=== PATIENT | female | born 1955 | race Caucasian/White ===

== ENCOUNTER → 2018-03-10 07:05 | Outpatient (CLI) | payer BC, SELFPAY ==
--- NOTE | 2018-03-10 07:11 | BI_ITS ---
MAMMOGRAPHY - BILATERAL SCREENING REASON FOR EXAM: Female, 62 years old. Routine annual screening examination. PERTINENT HISTORY: Non-contributory. TECHNIQUE: Digital bilateral breast dunia (3D mammographic acquisition) in the CC and MLO projections. 2-D mediolateral oblique (MLO) and craniocaudad (CC) views of both breasts were obtained. CAD: Full Field Digital Mammography with Computer Added Detection was performed. COMPARISON: Comparison is made with prior study dated February 16, 2017 and February 13, 2016. FINDINGS: Breast Composition: The breasts are heterogeneously dense, which may obscure small masses. There are no dominant masses or suspicious calcifications. No other significant abnormalities are identified. There has been no significant change since the prior study. BI/SCREENING MAMM (CAD), BILAT IMPRESSION: Stable bilateral screening mammogram. Yearly follow-up mammogram recommended. (A) ASSESSMENT CATEGORY: BIRADS Category 1: Negative. A letter regarding these results will be sent to the patient by the facility within 30 days. Approximately 10% of breast cancers are not detected by mammography. A normal mammogram should not delay biopsy of a clinically suspicious abnormality. [id number] Electronically Signed: Johny Iqbal MD at 9:02 EDT Tel [phone], Service support ,
== END ==
PROVIDERS: Family Provider Family Medicine Geriatric Medicine; PCP Family Medicine Geriatric Medicine; Visit Provider Obstetrics & Gynecology
DX: Z12.31 Encounter for screening mammogram for malignant neoplasm of breast (principal)
CPT/HCPCS: 77063; 77067

== ENCOUNTER → 2018-06-08 09:18 | Outpatient (CLI) | payer BC, SELFPAY ==
[2018-06-08 11:40] LABS: AST(SGOT) 16 U/L (15-37); Alanine Aminotransfer ALT/SGPT 25 U/L (13-56); Albumin, Serum 3.5 g/dL (3.2-5.0); Alkaline Phosphatase 62 U/L (45-117); Anion Gap 7 (5-15); BUN 18 mg/dL (7-18); BUN/Creat Ratio 20.9 RATIO (10-20); Calcium,Total 8.6 mg/dL (8.5-10.1); Chloride 103 mmol/L (98-107); Creatinine, Serum 0.86 mg/dL (0.55-1.02); EST Glomerular Filtration Rate 71 mL/min (>60); Est Glom Filt Rate - Afr Amer 86 mL/min (>60); Globulin 3.6 g/dL (2.2-4.2); Glucose 99 mg/dL (74-106); Protein, Total 7.1 g/dL (6.4-8.2); Sodium Level 138 mmol/L (136-145); Thyroid Stim Hormone (TSH) 1.11 uIU/mL (0.358-3.74)
[2018-06-08 11:50] LABS: Vitamin D,25 Hydroxy 47.2 ng/mL (29.95-100.01)
[2018-06-08 12:04] LABS: Absolute Lymphocyte Count 2.22 X10^3/ul (0.83-4.51); Basophil# 0.06 X10^3/uL; Basophil% 0.8 % (0-1); Eosinophil# 0.75 X10^3/uL; Eosinophils% 9.9 % (0-5); Hematocrit 41.3 % (37-47); Hemoglobin 13.6 g/dl (12.0-15.0); Lymphocyte # 2.22 X10^3/ul (4.0); Lymphocyte % 29.3 % (19-41); Mean Corp Hgb Conc 32.9 g/gl (32-36); Mean Corpuscular Hgb 29.9 pg (27.0-32.0); Mean Corpuscular Volume 90.8 fL (81-99); Mean Platelet Vol. 11.1 fl (6.2-12.0); Monocyte# 0.57 X10^3/uL; Monocyte% 7.5 % (0-10); Neutrophil # 3.97 X10^3/uL (2.7-7.7); Neutrophil % 52.4 % (47-70); Platelet Count 343 K/mm3 (150-450); RBC Distribution Width CV 14.1 % (11.6-14.6); Red Blood Count 4.55 M/mm3 (4.2-5.4); White Blood Count 7.6 K/mm3 (4.4-11.0)
[2018-06-08 12:06] LABS: POSITIVE COUNT NO; POSITIVE DIFFERENTIAL NO; POSITIVE MORPHOLOGY NO
== END ==
PROVIDERS: Family Provider Family Medicine Geriatric Medicine; PCP Family Medicine Geriatric Medicine; Visit Provider Family Medicine Geriatric Medicine
DX: I10 Essential (primary) hypertension (principal); E55.9 Vitamin D deficiency, unspecified
CPT/HCPCS: 36415; 80053; 82306; 84443; 85025

== ENCOUNTER → 2019-04-06 11:12 | Outpatient (CLI) | payer BC, SELFPAY ==
[2019-04-06 12:52] LABS: Absolute Lymphocyte Count 1.75 X10^3/uL (0.83-4.51); Absolute Neutrophil Count 4.7 X10^3/uL (2.0-7.7); Basophil# 0.08 X10^3/uL; Basophil% 1.1 % (0-1); Eosinophil# 0.54 X10^3/uL; Eosinophils% 7.1 % (0-5); Hematocrit 42.5 % (37-47); Hemoglobin 13.8 g/dL (12.0-15.0); Lymphocyte # 1.75 X10^3/ul (4.0); Mean Corp Hgb Conc 32.5 g/dL (32-36); Mean Corpuscular Hgb 29.3 pg (27.0-32.0); Mean Corpuscular Volume 90.2 fL (81-99); Mean Platelet Vol. 10.9 fl (6.2-12.0); Monocyte# 0.54 X10^3/uL; Monocyte% 7.1 % (0-10); NRBC Flagged by Analyzer 0 % (0-5); Neutrophil # 4.67 X10^3/uL (2.7-7.7); Neutrophil % 61.4 % (47-70); Platelet Count 351 K/mm3 (150-450); RBC Distribution Width SD 43.2 fl (35.1-43.9); Red Blood Count 4.71 M/mm3 (4.2-5.4); White Blood Count 7.6 K/mm3 (4.4-11.0)
[2019-04-06 13:37] LABS: ALB/GLOB Ratio 0.9 RATIO (0.9-2.4); AST(SGOT) 13 U/L (15-37); Alanine Aminotransfer ALT/SGPT 21 U/L (13-56); Albumin, Serum 3.6 g/dL (3.2-5.0); Alkaline Phosphatase 68 U/L (45-117); Anion Gap 7 (5-15); BUN 15 mg/dL (7-18); BUN/Creat Ratio 18.2 RATIO (10-20); Calcium,Total 9.2 mg/dL (8.5-10.1); Chloride 106 mmol/L (98-107); Creatinine, Serum 0.82 mg/dL (0.55-1.02); EST Glomerular Filtration Rate 75 mL/min (>60); Est Glom Filt Rate - Afr Amer 90 mL/min (>60); Glucose 76 mg/dL (74-106); Potassium 4.4 mmol/L (3.5-5.1); Protein, Total 7.6 g/dL (6.4-8.2); Sodium Level 137 mmol/L (136-145); Thyroid Stim Hormone (TSH) 0.62 uIU/mL (0.358-3.74)
== END ==
PROVIDERS: Family Provider Family Medicine Geriatric Medicine; PCP Family Medicine Geriatric Medicine; Visit Provider Family Medicine Geriatric Medicine
DX: R53.83 Other fatigue (principal)
CPT/HCPCS: 36415; 80053; 84443; 85025

== ENCOUNTER → 2019-04-11 08:12 | Outpatient (CLI) | payer BC, SELFPAY ==
--- NOTE | 2019-04-11 08:15 | BI_ITS ---
MAMMOGRAPHY - BILATERAL SCREENING 3-D TOMOSYNTHESIS REASON FOR EXAM: Female, 63 years old. Bilateral Screening 3-D tomosynthesis PERTINENT HISTORY: No significant family history. TECHNIQUE: 2-D mammograms and 3-D Tomosynthesis of the breast (s) were performed. CAD was performed. COMPARISON: 03/10/2018, 02/16/2017, 02/13/2016. FINDINGS: The breast composition is heterogeneously dense that can obscure small breast masses. Scattered benign calcifications are seen with mild increase since prior. No dense spiculated masses or suspicious microcalcifications are identified. No architectural distortion is identified. There is no skin thickening or retraction. There has been otherwise no other significant change since the prior study. BI/SCREEN MAMM (CAD) W/TANA BILAT IMPRESSION: No mammographic signs of malignancy. Routine yearly mammograms recommended. ASSESSMENT CATEGORY: BIRADS Category 2: Benign. A letter regarding these results will be sent to the patient by the facility within 30 days. FOLLOW UP RECOMMENDATION: Yearly follow up mammogram recommended. (A) Approximately 10% of breast cancers are not detected by mammography. A normal mammogram should not delay biopsy of a clinically suspicious abnormality. Electronically Signed: Guillermo Fontana MD at 16:20 EDT Tel [phone], Service support ,
== END ==
PROVIDERS: Family Provider Family Medicine Geriatric Medicine; PCP Family Medicine Geriatric Medicine; Referring Provider Obstetrics & Gynecology; Visit Provider Obstetrics & Gynecology
DX: Z12.31 Encounter for screening mammogram for malignant neoplasm of breast (principal)
CPT/HCPCS: 77063; 77067

== ENCOUNTER → 2019-04-26 14:18 | Outpatient (CLI) | payer BC, SELFPAY ==
--- NOTE | 2019-04-26 15:00 | RAD_ITS ---
STUDY: BONE LENGTH STUDIES SCANOGRAM. REASON FOR EXAM: Female, 63 years old. Limb length difference. TECHNIQUE: AP views of the lower extremities were obtained for measurement of leg length discrepancy. COMPARISON: None. FINDINGS: There is no evidence of leg length discrepancy. RAD/Bone Length IMPRESSION: No evidence of leg length discrepancy. Electronically Signed: Johny Iqbal, at 13:36 EDT , Service support ,
== END ==
PROVIDERS: Family Provider Family Medicine Geriatric Medicine; PCP Family Medicine Geriatric Medicine; Referring Provider Podiatrist; Visit Provider Podiatrist
DX: M21.70 Unequal limb length (acquired), unspecified site (principal)
CPT/HCPCS: 77073

== ENCOUNTER → 2019-06-15 10:10 | Outpatient (CLI) | payer BC, SELFPAY ==
[2019-06-15 12:52] LABS: Absolute Lymphocyte Count 1.38 X10^3/uL (0.83-4.51); Absolute Neutrophil Count 4.7 X10^3/uL (2.0-7.7); Basophil# 0.07 X10^3/uL; Eosinophil# 0.52 X10^3/uL; Eosinophils% 7.3 % (0-5); Hematocrit 38.7 % (37-47); Hemoglobin 12.5 g/dL (12.0-15.0); Lymphocyte # 1.38 X10^3/ul (4.0); Lymphocyte % 19.4 % (19-41); Mean Corp Hgb Conc 32.3 g/dL (32-36); Mean Corpuscular Hgb 29.1 pg (27.0-32.0); Mean Corpuscular Volume 90.2 fL (81-99); Mean Platelet Vol. 11.3 fl (6.2-12.0); Monocyte% 5.6 % (0-10); NRBC Flagged by Analyzer 0 % (0-5); Neutrophil # 4.74 X10^3/uL (2.7-7.7); Neutrophil % 66.4 % (47-70); Platelet Count 323 K/mm3 (150-450); RBC Distribution Width CV 13.4 % (11.6-14.6); RBC Distribution Width SD 44.1 fl (35.1-43.9); Red Blood Count 4.29 M/mm3 (4.2-5.4); White Blood Count 7.1 K/mm3 (4.4-11.0)
[2019-06-15 13:31] LABS: Vitamin D,25 Hydroxy 47.8 ng/mL (29.95-100.01)
[2019-06-15 13:38] LABS: AST(SGOT) 13 U/L (15-37); Alanine Aminotransfer ALT/SGPT 19 U/L (13-56); Albumin, Serum 3.4 g/dL (3.2-5.0); Alkaline Phosphatase 65 U/L (45-117); Anion Gap 9 (5-15); BUN 15 mg/dL (7-18); BUN/Creat Ratio 18.6 RATIO (10-20); Calcium,Total 8.6 mg/dL (8.5-10.1); Chloride 104 mmol/L (98-107); Creatinine, Serum 0.81 mg/dL (0.55-1.02); EST Glomerular Filtration Rate 76 mL/min (>60); Est Glom Filt Rate - Afr Amer 93 mL/min (>60); Globulin 3.4 g/dL (2.2-4.2); Glucose 129 mg/dL (74-106); Potassium 3.6 mmol/L (3.5-5.1); Protein, Total 6.8 g/dL (6.4-8.2); Sodium Level 138 mmol/L (136-145); Thyroid Stim Hormone (TSH) 0.89 uIU/mL (0.358-3.74)
== END ==
PROVIDERS: Family Provider Family Medicine Geriatric Medicine; PCP Family Medicine Geriatric Medicine; Visit Provider Family Medicine Geriatric Medicine
DX: I10 Essential (primary) hypertension (principal); E55.9 Vitamin D deficiency, unspecified
CPT/HCPCS: 36415; 80053; 82306; 84443; 85025

== ENCOUNTER 2019-06-19 18:27 | Observation (INO) | payer BC, SELFPAY ==
[2019-06-19 18:28] VITALS: BP 159/86; PULSE 81; RESP 27; TEMP 36.7; O2SAT 96; BMI 27.3
--- NOTE | 2019-06-19 18:48 | ED.DCSUM_ITS ---
History of Present Illness Chief Complaint: Nausea/Vomiting/Diarrhea Informant: Patient, Family Onset: Yesterday Narrative: Here with significant other evaluation of reported dizziness starting yesterday with symptoms of nearly passing out. There is no syncopal episodes. No chest pains or shortness of breath. Denies any room spinning or spinning herself. Reports symptoms worse with sitting or movement. Similar symptoms back in July improved with fluids. Denies any vomiting or diarrhea prior however today noted does not episodes of vomiting since 5 PM less than 2 hours ago. No hematemesis. One loose stool. No abdominal pain. No urinary symptoms. No recent illness or cough. No chest pains. Patient denies any allergies. Prior similar symptoms: Yes Past Medical History - Allergies and Home Meds Allergies/Adverse Reactions: Allergies No Known Allergies Allergy (Verified 06/19/19 18:30) Primary Care Physician: Lizandro White Chi, MD [Primary Care Provider] - Review of Systems General: Denies: Chills, Fever, Sweats Eyes: Denies: Visual changes - bilaterally, Diplopia ENT: Denies: Rhinorrhea, Sore throat Cardiovascular: Denies: Chest pain, Palpitations Respiratory: Denies: Dyspnea, Cough, Dyspnea on exertion Gastrointestinal: Reports: Nausea, Vomiting, Diarrhea. Denies: Abdominal pain, Melena, Hematochezia Genitourinary: Denies: Dysuria, Hematuria, Frequency Musculoskeletal: Denies: Back pain, Extremity Pain Skin: Denies: Rash, Wounds Neurological: Denies: Headache, Weakness, Numbness Physical Exam Vital Signs/Narrative: Vital Signs Temp Pulse Resp BP Pulse Ox 06/19/19 18:28 98.1 F 81 27 H 159/86 H 96 Inital Vital Signs reviewed: Yes General: Well nourished, Well developed, - - Sitting still with concerns of movement due to symptoms. Head: Normocephalic, Atraumatic Eyes: Perrl, EOMI, - - No nystagmus ENT: Moist mucous membranes, No rhinorrhea Neck: Supple, Nontender Cardiovascular: Regular rate, Regular rhythm, No murmurs Respiratory: No distress, CTA bilaterally, Chest nontender Abdomen: Soft, Nontender, Nondistended, Normal bowel sounds Back: Nontender, Normal Inspection Extremities: Nontender, No edema Skin: Normal color, No rash Neurological: Alert, Oriented x3, Cranial nerves II-XII grossly intact, Normal Strength, Normal Sensation Psychological: Normal affect, Normal Mood Diagnostic/Tx/Re-eval Abnormal Lab Results 06/19/19 06/19/19 06/19/19 18:44 18:44 18:44 WBC 12.7 H RBC 4.59 Hgb 13.4 Hct 39.6 MCV 86.3 MCH 29.2 MCHC 33.8 RDW Std Deviation 39.0 RDW Coeff of Jesus 12.3 Plt Count 362 MPV 10.4 Immature Gran % (Auto) 0.300 Neut % (Auto) 66.9 Lymph % (Auto) 20.5 [place] % (Auto) 7.8 Eos % (Auto) 4.0 Baso % (Auto) 0.5 Absolute Neuts (auto) 8.5 H Absolute Lymphs (auto) 2.61 Nucleated RBC % 0 Sodium 126 L Potassium 2.5 L* Chloride 88 L Carbon Dioxide 23.0 Anion Gap 15 BUN 11 Creatinine 0.82 Estim Creat Clear Calc 53.68 Est GFR (MDRD) Af Amer 91 Est GFR (MDRD) Non-Af 75 BUN/Creatinine Ratio 13.5 Glucose 145 H Calcium 9.6 Magnesium 1.3 L - EKG Initial EKG Interpretation: Sinus Rhythm - Sinus rate of 74, no ST changes, isolated T wave inversion in leads III. QTc 430. - Medical Decision Making Patient nontoxic appears uncomfortable with nausea symptoms. EKG nonspecific T wave inversion. She given fluids Phenergan clinically improving symptoms. However labs noted potassium 2.5 and sodium 126. I did add a magnesium was returned at 1.3. IV replacement of magnesium nausea was improved therefore oral potassium was given. These are new electrolyte findings from 4 days ago. She is on hydrochlorothiazide. However with significant electrolyte abnormalities do feel she would benefit from inpatient management. Discussed with Dr. Joe hospitalist for admission to telemetry. Family and patient updated. ED Disposition - Plan for ED Patient: Disposition: Acute Care [facility] Diagnosis: Hypokalemia, Hypomagnesemia, Hyponatremia Referrals: Lizandro White Chi, MD [Primary Care Provider] -
[2019-06-19] MEDS: 0.9% Normal Saline 1,000 ML 1000 ML IV (18:52)
[2019-06-19] MEDS: proMETHazine 25 MG/ML Syringe 12.5 MG IV (18:53)
[2019-06-19 19:02] LABS: Absolute Lymphocyte Count 2.61 X10^3/uL (0.83-4.51); Absolute Neutrophil Count 8.5 X10^3/uL (2.0-7.7); Basophil# 0.06 X10^3/uL; Basophil% 0.5 % (0-1); Eosinophil# 0.51 X10^3/uL; Hematocrit 39.6 % (37-47); Hemoglobin 13.4 g/dL (12.0-15.0); Lymphocyte # 2.61 X10^3/ul (4.0); Lymphocyte % 20.5 % (19-41); Mean Corp Hgb Conc 33.8 g/dL (32-36); Mean Corpuscular Hgb 29.2 pg (27.0-32.0); Mean Corpuscular Volume 86.3 fL (81-99); Mean Platelet Vol. 10.4 fl (6.2-12.0); Monocyte# 0.99 X10^3/uL; Monocyte% 7.8 % (0-10); NRBC Flagged by Analyzer 0 % (0-5); Neutrophil # 8.51 X10^3/uL (2.7-7.7); Neutrophil % 66.9 % (47-70); Platelet Count 362 K/mm3 (150-450); RBC Distribution Width CV 12.3 % (11.6-14.6); Red Blood Count 4.59 M/mm3 (4.2-5.4); White Blood Count 12.7 K/mm3 (4.4-11.0)
[2019-06-19 19:16] LABS: Anion Gap 15 (5-15); BUN 11 mg/dL (7-18); BUN/Creat Ratio 13.5 RATIO (10-20); Calcium,Total 9.6 mg/dL (8.5-10.1); Chloride 88 mmol/L (98-107); Creatinine, Serum 0.82 mg/dL (0.55-1.02); EST Glomerular Filtration Rate 75 mL/min (>60); Est Glom Filt Rate - Afr Amer 91 mL/min (>60); Estimated Creatinine Clearance 53.68 ml/min; Glucose 145 mg/dL (74-106); Potassium 2.5 mmol/L (3.5-5.1); Sodium Level 126 mmol/L (136-145)
--- NOTE | 2019-06-19 19:17 | EKG12_ITS ---
Test Reason : N/V Blood Pressure : / mmHG Vent. Rate : 074 BPM Atrial Rate : 074 BPM P-R Int : 166 ms QRS Dur : 090 ms QT Int : 388 ms P-R-T Axes : 056 029 024 degrees QTc Int : 430 ms Normal sinus rhythm Normal ECG Confirmed by GABRIELLE STEVENS ([id number]), social media editor MINAL WIKLS ([id number]) on 06/26/2019 9:02:51 AM Referred By: Shayla Joe Confirmed By:GABRIELLE STEVENS
--- NOTE | 2019-06-19 19:35 | ED.RN ---
NO OLD EKG
[2019-06-19 19:49] LABS: Magnesium 1.3 mg/dL (1.6-2.6)
[2019-06-19 19:59] VITALS: PULSE 65; RESP 16; TEMP 36.7
--- NOTE | 2019-06-19 20:22 | HP.PCM_ITS ---
Problem List (1) Gastroenteritis Status: Acute (2) Hypokalemia Status: Acute (3) Hypomagnesemia Status: Acute (4) Hyponatremia Status: Acute (5) GERD (gastroesophageal reflux disease) Status: Chronic Qualifiers: Esophagitis presence: esophagitis presence not specified Qualified Code(s): K21.9 - Gastro-esophageal reflux disease without esophagitis (6) HTN (hypertension) Status: Chronic Qualifiers: Hypertension type: essential hypertension Qualified Code(s): I10 - Essential (primary) hypertension History of Present Illness Date of Admission: 06/19/19 Chief Complaint: N/V/D The patient is a 63 y/o F w/ PMHx: HTN, GERD who presents to the [facility] ED on 06/19/19 with history of onset over 24 hours of persistent nausea, intermittent emesis, diarrhea (1-3 episodes daily) with lightheadedness, dizziness with no related abdominal pain nor recent antibiotic therapy with similar symptoms in July 2018 as well as over the Summer 2018 she notes with no marked work-up at that time with eventual resolution. She notes no recent abnormal food and not ill. No fevers or chills associated. Work-up in the ED included T 98.1, heart rate 81, BP 159/86, respiratory rate initially 27 with improvement to 16, 96% on room air, CBC with W BC 12.7, hemoglobin 13.4, platelet 362 with left shift, BMP with sodium 126, potassium 2.5, chloride 88, BUN/creatinine 11/0.82, glucose 145, magnesium 1.3, EKG with no acute evidence of ischemia. In the ED patient ministered 2 g magnesium sulfate, potassium 40 mg p.o. x1, normal saline, Phenergan x1. Past Medical History Past Medical History (Chronic Problems): Chronic Problems HTN (hypertension) (Chronic) GERD (gastroesophageal reflux disease) (Chronic) Allergies No Known Allergies Allergy (Verified 06/19/19 18:30) Home Medications: Ambulatory Orders Medication Instructions Recorded Estradiol [Estrace (G)] 1 tab PO DAILY 06/19/19 Famotidine 40 mg PO DAILY 06/19/19 Lisinopril/Hydrochlorothiazide 10 mg PO DAILY 06/19/19 [Lisinopril-Hctz 10-12.5 mg Tab] Oxybutynin Chloride [Ditropan Xl] 10 mg PO DAILY 06/19/19 Zolpidem Tartrate [Zolpidem 6.25 mg PO DAILY 06/19/19 Tartrate ER] Surgical History: - - Hysterectomy, cholecystectomy, left lower extremity surgery with hardware status post trauma. 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 Tobacco Use: Non-smoker Alcohol: None Drugs: None - *Family History Maternal History Items: Heart Disease, Stroke Paternal History Items: Heart Disease Review of Systems Constitutional: Reports: Anorexia, Malaise, Weakness, Fatigue. Denies: Chills, Fever, Weight Change HEENT: Denies: Head Aches, Sinus Congestion, Sinus Drainage Cardiovascular: Reports: Light Headedness. Denies: Chest Pain, Palpitations Respiratory: Denies: Cough, Shortness of breath at rest, Sputum production Gastrointestinal: Reports: Diarrhea, Nausea, Vomiting. Denies: Abdominal Pain Genitourinary: Denies: Dysuria Musculoskeletal: Denies: Joint Pain, Joint Tenderness Skin: Denies: Rash, Wounds Neurological: Denies: Numbness, Tingling, Focal weakness Psychiatric: Denies: Anxiety, Depression, Homicidal Ideations, Suicidal Ideations Hematologic/ Lymphatic: Denies: Easy Bruising, Easy Bleeding VTE Information - Inpt Only VTE Present on Admission: No VTE Mechan Device Prophylaxis: SCD's VTE Pharm Prophylaxis ordered?: Yes Patient Problems: Active and Suspected Problems Hypokalemia (Acute) Hypomagnesemia (Acute) Hyponatremia (Acute) Gastroenteritis (Acute) Subjective: Seated upright in ED bed, fatigued appearance, no acute distress. Objective: Physical Examination: General: awake, alert, oriented x 3 and cooperative, seated upright in the ED bed, no acute distress although still holding emesis bag. Skin: normal color, turgor, no icterus, cyanosis. HEENT: AT/NC, EOMI, PERRLA, dry MM, no carotid bruits or JVD noted. Lungs: CTA bilaterally, moderate effort, moderate decrease BL bases, no rales, ronchi or wheezing. Heart: Regular rate and rhythm; no gallop, rub audible. Abdomen: soft, NTTP, ND, mildly hyperactive BS, no HSM. Extremities: no cyanosis, clubbing, or edema. Neurological: patient awake, alert, oriented x 3; cognitive function intact; pupils equally reactive to light and accomodation; cranial nerves II-XII grossly normal, moving all 4 extremities, no focal deficits, strength mildly to moderately global decrease secondary to acute presentation. Psychiatric: affect appears fatigued, no acute evidence of depressive or anxiety feelings. - Physical Exam Vitals/I&O's: Vital Signs Temp Pulse Resp BP Pulse Ox 98.1 F 65 16 159/86 H 96 06/19/19 19:59 06/19/19 19:59 06/19/19 19:59 06/19/19 18:28 06/19/19 18:28 Oxygen Delivery Method Room Air Weight: 145 lb Body Mass Index (BMI) 27.3 Laboratory Results 06/19/19 18:44: WBC 12.7 H, RBC 4.59, Hgb 13.4, Hct 39.6, MCV 86.3, MCH 29.2, MCHC 33.8, RDW Std Deviation 39.0, RDW Coeff of Jesus 12.3, Plt Count 362, MPV 10.4, Immature Gran % (Auto) 0.300, Neut % (Auto) 66.9, Lymph % (Auto) 20.5, [place] % (Auto) 7.8, Eos % (Auto) 4.0, Baso % (Auto) 0.5, Absolute Neuts (auto) 8.5 H, Absolute Lymphs (auto) 2.61, Nucleated RBC % 0 06/19/19 18:44: Sodium 126 L, Potassium 2.5 L*, Chloride 88 L, Carbon Dioxide 23.0, Anion Gap 15, BUN 11, Creatinine 0.82, Estim Creat Clear Calc 53.68, Est GFR (MDRD) Af Amer 91, Est GFR (MDRD) Non-Af 75, BUN/Creatinine Ratio 13.5, Glucose 145 H, Calcium 9.6 06/19/19 18:44: Magnesium 1.3 L Current Medications Magnesium Sulfate 2 gm/ Sodium (Chloride) 104 mls @ 52 mls/hr IV X1 ONE Stop: 06/19/19 22:06 Assessment/Plan All Active Problems Hypokalemia (Acute) Hypomagnesemia (Acute) Hyponatremia (Acute) Gastroenteritis (Acute) The patient is a 63 y/o F w/ PMHx: HTN, GERD who presents to the [facility] ED on 06/19/19 with history of onset over 24 hours of persistent nausea, intermittent emesis, diarrhea with lightheadedness, dizziness with no related abdominal pain. (1) N/V/D, ? Viral Gastroenteritis: Unclear specific etiology, will admit to MS telemetry, will continue aggressive hydration, will obtain c diff, stool cx, O+P with repeat AM CBC. Will not start antibiotics at this time given unclear source pending stool studies as may be viral gastroenteritis. Anti-emetics, pain regimen PRN. (2) Hypokalemia: Admission K+ 2.5, supplementation given in the ED orally however given presentation we will also administer IV supplementation, repeat level this evening as well as repeat level in AM. (3) Hypomagnesium: Admission magnesium 1.3, 2 g supplementation administered per ED, will repeat level in a.m. but likely may need additional. (4) Hyponatremia, hypovolemic: Admission sodium 126, hypovolemic given acute presentation with GI losses, continue aggressive hydration, repeat level in AM. (5) Hyperglycemia: Admission glucose 145, possibly secondary to stress response, repeat BMP in a.m. and if further elevated obtain A1c level. (6) Hypertension: Given acute presentation as noted above we will hold diuretic, PRN IV hydralazine in interim. (7) GERD: Famotidine. (8) DVT Prophylaxis: SCDs, lovenox. Code Visit OBSV E&M: 80215 Initial observation care L3
[2019-06-19] MEDS: 0.9% Normal Saline 1,000 ML 150 ML IV (21:41)
[2019-06-19 21:50] VITALS: BP 135/85; PULSE 65; RESP 18; TEMP 36.6; O2SAT 96
[2019-06-19 22:14] VITALS: BMI 28.3
[2019-06-19 22:26] VITALS: BMI 28.3
[2019-06-19] MEDS: Famotidine 20 MG Tablet 40 MG PO (22:42)
[2019-06-19] MEDS: Potassium Chloride 10mEq/100mL 10 MEQ/100 ML IV.SOLN. 100 MEQ IV BOLUS ×2 (22:43→23:59)
[2019-06-19 23:30] VITALS: PULSE 56
[2019-06-20] VITALS (8 sets, daily range): BP systolic 120–146; BP diastolic 63–97; PULSE 58–84; RESP 18; TEMP 36.6–36.9; O2SAT 95–99
[2019-06-20] MEDS: Potassium Chloride 10mEq/100mL 10 MEQ/100 ML IV.SOLN. 100 MEQ IV BOLUS ×2 (01:11→02:23)
[2019-06-20] MEDS: 0.9% Normal Saline 1,000 ML 150 ML IV ×2 (03:57→10:57)
[2019-06-20 05:54] LABS: Absolute Lymphocyte Count 1.83 X10^3/uL (0.83-4.51); Absolute Neutrophil Count 5.7 X10^3/uL (2.0-7.7); Basophil# 0.05 X10^3/uL; Basophil% 0.6 % (0-1); Eosinophil# 0.31 X10^3/uL; Eosinophils% 3.6 % (0-5); Hematocrit 37.6 % (37-47); Hemoglobin 12.5 g/dL (12.0-15.0); Lymphocyte # 1.83 X10^3/ul (4.0); Mean Corp Hgb Conc 33.2 g/dL (32-36); Mean Corpuscular Hgb 29.1 pg (27.0-32.0); Mean Corpuscular Volume 87.6 fL (81-99); Mean Platelet Vol. 10.6 fl (6.2-12.0); Monocyte# 0.74 X10^3/uL; Monocyte% 8.5 % (0-10); NRBC Flagged by Analyzer 0 % (0-5); Neutrophil # 5.73 X10^3/uL (2.7-7.7); Neutrophil % 65.8 % (47-70); Platelet Count 301 K/mm3 (150-450); RBC Distribution Width CV 12.5 % (11.6-14.6); RBC Distribution Width SD 39.9 fl (35.1-43.9); Red Blood Count 4.29 M/mm3 (4.2-5.4); White Blood Count 8.7 K/mm3 (4.4-11.0)
[2019-06-20 06:19] LABS: Anion Gap 5 (5-15); BUN 8 mg/dL (7-18); BUN/Creat Ratio 13.1 RATIO (10-20); Calcium,Total 8.2 mg/dL (8.5-10.1); Chloride 106 mmol/L (98-107); Creatinine, Serum 0.61 mg/dL (0.55-1.02); EST Glomerular Filtration Rate 105 mL/min (>60); Est Glom Filt Rate - Afr Amer 127 mL/min (>60); Estimated Creatinine Clearance 72.16 ml/min; Glucose 94 mg/dL (74-106); Magnesium 2.3 mg/dL (1.6-2.6); Potassium 4.3 mmol/L (3.5-5.1); Sodium Level 137 mmol/L (136-145)
[2019-06-20] MEDS: Tolterodine Tartrate 2 MG CAP.SA PO (08:00)
[2019-06-20] MEDS: Famotidine 20 MG Tablet 40 MG PO (08:00)
--- NOTE | 2019-06-20 15:14 | CHAPLAIN ---
Type of Pastoral Visit _x__ Initial Visit ___ Follow-up Visit ___ On-call Visit ___ General Patient Visit ___ Spiritual Assessment ___ Family Conference ___ Bereavement ___ Rapid Response ___ Code Blue ___ Other (describe below) Pastoral Care Referral From _x__ Patient ___ Family ___ Nurse ___ Physician ___ Floor Molder ___ Computer Animator ___ Other (describe below) Sacrament/Intervention _x__ Active listening ___ Anointing ___ Uatsdin ___ Bereavement ___ Communion _x__ Lala exploration ___ ___ Life review _x__ Prayer ___ Reconciliation ___ Sacrament of Sick _x__ Supportive presence ___ Wedding ___ Other (describe below) Pastoral Comments
--- NOTE | 2019-06-20 15:36 | PCM.DC ---
- Discharge Diagnoses Current Active Problems: Current Active and Chronic Problems Hypokalemia (Acute) Hypomagnesemia (Acute) Hyponatremia (Acute) Gastroenteritis (Acute) HTN (hypertension) (Chronic) GERD (gastroesophageal reflux disease) (Chronic) You will use the following diet at home:: No restrictions Your food should be the consistency of: Regular Your liquids should be the consistency of: Regular/Thin Discharge Activity: Return to Normal Activity Weight Bearing Status: Full weight bearing Allergies/Adverse Reactions: Allergies No Known Allergies Allergy (Verified 06/19/19 18:30) Medications to take at Discharge Estradiol [Estrace (G)] 1 tab PO DAILY 06/19/19 Famotidine 40 mg PO DAILY 06/19/19 Oxybutynin Chloride [Ditropan Xl] 10 mg PO DAILY 06/19/19 Zolpidem Tartrate [Zolpidem Tartrate ER] 6.25 mg PO DAILY 06/19/19 Lisinopril 20 mg PO DAILY #30 tab 06/20/19 Pantoprazole Sodium [Protonix] 40 mg PO DAILY #30 tab 06/20/19 The following prescriptions were given: Lisinopril 20 mg PO DAILY #30 tab Transmission Status: Pending to [facility]/pharmacy #[id number] Pantoprazole Sodium [Protonix] 40 mg PO DAILY #30 tab Transmission Status: Pending to [facility]/pharmacy #[id number] Primary Care Physician: Lizandro White Chi, MD [Primary Care Provider] - Please follow up with your Primary Care Physician in: within one week-get your chemistry rechecked Test Results: Test results from this visit will be discussed in further detail at your follow-up appointment, if applicable.
--- NOTE | 2019-06-20 18:08 | DS.PCM_ITS ---
Discharge Date and Diagnosis Date of Admission: 06/19/19 Date of Discharge: 06/20/19 - Primary Discharge Diagnosis #1 hypokalemia-secondary to gastroenteritis with use of diuretic #2 hypomagnesemia-secondary to gastroenteritis with the use of diuretic #3 hyponatremia secondary to viral gastroenteritis #4 viral gastroenteritis #5 essential hypertension - Secondary Discharge Diagnosis Chronic Problems HTN (hypertension) (Chronic) GERD (gastroesophageal reflux disease) (Chronic) Hospital Course and Treatment Operations: None Procedures: None Summary of Care Provided: The patient is a 63 year old F who was seen in the emergency room at [facility] with a chief complaint of lightheadedness nausea, intermittent emesis, and an episode of diarrhea. Work-up in the emergency room included labs which showed the patient to have low magnesium, low sodium, and low potassium. Patient was placed in observation status on MedSurg 3, given IV fluids and antiemetics as needed, replacement potassium and magnesium was administered, stool was obtained for enteric pathogens and was negative, patient stool was negative for C. difficile toxin, and at the time of this dictation, patient's ova and parasite on her stool had not resulted. On 06/20/2019, patient was seen and examined, she felt improved. On examination she appeared in good health and spirits. Vital signs as documented. Skin warm and dry and without overt rashes. Neck without JVD. Lungs clear. Heart exam notable for regular rhythm, normal sounds and absence of murmurs, rubs or gallops. Abdomen unremarkable and without evidence of organomegaly, masses, or abdominal aortic enlargement. Extremities nonedematous. Neuro: Cranial nerves II through XII are grossly intact, no focal motor deficits were noted, sensation to light touch and pinprick is intact. Psych: Patient is alert and oriented x3, she does not appear anxious or depressed I decided to take the patient off of diuretics, I did not feel the patient needed to be discharged on any antibiotics. Patient was discharged on 06/20/2019 in stable condition. - Physical Exam Vitals/I&O's: Vital Signs Temp Pulse Resp BP Pulse Ox 98.2 F 83 18 145/94 H 98 06/20/19 14:01 06/20/19 14:01 06/20/19 14:01 06/20/19 14:01 06/20/19 14:01 Oxygen Delivery Method Room Air Weight: 68 kg Body Mass Index (BMI) 28.3 Intake and Output for Last 24 Hours 06/18/19 06/19/19 06/20/19 23:59 23:59 23:59 Intake Total 1204 / 1204 3317.5 / 3317.5 Output Total 1850 / 1850 Balance 1204 / 1204 1467.5 / 1467.5 Microbiology Past 72 Hours 06/19/19 08:44 Stool Enteric Bacteriology - Final 06/19/19 08:44 Stool C. difficile DNA Amplification - Final Laboratory Results 06/19/19 18:44: WBC 12.7 H, RBC 4.59, Hgb 13.4, Hct 39.6, MCV 86.3, MCH 29.2, MCHC 33.8, RDW Std Deviation 39.0, RDW Coeff of Jesus 12.3, Plt Count 362, MPV 10.4, Immature Gran % (Auto) 0.300, Neut % (Auto) 66.9, Lymph % (Auto) 20.5, [place] % (Auto) 7.8, Eos % (Auto) 4.0, Baso % (Auto) 0.5, Absolute Neuts (auto) 8.5 H, Absolute Lymphs (auto) 2.61, Nucleated RBC % 0 06/19/19 18:44: Sodium 126 L, Potassium 2.5 L*, Chloride 88 L, Carbon Dioxide 23.0, Anion Gap 15, BUN 11, Creatinine 0.82, Estim Creat Clear Calc 53.68, Est GFR (MDRD) Af Amer 91, Est GFR (MDRD) Non-Af 75, BUN/Creatinine Ratio 13.5, Glucose 145 H, Calcium 9.6 06/19/19 18:44: Magnesium 1.3 L 06/20/19 05:30: WBC 8.7, RBC 4.29, Hgb 12.5, Hct 37.6, MCV 87.6, MCH 29.1, MCHC 33.2, RDW Std Deviation 39.9, RDW Coeff of Jesus 12.5, Plt Count 301, MPV 10.6, Immature Gran % (Auto) 0.500, Neut % (Auto) 65.8, Lymph % (Auto) 21.0, [place] % (Auto) 8.5, Eos % (Auto) 3.6, Baso % (Auto) 0.6, Absolute Neuts (auto) 5.7, Absolute Lymphs (auto) 1.83, Nucleated RBC % 0 06/20/19 05:30: Sodium 137, Potassium 4.3, Chloride 106, Carbon Dioxide 26.0, Anion Gap 5, BUN 8, Creatinine 0.61, Estim Creat Clear Calc 72.16, Est GFR (MDRD) Af Amer 127, Est GFR (MDRD) Non-Af 105, BUN/Creatinine Ratio 13.1, Glucose 94, Calcium 8.2 L, Magnesium 2.3 06/20/19 08:44: Stl Giardia Antigen Cancelled Discharge Activity: Return to Normal Activity Weight Bearing Status: Full weight bearing Home Medications: Medications to take at Discharge Estradiol [Estrace (G)] 1 tab PO DAILY 06/19/19 Famotidine 40 mg PO DAILY 06/19/19 Oxybutynin Chloride [Ditropan Xl] 10 mg PO DAILY 06/19/19 Zolpidem Tartrate [Zolpidem Tartrate ER] 6.25 mg PO DAILY 06/19/19 Lisinopril 20 mg PO DAILY #30 tab 06/20/19 Pantoprazole Sodium [Protonix] 40 mg PO DAILY #30 tab 06/20/19 Following Prescrptions Were Given to Patient: Lisinopril 20 mg PO DAILY #30 tab Transmission Status: Received by [facility]/pharmacy #[id number] Pantoprazole Sodium [Protonix] 40 mg PO DAILY #30 tab Transmission Status: Received by [facility]/pharmacy #[id number] Primary Care Physician: Lizandro White Chi, MD [Primary Care Provider] - Please follow up with your Primary Care Physician in: within one week-get your chemistry rechecked Disposition: Home Minutes spent on discharge:: 30 Patient Condition:: Stable Medical Necessity - Tobacco Use Smoking Status: Former smoker - Patient notes smoking cigarette tobacco use from 79- 81, 6 cigarettes/day. Tobacco Use: Non-smoker Meaningful Use Info Meaningful Use Diagnoses (Choose all that apply): None applicable Code Visit OBSV E&M: 81842 Observation care discharge
== END 2019-06-20 16:09 | disposition home or self-care (01) ==
LOC: ED 20:49 → MS3 20:59
PROVIDERS: Admitting Provider Family Medicine; Emergency Provider Emergency Medicine; Family Provider Family Medicine Geriatric Medicine; PCP Family Medicine Geriatric Medicine; Referring Provider Family Medicine; Visit Provider Internal Medicine
DX: A08.4 Viral intestinal infection, unspecified (principal); E87.6 Hypokalemia; E87.1 Hypo-osmolality and hyponatremia; E83.42 Hypomagnesemia; I10 Essential (primary) hypertension; K21.9 Gastro-esophageal reflux disease without esophagitis; Z79.899 Other long term (current) drug therapy; Z87.891 Personal history of nicotine dependence; R73.9 Hyperglycemia, unspecified
CPT/HCPCS: 36415; 80048; 83735; 85025; 87177; 87209; 87329; 87493; 87506; 93005; 96361; 96374; 99218; 99285; J7030; A4216; G0378

== ENCOUNTER → 2019-06-29 16:45 | Outpatient (CLI) | payer BC, SELFPAY ==
[2019-06-19 22:14] VITALS: BMI 28.3
[2019-06-29 18:13] LABS: Anion Gap 7 (5-15); BUN 15 mg/dL (7-18); Calcium,Total 8.8 mg/dL (8.5-10.1); Chloride 105 mmol/L (98-107); Creatinine, Serum 0.65 mg/dL (0.55-1.02); EST Glomerular Filtration Rate 98 mL/min (>60); Est Glom Filt Rate - Afr Amer 118 mL/min (>60); Glucose 87 mg/dL (74-106); Magnesium 2.2 mg/dL (1.6-2.6); Potassium 3.9 mmol/L (3.5-5.1); Sodium Level 139 mmol/L (136-145)
== END ==
PROVIDERS: Family Provider Family Medicine Geriatric Medicine; PCP Family Medicine Geriatric Medicine; Visit Provider Family Medicine Geriatric Medicine
DX: E83.49 Other disorders of magnesium metabolism (principal); E87.6 Hypokalemia
CPT/HCPCS: 36415; 80048; 83735

== ENCOUNTER → 2020-04-18 13:20 | Outpatient (CLI) | payer OTHER, SELFPAY ==
--- NOTE | 2020-04-18 13:25 | BI_ITS ---
MAMMOGRAPHY - BILATERAL SCREENING REASON FOR EXAM: Female, 64 years old. Routine annual screening examination. PERTINENT HISTORY: Non-contributory. TECHNIQUE: Digital bilateral breast tana (3D mammographic acquisition) in the CC and MLO projections. 2-D mediolateral oblique (MLO) and craniocaudad (CC) views of both breasts were obtained. CAD: Full Field Digital Mammography with Computer Added Detection was performed. COMPARISON: Comparison is made with prior examination dated 04/11/2019. FINDINGS: Breast Composition: The breasts are heterogeneously dense, which may obscure small masses. There are no dominant masses or suspicious calcifications. No other significant abnormalities are identified. There has been no significant change since the prior study. BI/SCREEN MAMM (CAD) W/TANA BILAT IMPRESSION: Stable bilateral screening mammogram. Yearly follow-up mammogram recommended. (A) ASSESSMENT CATEGORY: BIRADS Category 1: Negative. A letter regarding these results will be sent to the patient by the facility within 30 days. Approximately 10% of breast cancers are not detected by mammography. A normal mammogram should not delay biopsy of a clinically suspicious abnormality. [id number] Electronically Signed: Johny Iqbal, at 14:15 EDT , Service support ,
== END ==
PROVIDERS: PCP Family Medicine Geriatric Medicine; Referring Provider Obstetrics & Gynecology; Visit Provider Obstetrics & Gynecology
DX: Z12.31 Encounter for screening mammogram for malignant neoplasm of breast (principal)
CPT/HCPCS: 77063; 77067

== ENCOUNTER → 2020-06-19 15:14 | Outpatient (CLI) | payer OTHER, SELFPAY ==
[2020-06-19 18:16] LABS: Vitamin D,25 Hydroxy 50.5 ng/mL
[2020-06-19 18:35] LABS: Anion Gap 6 (5-15); BUN 13 mg/dL (7-18); BUN/Creat Ratio 14.5 RATIO (10-20); Calcium,Total 8.8 mg/dL (8.5-10.1); Chloride 106 mmol/L (98-107); Cholesterol 199 mg/dL (200); EST Glomerular Filtration Rate 67 mL/min (>60); Est Glom Filt Rate - Afr Amer 82 mL/min (>60); Glucose 96 mg/dL (74-106); High Density Lipoprotein 66 mg/dL; Potassium 4.1 mmol/L (3.5-5.1); Sodium Level 138 mmol/L (136-145); Thyroid Stim Hormone (TSH) 0.75 uIU/mL (0.358-3.74); Triglycerides 140 mg/dL; Very Low Density Lipoprotein 28 mg/dL (5-40)
== END ==
PROVIDERS: PCP Family Medicine; Referring Provider Family Medicine; Visit Provider Family Medicine
DX: I10 Essential (primary) hypertension (principal); R53.83 Other fatigue; M81.0 Age-related osteoporosis without current pathological fracture
CPT/HCPCS: 36415; 80048; 80061; 82306; 84443

== ENCOUNTER → 2020-10-23 14:53 | Outpatient (CLI) | payer OTHER, SELFPAY ==
[2020-10-23 18:20] LABS: Anion Gap 7 (5-15); BUN 14 mg/dL (7-18); BUN/Creat Ratio 16.7 RATIO (10-20); Calcium,Total 9.4 mg/dL (8.5-10.1); Chloride 105 mmol/L (98-107); Creatinine, Serum 0.84 mg/dL (0.55-1.02); EST Glomerular Filtration Rate 73 mL/min (>60); Est Glom Filt Rate - Afr Amer 88 mL/min (>60); Glucose 87 mg/dL (74-106); Potassium 4.4 mmol/L (3.5-5.1); Sodium Level 138 mmol/L (136-145)
== END ==
PROVIDERS: PCP Family Medicine; Referring Provider Family Medicine; Visit Provider Family Medicine
DX: I10 Essential (primary) hypertension (principal)
CPT/HCPCS: 36415; 80048

== ENCOUNTER → 2021-03-03 11:20 | Outpatient (CLI) | payer OTHER, SELFPAY ==
[2021-03-03 13:16] LABS: Anion Gap 5 (5-15); BUN 16 mg/dL (7-18); BUN/Creat Ratio 17.5 RATIO (10-20); Calcium,Total 9.1 mg/dL (8.5-10.1); Chloride 107 mmol/L (98-107); Creatinine, Serum 0.92 mg/dL (0.55-1.02); EST Glomerular Filtration Rate 66 mL/min (>60); Est Glom Filt Rate - Afr Amer 79 mL/min (>60); Glucose 79 mg/dL (74-106); Potassium 3.9 mmol/L (3.5-5.1); Sodium Level 139 mmol/L (136-145)
== END ==
PROVIDERS: PCP Family Medicine; Referring Provider Family Medicine; Visit Provider Family Medicine
DX: I10 Essential (primary) hypertension (principal)
CPT/HCPCS: 36415; 80048

== ENCOUNTER → 2021-04-22 10:12 | Outpatient (CLI) | payer OTHER, SELFPAY ==
--- NOTE | 2021-04-22 10:16 | BI_ITS ---
MAMMOGRAPHY - BILATERAL SCREENING 3-D TOMOSYNTHESIS REASON FOR EXAM: Female, 65 years old. SCREENING - PERTINENT HISTORY: No significant family history. TECHNIQUE: 2-D mammograms and 3-D Tomosynthesis of the breast (s) were performed. CAD was performed. COMPARISON: 04/18/2020 FINDINGS: The breast composition is heterogeneously dense that can obscure small breast masses. Scattered benign calcifications are seen. No dense spiculated masses or suspicious microcalcifications are identified. No architectural distortion is identified. There is no skin thickening or retraction. There has been no significant change since the prior study. BI/SCRN MAMM (CAD)W/TANA BILAT IMPRESSION: No mammographic signs of malignancy. Routine yearly mammograms recommended. ASSESSMENT CATEGORY: BIRADS Category 1: Negative. A letter regarding these results will be sent to the patient by the facility within 30 days. FOLLOW UP RECOMMENDATION: Yearly follow up mammogram recommended. (A) Approximately 10% of breast cancers are not detected by mammography. A normal mammogram should not delay biopsy of a clinically suspicious abnormality. Electronically Signed: Junaid Pham MD at 16:21 EDT Tel , Service support ,
== END ==
PROVIDERS: PCP Family Medicine; Referring Provider Obstetrics & Gynecology; Visit Provider Obstetrics & Gynecology
DX: Z12.31 Encounter for screening mammogram for malignant neoplasm of breast (principal)
CPT/HCPCS: 77063; 77067

== ENCOUNTER → 2021-07-03 15:42 | Outpatient (CLI) | payer OTHER, SELFPAY ==
[2021-07-03 17:58] LABS: Anion Gap 5 (5-15); BUN 16 mg/dL (7-18); BUN/Creat Ratio 19.3 RATIO (10-20); Calcium,Total 9.3 mg/dL (8.5-10.1); Chloride 103 mmol/L (98-107); Cholesterol 217 mg/dL (200); Creatinine, Serum 0.83 mg/dL (0.55-1.02); EST Glomerular Filtration Rate 74 mL/min (>60); Est Glom Filt Rate - Afr Amer 89 mL/min (>60); Glucose 97 mg/dL (74-106); High Density Lipoprotein 72 mg/dL; Potassium 4.2 mmol/L (3.5-5.1); Sodium Level 138 mmol/L (136-145); Triglycerides 95 mg/dL; Very Low Density Lipoprotein 19 mg/dL (5-40)
== END ==
PROVIDERS: PCP Family Medicine; Referring Provider Family Medicine; Visit Provider Family Medicine
DX: Z00.00 Encounter for general adult medical examination without abnormal findings (principal)
CPT/HCPCS: 36415; 80048; 80061

== ENCOUNTER 2021-10-16 15:34 | Outpatient (CLI) | payer MEDICARE, OTHER, SELFPAY ==
--- NOTE | 2021-10-16 15:38 | BD_ITS ---
STUDY: DUAL ENERGY X-RAY ABSORPTIOMETRY / DXA REASON FOR EXAM: Female, 66 years old. 733.00OsteoporosisBONE DENSITY REASON FOR EXAM TECHNIQUE: Bone Mineral Density (BMD) measurements of lumbar spine and bilateral hips were obtained. COMPARISON: Comparison is made with prior examination of 12/31/2009. FINDINGS: Lumbar Spine (L1-L4): g/cm2 (0.970) / T-score (-0.7) / Z-score (1.1) Findings are suggestive of normal bone density with a low fracture risk. Left Femur Total: g/cm2 (0.850) / T-score (-0.8) / Z-score (0.5) Left Femoral Neck: g/cm2 (0.772) / T-score (-0.7) / Z-score (0.8) Right Femur Total: g/cm2 (0.880) / T-score (-0.5) / Z-score (0.7) Right Femoral Neck: g/cm2 (0.713) / T-score (-1.2) / Z-score (0.3) The T-Scores on the most recent prior examination were: Lumbar Spine (L1-L4): There has been improvement of bone density since the previous examination. Left Femur Total: which represents an improvement of 4.4%. Right Femur Total: which represents an improvement of 3.2%. BD/Dexa Bone Density Study IMPRESSION: The patient is considered osteopenic as outlined below according to World [employer] Organization (WHO) criteria with a low fracture risk. There has been improvement of bone density since the previous examination. Reference Information: The T-score is the number of standard deviations above or below the standard which is normal for young adults at their peak bone mineral density. The World Health Organization (WHO) interprets the T-scores as follows: Above -1 Normal bone density Between -1 and -2.5 Osteopenia Equal to / or below -2.5 Osteoporosis As a practical clinical guideline, osteopenia may be graded as follows: Mild -1 through -1.5 Moderate -1.6 through -2.0 Severe -2.1 through -2.4 The Z-score is the number of standard deviations above or below age-matched controls. A Z-score of less than -1.5 would be considered abnormal. References: 1. NIH Osteoporosis and Related Bone Diseases www osteo.org 2. International Society for Clinical Densitometry www iscd.org 3. National Osteoporosis Foundation www nof.org Electronically Signed: Johny Iqbal MD at 8:46 EST ,
== END 2021-10-16 23:59 | disposition home or self-care (01) ==
LOC: OPBD 15:34
PROVIDERS: PCP Family Medicine; Visit Provider Family Medicine
DX: M81.0 Age-related osteoporosis without current pathological fracture (principal)
CPT/HCPCS: 77080

== ENCOUNTER → 2022-04-24 | Outpatient (CLI) | payer MEDICARE, OTHER, SELFPAY ==
--- NOTE | 2022-04-24 14:43 | BI_ITS ---
MAMMOGRAPHY - BILATERAL SCREENING REASON FOR EXAM: Female, 66 years old. Routine annual screening examination. PERTINENT HISTORY: NO FAM HX - RT ASPIRATION IN THE PAST - CURRENT ESTRADIOL SINCE 2009 TECHNIQUE: Digital bilateral breast dunia (3D mammographic acquisition) in the CC and MLO projections. 2-D mediolateral oblique (MLO) and craniocaudad (CC) views of both breasts were obtained. CAD: Full Field Digital Mammography with Computer Added Detection was performed. COMPARISON: 04/22/2021 and 04/18/2020 FINDINGS: The breast composition is heterogeneously dense that can obscure small breast masses. Scattered benign calcifications are seen. No dense spiculated masses or suspicious microcalcifications are identified. No architectural distortion is identified. There is no skin thickening or retraction. There has been no significant change since the prior study. BI/SCREENING MAMM (CAD), BILAT IMPRESSION: Stable bilateral screening mammogram. Yearly follow-up mammogram recommended. (A) ASSESSMENT CATEGORY: BIRADS Category 2: Benign. A letter regarding these results will be sent to the patient by the facility within 30 days. Approximately 10% of breast cancers are not detected by mammography. A normal mammogram should not delay biopsy of a clinically suspicious abnormality. [id number] Electronically Signed: Rigo Strauss MD at 12:32 EDT ,
== END | disposition home or self-care (01) ==
LOC: OPBI 14:42
PROVIDERS: PCP Family Medicine; Referring Provider Obstetrics & Gynecology; Visit Provider Obstetrics & Gynecology
DX: Z12.31 Encounter for screening mammogram for malignant neoplasm of breast (principal)
CPT/HCPCS: 77067

== ENCOUNTER → 2022-06-02 | Outpatient (CLI) | payer MEDICARE, OTHER, SELFPAY | END | disposition home or self-care (01) | LOC: LABSPEC 12:07 | PROVIDERS: PCP Family Medicine; Visit Provider Obstetrics & Gynecology | DX: N39.0 Urinary tract infection, site not specified (principal) | CPT/HCPCS: 87086 ==

== ENCOUNTER → 2022-07-09 | Outpatient (CLI) | payer MEDICARE, OTHER, SELFPAY ==
--- NOTE | 2022-07-09 09:23 | RAD_ITS ---
STUDY: X-RAY - PELVIS AND LEFT HIP REASON FOR EXAM: Female, 66 years old. Hip pain. TECHNIQUE: 3 views of the pelvis and hip. COMPARISON: April 26, 2019. FINDINGS: There is a non-specific bowel gas pattern. Phleboliths. Mild osteopenia unchanged. Mild arthrosis of both sacroiliac joints. Normal bilateral superior and inferior pubic rami. Normal pubic symphysis. Normal bilateral ischial tuberosities. Mild arthrosis of both hips unchanged. 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 No acute abnormality, evidence of erosive changes or fusion. Electronically Signed: Leonid Guerrero, at 9:55 EST ,
[2022-07-09 10:43] LABS: Vitamin D,25 Hydroxy 73.9 ng/mL
[2022-07-09 10:59] LABS: Anion Gap 7 (5-15); BUN 18 mg/dL (7-18); BUN/Creat Ratio 23.5 RATIO (10-20); Calcium,Total 9.3 mg/dL (8.5-10.1); Chloride 105 mmol/L (98-107); Cholesterol 196 mg/dL (200); Creatinine, Serum 0.76 mg/dL (0.55-1.02); EST Glomerular Filtration Rate 80 mL/min (>60); Est Glom Filt Rate - Afr Amer 97 mL/min (>60); Glucose 101 mg/dL (74-106); High Density Lipoprotein 76 mg/dL; Potassium 4.1 mmol/L (3.5-5.1); Sodium Level 139 mmol/L (136-145); Triglycerides 107 mg/dL; Very Low Density Lipoprotein 21 mg/dL (5-40)
== END | disposition home or self-care (01) ==
LOC: MTLAB 09:18
PROVIDERS: PCP Family Medicine; Referring Provider Family Medicine; Visit Provider Family Medicine
DX: Z00.00 Encounter for general adult medical examination without abnormal findings (principal); M25.552 Pain in left hip
CPT/HCPCS: 36415; 73502; 80048; 80061; 82306

== ENCOUNTER → 2022-09-04 | Outpatient (CLI) | payer MEDICARE, OTHER, SELFPAY ==
--- NOTE | 2022-09-04 18:15 | MRI_ITS ---
EXAM: MR HEAD WITHOUT INTRAVENOUS CONTRAST CLINICAL INDICATION: Word finding difficulty x years TECHNIQUE: Multiplanar and multisequence MR images of the brain were obtained without intravenous contrast. This report was created using [employer] report generation technology. COMPARISON: CT head with and without contrast 02/06/2014. FINDINGS: BRAIN AND EXTRA-AXIAL SPACES: Abnormal T2 FLAIR hyperintensity of the right lateral orbital gyrus. No intra- or extra-axial hemorrhage. No evidence of acute infarct. No intracranial mass or mass effect. There is preservation of the heath/white matter interface. Posterior fossa structures are unremarkable. Ventricles are appropriate for age. No hydrocephalus. Basal cisterns are patent. No diffusion restriction throughout the brain parenchyma. SELLA: Unremarkable. Normal sella turcica, pituitary gland, infundibular stalk, optic chiasm and hypothalamus. AUDITORY SYSTEM: Unremarkable. The internal auditory canals are patent. BONES/JOINTS: Unremarkable. No discrete lytic or blastic abnormalities. SINUSES: Unremarkable as visualized. Clear. MASTOID AIR CELLS: Unremarkable as visualized. Clear. ORBITS: Unremarkable as visualized. Both globes, extraocular muscles, optic nerves and retrobulbar fat appear unremarkable. VASCULATURE: Unremarkable as visualized. Normal flow voids in the major intracranial circulation. MRI/Brain without Contrast IMPRESSION: Abnormal T2 FLAIR hyperintensity of the right lateral orbital gyrus without diffusion restriction. I am unable to determine if this was present on prior CT head scan without contrast 02/06/2014. Etiology is unknown at this time. RECOMMENDATION: MRI brain with intravenous contrast for further evaluation. Electronically Signed: Fransisco Estrada MD at 11:20 EST ,
== END | disposition home or self-care (01) ==
LOC: MRI 17:33
PROVIDERS: PCP Family Medicine; Visit Provider Family Medicine
DX: R47.89 Other speech disturbances (principal)
CPT/HCPCS: 70551

== ENCOUNTER → 2022-09-11 | Outpatient (CLI) | payer MEDICARE, OTHER, SELFPAY ==
--- NOTE | 2022-09-11 14:45 | MRI_ITS ---
HISTORY: F/U to abnormal brain MRI done 1 week ago. TECHNIQUE: Coronal and sagittal T1-weighted MR images of the brain were obtained after the intravenous administration of 13 mL Clariscan. 69 images. COMPARISON: 09/04/2022. FINDINGS: BRAIN PARENCHYMA: No enhancing lesion in the brain parenchyma. No abnormal focus of enhancement corresponding to the region of right frontal sulcal effacement seen on prior examination. CSF SPACES: Cerebral ventricles, cortical sulci, and other extra-axial CSF spaces within normal limits in size.No abnormal extra-axial enhancement. PARANASAL SINUSES AND MASTOID AIR CELLS: Mild fluid in the left maxillary sinus. ORBITS: Symmetric contents. MRI/Brain WITH Contrast IMPRESSION: No evidence for enhancing intracranial mass. Diagnostic considerations for right frontal sulcal effacement corresponding to the abnormality on prior MRI include encephalitis, low grade astrocytoma, or focal cortical dysplasia. Follow-up is recommended. Electronically Signed: Mayda Banda MD at 15:54 EST ,
[2022-09-11 15:10] LABS: CREATININE FINGERSTICK < 0.9 mg/dL (0.55-1.02); EGFR FINGERSTICK > 60.0000 mL/min (>60)
== END | disposition home or self-care (01) ==
LOC: MRI 14:45
PROVIDERS: PCP Family Medicine; Referring Provider Family Medicine; Visit Provider Family Medicine
DX: R90.89 Other abnormal findings on diagnostic imaging of central nervous system (principal)
CPT/HCPCS: 70552; A9575

== ENCOUNTER → 2023-03-12 | Outpatient (CLI) | payer MEDICARE, OTHER, SELFPAY ==
[2023-03-12 13:19] LABS: ALB/GLOB Ratio 1.2 RATIO (0.9-2.4); AST(SGOT) 14 U/L (15-37); Alanine Aminotransfer ALT/SGPT 21 U/L (13-56); Albumin, Serum 3.8 g/dL (3.2-5.0); Alkaline Phosphatase 49 U/L (45-117); Anion Gap 7 (5-15); BUN 12 mg/dL (7-18); BUN/Creat Ratio 16.9 RATIO (10-20); Calcium,Total 8.9 mg/dL (8.5-10.1); Chloride 104 mmol/L (98-107); Creatinine, Serum 0.71 mg/dL (0.55-1.02); EST Glomerular Filtration Rate 88 mL/min (>60); Est Glom Filt Rate - Afr Amer 106 mL/min (>60); Globulin 3.2 g/dL (2.2-4.2); Glucose 79 mg/dL (74-106); Potassium 4.5 mmol/L (3.5-5.1); Sodium Level 134 mmol/L (136-145)
== END | disposition home or self-care (01) ==
LOC: MFPLAB 11:14
PROVIDERS: PCP Family Medicine; Visit Provider Family Medicine
DX: B35.1 Tinea unguium (principal)
CPT/HCPCS: 36415; 80053

== ENCOUNTER → 2023-07-21 | Outpatient (CLI) | payer MEDICARE, OTHER, SELFPAY ==
[2023-07-21 10:43] LABS: Vitamin D,25 Hydroxy 51.3 ng/mL
[2023-07-21 10:56] LABS: Anion Gap 4 (5-15); BUN 10 mg/dL (7-18); BUN/Creat Ratio 12.7 RATIO (10-20); Calcium,Total 8.9 mg/dL (8.5-10.1); Chloride 106 mmol/L (98-107); Cholesterol 194 mg/dL (200); Creatinine, Serum 0.79 mg/dL (0.55-1.02); EST Glomerular Filtration Rate 77 mL/min (>60); Est Glom Filt Rate - Afr Amer 94 mL/min (>60); Glucose 98 mg/dL (74-106); High Density Lipoprotein 64 mg/dL; Potassium 4.1 mmol/L (3.5-5.1); Sodium Level 137 mmol/L (136-145); Triglycerides 207 mg/dL; Very Low Density Lipoprotein 41 mg/dL (5-40)
== END | disposition home or self-care (01) ==
LOC: MFPLAB 09:14
PROVIDERS: PCP Family Medicine; Visit Provider Family Medicine
DX: Z00.00 Encounter for general adult medical examination without abnormal findings (principal); E55.9 Vitamin D deficiency, unspecified; Z13.6 Encounter for screening for cardiovascular disorders
CPT/HCPCS: 36415; 80048; 80061; 82306

== ENCOUNTER → 2023-09-03 | Outpatient (CLI) | payer OTHER, SELFPAY ==
--- NOTE | 2023-09-03 12:05 | BI_ITS ---
MAMMOGRAPHY - BILATERAL SCREENING REASON FOR EXAM: Female, 67 years old. Routine annual screening examination. PERTINENT HISTORY: Non-contributory. TECHNIQUE: Digital bilateral breast tana (3D mammographic acquisition) in the CC and MLO projections. 2-D mediolateral oblique (MLO) and craniocaudad (CC) views of both breasts were obtained. CAD: Full Field Digital Mammography with Computer Added Detection was performed. COMPARISON: Comparison is made with prior study dated April 24, 2022 and April 22, 2021. FINDINGS: Breast Composition: The breasts are heterogeneously dense, which may obscure small masses. There are no dominant masses or suspicious calcifications. Stable small benign appearing bilateral axillary lymph nodes. No other significant abnormalities are identified. There has been no significant change since the prior study. BI/SCRN MAMM (CAD)W/TANA BILAT IMPRESSION: Stable bilateral screening mammogram. Yearly follow-up mammogram recommended. (A) ASSESSMENT CATEGORY: BIRADS Category 2: Benign. A letter regarding these results will be sent to the patient by the facility within 30 days. Approximately 10% of breast cancers are not detected by mammography. A normal mammogram should not delay biopsy of a clinically suspicious abnormality. [id number] Electronically Signed: Johny Iqbal MD at 13:03 EST ,
--- OUTSIDE RECORDS SUMMARY | 2023-09-03 12:21 | XMS RPT_ITS | CCD ---
Author Name Unknown Address [facility] [place] [address] Organization [facility] Care Team Providers Care Pipe [employer] Name Role Phone Ruby Robles LPN Unavailable Unavailab le Ruby Robles LPN Unavailable Unavailab le Unavailable Primary Care Provider Unavailabl e CHARLEEN, CHRIS Admitting Unavailable CHARLEEN, CHRIS Attending Unavailable CHARLEEN, CHRIS Referring Unavailable CHARLEEN, CHRIS Referring Unavailable MISTI BLANK Attending Unavailable ENRIQUEZ, HIBA Referring Unavailable CHARLEEN, CHRIS Attending Unavailable AQUILES, ISABELA Attending Unavailable PEDRO BRANTLEY Referring Unavailable CHARLEEN, CHRIS Referring Unavailable PEDRO BRANTLEY Primary Care Unavailable MISTI BLANK Referring Unavailable ANH HERNANDEZ Referring Unavailable VIBHA RANGEL Attending Unavailable CHARLEEN, CHRIS Referring Unavailable MISTI BLANK Referring Unavailable PEDRO BRANTLEY Primary Care Unavailable MISTI BLANK Attending Unavailable MISTI BLANK Referring Unavailable Allergies Allergy Classification Reported Allergen(s) Allergy Type Date of Onset Reaction(s) Facility (19 sources) amLODIPine; Translations: [AMLODIPINE] Drug Allergy 04-20-2023 Itching [facility] (14 sources) Latex; Translations: [LATEX] Drug Allergy 05-19-2023 Rash [facility] Medications Completed/Discontinued Medications Medication Drug Class(es) Dates Sig (Normalized) Sig (Original) acetaminophen 325 mg oral tablet (12 sources) Start: 05-21-2023 take 2 tablets enteral route every four hours as needed acetaminophen (TYLENOL) 325 mg tablet 2 tablets by ORAL/FEEDING TUBE route every 4 hours as needed for pain. 0 05/21/2023 Active Problems Active Problems Problem Classification Problem Date Documented Date Episodic/Chronic Cancer of brain and nervous system (16 sources) Low grade astrocytoma of brain; Translations: [Malignant neoplasm of frontal lobe] Onset: 06-01-2023 05-31-2023 Chronic Esophageal disorders (16 sources) Gastroesophageal reflux disease without esophagitis; Translations: [Gastro-esophageal reflux disease without esophagitis] Onset: 05-18-2023 05-18-2023 Chronic Essential hypertension (16 sources) Essential hypertension; Translations: [Essential (primary) hypertension] Onset: 05-18-2023 05-18-2023 Chronic Neoplasms of unspecified nature or uncertain behavior (20 sources) 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; Translations: [Neoplasm of uncertain behavior of brain, unspecified] Onset: 05-06-2023 05-06-2023 Chronic Other and unspecified benign neoplasm (1 source) Neoplasm of meninges; 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, unspecified] 05-31-2023 Chronic Other nervous system disorders (13 sources) Cerebral edema; Translations: [Cerebral edema] Onset: 05-20-2023 05-20-2023 Chronic Other nervous system disorders (13 sources) Postoperative pain ; Translations: [Other acute postprocedural pain] Onset: 05-21-2023 05-21-2023 Episodic Residual codes; unclassified (13 sources) At risk of epileptic fits; Translations: [Other specified personal risk factors, not elsewhere classified] Onset: 05-20-2023 05-20-2023 Episodic Past or Other Problems Problem Classification Problem Date Documented Date Episodic/Chronic Nausea and vomiting (16 sources) Postoperative nausea and vomiting; Translations: [Nausea with vomiting, unspecified] Onset: 05-18-2023 05-18-2023 Episodic Neoplasms of unspecified nature or uncertain behavior (14 sources) Neoplastic disease of uncertain behavior; Translations: [Neoplasm of uncertain behavior, unspecified] Onset: 05-19-2023 05-19-2023 Episodic Open wounds of extremities (2 sources) Laceration without foreign body of left thumb with damage to nail, initial encounter; Translations: [Laceration without foreign body of left thumb with damage to nail, initial encounter] Onset: 05-26-2017 05-26-2017 Episodic Other injuries and conditions due to external causes (2 sources) Laceration - injury; Translations: [Injury, unspecified] Onset: 05-26-2017 05-26-2017 Episodic Other nervous system disorders (1 source) Other acute postprocedural pain; Translations: [Post-op pain] Onset: 05-21-2023 Episodic Other screening for suspected conditions (not mental disorders or infectious disease) (2 sources) Magnetic resonance imaging of brain abnormal; Translations: [Other abnormal findings on diagnostic imaging of central nervous system] Onset: 05-06-2023 05-06-2023 Episodic Residual codes; unclassified (1 source) Localized edema; Translations: [Localized edema] Onset: 05-18-2023 Episodic Residual codes; unclassified (1 source) Other specified postprocedural states; Translations: [PONV (postoperative nausea and vomiting)] Onset: 05-18-2023 Episodic Results Test Name Value Interpretation Reference Range Facil ity Vital Signs Date Time Vital Sign Value Performing Clinician Facility 05-31-2023 15:05-0400 Body temperature 98.1 [degF] Vibha Rangel MD Work Phone: [facility] 05-31-2023 15:05-0400 Body weight 69.81 kg Vibha Rangel MD Work Phone: [facility] 05-31-2023 15:05-0400 Diastolic blood pressure 68 mm[Hg] Vibha Rangel MD Work Phone: [facility] 05-31-2023 15:05-0400 Heart rate 81 /min Vibha Rangel MD Work Phone: [facility] 05-31-2023 15:05-0400 Respiratory rate 18 /min Vibha Rangel MD Work Phone: [facility] 05-31-2023 15:05-0400 SaO2% (BldA) [Mass fraction] 95 % Vibha Rangel MD Work Phone: [facility] 05-31-2023 15:05-0400 Systolic blood pressure 137 mm[Hg] Vibha Rangel MD Work Phone: [facility] 05-18-2023 07:19-0400 Body height 152.4 cm Pac 6 Work Phone: [facility] 05-18-2023 07:19-0400 Body temperature 97.81 [degF] Pac 6 Work Phone: [facility] 05-18-2023 07:19-0400 Body weight 64.09 kg Pacc 6 Work Phone: [facility] 05-18-2023 07:19-0400 Diastolic blood pressure 88 mm[Hg] Pacc 6 Work Phone: [facility] 05-18-2023 07:19-0400 Heart rate 79 /min Pacc 6 Work Phone: [facility] 05-18-2023 07:19-0400 SaO2% (BldA) [Mass fraction] 96 % Pac 6 Work Phone: [facility] 05-18-2023 07:19-0400 Systolic blood pressure 130 mm[Hg] Pac 6 Work Phone: [facility] 05-06-2023 10:06-0400 Body height 153.5 cm Chris Villaseñor MD Work Phone: [facility] 05-06-2023 10:06-0400 Body temperature 98.2 [degF] Chris Villaseñor MD Work Phone: [facility] 05-06-2023 10:06-0400 Body weight 64.91 kg Chris Villaseñor MD Work Phone: [facility] 05-06-2023 10:06-0400 Diastolic blood pressure 93 mm[Hg] Chris Villaseñor MD Work Phone: [facility] 05-06-2023 10:06-0400 Heart rate 75 /min Chris Villaseñor MD Work Phone: [facility] 05-06-2023 10:06-0400 Respiratory rate 18 /min Chris Villaseñor MD Work Phone: [facility] 05-06-2023 10:06-0400 SaO2% (BldA) [Mass fraction] 97 % Chris Villaseñor MD Work Phone: [facility] 05-06-2023 10:06-0400 Systolic blood pressure 124 mm[Hg] Chris Villaseñor MD Work Phone: [facility] 05-26-2017 16:02-0400 BMI (Body Mass Index) 28.57 kg/m2 Ruby Robles LPN [facility] Clinic Work Phone: 05-26-2017 16:02-0400 Body Temperature 98.5 [degF] Ruby Robles LPN [facility] Work Phone: 05-26-2017 16:02-0400 BP Diastolic 72 mm[Hg] Ruby Robles LPN [facility] Work Phone: 05-26-2017 16:02-0400 BP Systolic 140 mm[Hg] Ruby Robles LPN [facility] Work Phone: 05-26-2017 16:02-0400 Height 154.94 cm Ruby Robles LPN [facility] Work Phone: 05-26-2017 16:02-0400 Pulse (Heart Rate) 102 /min [facility] Work Phone: 05-26-2017 16:02-0400 Respiratory Rate 14 /min Ruby Robles LPN [facility] Work Phone: 05-26-2017 16:02-0400 Weight 68.58 kg Ruby Robles LPN [facility] Work Phone: Encounters Encounter Date Encounter Type Care Provider Facility Start: 08-20-2023 End: 08-20-2023 ambulatory PEDRO BRANTLEY Facility:[facility] Start: 08-18-2023 End: 08-18-2023 ambulatory PEDRO BRANTLEY Facility:[facility] Start: 08-13-2023 End: 08-14-2023 ambulatory CHRIS VILLASEÑOR Facility:[facility] Start: 08-06-2023 End: 12-15-2023 ambulatory CHRIS VILLASEÑOR Facility:[facility] Start: 07-30-2023 End: 07-30-2023 ambulatory CHRIS VILLASEÑOR Facility:[facility] Start: 07-30-2023 End: 07-30-2023 Nursing evaluation of patient and report Nurse Card Edwige Martinez Work Phone: Cardiology Procedures Date Procedure Procedure Detail Performing Clinician Start: 07-30-2023 Ecg routine ecg w/le ast 12 lds i&r only [facility] Provider Start: 07-23-2023 Ecg routine ecg w/le ast 12 lds i&r only [facility] Provider Start: 05-10-2023 Antibody screen CHRIS VILLASEÑOR Plan of Treatment Date Care Activity Detail Author Start: 05-26-2027 Urine microalbumin profile DTaP,Tdap,Td Vaccine (2 - Td or Tdap) [facility] Start: 07-14-2026 Diabetes Screening Diabetes Screening [facility] Start: 05-19-2026 Diabetes Screening Diabetes Screening [facility] Start: 05-10-2026 Diabetes Screening Diabetes Screening [facility] Start: 07-08-2023 Pneumococcal Vaccine: 65+ (2 - PCV) Pneumococcal Vaccine: 65+ (2 - PCV) [facility] Start: 04-23-2023 Covid-19 Vaccine () Covid-19 Vaccine () [facility] Start: 04-23-2023 Influenza vaccination [facility] Start: 08-23-2022 ADVANCE DIRECTIVE DISCUSSION ADVANCE DIRECTIVE DISCUSSION [facility] Start: 08-23-2022 DEPRESSION ASSESSMENT DEPRESSION ASSESSMENT [facility] Start: 2021 BONE DENSITY BONE DENSITY [facility] Start: 2021 Bone Density Screening Bone Density Screening [facility] Start: 2021 Pneumococcal Vaccine: 65+ (1 - PCV) Pneumococcal Vaccine: 65+ (1 - PCV) [facility] Start: 2021 PNEUMOCOCCAL: 65+ (1 - PCV) PNEUMOCOCCAL: 65+ (1 - PCV) [facility] Start: 09-19-2021 COVID-19 VACCINE (4 - Pfizer series) COVID-19 VACCINE (4 - Pfizer series) [facility] Start: 10-13-2019 Shingrix Vaccine (3 of 3) Shingrix Vaccine (3 of 3) [facility] Start: 05-26-2017 End: 05-26-2017 Appointment Appointment [facility] Work Phone: Start: 2016 RSV Vaccine (1 - 1-dose 60+ series) RSV Vaccine (1 - 1-dose 60+ series) [facility] Start: 2006 SHINGRIX VACCINE (1 of 2) SHINGRIX VACCINE (1 of 2) [facility] Start: 2001 COLOGUARD (FIT-DNA) COLOGUARD (FIT-DNA) [facility] Start: 2001 Colonoscopy COLONOSCOPY [facility] Start: 2001 COLORECTAL CANCER SCREENING COLORECTAL CANCER SCREENING [facility] Start: [address] COLONOGRAPHY [facility] Start: 2001 DIABETES SCREEN DIABETES SCREEN [facility] Start: 2001 Diabetes Screening Diabetes Screening [facility] Start: 2001 FECAL OCCULT BLOOD FECAL OCCULT BLOOD [facility] Start: 2001 Lipid 1996 panel - Serum or Plasma Lipid Screening [facility] Start: 2001 LIPID SCREEN LIPID SCREEN [facility] Start: 2001 SIGMOIDOSCOPY SIGMOIDOSCOPY [facility] Start: 1996 Mammography [facility] Start: 1975 Urine microalbumin profile [facility] Start: 1974 Annual PCP Team Chronic Disease Visit Annual PCP Team Chronic Disease Visit [facility] Start: 1974 BP Controlled (<130/80) BP Controlled (<130/80) [facility] Start: 1974 HEPATITIS C SCREENING HEPATITIS C SCREENING [facility] T[facility] SEEK HYBRID CAR UT TUMOR SEEK HYBRID Lab Routine 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) 05/31/2023 2:20 PM EDT [facility] Work Phone: ECG COMPLETE ECG COMPLETE ECG Routine Pre-op evaluation 05/18/2023 8:18 AM EDT [facility] Work Phone: ECG COMPLETE ECG COMPLETE ECG 07/23/2023 9:48 AM EST [facility] ECG COMPLETE ECG COMPLETE ECG 07/30/2023 10:00 AM EST [facility] Patient Education LACERATION [facility] in Work Phone: [facility] Immunizations Immunization Date Immunization Notes Care Provider Scott licona 05-27-2022 influenza virus vaccine, unspecified formulation Chris Villaseñor MD Work Phone: [facility] 05-26-2017 tetanus toxoid, redu gray diphtheria toxoid, and acellular pertussis vaccine, adsorbed Ruby Robles LPN [facility] Work Phone: 05-26-2017 [id number] [facility] N ow Clinic Work Phone: Payers Date Payer Category Payer Medicare [id number] 2021 Medicare [id number] 2013 [employer] ( and others) [id number] 2013 Unknown [id number] Social History Date Type Detail Facility Start: 04-20-2023 Tobacco smoking stat us NDIS Ex-smoker [facility] End: 08-23-1979 History of tobacco use Current smoker [facility] End: 08-23-1979 History of tobacco use Cigarette Smoker [facility] Start: 04-20-2023 Tobacco use and exposure Smoke less tobacco non-user [facility] Start: 04-20-2023 End: 05-31-2023 Alcohol intake Current non-drinker of alcohol (finding) [facility] Start: 04-20-2023 End: 05-18-2023 History of Social function [facility] Start: 04-20-2023 End: 05-18-2023 Tobacco use panel [facility] National Score (1-10 0), lower number is lower risk 75 [facility] Start: 1955 Sex Assigned At Not on file [facility] Start: 1955 [facility] Assigned At [facility] Start: 05-05-2023 Gender identity Identifies as female gender (finding) [facility] Start: 05-05-2023 Sexual orientation Heterosexual (sherley destiny) [facility] Medical Equipment Procedure Code Equipment Code Equipment Origin al Text Equipment Identifier Dates Graft Duragen Pl us Bovine Collagen Matrix 2x2in Soft Tissue Patch - [id number] Start: 05-19-2023 Cover 10mm Keenes Hole Low Profile 3mm Screw Cranium - [id number] Start: 05-19-2023 Cover 10mm Mediu m Titanium Taisha Hole Low Profile Tab 1.5mm Screws - [id number] Start: 05-19-2023 Screw Bone Unive rsal Neuro 3 4mm 1.5mm Self Drill Axial Stability Latex - [id number] Start: 05-19-2023 Kit Tiss Vhsd Fr zn Prima 4ml - [id number] Start: 05-19-2023 Clinical Notes 04-20-2023 to 08-20-2023 Jing Toscano MA - 07/30/2023 10:08 AM Nida Duron RN - 07/28/2023 12:31 PM Jing Goldberg MA - 07/23/2023 9:51 AM Parisa Danielle Ma - 07/16/2023 10:03 AM ESTPatient Instructions Note Date & Type Note Facility 08-20-2023 Note HNO ID: [id number] Author: MISTI BLANK MD Service: ? Author Type: Physician Type: Progress Notes Filed: 08/26/2023 14:16 Note Text: [facility] The patient is referred for post-op neuro-oncologic evaluation. Final recommendations will be communicated back to the requesting physician by way of the shared medical records, or letters to requesting physician via US Mail. I have communicated my name and active licensure. The patient's identity and physical location were verified at the time of this visit. Either the patient or their legal players club representative has been informed of the risks and benefits of -- and alternatives to -- treatment through a remote evaluation and consents to proceed with the evaluation remotely. Diagnosis: Astrocytoma, IDH-1 mutated, WHO grade 2 Subjective Chief Complaint: Mrs. Silverio returned to Neuro-Oncology Clinic for follow-up of low-grade glioma of the right frontal lobe. History of Present Illness: Patient is accompanied by . Hand dominance: right-handed. 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 The patient was initially seen in [facility] on 04/20/2023 for word finding difficulty/word substitution that originally started back in 2007 with a slow increase in symptoms over the last few years. She was ultimately determined not to meet criteria for cognitive or speech disorder at the time of her evaluation. She also presented with concerns on an OSH MRI that showed a nonenhancing right frontal sulcal lesion that was done as part of her work-up for memory loss. She was referred to [facility] for the MRI findings. Seen by Neurosurgery in [facility] by Dr. Villaseñor on 05/06/2023. Overall impression was low-grade glioma with plans of craniotomy. Patient was admitted and underwent right frontal craniotomy for tumor resection on 05/19/2023. She tolerated the procedure well without any acute complications. She was discharged on POD #2 in stable condition. She was discharged on dexamethasone taper and Keppra 1000 mg BID. Reports increased appetite on steroids. Denies any post surgical changes. Surgical pathology consistent with low-grade glioma, IDH-1 (R132H) mutation. States her word finding difficulties/abnormal word replacement has not occurred for a few months. States she has not had incorrect grammar with writing since her surgery. Interval History: Since initially seen by me on May 31, 2023, Mrs. Silverio began ivosutinib, the IDH1 inhibitor, on July 21. She experienced two days of soft stool but otherwise no side effects since then. On one occasion, when brushing her teeth, she spit up a little bit of blood but this has not recurred. Her mild word finding difficulty is stable. There has been no alteration of consciousness, aura or seizure, headache, blurred or double vision, difficulty hearing or vertigo, dysarthria or dysphagia, focal weakness, numbness or tingling, gait ataxia, or difficulty with bowel or bladder control. Regarding her general health, she developed a cough on lisinopril for her essential hypertension and lisinopril has been discontinued. Her blood pressures fluctuate [she takes them at home] and she has recorded a number as high as 155/97. She will follow-up with her charger tester regarding a substitute for lisinopril.r Past Medical History: PAST MEDICAL HISTORY Diagnosis Date Brain tumor (HCC) right frontal Esophageal reflux Gastroesophageal reflux PONV (postoperative nausea and vomiting) Past Surgical History: PAST SURGICAL HISTORY Procedure Laterality Date CHOLECYSTECTOMY HX EXCIS SUPRATENT BRAIN TUMOR 05/19/2023 REPAIR RECTOCELE SEPARATE PROCEDURE TOTAL ABDOMINAL HYSTERECT W/WO RMVL TUBE OVARY Hysterectomy, LUCIE TREAT LOWER LEG FRACTURE Left ronald with screws Family History: FAMILY HISTORY Problem Relation Age of Onset Cancer Father lung Coronary Artery Disease Father Hypertension Father other (chf [Other]) Mother Heart Mother Coronary Artery Disease Mother Stroke Mother other (CEREBRAL HEMORRHAGE [Other]) Brother Hypertension Brother Hypertension Sister Cancer Maternal Grandfather Stroke Paternal Grandmother Anesthesia Problems No Family History Social History: Social History Tobacco Use Smoking status: Former Types: Cigarettes Quit date: 1979 Years since quittin.0 Smokeless tobacco: Never Substance Use Topics Alcohol use: No Drug use: No Medications: ivosidenib (TIBSOVO) 250 mg tablet Take 2 tablets (500mg) by (more content not included)... [facility] 08-18-2023 Note HNO ID: [id number] Author: Dari Can RT(R) Service: ? Author Type: Technologist Type: Progress Notes Filed: 08/18/2023 10:04 AM Note Text: Radiology Service Progress Note DATE OF SERVICE: August 18, 2023 TIME: 10:03 AM PATIENT IDENTITY VERIFICATION COMPLETED USING TWO (2) STANDARD IDENTIFIERS: Name and Date of confirmed by patient verbally. FALL SCREENING: Has the patient had 2 falls in the last year or 1 fall with injury or currently using an Ambulatory Assistive Device (Walker, Cane, Wheelchair, Crutches, etc.)? No PATIENT GENDER DATA: Female. status: : No status: NO. PATIENT RELEVANT IMPLANT DATA REVIEWED: Yes ALLERGIES: Reviewed and unchanged CONTRAST ALLERGY: NO. EXAM: MRI - CONTRAST TYPE: GROUP II PERIPHERAL IV DATA: Ambulatory: A peripheral IV was started in the Right antecubital site with a Angio cath: 22 gauge. RADIOLOGY DEPARTMENT: MR; Exam(s) Completed: Head: Routine Brain SIGNATURE: Darijillian Can, RT(R) PATIENT NAME: Jeanine Silverio DATE: August 18, 2023 TIME: 10:03 AM [facility] 07-30-2023 Nurse Note EKG performed per protocol on Jeanine Silverio EKG was handed to Eugenia Bradford RN on July 30, 2023 at 10:02 AM Jing Toscano MA documented in this encounter [facility] 07-28-2023 Note HNO ID: [id number] Author: Nida Appiah RN Service: ? Author Type: Registered Nurse Type: Progress Notes Filed: 07/28/2023 12:43 PM Note Text: Patient started Tibsovo 500mg daily on 07/21/23 cycle #2 would begin on 08/18/23. Labs on 07/14 were all WNL. Will have monthly labs done and weekly EKG X3 then monthly thereafter. Nida Appiah RN [facility] 07-28-2023 History of Presen t illness Narrative Patient started Tibsovo 500mg daily on 07/21/23 cycle #2 would begin on 08/18/23. Labs on 07/14 were all WNL. Will have monthly labs done and weekly EKG X3 then monthly thereafter. Nida Appiah RN documented in this encounter [facility] 07-23-2023 Nurse Note EKG performed per protocol on Jeanine Silverio EKG was handed to Eugenia Bradford RN on July 23, 2023 at 9:44 AM Jing Toscano MA documented in this encounter [facility] 07-16-2023 Nurse Note EKG performed per protocol on Jeanine Silverio EKG was review to nurse on on July 16, 2023 at 10:03 AM Parisa Pope Ma documented in this encounter [facility] 07-13-2023 Miscellaneous Notes Spoke to patient and told her she can have the medication shipped to her but to not start it until she has the EKG and labs completed. Nida Appiah RN General Call Caller : Jeanine Contact Reason for Call : Wants to know if she should get Tibsovo delivered to her home? Patient requesting return call ? Yes documented in this encounter [facility] 07-09-2023 Miscellaneous Notes Prior authorization was approved for Tibsovo. Plan Name: Melecio GAYLE reference number: [id number] Approval Dates: 06/06/23 - 08/22/2099 However, s/he is required to use [facility] to fill this medication. Will queue prescription(s) to go to designated specialty pharmacy. For reference, their pharmacy phone number is [phone]. No further action by [facility] Specialty. Wilber Ngo, PharmD Clinical Pharmacist, Oncology [facility] P: ; F: Pool: P [facility] Pool #: [id number] documented in this encounter [facility] 07-08-2023 Miscellaneous Notes I called ricardo to schedule and was told by Jana Sim That only patients who are established with primary or cardio at [facility] can schedule an EKG at the [facility] location. Lynette Esquivel Time Frame: weekly EKG times 4 starting 07/13 or 07/14 (if possible) then weekly thereafter Orders: EKG at [facility] Provider: Antonina -no appt needed yet Diagnosis: meningioma documented in this encounter [facility] 07-06-2023 Note HNO ID: [id number] Author: Beth Warner RN Service: ? Author Type: Registered Nurse Type: Progress Notes Filed: 07/06/2023 3:13 PM Note Text: [facility] received prescription(s) for Tibsovo from Dr. Blank's office. PA was initiated and pending review. Plan Name: [employer] Medicare / [employer] Case: TBD Timeline: URGENT GIRISH Araujo, RN July 06, 2023 3:12 PM [facility] 07-06-2023 Note HNO ID: [id number] Author: Winston (Crutcher Helper)Hazel Service: ? Author Type: ? Type: Progress Notes Filed: 07/06/2023 10:15 AM Note Text: [facility] received prescription(s) for Tibsovo from Dr. Blank's office. Benefits investigation was conducted, indicating that a prior authorization is required by patient's insurance plan with [employer]. Encounter will be updated once prior authorization has been submitted by [facility]. [facility] 07-06-2023 Note HNO ID: [id number] Author: Rae Vasquez Service: ? Author Type: ? Type: Progress Notes Filed: 07/09/2023 3:36 PM Note Text: Prior authorization was approved for Tibsovo. Plan Name: Melecio GAYLE reference number: [id number] Approval Dates: 06/06/23 - 08/22/2099 However, s/he is required to use [facility] to fill this medication. Will queue prescription(s) to go to designated specialty pharmacy. For reference, their pharmacy phone number is [phone]. No further action by [facility]. Rae Ngo, RuD Clinical Pharmacist, Oncology [facility] P: ; F: Pool: P [facility] ONCOL[facility] Pool #: [id number] [facility] 07-06-2023 Note HNO ID: [id number] Author: Beth Warner RN Service: ? Author Type: Registered Nurse Type: Progress Notes Filed: 07/07/2023 3:25 PM Note Text: [facility] received prescription(s) for Tibsovo from Dr. Blank's office. PA was approved with details listed below. Plan Name: [employer] Medicare / [employer] PA ref number: [id number] Approval Dates: 06/06/2023 - 08/22/2099 Prescriptions will now be processed through [facility] for determination of next steps. GIRISH Araujo, SEGUNDO July 07, 2023 3:25 PM [facility] 07-06-2023 History of Presen t illness Narrative [facility] received prescription(s) for Tibsovo from Dr. Blank's office. Benefits investigation was conducted, indicating that a prior authorization is required by patient's insurance plan with [employer]. Encounter will be updated once prior authorization has been submitted by [facility]. [facility] received prescription(s) for Tibsovo from Dr. Blank's office. PA was initiated and pending review. Plan Name: [employer] Medicare / [employer] Case: TBD Timeline: URGENT GIRISH Araujo, RN July 06, 2023 3:12 PM documented in this encounter [facility] 06-05-2023 Note HNO ID: [id number] Author: Note, Interface Service: ? Author Type: ? Type: Progress Notes Filed: 06/05/2023 1:55 AM Note Text: Epic Scheduled Downtime: 06/05/2023 1:00:00 AM to 06/05/2023 1:28:00 AM [facility] 05-31-2023 Note HNO ID: [id number] Author: Vibha Rangel MD Service: ? Author Type: Physician Type: Progress Notes Filed: 06/01/2023 5:45 PM Note Text: Radiation Oncology - New Patient/Consult Note PATIENT NAME: Jeanine Silverio PATIENT REQUESTING PROVIDER: Dr. Chris Villaseñor. 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 Final recommendations will be communicated back to the requesting physician by way of the shared medical record, or letter to requesting physician via US mail. Ms. 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 She presented to the [facility] on 04/20/23 due to memory problems that first began in 2007 and progressively worsened to now occurring every few weeks. This manifests as replacing intended words with others. Below is an excerpt from that initial evaluation: She first noticed it in 2007. She wanted to say watermelon, she pictured watermelon in her mind and she said pumpkin instead. She was not aware of it and her coworker corrected her. She is not aware if happened again after that. 5 years later people started pointing out to her more and in July of 2022 she was writing sheep are dumb instead she wrote she are done . When she went back to read it she noticed her mistake. Other examples: [place] elimination plan but said [place] elimination plan . I need toothpaste but said I need mouthwash and Call sign [id number] and said Call sign [id number] . These numerics are both call signs for radio communication. She wanted to say Casey but said Doug. She is unaware of these mistakes. MoCA from 04/20/23 of OSH MRI from 08/2022 demonstrated a T2-FLAIR hyperintensity at the right frontal brain with T1-isointensity and no contrast uptake by my read She was [facility] and MRI review with a neuroradiologist suggested a potential low grade glioma and so she was taken for maximal safe resection with Dr. Villaseñor which was performed on 05/19/23 with an MRI-confirmed GTR and the following pathology: FINAL DIAGNOSIS A, B. 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 ALLERGIES Allergen Reactions Amlodipine Itching Latex Rash Current Outpatient Medications on File Prior to Visit Medication Sig acetaminophen (TYLENOL) 325 mg tablet 2 tablets by ORAL/FEEDING TUBE route every 4 hours as needed for pain. oxyCODONE IR (ROXICODONE) 5 mg immediate release tablet 1 tablet by ORAL/FEEDING TUBE route every 8 hours as needed. dexAMETHasone (DECADRON) 2 mg tablet Continue taking 4mg (2 tablets) in the morning and 4mg (2 tablets) in the afternoon for 5 days.Then take 2mg (1 tablet) in the morning and 2mg (1 tablet) in the afternoon for 5 days. Then take 2 1/2 tablets (5mg) daily until directed otherwise. levETIRAcetam (KEPPRA) 1,000 mg tablet Take 1 tablet by mouth twice daily. famotidine (PEPCID) 40 mg tablet Take 1 tablet by mouth once daily. Continue while taking steroids cholecalciferol, vitamin D3, (VITAMIN D-3) 10 mcg (400 unit) cap Take 400 Units by mouth once daily. oxybutynin ER (DITROPAN XL) 10 mg 24 hr tablet Take 10 mg by mouth once daily. lisinopril (ZESTRIL) 20 mg tablet Take 20 mg by mouth once daily. traZODone (DESYREL) 50 mg tablet Take 1 tablet by mouth daily at bedtime. estradiol 1 mg ORAL tablet Take 1 tablet by mouth once daily. VITAMIN C 250 MG TAB Take one(1) tablet daily. CALCIUM 600 + D(3) 600 MG-200 UNIT TAB Take one(1) tablet two(2) times daily. No current facility-administered medications on file prior to visit. PAST MEDICAL HISTORY Diagnosis Date Brain tumor (HCC) right frontal Esophageal reflux Gastroesophageal reflux PONV (postoperative nausea and vomiting) Prior radiation therapy, collagen vascular disease, or inflammatory bowel disease: No Any implanted or external electric devices? No status: Post-menopausal. PAST SURGICAL HISTORY Procedure Laterality Date CHOLECYSTECTOMY HX EXCIS SUPRATENT BRAIN TUMOR 05/19/2023 REPAIR RECTOCELE SEPARATE PROCEDURE TOTAL ABDOMINAL HYSTERECT W/WO RMVL TUBE OVARY Hysterectomy, LUCIE TREAT LOWER LEG FRACTURE Left ronald with screws FAMILY HISTORY Problem Relation Age of Onset Cancer Father lung Coronary Artery Disease Father Hypertension Father other (chf [Other]) Mother Heart Mother Coronary Artery Disease Mother Stroke (more content not included)... [facility] 05-31-2023 History of Presen t illness Narrative Radiation Oncology - New Patient/Consult Note PATIENT NAME: Jeanine Silverio PATIENT REQUESTING PROVIDER: Dr. Chrsi Villaseñor. 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 Final recommendations will be communicated back to the requesting physician by way of the shared medical record, or letter to requesting physician via US mail. Ms. 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 She presented to the [facility] on 04/20/23 due to memory problems that first began in 2007 and progressively worsened to now occurring every few weeks. This manifests as replacing intended words with others. Below is an excerpt from that initial evaluation: She first noticed it in 2007. She wanted to say watermelon, she pictured watermelon in her mind and she said pumpkin instead. She was not aware of it and her coworker corrected her. She is not aware if happened again after that. 5 years later people started pointing out to her more and in July of 2022 she was writing sheep are dumb instead she wrote she are done . When she went back to read it she noticed her mistake. Other examples: [place] elimination plan but said [facility] elimination plan . I need toothpaste but said I need mouthwash and Call sign [id number] and said Call sign [id number] . These numerics are both call signs for radio communication. She wanted to say Casey but said Doug. She is unaware of these mistakes. MoCA from 04/20/23 of OSH MRI from 08/2022 demonstrated a T2-FLAIR hyperintensity at the right frontal brain with T1-isointensity and no contrast uptake by my read She was referred to the brain tumor institute and MRI review with a neuroradiologist suggested a potential low grade glioma and so she was taken for maximal safe resection with Dr. Villaseñor which was performed on 05/19/23 with an MRI-confirmed GTR and the following pathology: FINAL DIAGNOSIS A, B. 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 ALLERGIES Allergen Reactions Amlodipine Itching Latex Rash Current Outpatient Medications on File Prior to Visit Medication Sig acetaminophen (TYLENOL) 325 mg tablet 2 tablets by ORAL/FEEDING TUBE route every 4 hours as needed for pain. oxyCODONE IR (ROXICODONE) 5 mg immediate release tablet 1 tablet by ORAL/FEEDING TUBE route every 8 hours as needed. dexAMETHasone (DECADRON) 2 mg tablet Continue taking 4mg (2 tablets) in the morning and 4mg (2 tablets) in the afternoon for 5 days.Then take 2mg (1 tablet) in the morning and 2mg (1 tablet) in the afternoon for 5 days. Then take 2 1/2 tablets (5mg) daily until directed otherwise. levETIRAcetam (KEPPRA) 1,000 mg tablet Take 1 tablet by mouth twice daily. famotidine (PEPCID) 40 mg tablet Take 1 tablet by mouth once daily. Continue while taking steroids cholecalciferol, vitamin D3, (VITAMIN D-3) 10 mcg (400 unit) cap Take 400 Units by mouth once daily. oxybutynin ER (DITROPAN XL) 10 mg 24 hr tablet Take 10 mg by mouth once daily. lisinopril (ZESTRIL) 20 mg tablet Take 20 mg by mouth once daily. traZODone (DESYREL) 50 mg tablet Take 1 tablet by mouth daily at bedtime. estradiol 1 mg ORAL tablet Take 1 tablet by mouth once daily. VITAMIN C 250 MG TAB Take one(1) tablet daily. CALCIUM 600 + D(3) 600 MG-200 UNIT TAB Take one(1) tablet two(2) times daily. No current facility-administered medications on file prior to visit. PAST MEDICAL HISTORY Diagnosis Date Brain tumor (HCC) right frontal Esophageal reflux Gastroesophageal reflux PONV (postoperative nausea and vomiting) Prior radiation therapy, collagen vascular disease, or inflammatory bowel disease: No Any implanted or external electric devices? No status: Post-menopausal. PAST SURGICAL HISTORY Procedure Laterality Date CHOLECYSTECTOMY HX EXCIS SUPRATENT BRAIN TUMOR 05/19/2023 REPAIR RECTOCELE SEPARATE PROCEDURE TOTAL ABDOMINAL HYSTERECT W/WO RMVL TUBE OVARY Hysterectomy, LUCIE TREAT LOWER LEG FRACTURE Left ronald with screws FAMILY HISTORY Problem Relation Age of Onset Cancer Father lung Coronary Artery Disease Father Hypertension Father other (chf [Other]) Mother Heart Mother Coronary Artery Disease Mother Stroke Mother other (CEREBRAL HEMORRHAGE [Other]) Brother Hypertension Brother Hypertension Sister Cancer Maternal Grandfather Stroke Paternal Grandmother Anesthesia Problems No Family History Social History Tobacco Use Smoking status: Former Types: Cigarettes Quit date: 1979 Years since quittin.8 Smokeless tobacco: Never Substance Use Topics Alcohol use: No Drug use: No Residence: [place], [place] COMPLETE REVIEW OF SYSTEMS: Negative for new or exacerbated chronic symptoms unless noted above PHYSICAL EXAM: VS: BP 137/68 Pulse 81 Temp 36.7 C (98.1 F) Resp 18 Wt 69.8 kg (153 lb 14.4 oz) SpO2 95% BMI 29.59 kg/m Is the patient having any pain? No 0 on a scale of 0 to 10 KPS: 90 General Appearance: Alert and interactive. No acute distress. HEENT: NCAT. Sclera anicteric. EOMI. Neck: Normal ROM. Chest: No respiratory distress Musculoskeletal: No edema. Normal ROM in extremities. Neuro: Speech fluent. CN II-XII grossly intact, strength is grossly 5/5 across extremities, SILT, Gait normal. No focal deficits. 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 We discussed the natural history of the disease, as well as the risks, benefits, alternatives, side effects, complications, involved personnel, and plan. All questions were answered to the patient's satisfaction. We particularly discussed the results of the INDIGO trial and the pros and cons of adjuvant IDH inhibition vs SoC adjuvant RT with CHT Plan/Recommendations Await CARIS testing results [facility] Discussion of adjuvant IDH-inhibitor vs SoC RT & CHT Signed by: Dr. Cory Conway STAFF ADDENDUM I saw and evaluated the patient. I personally obtained the subramanian and critical portions of the history and physical exam. I reviewed the resident's documentation and discussed the patient with the resident. I agree with the resident's medical decision making as documented in the resident's note. 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 I discussed that typical recommendation is for RT + concurrent and adjuvant TMZ. However, if she decides to hold off on RT, she could be treated with IDH inhibitor per INDIGO study. R/B/A/P of RT were discussed. Results of CARIS testing could impact decision for RT, in that if there are higher grade genomic features, such as CDKN2A/B homozygous deletion, RT may be favored. Final recommendation is pending CARIS testing. Vibha Rangel MD cc: Chris Villaseñor [id number] [facility] [id number] Dr[address] Misti Blank, [facility] neuro-oncology documented in this encounter [facility] 05-31-2023 Note HNO ID: [id number] Author: Dorothy Stinson RN Service: ? Author Type: Registered Nurse Type: Progress Notes Filed: 05/31/2023 11:58 AM Note Text: Patient is here today accompanied by for surgical incision wound check. Surgery: Right frontal Craniotomy on 05/19/2023 for tumor resection with Dr Villaseñor Patient is recovering well postoperatively. No neurological symptoms or complaints compared to preoperative baseline . Re-discussed postoperative activity and associated restrictions. Incision is well approximated and healing. There are no signs or symptoms of infection. Incision cleansed with betadine and georgina removed without incident. Reviewed wound care with patient with good understanding. Patient aware to phone office with any questions or concerns. Dorothy Stinson RN BSN [employer] Courier [phone]. [facility] 05-31-2023 Note HNO ID: [id number] Author: Misti Blank MD Service: ? Author Type: Physician Type: Progress Notes Filed: 07/02/2023 12:03 PM Note Text: [facility] Treatment Team: N/A: Misti Blank MD The patient is referred for post-op neuro-oncologic evaluation. Final recommendations will be communicated back to the requesting physician by way of the shared medical records, or letters to requesting physician via US Mail. Diagnosis (C71.9) Low grade glioma of brain (HCC) (primary encounter diagnosis) Subjective Chief Complaint: low grade glioma, IDH-1 (R132H) mutation History of Present Illness: Patient is accompanied by . Hand dominance: right-handed. 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 The patient was [facility] seen [facility]2023 for word finding difficulty/word substitution that originally started back in 2007 with a slow increase in symptoms over the last few years. She was ultimately determined not to meet criteria for cognitive or speech disorder at the time of her evaluation. She also presented with concerns on an OSH MRI that showed a nonenhancing right frontal sulcal lesion that was done as part of her work-up for memory loss. She was referred to [facility] for the MRI findings. Seen by Neurosurgery in [facility] by Dr. Villaseñor on 05/06/2023. Overall impression was low-grade glioma with plans of craniotomy. Patient was admitted and underwent right frontal craniotomy for tumor resection on 05/19/2023. She tolerated the procedure well without any acute complications. She was discharged on POD #2 in stable condition. She was discharged on dexamethasone taper and Keppra 1000 mg BID. Reports increased appetite on steroids. Denies any post surgical changes. Surgical pathology consistent with low-grade glioma, IDH-1 (R132H) mutation. States her word finding difficulties/abnormal word replacement has not occurred for a few months. States she has not had incorrect grammar with writing since her surgery. Past Medical History: PAST MEDICAL HISTORY Diagnosis Date Brain tumor (HCC) right frontal Esophageal reflux Gastroesophageal reflux PONV (postoperative nausea and vomiting) Past Surgical History: PAST SURGICAL HISTORY Procedure Laterality Date CHOLECYSTECTOMY HX EXCIS SUPRATENT BRAIN TUMOR 05/19/2023 REPAIR RECTOCELE SEPARATE PROCEDURE TOTAL ABDOMINAL HYSTERECT W/WO RMVL TUBE OVARY Hysterectomy, LUCIE TREAT LOWER LEG FRACTURE Left ronald with screws Family History: FAMILY HISTORY Problem Relation Age of Onset Cancer Father lung Coronary Artery Disease Father Hypertension Father other (chf [Other]) Mother Heart Mother Coronary Artery Disease Mother Stroke Mother other (CEREBRAL HEMORRHAGE [Other]) Brother Hypertension Brother Hypertension Sister Cancer Maternal Grandfather Stroke Paternal Grandmother Anesthesia Problems No Family History Social History: Social History Tobacco Use Smoking status: Former Types: Cigarettes Quit date: 1979 Years since quittin.8 Smokeless tobacco: Never Substance Use Topics Alcohol use: No Drug use: No Medications: acetaminophen (TYLENOL) 325 mg tablet 2 tablets by ORAL/FEEDING TUBE route every 4 hours as needed for pain. oxyCODONE IR (ROXICODONE) 5 mg immediate release tablet 1 tablet by ORAL/FEEDING TUBE route every 8 hours as needed. dexAMETHasone (DECADRON) 2 mg tablet Continue taking 4mg (2 tablets) in the morning and 4mg (2 tablets) in the afternoon for 5 days.Then take 2mg (1 tablet) in the morning and 2mg (1 tablet) in the afternoon for 5 days. Then take 2 1/2 tablets (5mg) daily until directed otherwise. levETIRAcetam (KEPPRA) 1,000 mg tablet Take 1 tablet by mouth twice daily. famotidine (PEPCID) 40 mg tablet Take 1 tablet by mouth once daily. Continue while taking steroids oxybutynin ER (DITROPAN XL) 10 mg 24 hr tablet Take 10 mg by mouth once daily. traZODone (DESYREL) 50 mg tablet Take 1 tablet by mouth daily at bedtime. cholecalciferol, vitamin D3, (VITAMIN D-3) 10 mcg (400 unit) cap Take 400 Units by mouth once daily. lisinopril (ZESTRIL) 20 mg tablet Take 20 mg by mouth once daily. estradiol 1 mg ORAL tablet Take 1 tablet by mouth once daily. (Patient not taking: Reported on 05/31/2023) VITAMIN C 250 MG TAB Take one(1) tablet daily. CALCIUM 600 + D(3) 600 MG-200 UNIT TAB Take one(1) tablet two(2) times daily. Allergies: ALLERGIES Allergen Reactions Amlodipine Itching Latex Rash Review of Systems: Constitutional: (more content not included)... [facility] 05-31-2023 History of Presen t illness Narrative Patient is here today accompanied by for surgical incision wound check. Surgery: Right frontal Craniotomy on 05/19/2023 for tumor resection with Dr Villaseñor Patient is recovering well postoperatively. No neurological symptoms or complaints compared to preoperative baseline . Re-discussed postoperative activity and associated restrictions. Incision is well approximated and healing. There are no signs or symptoms of infection. Incision cleansed with betadine and georgina removed without incident. Reviewed wound care with patient with good understanding. Patient aware to phone office with any questions or concerns. Dorothy Stinson RN BSN [employer]ourier [phone]. documented in this encounter [facility] 05-31-2023 Nurse Note Reviewed and confirmed with patient that there were no changes in the the nursing assessment and vitals that were completed on May 31, 2023 during previous provider appointment. Nida Null Ma documented in this encounter [facility] 05-27-2023 Miscellaneous Notes I spoke with Jeanine. She is doing well since being home from surgery. She denied having any pain. Denied having any gait disturbance and is getting around very well. She denied any visual issues. Incision is well approximated without any drainage. She was surprised to see the length of the incision. I explained to her that the length of the incision is different for each patient and she is rather petite. The georgina will come out at her post op appointment next week if the incision looks well. We reviewed her medications and Jeanine verbalized understanding and awareness and had no questions in regards to her medications at this time. Dorothy Stinson MENTAL HEALTH ASSISTANT Bank Courier. General Call Caller : Jeanine Contact Reason for Call : Pt wants to know why she has sutures from her oriental orthodox down the right side her face? Patient requesting return call ? Yes documented in this encounter [facility] 05-21-2023 Note HNO ID: [id number] Author: Dari Sousa RN Service: Care Management Author Type: Registered Nurse Type: Care Mgt Initial Assessment Filed: 05/21/2023 11:12 AM Note Text: CARE MANAGEMENT: ASSESSMENT AND DISCHARGE PLAN SERVICE DATE: May 21, 2023 SERVICE TIME: 1109 PCP: No primary care provider on file. Primary Contact: Extended Emergency Contact Information Primary Emergency Contact: ChetanLuciano Address: [address] [place] [address] Mobile Relation: Spouse Admission Status: Inpatient Insurance Provider: MEDICARE A AND B Discharge Planning requested by: Per Department Practice Potential Transition Plans Home Advance Directives Current Advance Directive: Health Care Power of Electrical Prospecting Operator In Chart: Yes Up To Date and Valid: Yes [place] of Choice Explained: [place] of Choice Given: No Reason Not Given: No placements necessary Caregiver Assessment: Caregiver is ready, willing and able to meet the patient's needs as recommended by the inter-professional team: Yes Name of Caregiver: [place] [place] [phone] (H); [phone] (M) Transport at Discharge: Transportation Arrangements: To Be Determined Needs Prior to Discharge: Needs Prior to Discharge: To Be Determined Post-Acute Discharge Plan: This patient has been screened for Care Management Transitional Planning Services. At this time, it does not appear this patient will require transition planning services. Should this change, and the patient require transition planning services during this admission, please contact Case Management. Per chart review, anticipate D/C today, 05/21/2023. PT recommending a return to home with no skilled needs. Unit CM/SW to follow should D/C planning needs arise. SIGNATURE: Dari Sousa RN PATIENT NAME: Jeanine Silverio DATE: May 21, 2023 TIME: 11:09 AM CONTACT #: [phone] [facility] 05-20-2023 Note HNO ID: [id number] Author: Chris Villaseñor MD Service: Neurosurgery Author Type: Physician Type: Progress Notes Filed: 05/20/2023 3:34 PM Note Text: SERVICE DATE: 05/20/2023 SERVICE TIME: 1:21 PM After 4 PM (1600) please page Magalis Shaw or Boone Guerrero. After 1800, and weekends please page [phone]. Neurosurgery Inpatient Progress Note Attending: Chris Lin MD [address] Surgical History:Right frontal craniotomy for tumor resection 05/19/23 Subjective: The patient reports shoulder/back pain and mild head pain. She completed MRI. She is communicating well. Overnight events: combative post-anesthesia. MEDICATIONS: Current Facility-Administered Medications Medication Dose Route Frequency lisinopril 20 mg tab(s) (ZESTRIL) 20 mg ORAL DAILY pantoprazole DR 40 mg tab(s) (PROTONIX) 40 mg ORAL DAILY (6 AM) trospium 20 mg tab(s) (SANCTURA) 20 mg ORAL BID AC ondansetron (PF) 4 mg injection (ZOFRAN) 4 mg INTRAVENOUS q 6 H PRN prochlorperazine 10 mg injection (COMPAZINE) 10 mg INTRAVENOUS q 6 H PRN senna-docusate 8.6-50 mg 1 tablet (SENNA-S) 1 tablet ORAL/FEEDING TUBE BID iv contrast (radiology procedure) INTRAVENOUS DIRECTED PRN acetaminophen 650 mg tab(s) (TYLENOL) 650 mg ORAL/FEEDING TUBE q 4 H PRN oxyCODONE IR 5-10 mg tab(s) (ROXICODONE) 5-10 mg ORAL/FEEDING TUBE q 4 H PRN fentaNYL 50 mcg/mL 25 mcg injection (SUBLIMAZE) 25 mcg INTRAVENOUS q 2 H PRN labetalol 5-20 mg injection syringe (NORMODYNE) 5-20 mg INTRAVENOUS q 30 MIN PRN hydrALAZINE 5-20 mg injection (APRESOLINE) 5-20 mg INTRAVENOUS q 30 MIN PRN NaCl 0.9% iv flush bag 20 mL INTRAVENOUS PRN NaCl 0.9% iv flush bag 20 mL INTRAVENOUS PRN methocarbamol 500 mg tab(s) (ROBAXIN) 500 mg ORAL TID PRN dexAMETHasone 4 mg tab(s) (DECADRON) 4 mg ORAL BID 9A/1P levETIRAcetam 1,000 mg tab(s) (KEPPRA) 1,000 mg ORAL/FEEDING TUBE BID lidocaine 4 % 1 Patch (SALONPAS) 1 Patch TRANSDERMAL DAILY And lidocaine patch - REMOVE OTHER AT BEDTIME And lidocaine - VERIFY PATCH OTHER q 8 H OBJECTIVE: LABS: CBC: Recent Labs 05/19/23 1345 WBC 8.45 HB 12.9 HCT 37.8 PLT 295 MCV 87.3 RDWCV 12.6 NEUTP 90.3 ABSNEUT 7.63* LYMPHP 7.9 MONOP 0.9 COAG: No results for input(s): APTT , INR in the last 168 hours. BMP: Recent Labs 05/19/23 1345 GLUC 209* NA 138 K 3.6* CHLOR 105 CO2 22 ANION 11 BUN 8 CREAT 0.74 CHEM: Recent Labs 05/19/23 1345 CA 8.1* HEPATIC: No results for input(s): ALKPHOS , ALT , AST , TBILI , LIPASE in the last 168 hours. URINALYSIS:No results for input(s): PH , SPGR , UGLUC , UBILI , UKET , UHB , UPROT , UROBIL , UWBC , LEUKEST , SSA in the last 168 hours. Invalid input(s): NITR CARDIAC: No results for input(s): CKTEST , CKMB , CKMBP , TROPT , PBNP in the last 168 hours. Estimated Creatinine Clearance: 62.5 mL/min (based on SCr of 0.74 mg/dL). VITAL SIGNS 24 HOUR REVIEW: 05/20/23 0600 05/20/23 0700 05/20/23 0800 05/20/23 1200 BP: 124/60 138/65 136/64 134/65 Pulse: 66 66 71 78 Resp: 15 16 17 12 Temp: 36.7 ?C (98 ?F) TempSrc: Oral SpO2: 100% 100% 98% 96% Weight: Height: Intake/Output Summary (Last 24 hours) at 05/20/2023 1312 Last data filed at 05/20/2023 1000 Gross per 24 hour Intake 2053.55 ml Output 1770 ml Net 283.55 ml ALLERGIES: ALLERGIES Allergen Reactions Amlodipine Itching Latex Rash PATIENT CHECK LIST: 1. Out of bed and ambulating: Yes Needs PT or OT Evaluation: No 2. Vascular access necessary: PIV Yes Central line present? No 3. Sibley/drains: Yes Continued need for urinary catheter? D/C Urinary Catheter 4. Nutrition: PO- Yes. 5. Pain - Is the patient currently reporting any pain? Yes. What is the patient's current pain level on a 0 to 10 rating scale? Pain Level: 0 - What is the plan for pain management today 05/20/2023? Tylenol, Robaxin, and oxy PRn. Lidocaine for back pain. 6. Current DVT prophylaxis: Continous sequential compression devices . 7. Seizure prophylaxis:Keppra 1g BID 8. Restraints No. 9. Gait difficulty: no 10. Bowel / Bladder dysfunction: No 11. Urinating:yes 12. 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 Appears stated age, well built, in no apparent distress. Psychiatric: Mood and affect: Appropriate. Skin: covered with gauze Incision: clean/dry/intact CV: Normal heart sounds, rate, rhythm >Tele: normal sinus rhythm Respiratory: lungs CTA bilat Musculoskeletal: Sensory: Normal sensory exam Gait: not observed Muscle strength: UE BICEPS TRICEPS DELTS Systems Tester R 5/5 5/5 5/5 5/5 L 5/5 5/5 5/5 5/5 LE Hip Flex Knee Flex Knee Extend Plantarflex Dorsiflex EHL R 5/5 5/5 5/5 5/5 5/5 5/5 L 5/5 5/5 5/5 5/5 5/5 5/5 CRANIAL NERVES: Pupils: OD Right: 3 mm Reactive OS Left: 3 mm Reactive II Visual russell: are full to confrontation III, IV, EOM full V Facial sensation normal VII Normal strength VIII Normal (more content not included)... [facility] 05-20-2023 Note HNO ID: [id number] Author: Berlin Mason MD Service: Neurosurgery Author Type: Resident Type: Progress Notes Filed: 05/20/2023 7:57 AM Note Text: Neurosurgery Progress NOte Subjective: No acute events overnignt Objective: EXAM: BP 138/65 Pulse 66 Temp 36.9 ?C (98.4 ?F) (Oral) Resp 16 Ht 152.4 cm (5') Wt 63.9 kg (140 lb 14 oz) SpO2 100% BMI 27.51 kg/m? AOx3, NAD PERRL, EOMI FS, TM No drift BUE 5/5 BLE 5/[address] c/d/i A/P: 67 year old female PMH PONV, Htn, GERD who was evaluated outpatient for trouble with her words over many years. MRI demonstrated non-enhancing R frontal T2 hyperintense lesion. Electively admitted for surgery. Now POD #0 s/p R frontal craniotomy for tumor resection - Neuro as above - Perioperative abx: ancef - Dex 4BID - AEDs: keppra 1gBID - Imaging: MRI brain w/wo tumor protocol, POD1 - Diet: advance as tolerated - DVT ppx: SCDs only - PT/OT Signature: Berlin Mason MD PGY-7 [id number] Neurosurgery Pager: [phone] 05/19/2023 Please page [phone] after 6 PM and on weekends [facility] 05-19-2023 Note HNO ID: [id number] Author: Brelin Mason MD Service: Neurosurgery Author Type: Resident Type: Plan of Care Filed: 05/19/2023 2:17 PM Note Text: Neurosurgery Post-op Check Note Subjective: POC Objective: EXAM: BP 158/86 Pulse 80 Temp 36.3 ?C (97.3 ?F) (Temporal Artery) Resp 16 SpO2 97% Oriented x2 (not place), agitated, combative PERRL, 2mm FS, TM Unable to assess rest of CN exam BUE and BLE flailing seemingly full strength Headwrap in place c/d/i A/P: 67 year old female PMH PONV, Htn, GERD who was evaluated outpatient for trouble with her words over many years. MRI demonstrated non-enhancing R frontal T2 hyperintense lesion. Electively admitted for surgery. Now POD #0 s/p R frontal craniotomy for tumor resection - Neuro as above - Perioperative abx: ancef - Dex 4BID - AEDs: keppra 1gBID - Imaging: MRI brain w/wo tumor protocol, POD1 - Diet: advance as tolerated - Dispo: SDU, neurosurgery primary - DVT ppx: SCDs only - PACU labs: CBC, BMP Signature: Berlin Mason MD PGY-7 [id number] Neurosurgery Pager: [phone] 05/19/2023 Please page [phone] after 6 PM and on weekends [facility] 05-19-2023 Note HNO ID: [id number] Author: Valerio Hu MD Service: ? Author Type: Physician Type: Anesthesia Procedure Notes Filed: 05/19/2023 5:53 PM Note Text: ANESTHESIOLOGY PROCEDURE NOTE A-Line General Information Procedure Start Time/Medication Administration: 05/19/2023 8:45 AM Patient location during procedure: OR Indications: continuous blood pressure monitoring Staffing Anesthesiologist: Valerio Hu MD Performed by: anesthesiologist Preparation Sterility Preparation: hand hygiene performed prior to procedure, sterile gloves, drapes, and procedure tray, surgical cap used, mask used, sterile drape used during line insertion, skin prep agent completely dried prior to procedure Site Prep: Chloraprep Procedure Details Catheter Type: arterial line Catheter Size: 20 G Catheter Length: 5.25 in Micropuncture Kit Used: No Guidewire Used: Yes Guidewire Removed Intact: Yes Laterality: left Site: radial artery Ultrasound Guided: Yes Image in Chart: No Sites: potential access sites evaluated, selected vessel patent, concurrent real time ultrasound visualization of vascular needle entry Vessel: target vessel identified and guidewire advanced into vessel Line Secured: occlusive biodressing Events Events: patient tolerated procedure well with no complications SIGNATURE: Kerri Reyez APRN.[employer] PATIENT NAME: Jeanine Silverio DATE: May 19, 2023 TIME: 9:45 AM CSN: [id number] I performed the procedure. Agree with the procedure note documented. Valerio Hu MD 05/19/2023 [facility] 05-19-2023 Note HNO ID: [id number] Author: Kerri Reyez APRN.[employer] Service: ? Author Type: Nurse Animal Trainer Supervisor Type: Anesthesia Procedure Notes Filed: 05/19/2023 9:44 AM Note Text: ANESTHESIOLOGY PROCEDURE NOTE PIV General Information Procedure Start Time/Medication Administration: 05/19/2023 9:01 AM Staffing [employer]: Kerri Reyez APRN.[employer] Performed by: MARISABEL Preparation Sterility Preparation: skin prep agent completely dried prior to procedure Sterility Technique Not Completely Performed Due to Extreme Emergency: No Site Prep: alcohol Procedure Details Indication: need for IV access Needle Size/Type: 16 gauge angiocath Orientation: Left Location: Hand Imaging Guidance Used: No SIGNATURE: Kerri Reyez APRN.CRNA PATIENT NAME: Jeanine Silverio DATE: May 19, 2023 TIME: 9:44 AM CSN: [id number] [facility] 05-19-2023 Note HNO ID: [id number] Author: Kerri Reyez APRN.[employer] Service: ? Author Type: Nurse Animal Trainer Supervisor Type: Anesthesia Procedure Notes Filed: 05/19/2023 9:44 AM Note Text: ANESTHESIOLOGY PROCEDURE NOTE Airway General Information Procedure Start Time/Medication Administration: 05/19/2023 8:54 AM Patient location during procedure: OR Staffing [employer]: Kerri Reyez APRN.[employer] Performed by: MARISABEL Indications and Patient Condition Indications for airway management: anesthesia Preoxygenated: yes anesthesia circuit Method: sleep Difficult Mask: No Final Airway Details Final airway type: endotracheal airway Final Endotracheal Airway: ETT Cuffed: yes Successful intubation technique: video laryngoscopy Devices used: Truffls Blade: Brayden Blade size: #3 ETT size (mm): 7.0 Measured from: lips Measurement (cm): 21 Placement verified by: capnometry Cormack-Lehane Classification: grade I - full view of glottis Number of attempts at approach: 1 Airway not difficult SIGNATURE: Kerri Reyez APRN.CRNA PATIENT NAME: Jeanine Silverio DATE: May 19, 2023 TIME: 9:43 AM CSN: [id number] [facility] 05-18-2023 Note HNO ID: [id number] Author: Racquel Villegas RN Service: Nursing Author Type: Registered Nurse Type: Progress Notes Filed: 05/18/2023 5:28 PM Note Text: Radiology Service Progress Note DATE OF SERVICE: May 18, 2023 TIME: 5:24 PM PATIENT WEIGHT: 140 LBS PATIENT IDENTITY VERIFICATION COMPLETED USING TWO (2) STANDARD IDENTIFIERS: Name and Date of confirmed by patient verbally and Name and Date of confirmed by identification band. FALL SCREENING: Has the patient had 2 falls in the last year or 1 fall with injury or currently using an Ambulatory Assistive Device (Walker, Cane, Wheelchair, Crutches, etc.)? No PATIENT GENDER DATA: Female. status: : No status: NO. ALLERGIES: Reviewed and unchanged CONTRAST ALLERGY: No EXAM: MRI - CONTRAST TYPE: GROUP II IV SITE: Ambulatory: A peripheral IV was started in the Left antecubital site with a Angio cath: 22 gauge. and A Saline lock was inserted per protocol IV SITE APPEARANCE: Clean,Dry and Intact SIGNATURE: Racquel Villegas RN PATIENT NAME: Jeanine Silverio DATE: May 18, 2023 TIME: 5:24 PM [facility] 05-18-2023 Note HNO ID: [id number] Author: Michaela Greco RT(R) Service: ? Author Type: Technologist Type: Progress Notes Filed: 05/18/2023 6:15 PM Note Text: Radiology Service Progress Note PATIENT NAME: Jeanien Silverio DATE OF SERVICE: May 18, 2023 TIME: 6:15 PM PATIENT IDENTITY VERIFICATION COMPLETED USING TWO (2) IDENTIFIERS: Name and Date of confirmed by patient verbally and Name and Date of confirmed by identification band. FALL SCREENING: Has the patient had 2 falls in the last year or 1 fall with injury or currently using an Ambulatory Assistive Device (Walker, Cane, Wheelchair, Crutches, etc.)? No PATIENT GENDER DATA: Female. status: : No status: NO. PATIENT RELEVANT IMPLANT DATA REVIEWED: Yes RADIOLOGY DEPARTMENT: MR; Exam(s) Completed: Head: Localization PERIPHERAL IV DATA: Site assessment: Clean,Dry and Intact, Site disposition Discontinued SIGNED BY: RT Ophelia(R) May 18, 2023 6:15 PM [facility] 05-18-2023 Note HNO ID: [id number] Author: Alisa Medina MA Service: ? Author Type: Commercial Retoucher Type: Progress Notes Filed: 05/25/2023 11:08 AM Note Text: Reviewed and confirmed with patient that there were no changes in the the nursing assessment and vitals that were completed on 05/18/2023 during previous provider appointment. Alisa Medina MA [facility] 05-18-2023 Nurse Note Reviewed and confirmed with patient that there were no changes in the the nursing assessment and vitals that were completed on May 18, 2023 during previous provider appointment. Nida Null Ma documented in this encounter [facility] 05-18-2023 History of Presen t illness Narrative Reviewed and confirmed with patient that there were no changes in the the nursing assessment and vitals that were completed on 05/18/2023 during previous provider appointment. Alisa Medina MA documented in this encounter [facility] 05-18-2023 Instructions Anh Hernandez PA-C - 05/18/2023 7:46 AM EDT PATIENT PREOPERATIVE INSTRUCTIONS No ref. provider found has scheduled you for your procedure at this surgery center: [facility] Scheduling Office: [phone] --[address] [place] [address]. Please read below carefully for your personalized instructions. Dietary Restrictions: - No solid food after midnight. - You may have 12 ounces of clear liquids (water, clear juices such as apple juice or gatorade, carbonated beverages, clear tea, black coffee, jello) until 2 hours before scheduled arrival at facility. Medications: Unless instructed differently below, stay on all of your medications until your surgery. If you start any new medications after today's visit, please contact your surgeon. Pre-Surgery Med Instructions Medication Instructions oxybutynin ER (DITROPAN XL) 10 mg 24 hr tablet Do not take the day of surgery famotidine (PEPCID) 40 mg tablet Do not take the day of surgery lisinopril (ZESTRIL) 20 mg tablet Do not take for 24 hours prior to surgery estradiol 1 mg ORAL tablet Do not take the day of surgery If you start any new medications after today's visit, please contact the surgeon's office. Blood Thinning Medications: - Stop NSAIDS (Ibuprofen, Advil, Aleve, Motrin, Celebrex, Mobic, etc.) 7 days before surgery, as directed by your surgeon. - Stop Aspirin 7 days before surgery, as directed by your surgeon. - Stop Vitamin E, ALL multi-vitamins, herbals and dietary supplements 7 days before surgery. - You may take Tylenol (Acetaminophen) or any of your pain medications that do not contain aspirin or NSAIDS as needed. Important Reminders: - Candy, mints, and tobacco products are NOT permitted the morning of surgery. - Hearing aids, dentures and glasses may be worn the morning of surgery. - NO jewelry, body piercings, makeup, hairpins or contacts are to be worn the day of surgery. If you develop symptoms such as a fever, cold, or flu, or have other changes to your health within TWO DAYS of scheduled surgery or the morning of surgery, please contact the surgery center above. Personal Belongings: -Please have photo ID and insurance cards. -If you do not have a copy of advance directives on file with us, please bring a copy with you on the day of surgery. - Leave ALL valuables and money at home or with family members. For Outpatient Procedures: - YOU MUST HAVE A RESPONSIBLE CHEMIST BIOLOGICAL TAKE YOU HOME. A LIEN SEARCHER OR GUIDE ESCORT CANNOT BE MADE A RESPONSIBLE CHEMIST BIOLOGICAL. - We recommend that a responsible person stays with you overnight to take care of you. - You cannot stay in a hotel alone after outpatient surgery. You will not be permitted to have your surgery, if you do not have someone to take care of you. Arrival Time for Surgery: - To obtain your arrival time for surgery, call your physician's office the day before your surgery. - If your surgery is scheduled for Wednesday, call the Wednesday before. Your surgeon s fryer operator will tell you what time to call the office. - If you have not reached the departmental fryer operator by 5 P.M., call [phone] after 5 P.M. the day before your surgery. Please be aware that emergency situations arise, which may delay or change your surgical time. If this happens, we will notify you as soon as possible and regret any inconvenience. If you already have an Advance Directive, please fax a copy to [phone] or email to for it to be added to your chart. If you do not have an Advance Directive, you can find the appropriate form and more information at [email or web address]. We recommend that you complete the Advance Directive form found on the website and bring it with you the day of your surgery. It can be witnessed and scanned into your chart that day. Anh Hernandez PA-C documented in this encounter [facility] 05-18-2023 History and physical note HISTORY AND PHYSICAL EXAMINATION SERVICE DATE: May 17, 2023 SERVICE TIME: 10:07 AM PRIMARY CARE PHYSICIAN: No primary care provider on file. REASON FOR VISIT: Jeanine Silverio is a 67 year old female who is scheduled for STEREOTACTIC COMPUTER-ASSISTED NAVIGATIONAL PROCEDURE CRANIAL, CRANIECTOMY EXCISION TUMOR, TREPHINATION, BONE FLAP CRANIOTOMY, SUPRATENTORIAL, EXCEPT MENINGIOMA at the request of Chris Lin for consultation. My final recommendation will be communicated back to the requesting physician by way of shared medical record or letter. 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 Patient has a history of brain tumor. Patient reports symptoms of replacing words with other words. Denies any fever, chills, nausea, vomiting, chest pain, abdominal pain, SOB. Above procedure is recommended to manage symptoms. Patient is scheduled for surgery on 05/19/2023. PAST MEDICAL HISTORY Diagnosis Date Esophageal reflux Gastroesophageal reflux PONV (postoperative nausea and vomiting) PAST SURGICAL HISTORY Procedure Laterality Date CHOLECYSTECTOMY HX REPAIR RECTOCELE SEPARATE PROCEDURE TOTAL ABDOMINAL HYSTERECT W/WO RMVL TUBE OVARY Hysterectomy, LUCIE TREAT LOWER LEG FRACTURE Left ronald with screws FAMILY HISTORY Problem Relation Age of Onset Cancer Father lung Coronary Artery Disease Father Hypertension Father other (chf [Other]) Mother Heart Mother Coronary Artery Disease Mother Stroke Mother other (CEREBRAL HEMORRHAGE [Other]) Brother Hypertension Brother Hypertension Sister Cancer Maternal Grandfather Stroke Paternal Grandmother Anesthesia Problems No Family History SOCIAL HISTORY: Social History Tobacco Use Smoking status: Former Types: Cigarettes Quit date: 1979 Years since quittin.7 Smokeless tobacco: Never Substance Use Topics Alcohol use: No Drug use: No MEDICATIONS: Prior to Admission medications as of 05/18/23 0749 Medication Sig Last Dose Taking oxybutynin ER (DITROPAN XL) 10 mg 24 hr tablet Take 10 mg by mouth once daily. Taking Yes famotidine (PEPCID) 40 mg tablet Take 40 mg by mouth once daily. Taking Yes lisinopril (ZESTRIL) 20 mg tablet Take 20 mg by mouth once daily. Taking Yes estradiol 1 mg ORAL tablet Take 1 tablet by mouth once daily. Taking Yes cholecalciferol, vitamin D3, (VITAMIN D-3) 10 mcg (400 unit) cap Take 400 Units by mouth once daily. traZODone (DESYREL) 50 mg tablet Take 1 tablet by mouth daily at bedtime. VITAMIN C 250 MG TAB Take one(1) tablet daily. CALCIUM 600 + D(3) 600 MG-200 UNIT TAB Take one(1) tablet two(2) times daily. No medication comments found. CURRENT ALLERGIES: ALLERGIES Allergen Reactions Amlodipine Itching COVID VACCINATION STATUS: Fully vaccinated REVIEW OF SYSTEMS: PAIN ASSESSMENT: General: No weight loss, malaise or fevers. Neuro: See HPI Respiratory: +chronic dry cough Denies SOB with activity, recent bronchitis, pneumonia, asthma or COPD. Cardiovascular: +HTN Denies any history of UT, CAD, CHF, DVT, PE, arrhythmias or murmurs. Denies CP, SOB, orthopnea, PND, LE edema, palpitations, syncope, lightheadedness or dizziness. GI: No history of GI symptoms or problems. No history of esophageal varices, recent ascites, or ETOH greater than 2 drinks per day. : No history of dysuria, frequency or incontinence,, stones or chronic kidney disease Endocrine: No history of diabetes. Has not taken steroids within the past 30 days. No history of endocrinological symptoms or problems. Hematology: No history of bleeding or clotting disorder. Pt is not taking anti-coagulation or platelet medications. No history of hematological symptoms or problems. Oncology: No history of CA metastasis, chemo within 30 days, or radiotherapy within 90 days. Has not lost 10% of body wt in 6 months. No history of oncological symptoms or problems. Psych: No history of psychiatric symptoms or problems. Musculoskeletal: Negative for joint pain or swelling, back pain or muscle pain. Skin: Negative for lesions, rash and itching. Objective PHYSICAL EXAM: VITALS: BP 130/88 Pulse 79 Temp (Src) 97.8 (Temporal) Ht 5' 0 (1.52m) Wt 141 lb 4.8 oz (64.1kg) SpO2 96% BMI 27.60 kg/(m^2). General: Alert and oriented, No acute distress, Healthy appearance Skin: Normal color, no rash, no lesions. HEENT: EOM, pupils equal, round and reactive. Cardiovascular: Normal S1 & S2, no rubs, murmurs or gallops. No JVD. Pulse regular. Lungs: Normal breath sounds, no wheezes or crackles. Abdomen: Soft, non-tender, no rigidity. Extremities: No deformity, no edema or tenderness, no joint swelling or clubbing. Neurological: Normal cognition and motor skills. Pulses: Radial pulses; left 2+ / right 2+. Diagnostic tests reviewed for today's visit: Lab Value Units Date High Low HB 13.4 g/dL 05/10/2023 15.5 11.5 HCT 40.8 % 05/10/2023 46.0 36.0 WBC 6.81 k/uL 05/10/2023 11.00 3.70 PLT 305 k/uL 05/10/2023 400 150 NA 137 mmol/L 05/10/2023 144 136 K 3.9 mmol/L 05/10/2023 5.1 3.7 GLUC 103 mg/dL 05/10/2023 99 74 BUN 12 mg/dL 05/10/2023 21 7 CREAT 0.75 mg/dL 05/10/2023 0.96 0.58 PTSEC No results within date range. INR No results within date range. APTT No results within date range. ALT 12 U/L 05/10/2023 38 7 AST 12 U/L 05/10/2023 35 13 TBILI 0.4 mg/dL 05/10/2023 1.3 0.2 TSH No results within date range. Lab Value Units Date High Low HCGQT No results within date range. UHCG No results within date range. HCG, BODY* No results within date range. Lab Value Units Date High Low ABORHD No results within date range. ABSCREEN No results within date range. No results found for: HBA1C Recent Results (from the past 8760 hour(s)) ECG COMPLETE Collection Time: 05/18/23 8:18 AM Result Value Ventricular Rate 70 Atrial Rate 70 P-R Interval 160 QRS Duration 86 QT Interval 370 QTC Calculation (Bazett) 399 Calculated P Frederick 24 Calculated R Frederick 0 Calculated T Frederick 7 Impression NORMAL SINUS RHYTHM NORMAL ECG No results found for this or any previous visit (from the past 81276 hour(s)). Assessment/Plan PONV (postoperative nausea and vomiting) Essential (primary) hypertension Controlled with lisinopril BP 130/88 Gastroesophageal reflux disease Stable on Pepcid METS: Climb a flight of stairs or walk up a hill (5.50 METs) Patient denies any chest pain or undue shortness of breath with the above physical activity. ANESTHESIA FINDINGS: Intubation History: No history of difficult intubation Significant Anesthesia Considerations: PONV Airway Exam: General: Normal appearance Mallampati Score is CLASS II ULBT: Class I - Lower incisors can bite the upper lip above the petar line Neck: Normal appearance and function, Distance from hyoid to mentum during neck extension is at least 3 finger breaths Mouth: Normal tongue size and Mouth opening greater than 2 finger breaths Dentition: Intact, 2 upper molars crowned Airway History: No abnormal airway history 05/11/2023 Sleep Apnea Probability Snores loudly: No Tired, fatigued or sleepy in daytime: No Stops breathing or choking/gasping during sleep: No High blood pressure: Yes Sleep Apnea Probability Score 05/11/2023 Sleep Apnea Screen V2 25 (Sleep study not recommended) PLAN Pt optimally prepared for surgery, pending day of surgery review of EKG. Patient was evaluated in [facility] the day before surgery. CONSULTS: Patient does not require consults for optimization at this time. The Following Tests/Procedures Have Been Initiated: Orders Placed This Encounter cholecalciferol, vitamin D3, (VITAMIN D-3) 10 mcg (400 unit) cap Sig: Take 400 Units by mouth once daily. ECG COMPLETE Standing Status: Future Number of Occurrences: 1 Standing Expiration Date: 05/18/2024 Labs per surgical service Planned Anesthetic: Per anesthesia choice Instructions Given to Patient: Instructions located in the after visit summary. Patient given verbal and written preop instructions and voices comprehension and compliance. 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 Offered that she can see me 6 to 7 months later to follow-up on her concerns regarding speech. At this time she should continue treatment plan with neurosurgery. documented in this encounter [facility] 05-06-2023 Note HNO ID: [id number] Author: Chris Villaseñor MD Service: ? Author Type: Physician Type: Progress Notes Filed: 05/06/2023 11:23 AM Note Text: [facility] New Patient Consultation Referred by Benjamin Enriquez [address] [facility] [id number] Diagnosis: Right frontal low grade glioma Subjective History of Present Illness: Jeanine Silverio is a 67 year old Right handed female who presents to the [facility] for an initial evaluation. Patient has been seen and referred by Dr. Pedro Brantley. Today's visit: She is here for complaint of replacing words with other words. She first noticed it in 2007. She was not aware of the problem and her noticed that. She is not aware if happened again after that. 5 years later people started pointing out to her more and in July of 2022 she was writing sheep are dumb instead she wrote she are done . When she went back to read it she noticed her mistake. She is unaware of these mistakes. She might have had a febrile seizure when she was young, however no other neurological symptoms or headach. She is here for evaluation of above and to discuss treatment options. Last Chemo: Current Steroids dose: N/A Current AED Dose: N/A Therapy Status Data Form Past Medical History: PAST MEDICAL HISTORY Diagnosis Date Esophageal reflux Gastroesophageal reflux Past Surgical History: PAST SURGICAL HISTORY Procedure Laterality Date REPAIR RECTOCELE SEPARATE PROCEDURE TOTAL ABDOMINAL HYSTERECT W/WO RMVL TUBE OVARY Hysterectomy, LUCIE Family History: FAMILY HISTORY Problem Relation Age of Onset other (chf [Other]) Mother Heart Mother Cancer Father lung other (CEREBRAL HEMORRHAGE [Other]) Brother Cancer Maternal Grandfather Coronary Artery Disease Mother Coronary Artery Disease Father Hypertension Father Hypertension Brother Hypertension Sister Stroke Mother Stroke Paternal Grandmother Social History Tobacco Use Smoking status: Former Types: Cigarettes Quit date: 1979 Years since quittin.7 Smokeless tobacco: Never Substance Use Topics Alcohol use: No Drug use: No Allergies: Amlodipine Current Outpatient Medications Medication Sig oxybutynin ER (DITROPAN XL) 10 mg 24 hr tablet Take 10 mg by mouth once daily. famotidine (PEPCID) 40 mg tablet Take 40 mg by mouth once daily. lisinopril (ZESTRIL) 20 mg tablet Take 20 mg by mouth once daily. terbinafine HCl (LAMISIL) 250 mg tablet Take 250 mg by mouth once daily. (Patient not taking: Reported on 05/06/2023) traZODone (DESYREL) 50 mg tablet Take 1 tablet by mouth daily at bedtime. estradiol 1 mg ORAL tablet Take 1 tablet by mouth once daily. PREVACID 15 MG RAPID DISSOLVE TAB Take one(1) tablet daily. MULTIPLE VITAMIN TAB Take one(1) tablet daily. VITAMIN C 250 MG TAB Take one(1) tablet daily. CALCIUM 600 + D(3) 600 MG-200 UNIT TAB Take one(1) tablet two(2) times daily. No current facility-administered medications for this visit. Review of systems: Constitutional: No recent fever or weight loss. Eyes: No history of glaucoma or cataracts. ENMT: No recent ear infection, nasal congestion, mouth sores or sore throat. CV: No history of chest pain, palpitations or leg swelling. Respiratory: No history of SOB, asthma or recent cough. Gastrointestinal: No history of nausea, vomiting, dysphagia or abdominal pain. Genitourinary: No history of hematuria or dysuria. Musculoskeletal: No complaint of arthritis, unstable gait or arm/leg weakness. Psychiatric: No history of hallucinations or depression or anxiety. ROS Neurological: No complaint of headache. No complaint of tinnitus. No complaint of decreased hearing. No complaint of diplopia. No complaints of decreased visual acuity. No complaint of arm/leg numbness. No problem with limb coordination. No tremors Gait is normal No problems with pain and touch sensations No complaint of syncope, seizures or disorientation. Objective Physical Exam: BP 124/93 Pulse 75 Temp (Src) 98.2 (Oral) Resp 18 Ht 5' .433 (1.54m) Wt 143 lb 1.6 oz (64.9kg) SpO2 97% BMI 27.55 kg/(m2). General appearance: well appearing, in no acute distress, alert Head: NC/AT Eyes: clear, anicteric Oropharynx: clear, no lesions Neck: supple, no LAD Lungs: CTA bilaterally, no W/C Heart: RR without murmur noted Abdomen: soft, NT/ND Extremities: warm, no cyanosis or edema Skin: color, texture, and turgor unremarkable. No rashes or lesions. PE Neuro: AANDO x3. Patient is fully conscious, oriented to time, person and place. Word-finding difficulty: NO Fluency: NO Difficulty understanding conversations: NO Difficulty with reading or writing: NO Difficulty with reading comprehension: NO CN II-XII grossly intact. EOMI CN VII: Face symmetric, no ptosis or facial droop CN VIII: Auditory acuity in (more content not included)... [facility] 05-06-2023 History of Presen t illness Narrative Images from the original note were not included. [facility] New Patient Consultation Referred by Benjamin Coyne [address] [facility] [id number] Diagnosis: Right frontal low grade glioma Subjective History of Present Illness: Jeanine Silverio is a 67 year old Right handed female who presents to the [facility] for an initial evaluation. Patient has been seen and referred by Dr. Pedro Brantley. Today's visit: She is here for complaint of replacing words with other words. She first noticed it in 2007. She was not aware of the problem and her noticed that. She is not aware if happened again after that. 5 years later people started pointing out to her more and in July of 2022 she was writing sheep are dumb instead she wrote she are done . When she went back to read it she noticed her mistake. She is unaware of these mistakes. She might have had a febrile seizure when she was young, however no other neurological symptoms or headach. She is here for evaluation of above and to discuss treatment options. Last Chemo: Current Steroids dose: N/A Current AED Dose: N/A Therapy Status Data Form Past Medical History: PAST MEDICAL HISTORY Diagnosis Date Esophageal reflux Gastroesophageal reflux Past Surgical History: PAST SURGICAL HISTORY Procedure Laterality Date REPAIR RECTOCELE SEPARATE PROCEDURE TOTAL ABDOMINAL HYSTERECT W/WO RMVL TUBE OVARY Hysterectomy, LUCEI Family History: FAMILY HISTORY Problem Relation Age of Onset other (chf [Other]) Mother Heart Mother Cancer Father lung other (CEREBRAL HEMORRHAGE [Other]) Brother Cancer Maternal Grandfather Coronary Artery Disease Mother Coronary Artery Disease Father Hypertension Father Hypertension Brother Hypertension Sister Stroke Mother Stroke Paternal Grandmother Social History Tobacco Use Smoking status: Former Types: Cigarettes Quit date: 1979 Years since quittin.7 Smokeless tobacco: Never Substance Use Topics Alcohol use: No Drug use: No Allergies: Amlodipine Current Outpatient Medications Medication Sig oxybutynin ER (DITROPAN XL) 10 mg 24 hr tablet Take 10 mg by mouth once daily. famotidine (PEPCID) 40 mg tablet Take 40 mg by mouth once daily. lisinopril (ZESTRIL) 20 mg tablet Take 20 mg by mouth once daily. terbinafine HCl (LAMISIL) 250 mg tablet Take 250 mg by mouth once daily. (Patient not taking: Reported on 05/06/2023) traZODone (DESYREL) 50 mg tablet Take 1 tablet by mouth daily at bedtime. estradiol 1 mg ORAL tablet Take 1 tablet by mouth once daily. PREVACID 15 MG RAPID DISSOLVE TAB Take one(1) tablet daily. MULTIPLE VITAMIN TAB Take one(1) tablet daily. VITAMIN C 250 MG TAB Take one(1) tablet daily. CALCIUM 600 + D(3) 600 MG-200 UNIT TAB Take one(1) tablet two(2) times daily. No current facility-administered medications for this visit. Review of systems: Constitutional: No recent fever or weight loss. Eyes: No history of glaucoma or cataracts. ENMT: No recent ear infection, nasal congestion, mouth sores or sore throat. CV: No history of chest pain, palpitations or leg swelling. Respiratory: No history of SOB, asthma or recent cough. Gastrointestinal: No history of nausea, vomiting, dysphagia or abdominal pain. Genitourinary: No history of hematuria or dysuria. Musculoskeletal: No complaint of arthritis, unstable gait or arm/leg weakness. Psychiatric: No history of hallucinations or depression or anxiety. ROS Neurological: No complaint of headache. No complaint of tinnitus. No complaint of decreased hearing. No complaint of diplopia. No complaints of decreased visual acuity. No complaint of arm/leg numbness. No problem with limb coordination. No tremors Gait is normal No problems with pain and touch sensations No complaint of syncope, seizures or disorientation. Objective Physical Exam: BP 124/93 Pulse 75 Temp (Src) 98.2 (Oral) Resp 18 Ht 5' .433 (1.54m) Wt 143 lb 1.6 oz (64.9kg) SpO2 97% BMI 27.55 kg/(m^2). General appearance: well appearing, in no acute distress, alert Head: NC/AT Eyes: clear, anicteric Oropharynx: clear, no lesions Neck: supple, no LAD Lungs: CTA bilaterally, no W/C Heart: RR without murmur noted Abdomen: soft, NT/ND Extremities: warm, no cyanosis or edema Skin: color, texture, and turgor unremarkable. No rashes or lesions. PE Neuro: A&O x3. Patient is fully conscious, oriented to time, person and place. Word-finding difficulty: NO Fluency: NO Difficulty understanding conversations: NO Difficulty with reading or writing: NO Difficulty with reading comprehension: NO CN II-XII grossly intact. EOMI CN VII: Face symmetric, no ptosis or facial droop CN VIII: Auditory acuity intact CN IX/CN X: Normal palate elevation CN XI: Normal shoulder shrug CN XII: Normal tongue strength and range of motion; no deviation Motor: appropriate muscle bulk, tone, and strength. No abnormal movements Sensorium: grossly intact Vibration, pinprick and proprioception were not assessed Gait: Unremarkable and no problems with coordination Karnofsky performance status: 90 - Able to carry on normal activity, minor signs or symptoms of disease. ECOG performance status: 0 - Fully active, able to carry on all pre-disease performance without restriction. No flowsheet data found. Labs: No flowsheet data found. No flowsheet data found. Final Pathology: Waiting for surgery Imaging: Reports areas of non contrasted MRI showing FLAIR hyperintensity with broad differential including a low grade glioma. Tania Parry MD 10:44 AM 05/06/2023 [facility] Assessment & Plan We reviewed MRI from August with neuroradiologist. This looks like a low grade glioma based on MRI findings. We discussed treatment options including surgery, radiation, chemotherapy and observation. Of these I believe that craniotomy is the best next step. I have discussed the management options and their respective risks and benefits with the patient. We discussed navigation assisted craniotomy. The day prior to surgery, several markers are applied to the scalp and an MRI obtained (MPRAGE, T2 volumetric, DTI). This is used for planning and intraoperative navigational purposes. At surgery, a vertical incision would be made over the tumor. A bone flap would be elevated, over and anterior to the tumor and the dural membrane reflected. There, using navigation, microsurgery and other appropriate instruments the tumor would be removed with the intent of a gross total resection as long as this did not subject them to unnecessary risk. Thereafter, the membrane would be closed, bone affixed with small titanium plates, the scalp closed, hair washed and a dressing applied. The patient would spend the night in one of our observation units, then likely out to a regular nursing floor the next day barring any complications. A baseline MRI would be obtained. The risks, benefits, complications, and alternative treatments were discussed with the patient and he agreed to proceed with the above plan. I spent a total of 60 minutes on the date of the service which included preparing to see the patient, [id number] patient care, completing clinical documentation, obtaining and/or reviewing separately obtained history, counseling and educating the patient/family/caregiver, independently interpreting results (not separately reported), and care coordination (not separately reported). Chris Villaseñor MD May 06, 2023 10:59 AM documented in this encounter [facility] 05-06-2023 Nurse Note Additional intake questions: Has the patient had fever, nausea, vomiting, diarrhea, constipation, fatigue for > 1 week? No Does the patient have a decreased appetite? No Does patient want to see a Funeral Director/Embalmer/Owner? No (yes to any of above refer patient to schedulers for dietitian appointment) ) Does patient have any new or increased numbness or tingling of extremities? No Is patient interested in fertility information? No Does patient need any prescription refills? No Does patient have an advanced directive in place? Yes, no copy found in [facility] Patient referred to [facility] documented in this encounter [facility] 04-21-2023 Miscellaneous Notes Time Frame: YANICK 1-2 weeks Provider: Any intra axial Neurosurgeon Referring: Dr. Benjamin Enriquez Please instruct patient to hand carry/ upload images prior to appt Images also requested via Electronically Dx: Non enhancing right frontal sulcal lesion. Non enhancing right frontal sulcal lesion. Astrocytoma vs encephalitis vs cortical dysplasia in the differential. Found during work up for memory loss. Lazara Newby APRN.CNP Case discussed with Dr. Blank 04/20/2023 9:53 AM Neur [facility] Benjamin Rodriguez Order Providers Authorizing Provider Encounter Provider Benjamin Enriquez MD Khan, Hiba, MD Future Order Information Expires 04/19/24 Associated Diagnoses Abnormal finding on MRI of brain [R90.89] Reason for Exam Priority: Routine Dx: Abnormal finding on MRI of brain [R90.89 (ICD-10-CM)] Order Questions Question Answer [facility] Epic access? Yes Center for Consult [facility] Tumor and Neuro - [facility]cology [facility] Reason For Visit Abnormal MRI finding documented in this encounter [facility] 04-20-2023 Note HNO ID: [id number] Author: Benjamin Enriquez MD Service: ? Author Type: Physician Type: Progress Notes Filed: 04/21/2023 12:56 PM Note Text: [facility] New Patient Evaluation Date: April 20, 2023 Patient Name: Jeanine Silverio [facility] was asked by Dr. Brantley to evaluate Jeanine Silverio. Our recommendations of care will be communicated by shared medical record. Reason for Evaluation/Chief complaint: memory problems Accompanied by: Eulogio () - SUBJECTIVE: HPI: Jeanine Silverio is a 67 year old Right handed female who presents to the [place] [facility] for an initial evaluation. Patient has been seen and referred by Dr. Pedro Brantley. Today's visit: She is here for complaint of replacing words with other words. She first noticed it in 2007. She wanted to say watermelon, she pictured watermelon in her mind and she said pumpkin instead. She was not aware of it and her coworker corrected her. She is not aware if happened again after that. 5 years later people started pointing out to her more and in July of 2022 she was writing sheep are dumb instead she wrote she are done . When she went back to read it she noticed her mistake. Other examples: Windfall elimination plan but said Windshield elimination plan . I need toothpaste but said I need mouthwash and Call sign [id number] and said Call sign [id number] . These numerics are both call signs for radio communication. She wanted to say Casey but said Doug. She is unaware of these mistakes. She works at the [employer] and she has an associate degree. She is taking a short break from job and going back in two months. notices that Frequency is about every couple of weeks ago. Short-term Memory: Repeats questions/statements: NO Misplacing items around the house: NO Difficulty remembering details of recent conversations within a few hours: NO Difficulty remembering names of familiar people (not family or friends): NO Missed some appointments or major events due to memory changes: NO Language: Word-finding difficulty: NO Fluency: NO Difficulty understanding conversations: NO Difficulty with reading or writing: NO Difficulty with reading comprehension: NO Mood: normal Neurobehavioral symptoms: normal Sleep: Chronic Insomnia for years. She stopped taking Ambien due to concerns of side effects. She goes to bed at 11-11:30 and waking time varies. About 4 hours a night of sleep. If she takes Trazodone it helps her fall asleep but not stay asleep. No dream enactment. REVIEW OF SYSTEMS: Weight change/Appetite: no concerns Hearing:chronic tinnitus Vision: no change Constipation, Diarrhea: no Incontinence: She has been on oxybutynin for a couple of years. Chest pain: No Edema: No Dyspnea: No Falls/injuries/accidents: No NEURO: SEE HPI - OUTPATIENT MEDICATIONS Current Outpatient Medications on File Prior to Visit Medication Sig oxybutynin ER (DITROPAN XL) 10 mg 24 hr tablet Take 10 mg by mouth once daily. famotidine (PEPCID) 40 mg tablet Take 40 mg by mouth once daily. lisinopril (ZESTRIL) 20 mg tablet Take 20 mg by mouth once daily. terbinafine HCl (LAMISIL) 250 mg tablet Take 250 mg by mouth once daily. estradiol 1 mg ORAL tablet Take 1 tablet by mouth once daily. PREVACID 15 MG RAPID DISSOLVE TAB Take one(1) tablet daily. AMBIEN CR 12.5 MG TAB Take one(1) tablet daily at bedtime. MULTIPLE VITAMIN TAB Take one(1) tablet daily. VITAMIN C 250 MG TAB Take one(1) tablet daily. CALCIUM 600 + D(3) 600 MG-200 UNIT TAB Take one(1) tablet two(2) times daily. No current facility-administered medications on file prior to visit. MEDICAL HISTORY PAST MEDICAL HISTORY Diagnosis Date Esophageal reflux Gastroesophageal reflux SURGICAL HISTORY PAST SURGICAL HISTORY Procedure Laterality Date REPAIR RECTOCELE SEPARATE PROCEDURE TOTAL ABDOMINAL HYSTERECT W/WO RMVL TUBE OVARY Hysterectomy, LUCIE SOCIAL HISTORY Social History Tobacco Use Smoking status: Former Types: Cigarettes Quit date: 1979 Years since quittin.6 Smokeless tobacco: Never Substance Use Topics Alcohol use: No Drug use: No -No tobacco. No significant alcohol abuse. No history of substance abuse. -Marital status: FAMILY HISTORY FAMILY HISTORY Problem Relation Age of Onset other (chf [Other]) Mother Heart Mother Cancer Father lung other (CEREBRAL HEMORRHAGE [Other]) Brother Cancer Maternal Grandfather Coronary Artery Disease Mother Coronary Artery Disease Father Hypertension Father Hypertension Brother Hypertension Sister Stroke Mother Stroke Paternal Grandmother No known family history of dementia. ALLERGIE (more content not included)... 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 documented in this encounter [facility] note* Diagnosis Meningioma (HCC)- Primary Benign neoplasm of cerebral meninges documented in this encounter [facility] note* Diagnosis 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 documented in this encounter [facility] note* 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 documented in this encounter [facility] note* 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 documented in this encounter [facility] note* Diagnosis 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 [facility] 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 [facility] Outpatient Procedure (Routine) - Closed Specialty Diagnoses / Procedures Referred By Contac t Referred To [facility] Diagnoses Pre-op evaluation Procedures ECG COMPLETE ECG ROUTINE ECG W/LEAST 12 LDS W/I&R Anh Hernandez PA-C [address] [address] [facility] [address] [place] [address] Referral ID Status Reason Start Date Expiration Date V isits Requested Visits Authorized [id number] Closed Auto-Generate d Referral 05/18/2023 05/17/2024 1 1 [facility] Summary Purpose Family History No Family History Records Found Advance Directives No Advanced Directives Records Found Additional Source Comments Source Comments (unrecognize d section and content) In the event this informatio n is protected by the Federal Confidentiality of Alcohol and Drug Abuse Patient Records regulations: The Federal rules restrict any use of the information to criminally investigate or prosecute any alcohol or drug abuse patient.[facility] the event this information is protected by the Federal Confidentiality of Alcohol and Drug Abuse Patient Records regulations: The Federal rules restrict any use of the information to criminally investigate or prosecute any alcohol or drug abuse patient.[facility] the event this information is protected by the Federal Confidentiality of Alcohol and Drug Abuse Patient Records regulations: The Federal rules restrict any use of the information to criminally investigate or prosecute any alcohol or drug abuse patient.[facility] the event this information is protected by the Federal Confidentiality of Alcohol and Drug Abuse Patient Records regulations: The Federal rules restrict any use of the information to criminally investigate or prosecute any alcohol or drug abuse patient.[facility] the event this information is protected by the Federal Confidentiality of Alcohol and Drug Abuse Patient Records regulations: The Federal rules restrict any use of the information to criminally investigate or prosecute any alcohol or drug abuse patient.OhiohealthIn the event this information is protected by the Federal Confidentiality of Alcohol and Drug Abuse Patient Records regulations: The Federal rules restrict any use of the information to criminally investigate or prosecute any alcohol or drug abuse patient.[place]healthIn the event this information is protected by the Federal Confidentiality of Alcohol and Drug Abuse Patient Records regulations: The Federal rules restrict any use of the information to criminally investigate or prosecute any alcohol or drug abuse patient.[place]healthIn the event this information is protected by the Federal Confidentiality of Alcohol and Drug Abuse Patient Records regulations: The Federal rules restrict any use of the information to criminally investigate or prosecute any alcohol or drug abuse patient.[place]healthIn the event this information is protected by the Federal Confidentiality of Alcohol and Drug Abuse Patient Records regulations: The Federal rules restrict any use of the information to criminally investigate or prosecute any alcohol or drug abuse patient.[place]healthIn the event this information is protected by the Federal Confidentiality of Alcohol and Drug Abuse Patient Records regulations: The Federal rules restrict any use of the information to criminally investigate or prosecute any alcohol or drug abuse patient.[place]healthIn the event this information is protected by the Federal Confidentiality of Alcohol and Drug Abuse Patient Records regulations: The Federal rules restrict any use of the information to criminally investigate or prosecute any alcohol or drug abuse patient.[place]healthIn the event this information is protected by the Federal Confidentiality of Alcohol and Drug Abuse Patient Records regulations: The Federal rules restrict any use of the information to criminally investigate or prosecute any alcohol or drug abuse patient.[place]healthIn the event this information is protected by the Federal Confidentiality of Alcohol and Drug Abuse Patient Records regulations: The Federal rules restrict any use of the information to criminally investigate or prosecute any alcohol or drug abuse patient.[place]healthIn the event this information is protected by the Federal Confidentiality of Alcohol and Drug Abuse Patient Records regulations: The Federal rules restrict any use of the information to criminally investigate or prosecute any alcohol or drug abuse patient.[place]healthIn the event this information is protected by the Federal Confidentiality of Alcohol and Drug Abuse Patient Records regulations: The Federal rules restrict any use of the information to criminally investigate or prosecute any alcohol or drug abuse patient.[place]healthIn the event this information is protected by the Federal Confidentiality of Alcohol and Drug Abuse Patient Records regulations: The Federal rules restrict any use of the information to criminally investigate or prosecute any alcohol or drug abuse patient.[place]healthIn the event this information is protected by the Federal Confidentiality of Alcohol and Drug Abuse Patient Records regulations: The Federal rules restrict any use of the information to criminally investigate or prosecute any alcohol or drug abuse patient.[place]healthIn the event this information is protected by the Federal Confidentiality of Alcohol and Drug Abuse Patient Records regulations: The Federal rules restrict any use of the information to criminally investigate or prosecute any alcohol or drug abuse patient.[facility] Reason for Visit (unrecogniz ed section and content) Reason Comments Received Outside Medical Records 04/23/23E xternal medical records and images uploaded.-IN Reason Comments New Patient Specialty Diagnoses / Procedures Referred By Contac t Referred To Contact Neurology Diagnoses Abnormal finding on MRI of brain Procedures CONSULT TO NEUROLOGY OFFICE/OUTPATIENT NEW HIGH MDM 60-74 MINUTES Benjamin Enriquez MD [address] [place] [address] Referral ID Status Reason Start Date Expiration Date V isits Requested Visits Authorized [id number] Closed PCP Requested Referral 04/20/2023 04/19/2024 1 1 Reason Comments Pre-Op Visit Reason Comments Patient Question Reason Comments Consult Reason Onset Date Comments SPP Oral Oncology/hematology - Treatment Referra l 07/06/2023 [employer] Insurance Authorization 07/06/2023 Pending PA Submission Reason Comments YANICK 1-2 weeks Reason Onset Date Comments Refill Request 07/09/2023 Reason Comments Medication Question Reason Comments Nurse Visit Reason Comments Nurse Visit Ekg Reason Comments TIBSOVO CYCLE #1 (500mg) Reason Comments Nurse Visit EKG INFORMATION SOURCE (unrecogn ized section and content) FOR RECORDS PERTAINING TO PATIENTS WHO ARE OR HAVE BEEN ENROLLED IN A CHEMICAL DEPENDENCY/SUBSTANCEABUSE PROGRAM, SOME INFORMATION MAY BE OMITTED. This clinical summary was aggregated from multiple sources. Caution should be exercised in using it in the provision of clinical care. This summary normalizes information from multiple sources, and as a consequence, information in this document may materially change the coding, format and clinical context of patient data. In addition, data may be omitted in some cases. CLINICAL DECISIONS SHOULD BE BASED ON THE PRIMARY CLINICAL RECORDS. [employer] provides no warranty or guarantee of the accuracy or completeness of information in this document.
== END | disposition home or self-care (01) ==
LOC: OPBI 12:02
PROVIDERS: PCP Family Medicine
DX: Z12.31 Encounter for screening mammogram for malignant neoplasm of breast (principal)
CPT/HCPCS: 77063; 77067

== ENCOUNTER → 2024-05-03 | Outpatient (CLI) | payer MEDICARE, OTHER, SELFPAY ==
[2024-05-03 13:06] LABS: Cholesterol 190 mg/dL (200); High Density Lipoprotein 51 mg/dL; Triglycerides 160 mg/dL; Very Low Density Lipoprotein 32 mg/dL (5-40)
== END | disposition home or self-care (01) ==
LOC: MFPLAB 10:35
PROVIDERS: PCP Family Medicine; Visit Provider Family Medicine
DX: I10 Essential (primary) hypertension (principal)
CPT/HCPCS: 36415; 80061

== ENCOUNTER → 2024-09-08 | Outpatient (CLI) | payer MEDICARE, OTHER, SELFPAY ==
--- NOTE | 2024-09-08 14:49 | CDU_ITS ---
Reason For Study: Dizziness Rt. Velocities/BP Lt. Velocities/BP Prox CCA 75.6/25.3 cm/sec. Prox CCA 68.3/21.6 cm/sec. Mid CCA 72.0/26.5 cm/sec. Mid CCA 69.5/27.8 cm/sec. Dist CCA 65.8/25.3 cm/sec. Dist CCA 76.9/30.2 cm/sec. Prox ICA 64.6/24.1 cm/sec. Prox ICA 63.4/21.6 cm/sec. Mid ICA 85.5/41.3 cm/sec. Mid ICA 88.3/40.4 cm/sec. Dist ICA 103.9/52.3 cm/sec. Dist ICA 103.9/46.2 cm/sec. Rt. ICA/CCA = 1.4. Lt. ICA/CCA = 1.5. Prox ECA 51.6/11.9 cm/sec. Prox ECA 69.5/15.5 cm/sec. Rt. Vert. 52.3/20.4 cm/sec. Lt. Vert. 51.6/19.5 cm/sec. Right Extracranial There is intimal thickening but no significant atherosclerotic plaque noted in the right common carotid artery. There is intimal thickening but no significant atherosclerotic plaque noted in the right internal carotid artery. There is intimal thickening but no significant atherosclerotic plaque noted in the right external carotid artery. Antegrade flow is noted in the right vertebral artery. Left Extracranial There is intimal thickening but no significant atherosclerotic plaque noted in the left common carotid artery. There is intimal thickening but no significant atherosclerotic plaque noted in the left internal carotid artery. There is intimal thickening but no significant atherosclerotic plaque noted in the left external carotid artery. Antegrade flow is noted in the left vertebral artery. Procedure Carotid Duplex [id number]. This is a Carotid Duplex examination using B-mode, color flow and specral Doppler. The exam was diagnostic. Exam performed in department. VL/Carotid Duplex Ultrasound Interpretation Summary No significant atherosclerotic plaque or stenosis noted in the internal carotid arteries bilaterally. Flow within the vertebral arteries is antegrade bilaterally. Ordering Physician: Pedro Tiwari Referring Physician: Pedro Tiwari Performed By: Saran Bhagat RVT
== END | disposition home or self-care (01) ==
LOC: CVS 14:48
PROVIDERS: PCP Family Medicine; Referring Provider Family Medicine; Visit Provider Family Medicine
DX: R42 Dizziness and giddiness (principal); Z91.89 Other specified personal risk factors, not elsewhere classified
CPT/HCPCS: 93880

== ENCOUNTER → 2024-12-25 | Outpatient (CLI) | payer OTHER, SELFPAY ==
--- NOTE | 2024-12-25 08:00 | BI_ITS ---
EXAM: SCRN MAMM (CAD)W/TANA BILAT DATE: 12/25/2024 CLINICAL HISTORY: F, Age 69 y/o , SCREENING BREAST CANCER RISK ASSESSMENT: Has not been calculated. TECHNIQUE: Bilateral screening digital breast tomosynthesis with 2D and 3D images. Computer aided detection. COMPARISON: Prior exam(s) dated 09/03/2023 and 04/24/2022. FINDINGS: TISSUE DENSITY: The breast tissue is heterogenously dense, which may obscure small masses. Bilateral Breast Mammographic Findings: No significant masses, calcifications or other abnormalities are identified. Benign-appearing round microcalcifications are seen in both breasts. Stable nodular densities are seen in both breasts. Benign- appearing macrocalcifications are seen in the left breast. BI/SCRN MAMM (CAD)W/TANA BILAT IMPRESSION: OVERALL FINAL ASSESSMENT: BIRADS 2 BENIGN FINDING RECOMMENDATION: Routine annual follow-up in 1 Year A letter with findings and recommendations will be mailed to the patient. Reading Location: [id number]
== END | disposition home or self-care (01) ==
LOC: OPBI 07:59
PROVIDERS: PCP Family Medicine; Referring Provider Registered Nurse General Practice; Visit Provider Registered Nurse General Practice
DX: Z12.31 Encounter for screening mammogram for malignant neoplasm of breast (principal)
CPT/HCPCS: 77063; 77067

== ENCOUNTER 2025-08-07 01:08 | Emergency (ER) | payer MEDICARE, OTHER, SELFPAY ==
[2025-08-07 01:09] VITALS: BP 178/90; PULSE 85; RESP 18; TEMP 36.6; O2SAT 95; BMI 29.4
--- NOTE | 2025-08-07 02:01 | EDS_ITS ---
HPI HPI - Fall History of Present Illness Chief Complaint: Fall Informant: patient Occured/Mechanism Occurred: Today Mechanism/Context: Yes slip Fall down steps #: 4 Usually ambulates: Without assistance Pain/Injury Pain Location: lower extremity (Left foot and left knee) Quality of Pain: Sharp Worsened by: Palpation, hot air Relieved by: Nothing Associated Symptoms Associated Symptoms: Negative for Parasthesias, Weakness, Loss of function, Loss of consciousness or Amnesia Narrative Narrative: Patient presents after a fall that occurred tonight. Patient states she was carrying papers down to her basement when she slipped on the stairs. Patient states she fell down approximately 4 stairs. Patient states she hit the left side of her head but denies any loss of consciousness. Patient states her pain is worse over her left foot. Patient also admits to abrasion over her left knee. Patient states she had difficulty standing and walking afterwards because of the pain in her foot. Patient states her pain was worse when the hot air from the car here with blowing on it and when she touches it. Patient states nothing seems to help with it. Patient states her last tetanus was approximately 2 years ago. Tetanus Immunization: <5 years [facility] Medical History (Updated 08/07/25 @ 03:[address] Anthony Jackson, DO) HTN (hypertension) GERD (gastroesophageal reflux disease) Astrocytoma brain tumor Medical History no medical history Home Medications ?Medication ?Instructions ?Recorded ?Last Taken ?Type estradiol 1 mg tablet 1 tab PO DAILY 06/19/1905/24 History famotidine 40 mg tablet 40 mg PO DAILY 06/19/1905/24 History oxybutynin chloride 10 mg 10 mg PO DAILY 06/19/1905/24 History tablet,extended release 24 hr zolpidem 12.5 mg tablet,extended 6.25 mg PO DAILY slee p 06/19/19 06/18/19 History release,multiphase lisinopril 20 mg tablet 20 mg PO DAILY #30 tabs 05/24 05/11 Unknown Rx pantoprazole 40 mg tablet,delayed 40 mg PO DAILY #30 t abs 06/20/19 Unknown Rx release Allergy/AdvReac Type Severity Reaction Status Date / Time No Known Allergies Allergy Verified 08/07/25 01:09 Surgical History (Updated 08/07/25 @ 02:[address] Anthony Jackson, DO) Hx of brain surgery Hx of cholecystectomy Hx of hysterectomy S/P ORIF (open reduction internal fixation) fracture Social History Smoking Status: Former smoker ROS ROS ED Constitutional Constitutional ED: Denies chills or fever(s) Eyes Eyes: Denies blurry vision or change in vision ENT ENT ED: Denies rhinorrhea or sore throat Cardiovascular Cardiovascular: Denies chest pain or palpitations Respiratory/Chest Respiratory/Chest: Denies cough or dyspnea Gastrointestinal Gastrointestinal: Denies nausea or vomiting Genitourinary Genitourinary ED: Denies dysuria or hematuria Musculoskeletal Musculoskeletal: Denies back pain or neck pain Integumentary Reports Abrasions; Denies abscess or rash Neurologic Neurologic: Denies headache(s) or weakness Allergic/Immunologic Allergic/Immunologic ED: Denies mouth swelling or urticaria EXAM Physical Exam Const Vital Signs: 08/07/25 01:09 08/07/25 01:14 Temperature 97.8 F Temperature Source Temporal Pulse Rate 85 Respiratory Rate 18 Respiratory Effort Normal Blood Pressure 178/90 H Blood Pressure Mean 119 Pulse Ox 95 Oxygen Delivery Method Room Air Room Air Positive well nourished and well developed Constitutional Narrative: BMI is 29.4. General Appearance ED: well developed and NAD HEENT Reports normocephalic HEENT Narrative: There is a small left frontal hematoma. Eyes PERRL and EOMs intact bilaterally Neck full ROM and supple Extremity Extremity Narrative: There is tenderness and edema over the left foot over the first metatarsal area. There is no obvious deformity noted. Pedal pulses are equal bilaterally. Sensation was intact to light touch in all digits. Capillary refill was less than 2 seconds in all digits. There is a superficial skin tear/abrasion over the anterior medial aspect of the left knee. There is no active bleeding noted. There are no foreign bodies noted. There is full range of motion of the left knee. Neuro oriented x3, CN's II-XII intact bilaterally, moves all extremities, no focal motor deficits and no sensory deficits noted Donner Coma Scale: document GCS findings Spontaneous Obeys Commands Oriented 15 Sensorium / Orientation: alert Motor Exam: strength 5/5 throughout Psych mental status grossly normal and thought process normal MDM MDM MDM Narrative Medical decision making narrative: Differential diagnosis includes foot fracture, contusion, sprain, knee abrasion, and head contusion. X-rays of the left foot will be obtained to assess for fracture. Radiography Diagnostic Testing: Clinical Impression(s) from Imaging Studies Foot X-Ray 08/07/25 02:04 IMPRESSION: No radiographic evidence of an acute bone abnormality. Reading Location: [place] [id number] X-rays of the left foot were obtained. There are 3 views. On my independent interpretation, there is no acute fracture. There is no dislocation. There is no soft tissue swelling. Radiologist also interpreted the x-rays and agrees. Treatment and Re-Evaluation Narrative: The abrasion/skin tear over the knee was cleaned and dressed with bacitracin dressing. The patient was advised of her findings. Patient was given a walking boot. Patient was instructed to ice and elevate the left foot. Patient was instructed to use her walker as needed to help with weightbearing. Patient was instructed to follow-up with her primary care physician in 5 to 7 days. Patient understood and was agreeable with the plan. All questions were answered. Discharge Plan Triage Chief Complaint: Fall ED Provider: Anthony Jackson Dx/Rx/DC Orders Clinical Impression: Sprain of left foot, Abrasion, left knee, initial encounter, Fall Instructions: ED Foot Sprain, ED Skin Tear (Skin Avulsion) Prescriptions: No Action famotidine 40 tablet 40 mg PO DAILY estradiol 1 tablet 1 tab PO DAILY oxybutynin chloride 10 MG tablet extended release 24hr 10 mg PO DAILY zolpidem 12.5 MG tablet,ext release multiphase 6.25 mg PO DAILY pantoprazole 40 MG tablet 40 mg PO DAILY Qty: 30 0RF lisinopril 20 MG tablet 20 mg PO DAILY Qty: 30 0RF Primary Care Provider: Pedro Tiwari Referrals: Pedro Tiwari MD [Primary Care Provider, Family Practice] - 5-7 Days Print Language: Telugu Disposition Disposition: Home, Self Care
--- NOTE | 2025-08-07 02:04 | RAD_ITS ---
PROCEDURE: FOOT MIN 3 VIEWS 08/07/2025 REASON FOR EXAM: INJURY/PAIN TECHNIQUE: Procedure Code: RADFO Modality: DX Procedure: FOOT MIN 3 VIEWS Laterality: Left COMPARISON: None. FINDINGS: Well corticated bone fragment adjacent to the tip of the medial malleolus. Mild degenerative joint disease. Calcaneal spur formation. Mild degenerative joint disease of the 1st metatarsophalangeal joint. Unremarkable distal tibial metallic hardware. Normal talus, calcaneus, and tarsal bones. Normal metatarsi. Normal tibial and fibular sesamoid bones. Normal interphalangeal joint of the great toe. Normal phalanges of the great toe. Normal second through fifth metatarsophalangeal joints. Normal interphalangeal joints of the lesser toes. Normal phalanges of the lesser toes. RAD/Foot min 3 Views IMPRESSION: No radiographic evidence of an acute bone abnormality. Reading [facility]
[2025-08-07] MEDS: HYDROcodone Bitartrate/Apap 5/325 Tablet PO (02:13)
--- OUTSIDE RECORDS SUMMARY | 2025-08-07 02:24 | XMS RPT_ITS | CCD ---
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 Vasquez Primary Care Provider Karie DOMINGUEZ, Dr. Vasquez Attending Provider Karie DOMINGUEZ, Dr. Vasquez Referring Provider Sharmin DOMINGUEZ, Dr. Jef Stafford Attending Provider Elian LEVEL VIAL SETTER-C, Rishabh Attending Provider Elian LEVEL VIAL SETTER-C, Rishabh Referring Provider Pedro Tiwari Referring Unavailable Karie, Pedro Attending Unavailable Karie, Pedro Primary Care Unavailable Karie, Pedro Attending Unavailable Tiwari, Pedro Primary Care Unavailable Pedro Tiwari Primary Care Unavailable Rishabh Plummer Referring Unavailable Rishabh Plummer Attending Unavailable MISTI BLANK Referring Unavailable PEDRO TIWARI Primary Care Unavailable MISTI BLANK Referring Unavailable PEDRO TIWARI Primary Care Unavailable MISTI BLANK Referring Unavailable PEDRO TIWARI Primary Care Unavailable MISTI BLANK Referring Unavailable PEDRO TIWARI Primary Care Unavailable MISTI BLANK Referring Unavailable PEDRO TIWARI Primary Care Unavailable MISTI BLANK Referring Unavailable PEDRO TIWARI Primary Care Unavailable MISTI BLANK Referring Unavailable TIWARI, PEDRO R Primary Care Unavailable HEATHER JEFFERY Referring Unavailable TIWARI, PEDRO R Primary Care Unavailable TIWARI, PEDRO R Primary Care Unavailable MISTI BLANK Referring Unavailable TIWARI, PEDRO R Primary Care Unavailable MISTI BLANK Attending Unavailable TIWARI, PEDRO R Primary Care Unavailable TIWARI, PEDRO R Primary Care Unavailable TIWARI, PEDRO R Primary Care Unavailable MISTI BLANK Referring Unavailable TIWARI, PEDRO R Primary Care Unavailable MISTI BLANK Referring Unavailable TIWARI, PEDRO R Primary Care Unavailable MISTI BLANK Attending Unavailable TIWARI, PEDRO R Primary Care Unavailable MISTI BLANK Referring Unavailable TIWARI, PEDRO R Primary Care Unavailable MISTI BLANK Referring Unavailable TIWARI, PEDRO R Primary Care Unavailable ABHAY, MISTI Graham Referring Unavailable TIWARI, PEDRO R Primary Care Unavailable MISTI BLANK Attending Unavailable TIWARI, PEDRO R Primary Care Unavailable MISTI BLANK Referring Unavailable ABHAY, MISTI Graham Referring Unavailable TIWARI, PEDRO R Primary Care Unavailable TIWARI, PEDRO R Primary Care Unavailable MISTI BLANK Referring Unavailable TIWARI, PEDRO R Primary Care Unavailable MISTI BLANK Referring Unavailable HEATHER JEFFERY Attending Unavailable TIWAIR, PEDRO R Primary Care Unavailable MISTI BLANK Referring Unavailable TIWARI, PEDRO R Primary Care Unavailable MISTI BLANK Referring Unavailable TIWARI, PEDRO R Primary Care Unavailable MISTI BLANK Referring Unavailable TIWARI, PEDRO R Primary Care Unavailable MISTI BLANK Referring Unavailable Allergies Allergy Classification Reported Allergen(s) Allergy Type Date of Onset Reaction(s) Facility amLODIPine (2 sources) amLODIPine Drug Allergy 04-20-2023 Itching [facility] Latex (2 sources) Latex Substance Allergy 05-19-2023 Rash [facility] (20 sources) amLODIPine; Translations: [AMLODIPINE] Drug Allergy 04-20-2023 Itching [facility] (20 sources) Latex; Translations: [LATEX] Drug Allergy 05-19-2023 Rash [facility] Medications Current Medications Medication Drug Class(es) Dates Sig (Normalized) Sig (Original) ascorbic acid 250 mg oral tablet (20 sources) Vitamin C Start: 12-09-2005 VITAMIN C 250 MG TAB Take one(1) tablet daily. 0 12/09/2005 Active Comment on above: Take one(1) tablet d aily. cholecalciferol 0.01 mg oral capsule (20 sources) Vitamin D take 1 capsule by mouth once daily cholecalciferol, vitamin D3, (VITAMIN D-3) 10 mcg (400 unit) cap Take 400 Units by mouth once daily. Active Comment on above: Take [address] [facility] once daily. estradiol 1 mg oral tablet (20 sources) Estrogen Start: 05-26-2017 ESTRADIOL CREA as directed ESTRADIOL CREA [id number] Deuce GAYLE Start: 07-31-2011 take 1 tablet by marlene once daily estradiol 1 mg ORAL tablet Take 1 mg by mouth once daily. 0 07/31/2011 Active Comment on above: Take 1 tablet by marlene once daily. famotidine 40 mg oral tablet (20 sources) Histamine-2 Receptor Antagonist Start: End: 3 take 1 tablet by mouth once daily famotidine (PEPCID) 40 mg tablet Take 1 tablet by mouth once daily. Continue while taking steroids 30 tablet 05/21/2023 Active Comment on above: Take 40 mg by mouth once daily. [facility] 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 In Afternoon 60 tablet 03/01/2025 Active Start: 07-12-2023 take [address] 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 60 tablet 0 07/02/2023 07/09/2023 Discontinued Comment on above: Take 2 tablets (500m g) by mouth once daily. Take [address] [facility] every afternoon. take [address] [facility] once daily lisinopril 20 mg oral tablet (20 sources) Angiotensin Converting Enzyme Inhibitor Start: 06-20-2019 End: 11-25-2023 take 1 tablet by mouth once daily Lisinopril 20 MG tablet Active 20 mg PO DAILY June 20, 2019 12:00am Start: 05-26-2017 LISINOPRIL TAB S as directed LISINOPRIL TABS [id number] Deuce GAYLE Comment on above: Take 20 mg by mouth once daily. losartan potassium 25 mg oral tablet (20 sources) Angiotensin 2 Receptor Norman Start: 10-28-19 take 1 tablet by mouth once daily losartan (COZAAR) 25 mg tablet Take 25 mg by mouth once daily. 10/28/2023 Active 24 hr oxybutynin chloride 10 mg extended release oral tablet (20 sources) Cholinergic Muscarinic Antagonist Start: 06-19-20 19 take 1 tablet by mouth once daily Oxybutynin Chloride 10 MG tablet extended release 24hr Active 10 mg PO DAILY June 19, 2019 12:00am Comment on above: Take 10 mg by mouth once daily. pantoprazole 40 mg delayed release oral tablet (8 sources) Proton Pump Inhibitor Start: 06-20-20 take 1 tablet by mouth once daily Pantoprazole 40 MG tablet Active 40 mg PO DAILY June 20, 2019 12:00am rosuvastatin calcium 5 mg oral tablet (20 sources) HMG-CoA Reductase Inhibitor Start: 03-08-20 24 take 1 tablet by mouth once daily rosuvastatin (CRESTOR) 5 mg tablet Take 5 mg by mouth once daily. 03/08/2024 Active traZODone hydrochloride 50 mg oral tablet (20 sources) Serotonin Reuptake Inhibitor Start: 04-20-20 23 take 1 tablet by mouth once daily at bedtime traZODone (DESYREL) 50 mg tablet Take 1 tablet by mouth daily at bedtime. 04/20/2023 Active Comment on above: Take 1 tablet by marlene th daily at bedtime. zolpidem tartrate 12.5 mg extended release oral tablet (8 sources) gamma-Aminobutyric Acid-ergic Agonist Start: 06-19-20 19 take 6.25 mg by mouth once daily Zolpidem 12.5 MG tablet,ext release multiphase Active 6.25 mg PO DAILY June 19, 2019 12:00am Start: 06-19-2019 take 6.25 mg by mouth once giacomo ly Zolpidem Active 6.25 MG PO DAILY June 18, 2019 11:00pm Completed/Discontinued Medications Medication Drug Class(es) Dates Sig (Normalized) Sig (Original) acetaminophen 325 mg oral tablet (20 sources) Start: 3 End: 4 take 2 tablets enteral route every four hours as needed acetaminophen (TYLENOL) 325 mg tablet 2 tablets by ORAL/FEEDING TUBE route every 4 hours as needed for pain. 0 05/21/2023 11/25/2023 Discontinued (Course of therapy completed) Comment on above: 2 tablets by ORAL/FE EDING TUBE route every 4 hours as needed for pain. calcium carbonate 1500 mg / cholecalciferol 200 unt oral tablet (20 sources) Vitamin D Start: 6 End: 4 CALCIUM 600 + D(3) 600 MG-200 UNIT TAB Take one(1) tablet two(2) times daily. 0 12/09/2005 11/25/2023 Discontinued (Course of therapy completed) Comment on above: Take one(1) tablet t wo(2) times daily. dexamethasone 2 mg oral tablet (20 sources) Corticosteroid Start: 3 End: 4 dexAMETHasone (DECADRON) 2 mg tablet Continue taking 4mg (2 tablets) in the morning and 4mg (2 tablets) in the afternoon for 5 days.Then take 2mg (1 tablet) in the morning and 2mg (1 tablet) in the afternoon for 5 days. Then take 2 1/2 tablets (5mg) daily until directed otherwise. 35 tablet 0 05/21/2023 11/25/2023 Discontinued (Course of therapy completed) Comment on above: Continue taking 4mg (2 tablets) in the morning and 4mg (2 tablets) in the afternoon for 5 days.Then take 2mg (1 tablet) in the morning and 2mg (1 tablet) in the afternoon for 5 days. Then take 2 1/2 tablets (5mg) daily until directed otherwise. hydroCHLOROthiazide 12.5 mg / lisinopril 10 mg oral tablet (8 sources) Thiazide Diuretic, Angiotensin Converting Enzyme Inhibitor Start: 9 End: 9 take 1 tablet by mouth once daily Lisinopril-Hydroch lorothiazide 1 EACH tablet Discontinued 10 mg PO DAILY June 19, 2019 12:00am June 20, 2019 3:20pm iv contrast (will be provided with radiology test) (20 sources) Start: 5 End: inject 1 dose intravenously once iv contrast (will be provided with radiology test) MRI Brain Inject, intravenously, once for 1 dose.No IV access, insert saline lock prior to beginning of sedation, infusion, injection of imaging exam.Discontinue saline lock post exam. If Pt. has a central line or IVAD, may access for administration according to line specific nursing protocol.Once exam is complete flush line and de-access according to line specific nursing protocol in the MR contrast administration guidelines link 1 each 02/27/2025 02/28/2025 Start: 02-27-2025 End: 02-28-2025 inject 1 dose intravenously once iv contrast (will be provided with radiology test) MRI Brain Inject, intravenously, once for 1 dose.No IV access, insert saline lock prior to beginning of sedation, infusion, injection of imaging exam.Discontinue saline lock post exam. If Pt. 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 If Pt. 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 If Pt. 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 If Pt. 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 If Pt. has a central line or IVAD, may access for administration according to line specific nursing protocol.Once exam is complete flush line and de-access according to line specific nursing protocol in the MR contrast administration guidelines link 1 Each 0 03/03/2024 03/04/2024 Active lansoprazole 15 mg disintegrating oral tablet (5 sources) Proton Pump Inhibitor Start: 12-09-2005 End: 05-18-2023 PREVACID 15 MG RAPID DISSOLVE TAB Take one(1) tablet daily. 0 12/09/2005 05/18/2023 Discontinued Comment on above: Take one(1) tablet d aily. levETIRAcetam 1000 mg oral tablet (20 sources) Start: 05-21-2023 End: 11-25-2023 take 1 tablet by mouth twice daily levETIRAcetam (KEPPRA) 1,000 mg tablet Take 1 tablet by mouth twice daily. 60 tablet 0 05/21/2023 11/25/2023 Discontinued (Course of therapy completed) Comment on above: Take 1 tablet by marlene twice daily. lysine 500 mg oral tablet (2 sources) Start: 05-26-2017 L-LYSINE TABS as directed LYSINE TABS [id number] Deuce GAYLE MULTIPLE VITAMIN TAB (5 sources) Start: 12-09-2005 End: 05-18-2023 MULTIPLE VITAMIN TAB Take one(1) tablet daily. 0 12/09/2005 05/18/2023 Discontinued Start: 12-09-2005 MULTIPLE VITAM IN TAB Take one(1) tablet daily. 0 12/09/2005 Active Comment on above: Take one(1) tablet d aily. Omeprazole (2 sources) Proton Pump Inhibitor Start: 05-26-20 [facility] OMEPRAZOLE TBEC as directed OMEPRAZOLE TBEC [id number] Deuce GAYLE oxyCODONE hydrochloride 5 mg oral tablet (20 sources) Opioid Agonist Start: 05-21-20 End: 11-25-19 24 take 1 tablet by mouth every eight hours as needed oxyCODONE IR (ROXICODONE) 5 mg immediate release tablet Indications: Post-op pain , Neoplasm of uncertain behavior 1 tablet by ORAL/FEEDING TUBE route every 8 hours as needed. 5 tablet 0 05/21/2023 11/25/2023 Discontinued (Course of therapy completed) Comment on above: 1 tablet by ORAL/FEE DING TUBE route every 8 hours as needed. terbinafine 250 mg oral tablet (5 sources) Allylamine Antifungal End: 05-18-20 take 1 tablet by mouth once daily terbinafine HCl (LAMISIL) 250 mg tablet Take 250 mg by mouth once daily. 0 05/18/2023 Discontinued Comment on above: Take 250 mg by mouth once daily. CHOLECALCIFEROL TABS (2 sources) Start: 05-26-20 VITAMIN D TABS as directed CHOLECALCIFEROL TABS [id number] Deuce GAYLE Problems Active Problems Problem Classification Problem Date Documented Date Episodic/Chronic Cancer of brain and nervous system (20 sources) Low grade astrocytoma of brain; Translations: [Malignant neoplasm of frontal lobe] Onset: 06-01-2023 05-31-2023 Chronic Esophageal disorders (20 sources) Gastroesophageal reflux disease; Translations: [Gastro-esophageal reflux disease without esophagitis] Onset: 05-18-2023 06-20-2019 Chronic Essential hypertension (20 sources) Hypertensive disorder; Translations: [Essential (primary) hypertension] Onset: 05-18-2023 06-20-2019 Chronic Fluid and electrolyte disorders (17 sources) Hyponatremia; Translations: [Hypo-osmolality and hyponatremia] 06-19-2019 Episodic Maintenance chemotherapy; radiotherapy (20 sources) Patient encounter status; Translations: [Encounter for antineoplastic chemotherapy] Onset: 11-26-2024 11-22-2024 Chronic Neoplasms of unspecified nature or uncertain behavior (20 sources) 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; Translations: [Neoplasm of uncertain behavior of brain, unspecified] Onset: 05-06-2023 05-06-2023 Chronic Noninfectious gastroenteritis (8 sources) Gastroenteritis; Translations: [Noninfective gastroenteritis and colitis, unspecified] 06-20-2019 Episodic Other aftercare (1 source) Long-term current use of drug therapy; Translations: [Other custodial (current) drug therapy] 02-27-2025 Episodic Other and unspecified benign neoplasm (1 source) Neoplasm of meninges; 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, unspecified] 05-31-2023 Chronic Other nervous system disorders (20 sources) Cerebral edema; Translations: [Cerebral edema] Onset: 05-20-2023 05-20-2023 Chronic Other nutritional; endocrine; and metabolic disorders (8 sources) Hypomagnesemia; Translations: [Hypomagnesemia] 06-19-2019 Chronic Other screening for suspected conditions (not mental disorders or infectious disease) (2 sources) Magnetic resonance imaging of brain abnormal; Translations: [Other abnormal findings on diagnostic imaging of central nervous system] Onset: 03-13-2025 05-06-2023 Episodic Unclassified (1 source) Established Patient Onset: 06-12-2025 Past or Other Problems Problem Classification Problem Date Documented Date Episodic/Chronic Conditions associated with dizziness or vertigo (1 source) Dizziness and giddiness; Translations: [Dizziness and giddiness] Onset: 09-28-2024 Episodic Nausea and vomiting (20 sources) Postoperative nausea and vomiting; Translations: [Nausea with vomiting, unspecified] Onset: 05-18-2023 05-18-2023 Episodic Neoplasms of unspecified nature or uncertain behavior (20 sources) Neoplastic disease of uncertain behavior; Translations: [...] 05-26-2017 05-26-2017 Episodic Other nervous system disorders (20 sources) Postoperative pain ; Translations: [Other acute postprocedural pain] Onset: 05-21-2023 05-21-2023 Episodic Other nervous system disorders (20 sources) Word finding difficulty ; Translations: [Other speech disturbances] Onset: 11-23-2023 11-23-2023 Episodic Residual codes; unclassified (20 sources) At risk of epileptic fits; Translations: [Other specified personal risk factors, not elsewhere classified] Onset: 05-20-2023 05-20-2023 Episodic Unclassified (1 source) Long-term current use of drug therapy 02-27-2025 Results Test Name Value Interpretation Reference Range Facility [facility] 06-12-2025 CNOV Office Visit (NSCAMN ) JESUS BENTON ([id number]) 1955 F Date Time Provider Department 06/12/25 1:30 PM MISTI BLANK NSCAMN During your visit today, we recorded the following information about you: Temperature Pulse Respiration Blood pressure 97.9 degrees 66/minute 18/minute 130/81 Weight 62.1 kg Raghav Hassan LPN 06/12/2025 1:06 PM Signed Additional intake questions: Has the patient had fever, nausea, vomiting, diarrhea, constipation, fatigue for > 1 week? No Does the patient have a decreased appetite? No Does patient want to see a Chief Radiation Therapist? No (yes to any of above refer patient to schedulers for dietitian appointment) ) Does patient have any new or increased numbness or tingling of extremities? No Is patient interested in fertility information? NA Does patient need any prescription refills? No Does patient have an advanced directive in place? Yes, copies are in Epic Electronically Signed By: DARIN Waldron Mark G, MD 06/18/2025 3:06 PM Signed [facility] Established Visit Referred by No referring provider defined for this encounter. Diagnosis: Astrocytoma, IDH-1 mutated, WHO grade 2 Subjective History of Present Illness: Patient is accompanied by . Hand dominance: right-handed. 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 The patient was initially seen in Brain [...] Neurosurgery in Brain Tumor Clinic by Dr. Kelley on 05/06/2023. Overall impression was low-grade glioma [...] incorrect grammar with writing since her surgery. 05/19/24: Since last seen in Neuro-Oncology Clinic virtually in February, Mrs. Benton has seen her primary care physician for elevated LDL and is now on rosuvastatin. She had her broken tooth extracted and unfortunately this was complicated by a dry socket. She has been seen in consultation by an oral surgeon. He wishes to ensure that there is no residual infection before an implant is considered. She continues to experience stress headache. The pain by her rib cage has resolved. She has had a few word substitutions over the past three days but otherwise none since I last saw her. Has been a no alteration of consciousness, aura or seizure, blurred or double vision, difficulty hearing or vertigo, dysarthria or dysphagia, focal weakness, numbness or tingling, gait ataxia, or difficulty with bowel or bladder control. She continues treatment with ivosidenib and tolerates this well. Interim EKGs and blood work have all been normal. 08/14/24: Since last seen in Neuro-Oncology clinic three months ago, Mrs. Benton has not experienced any word substitutions. In fact, there has been no alteration of consciousness, aura or seizure, blurred or double vision, difficulty hearing or vertigo, dysarthria or dysphagia, focal weakness, numbness or tingling, gait ataxia, or difficulty with bowel or bladder control. She continues treatment with ivosidenib and tolerates this well; she has been on this medication for one year now. All monthly interim EKGs and blood work have been normal. She has a longstanding headache history. The month of May was very bad for headache. She recognizes that stress is a factor and has tried to destress, to relax, and to use Tylenol and Advil without much effect. Her headaches are predominantly left frontal and pressure. They are not associated with any other symptoms. The can occur at anytime of day and she typically will wake up with one. She keeps the window open at night for some co (more content not included)... Normal [facility] 06-12-2025 CNPN Telephone ([facility]) JESUS BENTON ([id number]) 1955 F Date Time Provider Department 06/12/25 MISTI BLANK NSCAMN During your visit today, we recorded the following information about you: Dari Castaneda 06/12/2025 4:17 PM Signed General Call Caller : Jesus Contact Reason for Call : Called to speak with Nida regarding scheduling EKG. Patient requesting return call ? Yes Nida Payton RN 06/14/2025 1:24 PM Signed See my chart 06/12/25 Nida Payton RN Allergies As of Date: 06/12/2025 Noted Allergy Reaction AMLODIPINE 04/20/2023 9 - Itching LATEX 05/19/2023 2 - Rash Date Reviewed: 06/12/2025 Reviewed by: Raghav Hassan LPN - Fully Assessed Reason for Visit: Appointment [[id number]] Prescriptions as of 06/14/2025 - TIBSOVO 250 mg tablet TAKE 2 TABLETS BY MOUTH ONCE DAILY IN THE AFTERNOON. - iv contrast (will be provided with radiology test) MRI Brain Inject, intravenously, once for 1 dose.No IV access, insert saline lock prior to beginning of sedation, infusion, injection of imaging exam.Discontinue saline lock post exam. If Pt. has a central line or IVAD, may access for administration according to line specific nursing protocol.Once exam is complete flush line and de-access according to line specific nursing protocol in the MR contrast administration guidelines link - losartan (COZAAR) 25 mg tablet Take 25 mg by mouth once daily. - rosuvastatin (CRESTOR) 5 mg tablet Take 5 mg by mouth once daily. - famotidine (PEPCID) 40 mg tablet Take 1 tablet by mouth once daily. Continue while taking steroids - cholecalciferol, vitamin D3, (VITAMIN D-3) 10 mcg (400 unit) cap Take 400 Units by mouth once daily. - oxybutynin ER (DITROPAN XL) 10 mg 24 hr tablet Take 10 mg by mouth once daily. - traZODone (DESYREL) 50 mg tablet Take 1 tablet by mouth daily at bedtime. - estradiol 1 mg ORAL tablet Take 1 mg by mouth once daily. - VITAMIN C 250 MG TAB Take one(1) tablet daily. 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 Word finding difficulty [R47.89] 11/23/2023 Encounter for chemotherapy management [Z51.11] 11/26/2024 Encounter Status:Closed by NIDA PAYTON on 06/14/25 Normal [facility] CBC W Auto Differential pane l (Bld)on 06-11-2025 Basophils (Bld) [#/Vol] 0.06 10*3/uL Normal <0.11 [facility] Comment on above: Order Comment: Speci men Type: BLOOD SPECIMENOrdering Facility: [facility] Address: [address] [place] [address] Performed By: #### 5 7021-8 ####[facility] [id number] [place] [address] [place] Basophils/100 WBC (Bld) 0.8 % Normal [facility] Comment on above: Order Comment: Speci men Type: BLOOD SPECIMENOrdering Facility: [facility] Address: [address] [place] [address] Performed By: #### 5 7021-8 ####[facility] ALCIRAWNCLIA [id number] [place] [address] [place] Differential cell count method Nom (Bld) Auto Normal [facility] Comment on above: Order Comment: Speci men Type: BLOOD SPECIMENOrdering Facility: [facility] Address: [address] [place] [address] Performed By: #### 5 7021-8 ####[facility] HOSPITALBOOGIELIA [id number] [place] [address] [place] Eosinophils (Bld) [#/Vol] 0.64 10*3/uL High <0.46 [facility] Comment on above: Order Comment: Speci men Type: BLOOD SPECIMENOrdering Facility: [facility] Address: [address] [place] [address] Performed By: #### 5 7021-8 ####[facility]PITALBOOGIEA [id number] [place] [address] [place] Eosinophils/100 WBC (Bld) 8.9 % Normal [facility] Comment on above: Order Comment: Speci men Type: BLOOD SPECIMENOrdering Facility: [facility] Address: [address] [place] [address] Performed By: #### 5 7021-8 ####[facility] HOSPITALMARKUSA [id number] [place] [address] [place] Erythrocyte distribution width (RBC) [Ratio] 14.0 % Normal 11.5-15.0 [facility] Comment on above: Order Comment: Speci men Type: BLOOD SPECIMENOrdering Facility: [facility] Address: [address] [place] [address] Performed By: #### 5 7021-8 ####[facility] HOSPITALNCLIA [id number] [place] [address] [place] Hematocrit (Bld) [Volume fraction] 38.0 % Normal 36.0-46.0 [facility] Comment on above: Order Comment: Speci men Type: BLOOD SPECIMENOrdering Facility: [facility] Address: [address] [place] [address] Performed By: #### 5 7021-8 ####[facility] [id number] [place] [address] [place] Hemoglobin (Bld) [Mass/Vol] 12.9 g/dL Normal 11.5-15.5 [facility] Comment on above: Order Comment: Speci men Type: BLOOD SPECIMENOrdering Facility: [facility] Address: [address] [place] [address] Performed By: #### 5 7021-8 ####[facility] [id number] [place] [address] [place] Immature granulocytes (Bld) [#/Vol] 10*3/uL Normal <0.10 [facility] Comment on above: Order Comment: Speci men Type: BLOOD SPECIMENOrdering Facility: [facility] Address: [address] [place] [address] Performed By: #### 5 7021-8 ####[facility] [id number] [place] [address] [place] Immature granulocytes/100 WBC (Bld) 0.1 % Normal [facility] Comment on above: Order Comment: Speci men Type: BLOOD SPECIMENOrdering Facility: [facility] Address: [address] [place] [address] Performed By: #### 5 7021-8 ####[facility] [id number] [place] [address] [place] Lymphocytes (Bld) [#/Vol] 1.90 10*3/uL Normal 1.00-4.00 [facility] Comment on above: Order Comment: Speci men Type: BLOOD SPECIMENOrdering Facility: [facility] Address: [address] [place] [address] Performed By: #### 5 7021-8 ####[facility] LISANDRAA [id number] [address] STATES [facility] Lymphocytes/100 WBC (Bld) 26.5 % Normal [facility] Comment on above: Order Comment: Speci men Type: BLOOD SPECIMENOrdering Facility: [facility] Address: [address] [place] [address] Performed By: #### 5 7021-8 ####[facility] ALCIRAGINNY [id number] [place] [address] [place] MCH (RBC) [Entitic mass] 30.3 pg Normal 26.0-34.0 [facility] Comment on above: Order Comment: Speci men Type: BLOOD SPECIMENOrdering Facility: [facility] Address: [address] [place] [address] Performed By: #### 5 7021-8 ####[facility] HOSPITALGURU [id number] [place] [address] [place] MCHC (RBC) [Mass/Vol] 33.9 g/dL Normal 30.5-36.0 [facility] Comment on above: Order Comment: Speci men Type: BLOOD SPECIMENOrdering Facility: [facility] Address: [address] [place] [address] Performed By: #### 5 7021-8 ####[facility] ALCIRAGINNY [id number] [place] [address] [place] MCV (RBC) [Entitic vol] 89.2 fL Normal 80.0-100.0 [facility] Comment on above: Order Comment: Speci men Type: BLOOD SPECIMENOrdering Facility: [facility] Address: [address] [place] [address] Performed By: #### 5 7021-8 ####[facility] HOSPITALBOOGIEA [id number] [place] [address] [place] Monocytes (Bld) [#/Vol] 0.59 10*3/uL Normal <0.87 [facility] Comment on above: Order Comment: Speci men Type: BLOOD SPECIMENOrdering Facility: [facility] Address: [address] [place] [address] Performed By: #### 5 7021-8 ####[facility] HOSPITALLIA [id number] [place] [address] [place] Monocytes/100 WBC (Bld) 8.2 % Normal [facility] Comment on above: Order Comment: Speci men Type: BLOOD SPECIMENOrdering Facility: [facility] Address: [address] [place] [address] Performed By: #### 5 7021-8 ####[facility] HOSPITALLIA [id number] [place] [address] [place] Neutrophils (Bld) [#/Vol] 3.98 10*3/uL Normal 1.45-7.50 [facility] Comment on above: Order Comment: Speci men Type: BLOOD SPECIMENOrdering Facility: [facility] Address: [address] [place] [address] Performed By: #### 5 7021-8 ####[facility] HOSPITALLIA [id number] [place] [address] [place] Neutrophils/100 WBC (Bld) 55.5 % Normal [facility] Comment on above: Order Comment: Speci men Type: BLOOD SPECIMENOrdering Facility: [facility] Address: [address] [place] [address] Performed By: #### 5 7021-8 ####[facility] HOSPITALLIA [id number] [place] [address] [place] Nucleated RBC (Bld) [#/Vol] 10*3/uL Normal <0.01 [facility] Comment on above: Order Comment: Speci men Type: BLOOD SPECIMENOrdering Facility: [facility] Address: [address] [place] [address] Performed By: #### 5 7021-8 ####[facility] HOSPITALNCLI [id number] [place] [address] [place] Nucleated RBC/100 WBC (Bld) [Ratio] 0.0 /100 WBC Normal [facility] Comment on above: Order Comment: Speci men Type: BLOOD SPECIMENOrdering Facility: [facility] Address: [address] [place] [address] Performed By: #### 5 7021-8 ####[facility]ITALNCSAN [facility] [id number] [place] [address] [place] Platelet mean volume (Bld) [Entitic vol] 10.5 fL Normal 9.0-12.7 [facility] Comment on above: Order Comment: Speci men Type: BLOOD SPECIMENOrdering Facility: [facility] Address: [address] [place] [address] Performed By: #### 5 7021-8 ####[facility]OSPITALNCLIA [id number] [place] [address] [place] Platelets (Bld) [#/Vol] 265 10*3/uL Normal 150-400 [facility] Comment on above: Order Comment: Speci men Type: BLOOD SPECIMENOrdering Facility: [facility] Address: [address] [place] [address] Performed By: #### 5 7021-8 ####[facility] [id number] [place] [address] [place] RBC (Bld) [#/Vol] 4.26 10*6/uL Normal 3.90-5.20 [facility] Comment on above: Order Comment: Speci men Type: BLOOD SPECIMENOrdering Facility: [facility] Address: [address] [place] [address] Performed By: #### 5 7021-8 ####[facility]OSPITALNCLIA [id number] [place] [address] [place] WBC (Bld) [#/Vol] 7.18 10*3/uL Normal 3.70-11.00 [facility] Comment on above: Order Comment: Speci men Type: BLOOD SPECIMENOrdering Facility: [facility] Address: [address] [place] [address] Performed By: #### 5 7021-8 ####[facility] HOSPITALNCA [id number] [place] [address] [place] CK SerPl-cCncon 06-11-2025 CK [Catalytic activity/Vol] 80 U/L Normal 42-196 [facility] Comment on above: Order Comment: Speci men Type: BLOOD SPECIMENOrdering Facility: [facility] Address: [address] [place] [address] Performed By: #### 2 157-6 ####[facility] MAIN LABCLIA [id number] [address] [place] CNPAngie 06-11-2025 CNPN Telephone (NSCAMN) JESUS BENTON ([id number]) 1955 F Date Time Provider Department 06/11/25 MISTI [facility] During your visit today, we recorded the following information about you: Sarah Castanedaa 06/11/2025 1:47 PM Signed General Call Caller : Jesus Contact Reason for Call : Pt stated that she coughed during her MRI scan. She would like to know if she needs to repeat the scan? Patient requesting return call ? Yes Nida Payton RN 06/11/2025 3:20 PM Signed See my chart message 06/11/25. Nida Payton RN Allergies As of Date: 06/11/2025 Noted Allergy Reaction AMLODIPINE 04/20/2023 9 - Itching LATEX 05/19/2023 2 - Rash Date Reviewed: 05/19/2024 Reviewed by: Nida Null MA - Fully Assessed Reason for Visit: Patient Question [0317] Prescriptions as of 06/11/2025 - TIBSOVO 250 mg tablet TAKE 2 TABLETS BY MOUTH ONCE DAILY IN THE AFTERNOON. - iv contrast (will be provided with radiology test) MRI Brain Inject, intravenously, once for 1 dose.No IV access, insert saline lock prior to beginning of sedation, infusion, injection of imaging exam.Discontinue saline lock post exam. If Pt. has a central line or IVAD, may access for administration according to line specific nursing protocol.Once exam is complete flush line and de-access according to line specific nursing protocol in the MR contrast administration guidelines link - losartan (COZAAR) 25 mg tablet Take 25 mg by mouth once daily. - rosuvastatin (CRESTOR) 5 mg tablet Take 5 mg by mouth once daily. - famotidine (PEPCID) 40 mg tablet Take 1 tablet by mouth once daily. Continue while taking steroids - cholecalciferol, vitamin D3, (VITAMIN D-3) 10 mcg (400 unit) cap Take 400 Units by mouth once daily. - oxybutynin ER (DITROPAN XL) 10 mg 24 hr tablet Take 10 mg by mouth once daily. - traZODone (DESYREL) 50 mg tablet Take 1 tablet by mouth daily at bedtime. - estradiol 1 mg ORAL tablet Take 1 mg by mouth once daily. - VITAMIN C 250 MG TAB Take one(1) tablet daily. 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 Word finding difficulty [R47.89] 11/23/2023 Encounter for chemotherapy management [Z51.11] 11/26/2024 Encounter Status:Closed by NIDA PAYTON on 06/11/25 Normal [facility] Comprehensive metabolic 2000 panelon 06-11-2025 Albumin [Mass/Vol] 4.2 g/dL Normal 3.9-4.9 [facility] Comment on above: Order Comment: Speci men Type: BLOOD SPECIMENOrdering Facility: [facility] Address: [address] [place] [address] Performed By: #### 2 4323-8 ####[facility] [id number] [place] [address] [place] ALP [Catalytic activity/Vol] 72 U/L Normal 34-123 [facility] Comment on above: Order Comment: Speci men Type: BLOOD SPECIMENOrdering Facility: [facility] Address: [address] [place] [address] Performed By: #### 2 4323-8 ####[facility] HOSPITALWNCLIA [id number] [place] [address] [place] ALT [Catalytic activity/Vol] 12 U/L Normal 7-38 [facility] Comment on above: Order Comment: Speci men Type: BLOOD SPECIMENOrdering Facility: [facility] Address: [address] [place] [address] Performed By: #### 2 4323-8 ####[facility] HOSPITALLIA [id number] [place] [address] [place] Anion gap [Moles/Vol] 10 mmol/L Normal 8-15 [facility] Comment on above: Order Comment: Speci men Type: BLOOD SPECIMENOrdering Facility: [facility] Address: [address] [place] [address] Performed By: #### 2 4323-8 ####[facility]ITALNCS[facility] [id number] [place] [address] [place] AST [Catalytic activity/Vol] 16 U/L Normal 13-35 [facility] Comment on above: Order Comment: Speci men Type: BLOOD SPECIMENOrdering Facility: [facility] Address: [address] [place] [address] Performed By: #### 2 4323-8 ####[facility]ITALNCS[facility] [id number] [place] [address] [place] Bilirubin [Mass/Vol] 0.4 mg/dL Normal 0.2-1.3 [facility] Comment on above: Order Comment: Speci men Type: BLOOD SPECIMENOrdering Facility: [facility] Address: [address] [place] [address] Performed By: #### 2 4323-8 ####[facility] HOSPITALNCLI [id number] [place] [address] [place] Calcium [Mass/Vol] 9.7 mg/dL Normal 8.5-10.2 [facility] Comment on above: Order Comment: Speci men Type: BLOOD SPECIMENOrdering Facility: [facility] Address: [address] [place], [place] [address] Performed By: #### 2 4323-8 ####[facility] [id number] [place] [address] [place] Chloride [Moles/Vol] 102 mmol/L Normal 98-107 [facility] Comment on above: Order Comment: Speci men Type: BLOOD SPECIMENOrdering Facility: [facility] Address: [address] [place], [place] [address] Performed By: #### 2 4323-8 ####[facility] DOEWNCLIA [id number] [place] [address] [place] CO2 [Moles/Vol] 25 mmol/L Normal 22-30 [facility] Comment on above: Order Comment: Speci men Type: BLOOD SPECIMENOrdering Facility: [facility] Address: [address] [place] [address] Performed By: #### 2 4323-8 ####[facility] HOSPITALNCLI [id number] [place] [address] [place] Creatinine [Mass/Vol] 0.85 mg/dL Normal 0.58-0.96 [facility] Comment on above: Order Comment: Speci men Type: BLOOD SPECIMENOrdering Facility: [facility] Address: [address] [place] [address] Performed By: #### 2 4323-8 ####[facility] HOSPITALNCLIA [id number] [place] [address] [place] eGFRcr SerPlBld CKD-EPI 2020 75 mL/min/1.73m??? Normal >=60 [facility] Comment on above: Order Comment: Speci men Type: BLOOD SPECIMENOrdering Facility: [facility] Address: [address] [place] [address] Result Comment: Sujey mated Glomerular Filtration Rate (eGFR) is calculated using the 2020 CKD-EPI creatinine equation. This equation utilizes serum creatinine, sex, and age as parameters. The creatinine assay has traceable calibration to isotope dilution-mass spectrometry. Refer to KDIGO guidelines for clinical interpretation. In patients with unstable renal function, e.g. those with acute kidney injury, the eGFR may not accurately reflect actual GFR. Performed By: #### 2 4323-8 ####[facility] HOSPITALWNCLIA [id number] [place] [address] [place] Glucose [Mass/Vol] 98 mg/dL Normal 74-99 [facility] Comment on above: Order Comment: Speci men Type: BLOOD SPECIMENOrdering Facility: [facility] Address: [address] [place], [place] [address] Result Comment: The [place] Diabetes Association (ADA) provides guidance for cutoff values for fasting glucose and random glucose. The ADA defines fasting as no caloric intake for at least 8 hours. Fasting plasma glucose results between 100 to 125 mg/dL indicate increased risk for diabetes (prediabetes). Fasting plasma glucose results greater than or equal to 126 mg/dL meet the criteria for diagnosis of diabetes. In the absence of unequivocal hyperglycemia, results should be confirmed by repeat testing. In a patient with classic symptoms of hyperglycemia or hyperglycemic crisis, random plasma glucose results greater than or equal to 200 mg/dL meet the criteria for diagnosis of diabetes. Reference: Standards of Medical Care in Diabetes 2016, [employer] Diabetes Association. Diabetes Care. 2016.39(Suppl 1). Performed By: #### 2 4323-8 ####[facility]ITALWM [facility] HOSPITALA [id number] [place] [address] [place] Potassium [Moles/Vol] 4.4 mmol/L Normal 3.7-5.1 [facility] Comment on above: Order Comment: Ceferino sandoval Type: BLOOD SPECIMENOrdering Facility: [facility] Address: [address] [place] [address] Performed By: #### 2 4323-8 ####[facility] HOSPITALLINydia [id number] [place] [address] [place] Protein [Mass/Vol] 6.7 g/dL Normal 6.3-8.0 [facility] Comment on above: Order Comment: Kellii men Type: BLOOD SPECIMENOrdering Facility: [facility] Address: [address] [place], [place] [address] Performed By: #### 2 4323-8 ####[facility] HOSPITALWNCLIA [id number] [place] [address] [place] Sodium [Moles/Vol] 137 mmol/L Normal 136-144 [facility] Comment on above: Order Comment: Speci men Type: BLOOD SPECIMENOrdering Facility: [facility] Address: [facility] [place] [id number] Performed By: #### 2 4323-8 ####[facility] [id number] [address] OF [facility] Urea nitrogen [Mass/Vol] 13 mg/dL Normal 7-21 [facility] Comment on above: Order Comment: Speci men Type: BLOOD SPECIMENOrdering Facility: [facility] Address: [address] [place] [address] Performed By: #### 2 4323-8 ####[facility] [id number] [address] STATES OF [facility] ECG COMPLETEon 06-11-2025 ECG COMPLETE Ventricular Rate : 6 3 BPM Atrial Rate : 63 BPM P-R Interval : 158 ms QRS Duration : 80 ms Q-T Interval : 398 ms QTC Calculation(Bazett) : 407 ms Calculated P Han[place] : 45 degrees Calculated R [place] : 30 degrees Calculated T [place] : 26 degrees NORMAL SINUS RHYTHM NORMAL ECG WHEN COMPARED WITH ECG OF 09-Feb-2025 09:43, T WAVE AMPLITUDE HAS INCREASED IN ANTERIOR LEADS Confirmed by MD SEVILLA QARAB ([id number]) on 06/12/2025 1:59:45 PM NAME : JESUS BENTON PID : [id number] : 1955 Gender : Female Race : ORD : [id number] Procedure Date : Jun 11 2025 13:35:36 Edit Date : Jun 12 2025 13:59:55 Diagnosis: NORMAL SINUS RHYTHM NORMAL ECG WHEN COMPARED WITH ECG OF 09-Feb-2025 09:43, T WAVE AMPLITUDE HAS INCREASED IN ANTERIOR LEADS Confirmed by MD SEVILLA QARAB ([id number]) on 06/12/2025 1:59:45 PM Test Reason : Atrial Fibrillation Location : 0 : CARD Overread By : MD SEVILLA QARAB Edited By : MD SEVILLA QARAB Referred By : MISTI BLANK Acquired by : ARCENIO,SHANTI [facility] MRI BRAIN WO/W IVCONon 06-11 MRI BRAIN WO/W IVCON * * *Final Report* * * DATE OF EXAM: Jun 11 2025 12:54PM [facility] 0295 - MRI BRAIN WO/W IVCON / PROCEDURE REASON: C71.1-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 TECHNIQUE: Routine brain MRI protocol without and with contrast including diffusion images. Perfusion with gadolinium. MQ: [id number] Contrast: 10 mL Dotarem IV COMPARISON: MRI brain from February 26, 2025. RESULT: Postop: There are again remote postop changes of right frontal craniotomy. There is a wedge-shaped parenchymal defect along the anterior aspect of the right orbital frontal lobe extending to the right frontal pole from prior resection. Acute Change: There is no evidence of restricted diffusion to suggest an acute infarct. Hemorrhage: No evidence of prior parenchymal hemorrhage on the susceptibility weighted images. Mass Lesion/ Mass Effect: There is stable mild hyperintensity and T2 and FLAIR along the right frontal pole resection site but there is no abnormal enhancement. No elevated CBV on perfusion study. No significant mass effect. Chronic Change: The white matter is within normal limits of signal intensity for age. Parenchyma: No significant volume loss for age. The brain parenchyma is otherwise within normal limits of signal intensity and morphology. Ventricles: Normal caliber and morphology. Skull Base: Hypothalamic and pituitary region are grossly normal. Craniocervical junction is normal. No significant marrow replacement process. Vasculature: Major intracranial arterial structures, and dural venous sinuses show typical flow void, suggesting patency by spin echo criteria. Other: The visualized paranasal sinuses and mastoid air cells are clear. The orbits and extracranial soft tissues are unremarkable. IMPRESSION: Stable postop changes right frontal resection. No pathologic enhancement or new signal changes along the right frontal resection site. No elevated CBV to suggest high-grade neoplasm. Machine Shorthand Teacher: LEO Transcribe Date/Time: Jun 11 2025 1:00P Dictated by : CORIE CHURCHILL MD This examination was interpreted and the report reviewed and electronically signed by: CORIE CHURCHILL MD on Jun 11 2025 1:03PM EST [id number] [facility] NURSING PROGon 06-11-2025 NURSING PROG HNO ID: [id number] Author: GINGER CERVANTES RN Service: Radiology Author Type: Registered Nurse Type: Nursing Progress Note Filed: 06/11/2025 12:19 Note Text: Radiology Service Progress Note DATE OF SERVICE: June 11, 2025 TIME: 12:19 PM PATIENT WEIGHT: 115 LBS PATIENT IDENTITY VERIFICATION COMPLETED USING TWO (2) STANDARD IDENTIFIERS: Name and Date of confirmed by patient verbally. FALL SCREENING: Has the patient had 2 falls in the last year or 1 fall with injury or currently using an Ambulatory Assistive Device (Walker, Cane, Wheelchair, Crutches, etc.)? No PATIENT GENDER DATA: Assigned female at . status: : No status: NO. ALLERGIES: Reviewed and unchanged CONTRAST ALLERGY: No EXAM: MRI - CONTRAST TYPE: GROUP II IV SITE: Ambulatory: A peripheral IV was started in the Right antecubital site with a Angio cath: 22 gauge. IV SITE APPEARANCE: Clean,Dry and Intact SIGNATURE: Ginger Cervantes RN PATIENT NAME: Jesus Benton DATE: June 11, 2025 TIME: 12:19 PM [facility] CBC W Auto Differential pane l (Bld)on 05-07-2025 Basophils (Bld) [#/Vol] 0.04 10*3/uL Normal <0.11 [facility] Comment on above: Order Comment: Speci men Type: BLOOD SPECIMENOrdering Facility: [facility] Address: [address] [place] [address] Performed By: #### 5 7021-8 ####[facility] [id number] [place] [address] [place] Basophils/100 WBC (Bld) 0.5 % Normal [facility] Comment on above: Order Comment: Speci men Type: BLOOD SPECIMENOrdering Facility: [facility] Address: [address] [place] [address] Performed By: #### 5 7021-8 ####[facility] [id number] [place] [address] [place] Differential cell count method Nom (Bld) Auto Normal [facility] Comment on above: Order Comment: Speci men Type: BLOOD SPECIMENOrdering Facility: [facility] Address: [address] [place] [address] Performed By: #### 5 7021-8 ####[facility] [id number] [place] [address] [place] Eosinophils (Bld) [#/Vol] 0.56 10*3/uL High <0.46 [facility] Comment on above: Order Comment: Speci men Type: BLOOD SPECIMENOrdering Facility: [facility] Address: [address] [place] [address] Performed By: #### 5 7021-8 ####[facility] [id number] [place] [address] [place] Eosinophils/100 WBC (Bld) 7.3 % Normal [facility] Comment on above: Order Comment: Speci men Type: BLOOD SPECIMENOrdering Facility: [facility] Address: [address] [place] [address] Performed By: #### 5 7021-8 ####[facility] [id number] [place] [address] [place] Erythrocyte distribution width (RBC) [Ratio] 13.7 % Normal 11.5-15.0 [facility] Comment on above: Order Comment: Speci men Type: BLOOD SPECIMENOrdering Facility: [facility] Address: [address] [place] [address] Performed By: #### 5 7021-8 ####[facility] [id number] [place] [address] [place] Hematocrit (Bld) [Volume fraction] 39.1 % Normal 36.0-46.0 [facility] Comment on above: Order Comment: Speci men Type: BLOOD SPECIMENOrdering Facility: [facility] Address: [address] [place] [address] Performed By: #### 5 7021-8 ####[facility] [id number] [place] [address] [place] Hemoglobin (Bld) [Mass/Vol] 13.1 g/dL Normal 11.5-15.5 [facility] Comment on above: Order Comment: Speci men Type: BLOOD SPECIMENOrdering Facility: [facility] Address: [address] [place] [address] Performed By: #### 5 7021-8 ####[facility] [id number] [place] [address] [place] Immature granulocytes (Bld) [#/Vol] 10*3/uL Normal <0.10 [facility] Comment on above: Order Comment: Speci men Type: BLOOD SPECIMENOrdering Facility: [facility] Address: [address] [place] [address] Performed By: #### 5 7021-8 ####[facility] [id number] [place] [address] [place] Immature granulocytes/100 WBC (Bld) 0.1 % Normal [facility] Comment on above: Order Comment: Speci men Type: BLOOD SPECIMENOrdering Facility: [facility] Address: [address] [place] [address] Performed By: #### 5 7021-8 ####[facility] [id number] [place] [address] [place] Lymphocytes (Bld) [#/Vol] 1.34 10*3/uL Normal 1.00-4.00 [facility] Comment on above: Order Comment: Speci men Type: BLOOD SPECIMENOrdering Facility: [facility] Address: [address] [place] [address] Performed By: #### 5 7021-8 ####[facility] ALCIRAJJA [id number] [place] [address] [place] Lymphocytes/100 WBC (Bld) 17.5 % Normal [facility] Comment on above: Order Comment: Speci men Type: BLOOD SPECIMENOrdering Facility: [facility] Address: [address] [place] [address] Performed By: #### 5 7021-8 ####[facility] [id number] [place] [address] [place] MCH (RBC) [Entitic mass] 30.0 pg Normal 26.0-34.0 [facility] Comment on above: Order Comment: Speci men Type: BLOOD SPECIMENOrdering Facility: [facility] Address: [address] [place] [address] Performed By: #### 5 7021-8 ####[facility] [id number] [address] STATES OF [facility] MCHC (RBC) [Mass/Vol] 33.5 g/dL Normal 30.5-36.0 [facility] Comment on above: Order Comment: Speci men Type: BLOOD SPECIMENOrdering Facility: [facility] Address: [address] [place] [address] Performed By: #### 5 7021-8 ####[facility] [id number] [place] [address] [place] MCV (RBC) [Entitic vol] 89.5 fL Normal 80.0-100.0 [facility] Comment on above: Order Comment: Speci men Type: BLOOD SPECIMENOrdering Facility: [facility] Address: [address] [place] [address] Performed By: #### 5 7021-8 ####[facility]ITALNCLI [id number] [place] [address] [place] Monocytes (Bld) [#/Vol] 0.68 10*3/uL Normal <0.87 [facility] Comment on above: Order Comment: Speci men Type: BLOOD SPECIMENOrdering Facility: [facility] Address: [address] [place] [address] Performed By: #### 5 7021-8 ####[facility]ITAL[facility]CL[facility] [id number] [place] [address] [place] Monocytes/100 WBC (Bld) 8.9 % Normal [facility] Comment on above: Order Comment: Speci men Type: BLOOD SPECIMENOrdering Facility: [facility] Address: [address] [place] [address] Performed By: #### 5 7021-8 ####[facility]PITALNCA [id number] [place] [address] [place] Neutrophils (Bld) [#/Vol] 5.02 10*3/uL Normal 1.45-7.50 [facility] Comment on above: Order Comment: Speci men Type: BLOOD SPECIMENOrdering Facility: [facility] Address: [address] [place] [address] Performed By: #### 5 7021-8 ####[facility] [id number] [place] [address] [place] Neutrophils/100 WBC (Bld) 65.7 % Normal [facility] Comment on above: Order Comment: Speci men Type: BLOOD SPECIMENOrdering Facility: [facility] Address: [address] [place] [address] Performed By: #### 5 7021-8 ####[facility] [id number] [place] [address] [place] Nucleated RBC (Bld) [#/Vol] 10*3/uL Normal <0.01 [facility] Comment on above: Order Comment: Speci men Type: BLOOD SPECIMENOrdering Facility: [facility] Address: [address] [place] [address] Performed By: #### 5 7021-8 ####[facility] ALCIRAGINNY [id number] [place] [address] [place] Nucleated RBC/100 WBC (Bld) [Ratio] 0.0 /100 WBC Normal [facility] Comment on above: Order Comment: Speci men Type: BLOOD SPECIMENOrdering Facility: [facility] Address: [address] [place] [address] Performed By: #### 5 7021-8 ####[facility]OSPITALNCMOE [id number] [place] [address] [place] Platelet mean volume (Bld) [Entitic vol] 10.8 fL Normal 9.0-12.7 [facility] Comment on above: Order Comment: Speci men Type: BLOOD SPECIMENOrdering Facility: [facility] Address: [address] [place] [address] Performed By: #### 5 7021-8 ####[facility]ITALNCA [id number] [place] [address] [place] Platelets (Bld) [#/Vol] 248 10*3/uL Normal 150-400 [facility] Comment on above: Order Comment: Speci men Type: BLOOD SPECIMENOrdering Facility: [facility] Address: [address] [place] [address] Performed By: #### 5 7021-8 ####[facility] [id number] [place] [address] [place] RBC (Bld) [#/Vol] 4.37 10*6/uL Normal 3.90-5.20 [facility] Comment on above: Order Comment: Speci men Type: BLOOD SPECIMENOrdering Facility: [facility] Address: [address] [place] [address] Performed By: #### 5 7021-8 ####[facility] MILLWNCLIA [id number] [place] [address] [place] WBC (Bld) [#/Vol] 7.65 10*3/uL Normal 3.70-11.00 [facility] Comment on above: Order Comment: Speci men Type: BLOOD SPECIMENOrdering Facility: [facility] Address: [address] [place] [address] Performed By: #### 5 7021-8 ####[facility]ITALNCLIA [id number] [place] [address] [place] CK SerPl-cCncon 05-07-2025 CK [Catalytic activity/Vol] 66 U/L Normal 42-196 [facility] Comment on above: Order Comment: Speci men Type: BLOOD SPECIMENOrdering Facility: [facility] Address: [address] [place] [address] Performed By: #### 2 157-6 ####[facility] LABCLIA [id number] [place] [address] [place] Comprehensive metabolic 2000 panelon 05-07-2025 Albumin [Mass/Vol] 4.1 g/dL Normal 3.9-4.9 [facility] Comment on above: Order Comment: Speci men Type: BLOOD SPECIMENOrdering Facility: [facility] Address: [address] [place] [address] Performed By: #### 2 4323-8 ####[facility]ITALNCLIA [id number] [place] [address] [place] ALP [Catalytic activity/Vol] 68 U/L Normal 34-123 [facility] Comment on above: Order Comment: Speci men Type: BLOOD SPECIMENOrdering Facility: [facility] Address: [address] [place] [address] Performed By: #### 2 4323-8 ####[facility]ITALNCLIA [id number] [place] [address] [place] ALT [Catalytic activity/Vol] 9 U/L Normal 7-38 [facility] Comment on above: Order Comment: Speci men Type: BLOOD SPECIMENOrdering Facility: [facility] Address: [address] [place] [address] Performed By: #### 2 4323-8 ####[facility] MILLTOWNCLIA [id number] [place] [address] [place] Anion gap [Moles/Vol] 11 mmol/L Normal 8-15 [facility] Comment on above: Order Comment: Speci men Type: BLOOD SPECIMENOrdering Facility: [facility] Address: [address] [place] [address] Performed By: #### 2 4323-8 ####[facility] MILLCICERONCLIA [id number] [place] [address] [place] AST [Catalytic activity/Vol] 15 U/L Normal 13-35 [facility] Comment on above: Order Comment: Speci men Type: BLOOD SPECIMENOrdering Facility: [facility] Address: [address] [place] [address] Performed By: #### 2 4323-8 ####[facility]PITALWNCLIA [id number] [place] [address] [place] Bilirubin [Mass/Vol] 0.4 mg/dL Normal 0.2-1.3 [facility] Comment on above: Order Comment: Speci men Type: BLOOD SPECIMENOrdering Facility: [facility] Address: [address] [place] [address] Performed By: #### 2 4323-8 ####[facility] MILLTOWNCLIA [id number] [place] [address] [place] Calcium [Mass/Vol] 9.8 mg/dL Normal 8.5-10.2 [facility] Comment on above: Order Comment: Speci men Type: BLOOD SPECIMENOrdering Facility: [facility] Address: [address] [place] [address] Performed By: #### 2 4323-8 ####[facility]OSPITALWNCLIA [id number] [place] [address] [place] Chloride [Moles/Vol] 103 mmol/L Normal 98-107 [facility] Comment on above: Order Comment: Speci men Type: BLOOD SPECIMENOrdering Facility: [facility] Address: [address] [place] [address] Performed By: #### 2 4323-8 ####[facility]ITALNCLIA [id number] [place] [address] [place] CO2 [Moles/Vol] 26 mmol/L Normal 22-30 [facility] Comment on above: Order Comment: Speci men Type: BLOOD SPECIMENOrdering Facility: [facility] Address: [address] [place] [address] Performed By: #### 2 4323-8 ####[facility]PITALNCLIA [id number] [place] [address] [place] Creatinine [Mass/Vol] 0.82 mg/dL Normal 0.58-0.96 [facility] Comment on above: Order Comment: Speci men Type: BLOOD SPECIMENOrdering Facility: [facility] Address: [address] [place] [address] Performed By: #### 2 4323-8 ####[facility]ITALNCLIA [id number] [place] [address] [place] eGFRcr SerPlBld CKD-EPI 2020 78 mL/min/1.73m??? Normal >=60 [facility] Comment on above: Order Comment: Speci men Type: BLOOD SPECIMENOrdering Facility: [facility] Address: [address] [place] [address] Result Comment: Sujey mated Glomerular Filtration Rate (eGFR) is calculated using the 2020 CKD-EPI creatinine equation. This equation utilizes serum creatinine, sex, and age as parameters. The creatinine assay has traceable calibration to isotope dilution-mass spectrometry. Refer to KDIGO guidelines for clinical interpretation. In patients with unstable renal function, e.g. those with acute kidney injury, the eGFR may not accurately reflect actual GFR. Performed By: #### 2 4323-8 ####[facility] [id number] [place] [address] [place] Glucose [Mass/Vol] 129 mg/dL High 74-99 [facility] Comment on above: Order Comment: Ceferino sandoval Type: BLOOD SPECIMENOrdering Facility: [facility] Address: [address] [place] [address] Result Comment: The [place] Diabetes Association (ADA) provides guidance for cutoff values for fasting glucose and random glucose. The ADA defines fasting as no caloric intake for at least 8 hours. Fasting plasma glucose results between 100 to 125 mg/dL indicate increased risk for diabetes (prediabetes). Fasting plasma glucose results greater than or equal to 126 mg/dL meet the criteria for diagnosis of diabetes. In the absence of unequivocal hyperglycemia, results should be confirmed by repeat testing. In a patient with classic symptoms of hyperglycemia or hyperglycemic crisis, random plasma glucose results greater than or equal to 200 mg/dL meet the criteria for diagnosis of diabetes. Reference: Standards of Medical Care in Diabetes 2016, [employer] Diabetes Association. Diabetes Care. 2016.39(Suppl 1). Performed By: #### 2 4323-8 ####[facility] [id number] [place] [address] [place] Potassium [Moles/Vol] 4.1 mmol/L Normal 3.7-5.1 [facility] Comment on above: Order Comment: Ceferino sandoval Type: BLOOD SPECIMENOrdering Facility: [facility] Address: [address] [place] [address] Performed By: #### 2 4323-8 ####[facility] [id number] [place] [address] [place] Protein [Mass/Vol] 6.8 g/dL Normal 6.3-8.0 [facility] Comment on above: Order Comment: Speci men Type: BLOOD SPECIMENOrdering Facility: [facility] Address: [address] [place] [address] Performed By: #### 2 4323-8 ####[facility]ITALMIHAELA [id number] [place] [address] [place] Sodium [Moles/Vol] 140 mmol/L Normal 136-144 [facility] Comment on above: Order Comment: Speci men Type: BLOOD SPECIMENOrdering Facility: [facility] Address: [address] [place] [address] Performed By: #### 2 4323-8 ####[facility]ITALMIHAELA [id number] [place] [address] [place] Urea nitrogen [Mass/Vol] 9 mg/dL Normal 7-21 [facility] Comment on above: Order Comment: Speci men Type: BLOOD SPECIMENOrdering Facility: [facility] Address: [address] [place] [address] Performed By: #### 2 4323-8 ####[facility]PITALNCLINydia [id number] [place] [address] [place] CBC W Auto Differential pane l (Bld)on 04-09-2025 Basophils (Bld) [#/Vol] 0.07 10*3/uL Normal <0.11 [facility] Comment on above: Order Comment: Speci men Type: BLOOD SPECIMENOrdering Facility: [facility] Address: [address] [place] [address] Performed By: #### 5 7021-8 ####[facility] HOSPITALBOOGIELIA [id number] [place] [address] [place] Basophils/100 WBC (Bld) 1.2 % Normal [facility] Comment on above: Order Comment: Speci men Type: BLOOD SPECIMENOrdering Facility: [facility] Address: [address] [place] [address] Performed By: #### 5 7021-8 ####[facility] ALCIRAGINNY [id number] [place] [address] [place] Differential cell count method Nom (Bld) Auto Normal [facility] Comment on above: Order Comment: Speci men Type: BLOOD SPECIMENOrdering Facility: [facility] Address: [address] [place] [address] Performed By: #### 5 7021-8 ####[facility]PITALBOOGIESAN [facility] [id number] [place] [address] [place] Eosinophils (Bld) [#/Vol] 0.42 10*3/uL Normal <0.46 [facility] Comment on above: Order Comment: Speci men Type: BLOOD SPECIMENOrdering Facility: [facility] Address: [address] [place] [address] Performed By: #### 5 7021-8 ####[facility] [id number] [place] [address] [place] Eosinophils/100 WBC (Bld) 7.3 % Normal [facility] Comment on above: Order Comment: Speci men Type: BLOOD SPECIMENOrdering Facility: [facility] Address: [address] [place] [address] Performed By: #### 5 7021-8 ####[facility]ALL[facility] [id number] [place] [address] [place] Erythrocyte distribution width (RBC) [Ratio] 13.0 % Normal 11.5-15.0 [facility] Comment on above: Order Comment: Speci men Type: BLOOD SPECIMENOrdering Facility: [facility] Address: [address] [place] [address] Performed By: #### 5 7021-8 ####[facility]OSPITALWNCLIA [id number] [place] [address] [place] Hematocrit (Bld) [Volume fraction] 40.4 % Normal 36.0-46.0 [facility] Comment on above: Order Comment: Speci men Type: BLOOD SPECIMENOrdering Facility: [facility] Address: [address] [place] [address] Performed By: #### 5 7021-8 ####[facility]ALL[facility] [id number] [place] [address] [place] Hemoglobin (Bld) [Mass/Vol] 13.8 g/dL Normal 11.5-15.5 [facility] Comment on above: Order Comment: Speci men Type: BLOOD SPECIMENOrdering Facility: [facility] Address: [address] [place] [address] Performed By: #### 5 7021-8 ####[facility] [id number] [place] [address] [place] Immature granulocytes (Bld) [#/Vol] 10*3/uL Normal <0.10 [facility] Comment on above: Order Comment: Speci men Type: BLOOD SPECIMENOrdering Facility: [facility] Address: [address] [place] [address] Performed By: #### 5 7021-8 ####[facility]ITALLIA [id number] [place] [address] [place] Immature granulocytes/100 WBC (Bld) 0.2 % Normal [facility] Comment on above: Order Comment: Speci men Type: BLOOD SPECIMENOrdering Facility: [facility] Address: [address] [place] [address] Performed By: #### 5 7021-8 ####[facility]PITALNCLIA [id number] [place] [address] [place] Lymphocytes (Bld) [#/Vol] 1.72 10*3/uL Normal 1.00-4.00 [facility] Comment on above: Order Comment: Speci men Type: BLOOD SPECIMENOrdering Facility: [facility] Address: [address] [place] [address] Performed By: #### 5 7021-8 ####[facility] [id number] [place] [address] [place] Lymphocytes/100 WBC (Bld) 29.8 % Normal [facility] Comment on above: Order Comment: Speci men Type: BLOOD SPECIMENOrdering Facility: [facility] Address: [address] [place] [address] Performed By: #### 5 7021-8 ####[facility] [id number] [place] [address] [place] MCH (RBC) [Entitic mass] 30.7 pg Normal 26.0-34.0 [facility] Comment on above: Order Comment: Speci men Type: BLOOD SPECIMENOrdering Facility: [facility] Address: [address] [place] [address] Performed By: #### 5 7021-8 ####[facility] [id number] [place] [address] [place] MCHC (RBC) [Mass/Vol] 34.2 g/dL Normal 30.5-36.0 [facility] Comment on above: Order Comment: Speci men Type: BLOOD SPECIMENOrdering Facility: [facility] Address: [address] [place] [address] Performed By: #### 5 7021-8 ####[facility]ITALNCLI [id number] [place] [address] [place] MCV (RBC) [Entitic vol] 89.8 fL Normal 80.0-100.0 [facility] Comment on above: Order Comment: Speci men Type: BLOOD SPECIMENOrdering Facility: [facility] Address: [address] [place] [address] Performed By: #### 5 7021-8 ####[facility] ALCIRAGINNY [id number] [place] [address] [place] Monocytes (Bld) [#/Vol] 0.46 10*3/uL Normal <0.87 [facility] Comment on above: Order Comment: Speci men Type: BLOOD SPECIMENOrdering Facility: [facility] Address: [address] [place] [address] Performed By: #### 5 7021-8 ####[facility] [id number] [place] [address] [place] Monocytes/100 WBC (Bld) 8.0 % Normal [facility] Comment on above: Order Comment: Speci men Type: BLOOD SPECIMENOrdering Facility: [facility] Address: [address] [place] [address] Performed By: #### 5 7021-8 ####[facility]ITALNCA [id number] [place] [address] [place] Neutrophils (Bld) [#/Vol] 3.10 10*3/uL Normal 1.45-7.50 [facility] Comment on above: Order Comment: Speci men Type: BLOOD SPECIMENOrdering Facility: [facility] Address: [address] [place] [address] Performed By: #### 5 7021-8 ####[facility] HOSPITALLIA [id number] [place] [address] [place] Neutrophils/100 WBC (Bld) 53.5 % Normal [facility] Comment on above: Order Comment: Speci men Type: BLOOD SPECIMENOrdering Facility: [facility] Address: [address] [place] [address] Performed By: #### 5 7021-8 ####[facility] ALCIRAWNCLIA [id number] [place] [address] [place] Nucleated RBC (Bld) [#/Vol] 10*3/uL Normal <0.01 [facility] Comment on above: Order Comment: Speci men Type: BLOOD SPECIMENOrdering Facility: [facility] Address: [address] [place] [address] Performed By: #### 5 7021-8 ####[facility]ALL[facility] [id number] [place] [address] [place] Nucleated RBC/100 WBC (Bld) [Ratio] 0.0 /100 WBC Normal [facility] Comment on above: Order Comment: Speci men Type: BLOOD SPECIMENOrdering Facility: [facility] Address: [address] [place] [address] Performed By: #### 5 7021-8 ####[facility] [id number] [place] [address] [place] Platelet mean volume (Bld) [Entitic vol] 10.5 fL Normal 9.0-12.7 [facility] Comment on above: Order Comment: Speci men Type: BLOOD SPECIMENOrdering Facility: [facility] Address: [address] [place] [address] Performed By: #### 5 7021-8 ####[facility]ITALL[facility] [id number] [place] [address] [place] Platelets (Bld) [#/Vol] 275 10*3/uL Normal 150-400 [facility] Comment on above: Order Comment: Speci men Type: BLOOD SPECIMENOrdering Facility: [facility] Address: [address] [place] [address] Performed By: #### 5 7021-8 ####[facility]ITALNCLI [id number] [place] [address] [place] RBC (Bld) [#/Vol] 4.50 10*6/uL Normal 3.90-5.20 [facility] Comment on above: Order Comment: Speci men Type: BLOOD SPECIMENOrdering Facility: [facility] Address: [address] [place] [address] Performed By: #### 5 7021-8 ####[facility]OSPITALNCNydia [id number] [place] [address] [place] WBC (Bld) [#/Vol] 5.78 10*3/uL Normal 3.70-11.00 [facility] Comment on above: Order Comment: Speci men Type: BLOOD SPECIMENOrdering Facility: [facility] Address: [address] [place] [address] Performed By: #### 5 7021-8 ####[facility]PITALNCMOE [id number] [place] [address] [place] CK SerPl-cCncon 04-09-2025 CK [Catalytic activity/Vol] 78 U/L Normal 42-196 [facility] Comment on above: Order Comment: Speci men Type: BLOOD SPECIMENOrdering Facility: [facility] Address: [address] [place] [address] Performed By: #### 2 157-6 ####[facility] LABCLIA [id number] [place] [address] [place] Comprehensive metabolic 2000 panelon 04-09-2025 Albumin [Mass/Vol] 4.5 g/dL Normal 3.9-4.9 [facility] Comment on above: Order Comment: Speci men Type: BLOOD SPECIMENOrdering Facility: [facility] Address: [address] [place] [address] Performed By: #### 2 4323-8 ####[facility]ITALNCLIA [id number] [place] [address] [place] ALP [Catalytic activity/Vol] 64 U/L Normal 34-123 [facility] Comment on above: Order Comment: Speci men Type: BLOOD SPECIMENOrdering Facility: [facility] Address: [address] [place] [address] Performed By: #### 2 4323-8 ####[facility] BOULEVARDTOWNCLIA [id number] [place] [address] [place] ALT [Catalytic activity/Vol] 10 U/L Normal 7-38 [facility] Comment on above: Order Comment: Speci men Type: BLOOD SPECIMENOrdering Facility: [facility] Address: [address] [place] [address] Performed By: #### 2 4323-8 ####[facility] HOSPITALWNCLIA [id number] [place] [address] [place] Anion gap [Moles/Vol] 15 mmol/L Normal 8-15 [facility] Comment on above: Order Comment: Speci men Type: BLOOD SPECIMENOrdering Facility: [facility] Address: [address] [place] [address] Performed By: #### 2 4323-8 ####[facility] HOSPITALWMELIA [id number] [place] [address] [place] AST [Catalytic activity/Vol] 17 U/L Normal 13-35 [facility] Comment on above: Order Comment: Speci men Type: BLOOD SPECIMENOrdering Facility: [facility] Address: [address] [place] [address] Performed By: #### 2 4323-8 ####[facility]OSPITALNCLIA [id number] [place] [address] [place] Bilirubin [Mass/Vol] 0.4 mg/dL Normal 0.2-1.3 [facility] Comment on above: Order Comment: Speci men Type: BLOOD SPECIMENOrdering Facility: [facility] Address: [address] [place] [address] Performed By: #### 2 4323-8 ####[facility] BONNIE MILLTOWNCLIA [id number] [place] [address] [place] Calcium [Mass/Vol] 10.0 mg/dL Normal 8.5-10.2 [facility] Comment on above: Order Comment: Speci men Type: BLOOD SPECIMENOrdering Facility: [facility] Address: [address] [place] [address] Performed By: #### 2 4323-8 ####[facility] MILLTOWNCLIA [id number] [place] [address] [place] Chloride [Moles/Vol] 104 mmol/L Normal 98-107 [facility] Comment on above: Order Comment: Speci men Type: BLOOD SPECIMENOrdering Facility: [facility] Address: [address] [place] [address] Performed By: #### 2 4323-8 ####[facility] MILLTOWNCLIA [id number] [place] [address] [place] CO2 [Moles/Vol] 22 mmol/L Normal 22-30 [facility] Comment on above: Order Comment: Speci men Type: BLOOD SPECIMENOrdering Facility: [facility] Address: [address] [place] [address] Performed By: #### 2 4323-8 ####[facility] MILLTOWNCLIA [id number] [place] [address] [place] Creatinine [Mass/Vol] 0.92 mg/dL Normal 0.58-0.96 [facility] Comment on above: Order Comment: Speci men Type: BLOOD SPECIMENOrdering Facility: [facility] Address: [address] [place] [address] Performed By: #### 2 4323-8 ####[facility] HOSPITALWNCLIA [id number] [address] [place] eGFRcr SerPlBld CKD-EPI 2020 68 mL/min/1.73m??? Normal >=60 [facility] Comment on above: Order Comment: Ceferino sandoval Type: BLOOD SPECIMENOrdering Facility: [facility] Address: [address] [place] [address] Result Comment: Sujey mated Glomerular Filtration Rate (eGFR) is calculated using the 2020 CKD-EPI creatinine equation. This equation utilizes serum creatinine, sex, and age as parameters. The creatinine assay has traceable calibration to isotope dilution-mass spectrometry. Refer to KDIGO guidelines for clinical interpretation. In patients with unstable renal function, e.g. those with acute kidney injury, the eGFR may not accurately reflect actual GFR. Performed By: #### 2 4323-8 ####[facility]ITALNCS[facility] [id number] [place] [address] [place] Glucose [Mass/Vol] 111 mg/dL High 74-99 [facility] Comment on above: Order Comment: Ceferino sandoval Type: BLOOD SPECIMENOrdering Facility: [facility] Address: [address] [place] [address] Result Comment: The [place] Diabetes Association (ADA) provides guidance for cutoff values for fasting glucose and random glucose. The ADA defines fasting as no caloric intake for at least 8 hours. Fasting plasma glucose results between 100 to 125 mg/dL indicate increased risk for diabetes (prediabetes). Fasting plasma glucose results greater than or equal to 126 mg/dL meet the criteria for diagnosis of diabetes. In the absence of unequivocal hyperglycemia, results should be confirmed by repeat testing. In a patient with classic symptoms of hyperglycemia or hyperglycemic crisis, random plasma glucose results greater than or equal to 200 mg/dL meet the criteria for diagnosis of diabetes. Reference: Standards of Medical Care in Diabetes 2016, [employer] Diabetes Association. Diabetes Care. 2016.39(Suppl 1). Performed By: #### 2 4323-8 ####[facility] HOSPITALWNCLIA [id number] [place] [address] [place] Potassium [Moles/Vol] 4.4 mmol/L Normal 3.7-5.1 [facility] Comment on above: Order Comment: Speci men Type: BLOOD SPECIMENOrdering Facility: [facility] Address: [address] [place] [address] Performed By: #### 2 4323-8 ####[facility] ALCIRAMonetNCMOE [id number] [place] [address] [place] Protein [Mass/Vol] 6.9 g/dL Normal 6.3-8.0 [facility] Comment on above: Order Comment: Speci men Type: BLOOD SPECIMENOrdering Facility: [facility] Address: [address] [place] [address] Performed By: #### 2 4323-8 ####[facility]ITAL[facility]CS[facility] [id number] [place] [address] [place] Sodium [Moles/Vol] 141 mmol/L Normal 136-144 [facility] Comment on above: Order Comment: Speci men Type: BLOOD SPECIMENOrdering Facility: [facility] Address: [address] [place] [address] Performed By: #### 2 4323-8 ####[facility] [id number] [place] [address] [place] Urea nitrogen [Mass/Vol] 10 mg/dL Normal 7-21 [facility] Comment on above: Order Comment: Speci men Type: BLOOD SPECIMENOrdering Facility: [facility] Address: [address] [place] [address] Performed By: #### 2 4323-8 ####[facility] HOSPITALNCA [id number] [place] [address] [place] CBC W Auto Differential pane l (Bld)on 03-06-2025 Basophils (Bld) [#/Vol] 0.08 10*3/uL Normal <0.11 [facility] Comment on above: Order Comment: Speci men Type: BLOOD SPECIMEN [facility]: [facility] Address: [address] [place] [address] Performed By: #### 5 7021-8 #### [facility] CLIA [id number] [address] [place] [address] [place] Basophils/100 WBC (Bld) 1.2 % Normal [facility] Comment on above: Order Comment: Speci men Type: BLOOD SPECIMEN [facility]ing [facility]: [facility] Address: [address] [place] [address] Performed By: #### 5 7021-8 #### [facility] CLIA [id number] [address] [place] [address] [place] Differential cell count method Nom (Bld) Auto Normal [facility] Comment on above: Order Comment: Speci men Type: BLOOD SPECIMEN [facility]ing [facility]: [facility] Address: [address] [place] [address] Performed By: #### 5 7021-8 #### [facility] CLIA [id number] [address] [place] [address] [place] Eosinophils (Bld) [#/Vol] 0.48 10*3/uL High <0.46 [facility] Comment on above: Order Comment: Speci men Type: BLOOD SPECIMEN [facility]: [facility] Address: [address] [place] [address] Performed By: #### 5 7021-8 #### [facility] CLIA [id number] [address] [place] [address] [place] Eosinophils/100 WBC (Bld) 7.0 % Normal [facility] Comment on above: Order Comment: Speci men Type: BLOOD SPECIMEN [facility]: [facility] Address: [address] [place] [address] Performed By: #### 5 7021-8 #### [facility] CLIA [id number] [address] [place] [address] [place] Erythrocyte distribution width (RBC) [Ratio] 12.7 % Normal 11.5-15.0 [facility] Comment on above: Order Comment: Speci men Type: BLOOD SPECIMEN [facility]ing [facility]: [facility] Address: [address] [place] [address] Performed By: #### 5 7021-8 #### [facility] CLIA [id number] [address] [place] [address] [place] Hematocrit (Bld) [Volume fraction] 40.3 % Normal 36.0-46.0 [facility] Comment on above: Order Comment: Speci men Type: BLOOD SPECIMEN [facility]ing [facility]: [facility] Address: [address] [place] [address] Performed By: #### 5 7021-8 #### [facility] CLIA [id number] [address] [place] [address] [place] Hemoglobin (Bld) [Mass/Vol] 13.5 g/dL Normal 11.5-15.5 [facility] Comment on above: Order Comment: Speci men Type: BLOOD SPECIMEN [facility]ing [facility]: [facility] Address: [address] [place] [address] Performed By: #### 5 7021-8 #### [facility] CLIA [id number] [address] [place] [address] [place] Immature granulocytes (Bld) [#/Vol] 10*3/uL Normal <0.10 [facility] Comment on above: Order Comment: Speci men Type: BLOOD SPECIMEN [facility]: [facility] Address: [address] [place] [address] Performed By: #### 5 7021-8 #### [facility] CLIA [id number] [address] [place] [address] [place] Immature granulocytes/100 WBC (Bld) 0.1 % Normal [facility] Comment on above: Order Comment: Speci men Type: BLOOD SPECIMEN Ordering Facility: [facility] Address: [address] [place] [id number] Performed By: #### 5 7021-8 #### [facility] CLIA [id number] [address] [place] [address] [place] Lymphocytes (Bld) [#/Vol] 1.39 10*3/uL Normal 1.00-4.00 [facility] Comment on above: Order Comment: Speci men Type: BLOOD SPECIMEN [facility]ing [facility]: [facility] Address: [address] [place] [address] Performed By: #### 5 7021-8 #### [facility] CLIA [id number] [address] [place] [address] [place] Lymphocytes/100 WBC (Bld) 20.4 % Normal [facility] Comment on above: Order Comment: Speci men Type: BLOOD SPECIMEN [facility]ing [facility]: [facility] Address: [address] [place] [address] Performed By: #### 5 7021-8 #### [facility] CLIA [id number] [address] [place] [address] [place] MCH (RBC) [Entitic mass] 30.3 pg Normal 26.0-34.0 [facility] Comment on above: Order Comment: Speci men Type: BLOOD SPECIMEN [facility]ing Facility: [facility] Address: [address] [place] [address] Performed By: #### 5 7021-8 #### [facility] CLIA [id number] [address] [place] [address] [place] MCHC (RBC) [Mass/Vol] 33.5 g/dL Normal 30.5-36.0 [facility] Comment on above: Order Comment: Speci men Type: BLOOD SPECIMEN [facility]ing [facility]: [facility] Address: [address] [place] [address] Performed By: #### 5 7021-8 #### [facility] CLIA [id number] [address] [place] [address] [place] MCV (RBC) [Entitic vol] 90.6 fL Normal 80.0-100.0 [facility] Comment on above: Order Comment: Speci men Type: BLOOD SPECIMEN [facility]ing [facility]: [facility] Address: [address] [place] [address] Performed By: #### 5 7021-8 #### [facility] CLIA [id number] [address] [place] [address] [place] Monocytes (Bld) [#/Vol] 0.44 10*3/uL Normal <0.87 [facility] Comment on above: Order Comment: Speci men Type: BLOOD SPECIMEN [facility]ing [facility]: [facility] Address: [address] [place] [address] Performed By: #### 5 7021-8 #### [facility] [id number] [address] [place] [address] [place] Monocytes/100 WBC (Bld) 6.4 % Normal [facility] Comment on above: Order Comment: Speci men Type: BLOOD SPECIMEN [facility]ing [facility]: [facility] Address: [address] [place] [address] Performed By: #### 5 7021-8 #### [facility] [id number] [address] [place] [address] [place] Neutrophils (Bld) [#/Vol] 4.43 10*3/uL Normal 1.45-7.50 [facility] Comment on above: Order Comment: Speci men Type: BLOOD SPECIMEN [facility]ing [facility]: [facility] Address: [address] [place] [address] Performed By: #### 5 7021-8 #### [facility] CLIA [id number] [address] [place] [address] [place] Neutrophils/100 WBC (Bld) 64.9 % Normal [facility] Comment on above: Order Comment: Speci men Type: BLOOD SPECIMEN [facility]ing Facility: [facility] Address: [address] [place] [address] Performed By: #### 5 7021-8 #### [facility] CLIA [id number] [address] [place] [address] [place] Nucleated RBC (Bld) [#/Vol] 10*3/uL Normal <0.01 [facility] Comment on above: Order Comment: Speci men Type: BLOOD SPECIMEN Ordering Facility: [facility] Address: [address] [place], [place] [id number] Performed By: #### 5 7021-8 #### [facility] CLIA [id number] [address] [place] [address] [place] Nucleated RBC/100 WBC (Bld) [Ratio] 0.0 /100 WBC Normal [facility] Comment on above: Order Comment: Speci men Type: BLOOD SPECIMEN [facility]ing Facility: [facility] Address: [address] [place], [place] [address] Performed By: #### 5 7021-8 #### [facility] CLIA [id number] [address] [place] [address] [place] Platelet mean volume (Bld) [Entitic vol] 10.1 fL Normal 9.0-12.7 [facility] Comment on above: Order Comment: Speci men Type: BLOOD SPECIMEN [facility]ing Facility: [facility] Address: [address] [place] [address] Performed By: #### 5 7021-8 #### [facility] CLIA [id number] [address] [place] [address] [place] Platelets (Bld) [#/Vol] 281 10*3/uL Normal 150-400 [facility] Comment on above: Order Comment: Speci men Type: BLOOD SPECIMEN [facility]ing Facility: [facility] Address: [address] [place] [address] Performed By: #### 5 7021-8 #### [facility] CLIA [id number] [address] [place] [address] [place] RBC (Bld) [#/Vol] 4.45 10*6/uL Normal 3.90-5.20 [facility] Comment on above: Order Comment: Speci men Type: BLOOD SPECIMEN [facility]ing Facility: [facility] Address: [address] [place] [address] Performed By: #### 5 7021-8 #### [facility] CLIA [id number] [address] [place] [address] [place] WBC (Bld) [#/Vol] 6.83 10*3/uL Normal 3.70-11.00 [facility] Comment on above: Order Comment: Speci men Type: BLOOD SPECIMEN Ordering Facility: [facility] Address: [address] [place] [address] Performed By: #### 5 7021-8 #### [facility] CLIA [id number] [address] [place] [address] [place] CK SerPl-cCncon 03-06-2025 CK [Catalytic activity/Vol] 68 U/L Normal 42-196 [facility] Comment on above: Order Comment: Speci men Type: BLOOD SPECIMENOrdering Facility: [facility] Address: [address] [place] [address] Performed By: #### 2 157-6 ####[facility] LABCLIA [id number] [place] [id number] [place] Comprehensive metabolic 2000 panelon 03-06-2025 Albumin [Mass/Vol] 4.2 g/dL Normal 3.9-4.9 [facility] Comment on above: Order Comment: Speci men Type: BLOOD SPECIMENOrdering Facility: [facility] Address: [address] [place] [address] Performed By: #### 2 4323-8 ####[facility] [id number] [place] [address] [place] ALP [Catalytic activity/Vol] 60 U/L Normal 34-123 [facility] Comment on above: Order Comment: Speci men Type: BLOOD SPECIMENOrdering Facility: [facility] Address: [address] [place] [address] Performed By: #### 2 4323-8 ####[facility]ITALWNCLIA [id number] [place] [address] [place] ALT [Catalytic activity/Vol] 13 U/L Normal 7-38 [facility] Comment on above: Order Comment: Speci men Type: BLOOD SPECIMENOrdering Facility: [facility] Address: [address] [place] [address] Performed By: #### 2 4323-8 ####[facility]CL[facility] [id number] [place] [address] [place] Anion gap [Moles/Vol] 12 mmol/L Normal 8-15 [facility] Comment on above: Order Comment: Speci men Type: BLOOD SPECIMENOrdering Facility: [facility] Address: [address] [place] [address] Performed By: #### 2 4323-8 ####[facility]ITALNCLIA [id number] [place] [address] [place] AST [Catalytic activity/Vol] 18 U/L Normal 13-35 [facility] Comment on above: Order Comment: Speci men Type: BLOOD SPECIMENOrdering Facility: [facility] Address: [address] [place] [address] Performed By: #### 2 4323-8 ####[facility]ITALNCLIA [id number] [place] [address] [place] Bilirubin [Mass/Vol] 0.2 mg/dL Normal 0.2-1.3 [facility] Comment on above: Order Comment: Speci men Type: BLOOD SPECIMENOrdering Facility: [facility] Address: [address] [place], [place] [address] Performed By: #### 2 4323-8 ####[facility] DOEWNCLIA [id number] [place] [address] [place] Calcium [Mass/Vol] 9.6 mg/dL Normal 8.5-10.2 [facility] Comment on above: Order Comment: Speci men Type: BLOOD SPECIMENOrdering Facility: [facility] Address: [address] [place] [address] Performed By: #### 2 4323-8 ####[facility]ITALNCLIA [id number] [place] [address] [place] Chloride [Moles/Vol] 106 mmol/L Normal 98-107 [facility] Comment on above: Order Comment: Speci men Type: BLOOD SPECIMENOrdering Facility: [facility] Address: [address] [place] [address] Performed By: #### 2 4323-8 ####[facility]ITALNCLIA [id number] [place] [address] [place] CO2 [Moles/Vol] 22 mmol/L Normal 22-30 [facility] Comment on above: Order Comment: Speci men Type: BLOOD SPECIMENOrdering Facility: [facility] Address: [address] [place] [address] Performed By: #### 2 4323-8 ####[facility]ITALWNCLIA [id number] [place] [address] [place] Creatinine [Mass/Vol] 0.80 mg/dL Normal 0.58-0.96 [facility] Comment on above: Order Comment: Speci men Type: BLOOD SPECIMENOrdering Facility: [facility] Address: [address] [place] [address] Performed By: #### 2 4323-8 ####[facility]ITALNCLIA [id number] [place] [address] [place] eGFRcr SerPlBld CKD-EPI 2020 80 mL/min/1.73m??? Normal >=60 [facility] Comment on above: Order Comment: Ceferino sandoval Type: BLOOD SPECIMENOrdering Facility: [facility] Address: [address] [place] [address] Result Comment: Sujey mated Glomerular Filtration Rate (eGFR) is calculated using the 2020 CKD-EPI creatinine equation. This equation utilizes serum creatinine, sex, and age as parameters. The creatinine assay has traceable calibration to isotope dilution-mass spectrometry. Refer to KDIGO guidelines for clinical interpretation. In patients with unstable renal function, e.g. those with acute kidney injury, the eGFR may not accurately reflect actual GFR. Performed By: #### 2 4323-8 ####[facility]ITALNCLI [id number] [place] [address] [place] [facility] Glucose [Mass/Vol] 93 mg/dL Normal 74-99 [facility] Comment on above: Order Comment: Ceferino sandoval Type: BLOOD SPECIMENOrdering Facility: [facility] Address: [address] [place] [address] Result Comment: The [place] Diabetes Association (ADA) provides guidance for cutoff values for fasting glucose and random glucose. The ADA defines fasting as no caloric intake for at least 8 hours. Fasting plasma glucose results between 100 to 125 mg/dL indicate increased risk for diabetes (prediabetes). Fasting plasma glucose results greater than or equal to 126 mg/dL meet the criteria for diagnosis of diabetes. In the absence of unequivocal hyperglycemia, results should be confirmed by repeat testing. In a patient with classic symptoms of hyperglycemia or hyperglycemic crisis, random plasma glucose results greater than or equal to 200 mg/dL meet the criteria for diagnosis of diabetes. Reference: Standards of Medical Care in Diabetes 2016, [employer] Diabetes Association. Diabetes Care. 2016.39(Suppl 1). Performed By: #### 2 4323-8 ####[facility]PITALNCLI [id number] [place] [address] [place] Potassium [Moles/Vol] 4.2 mmol/L Normal 3.7-5.1 [facility] Comment on above: Order Comment: Speci men Type: BLOOD SPECIMENOrdering Facility: [facility] Address: [address] [place] [address] Performed By: #### 2 4323-8 ####[facility] BONNIE MILLWNCLIA [id number] [place] [address] [place] Protein [Mass/Vol] 6.6 g/dL Normal 6.3-8.0 [facility] Comment on above: Order Comment: Speci men Type: BLOOD SPECIMENOrdering Facility: [facility] Address: [address] [place] [address] Performed By: #### 2 4323-8 ####[facility]ITALNCLIA [id number] [place] [address] [place] Sodium [Moles/Vol] 140 mmol/L Normal 136-144 [facility] Comment on above: Order Comment: Speci men Type: BLOOD SPECIMENOrdering Facility: [facility] Address: [address] [place] [address] Performed By: #### 2 4323-8 ####[facility]ITALWNCLIA [id number] [place] [address] [place] Urea nitrogen [Mass/Vol] 12 mg/dL Normal 7-21 [facility] Comment on above: Order Comment: Speci men Type: BLOOD SPECIMENOrdering Facility: [facility] Address: [address] [place] [address] Performed By: #### 2 4323-8 ####[facility]ITALNCLIA [id number] [place] [address] [place] MR Brain WO and W contrast I Lucio 02-26-2025 IMPRESSION: Stable MRI brain after right frontal resection. No pathologic enhancement or elevated CBV. No new enhancing lesions or leptomeningeal disease. 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 TECHNIQUE: Routine brain MRI protocol without and with contrast including diffusion images. Perfusion with gadolinium. MQ: MRBWOW_2 Contrast: 10 mL Dotarem IV COMPARISON: MRI brain from November 09, 2024. RESULT: Postop: Again noted are remote postop changes of right frontal craniotomy. There is stable wedge-shaped parenchymal defect in the right frontal pole from the previous resection. Acute Change: There is no evidence of restricted diffusion to suggest an acute infarct. Hemorrhage: There is stable mild nodular susceptibility artifact along the right frontal resection site compatible with chronic blood byproducts. Mass Lesion/ Mass Effect: Postcontrast images show no evidence of residual enhancing mass in the right frontal resection site. There is a small amount of curvilinear enhancement within the cavity compatible with vessels/scar. There is stable minimal hyperintensity on T2 and FLAIR along the resection margin. There is no elevated CBV to suggest high-grade neoplasm in the right frontal lobe or elsewhere in the brain. No significant mass effect. Chronic Change: The white matter is within normal limits of signal intensity for age. Parenchyma: No significant volume loss for age. The brain parenchyma is otherwise within normal limits of signal intensity and morphology. Ventricles: Normal caliber and morphology. Skull Base: Hypothalamic and pituitary region are grossly normal. Craniocervical junction is normal. No significant marrow replacement process. Vasculature: Major intracranial arterial structures, and dural venous sinuses show typical flow void, suggesting patency by spin echo criteria. Other: The visualized paranasal sinuses and mastoid air cells are clear. The orbits and extracranial soft tissues are unremarkable. 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 TECHNIQUE: Routine brain MRI protocol without and with contrast including diffusion images. Perfusion with gadolinium. MQ: MRBWOW_2 Contrast: 10 mL Dotarem IV COMPARISON: MRI brain from November 09, 2024. RESULT: Postop: Again noted are remote postop changes of right frontal craniotomy. There is stable wedge-shaped parenchymal defect in the right frontal pole from the previous resection. Acute Change: There is no evidence of restricted diffusion to suggest an acute infarct. Hemorrhage: There is stable mild nodular susceptibility artifact along the right frontal resection site compatible with chronic blood byproducts. Mass Lesion/ Mass Effect: Postcontrast images show no evidence of residual enhancing mass in the right frontal resection site. There is a small amount of curvilinear enhancement within the cavity compatible with vessels/scar. There is stable minimal hyperintensity on T2 and FLAIR along the resection margin. There is no elevated CBV to suggest high-grade neoplasm in the right frontal lobe or elsewhere in the brain. No significant mass effect. Chronic Change: The white matter is within normal limits of signal intensity for age. Parenchyma: No significant volume loss for age. The brain parenchyma is otherwise within normal limits of signal intensity and morphology. Ventricles: Normal caliber and morphology. Skull Base: Hypothalamic and pituitary region are grossly normal. Craniocervical junction is normal. No significant marrow replacement process. Vasculature: Major intracranial arterial structures, and dural venous sinuses show typical flow void, suggesting patency by spin echo criteria. Other: The visualized paranasal sinuses and mastoid air cells are clear. The orbits and extracranial soft tissues are unremarkable. IMPRESSION IMPRESSION: Stable MRI brain after right frontal resection. No pathologic enhancement or elevated CBV. No new enhancing lesions or leptomeningeal disease. 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 TECHNIQUE: Routine brain MRI protocol without and with contrast including diffusion images. Perfusion with gadolinium. MQ: MRBWOW_2 Contrast: 10 mL Dotarem IV COMPARISON: MRI brain from November 09, 2024. RESULT: Postop: Again noted are remote postop changes of right frontal craniotomy. There is stable wedge-shaped parenchymal defect in the right frontal pole from the previous resection. Acute Change: There is no evidence of restricted diffusion to suggest an acute infarct. Hemorrhage: There is stable mild nodular susceptibility artifact along the right frontal resection site compatible with chronic blood byproducts. Mass Lesion/ Mass Effect: Postcontrast images show no evidence of residual enhancing mass in the right frontal resection site. There is a small amount of curvilinear enhancement within the cavity compatible with vessels/scar. There is stable minimal hyperintensity on T2 and FLAIR along the resection margin. There is no elevated CBV to suggest high-grade neoplasm in the right frontal lobe or elsewhere in the brain. No significant mass effect. Chronic Change: The white matter is within normal limits of signal intensity for age. Parenchyma: No significant volume loss for age. The brain parenchyma is otherwise within normal limits of signal intensity and morphology. Ventricles: Normal caliber and morphology. Skull Base: Hypothalamic and pituitary region are grossly normal. Craniocervical junction is normal. No significant marrow replacement process. Vasculature: Major intracranial arterial structures, and dural venous sinuses show typical flow void, suggesting patency by spin echo criteria. Other: The visualized paranasal sinuses and mastoid air cells are clear. The orbits and extracranial soft tissues are unremarkable. IMPRESSION: Stable MRI brain after right frontal resection. No pathologic enhancement or elevated CBV. No new enhancing lesions or leptomeningeal disease. Machine Shorthand Teacher: PSCB Transcribe Date/Time: Feb 26 2025 12:38P Dictated by : CORIE CHURCHILL MD This examination was interpreted and the report reviewed and electronically signed by: CORIE CHURCHILL MD on Feb 26 2025 12:41PM EST [id number] Normal [facility] ECG COMPLETEon 02-09-2025 Atrial Rate 68 BPM [facility] Calculated P [place] 50 degrees [facility] Calculated R [place] 14 degrees [facility] Calculated T [place] 20 degrees [facility] P-R Interval 156 ms [facility] QRS Duration 78 ms [facility] QT Interval 374 ms [facility] QTC Calculation (Bazett) 397 ms [facility] Ventricular Rate 68 B[facility] S[facility]HYTHM NORMAL ECG NO PREVIOUS ECGS AVAILABLE Confirmed by ALEXIA RAMIREZ MD ([id number]) on 02/09/2025 5:40:30 PM [facility] NAME : MIRAJESUS PID : [id number] : 1955 Gender : Female Race : ORD : [id number] Procedure Date : Feb 09 2025 09:43:49 Edit Date : Feb 09 2025 17:40:33 Diagnosis: NORMAL SINUS RHYTHM NORMAL ECG NO PREVIOUS ECGS AVAILABLE Confirmed by ALEXIA RAMIREZ MD ([id number]) on 02/09/2025 5:40:30 PM Test Reason : Other - Specify Location : 0 : CARD Overread By : ALEXIA RAMIREZ MD Edited By : ALEXIA RAMIREZ MD Referred By : MISTI BLANK Acquired by : STEPHENIE PARSON [facility] ECG COMPLETE Ventricular Rate : 6 8 BPM Atrial Rate : 68 BPM P-R Interval : 156 ms QRS Duration : 78 ms Q-T Interval : 374 ms QTC Calculation(Bazett) : 397 ms Calculated P [place] : 50 degrees Calculated R [place] : 14 degrees Calculated T [place] : 20 degrees NORMAL SINUS RHYTHM NORMAL ECG NO PREVIOUS ECGS AVAILABLE Confirmed by ALEXIA RAMIREZ MD ([id number]) on 02/09/2025 5:40:30 PM NAME : JESUS BENTON PID : [id number] : 1955 Gender : Female Race : ORD : [id number] Procedure Date : Feb 09 2025 09:43:49 Edit Date : Feb 09 2025 17:40:33 Diagnosis: NORMAL SINUS RHYTHM NORMAL ECG NO PREVIOUS ECGS AVAILABLE Confirmed by ALEXIA RAMIREZ MD ([id number]) on 02/09/2025 5:40:30 PM Test Reason : Other - Specify Location : 0 : CARD Overread By : ALEXIA RAMIREZ MD Edited By : ALEXIA RAMIREZ MD Referred By : MISTI BLANK Acquired by : [facility] Telephone (NSCAMN) JESUS BENTON ([id number]) 1955 F Date Time Provider Department 02/08/25 KISHAN SMITH [facility] During your visit today, we recorded the following information about you: Kishan Smith, RN 02/08/2025 4:29 PM Signed Called and spoke with patient Jesus D. Mira in regards to Tibsovo arrival and start. Patient stated that she received Tibsovo on 02/07/2025 and started her dose on same date. Patient thankful for the call. Kishan SimSDianNDian, R.N. Brain Tumor Event Promotions [place] [address] Desk Number [phone] Mobile/Pager [phone] Email [email or web address] Allergies As of Date: 02/08/2025 Noted Allergy Reaction AMLODIPINE 04/20/2023 9 - Itching LATEX 05/19/2023 2 - Rash Date Reviewed: 05/19/2024 Reviewed by: Nida Null MA - Fully Assessed Reason for Visit: Patient Update [6524] Event Promotions Coordinator - Other [5018] Prescriptions as of 02/08/2025 - ivosidenib (TIBSOVO) 250 mg tablet Take 2 tablets by mouth once daily. In Afternoon - iv contrast (will be provided with radiology test) MRI Brain Inject, intravenously, once for 1 dose.No IV access, insert saline lock prior to beginning of sedation, infusion, injection of imaging exam.Discontinue saline lock post exam. If Pt. has a central line or IVAD, may access for administration according to line specific nursing protocol.Once exam is complete flush line and de-access according to line specific nursing protocol in the MR contrast administration guidelines link - losartan (COZAAR) 25 mg tablet Take 25 mg by mouth once daily. - rosuvastatin (CRESTOR) 5 mg tablet Take 5 mg by mouth once daily. - famotidine (PEPCID) 40 mg tablet Take 1 tablet by mouth once daily. Continue while taking steroids - cholecalciferol, vitamin D3, (VITAMIN D-3) 10 mcg (400 unit) cap Take 400 Units by mouth once daily. - oxybutynin ER (DITROPAN XL) 10 mg 24 hr tablet Take 10 mg by mouth once daily. - traZODone (DESYREL) 50 mg tablet Take 1 tablet by mouth daily at bedtime. - estradiol 1 mg ORAL tablet Take 1 mg by mouth once daily. - VITAMIN C 250 MG TAB Take one(1) tablet daily. 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 Word finding difficulty [R47.89] 11/23/2023 Encounter for chemotherapy management [Z51.11] 11/26/2024 Encounter Status:Closed by KISHAN SMITH on 02/08/25 Normal [facility] CBC W Auto Differential pane l (Bld)on 02-07-2025 Basophils (Bld) [#/Vol] 0.07 10*3/uL Normal <0.11 [facility] Comment on above: Order Comment: Speci men Type: BLOOD SPECIMENOrdering Facility: [facility] Address: [address] [place] [address] Performed By: #### 5 7021-8 ####[facility]OSPITALWMELIA [id number] [place] [address] [place] Basophils/100 WBC (Bld) 1.1 % Normal [facility] Comment on above: Order Comment: Speci men Type: BLOOD SPECIMENOrdering Facility: [facility] Address: [address] [place] [address] Performed By: #### 5 7021-8 ####[facility] [id number] [place] [address] [place] Differential cell count method Nom (Bld) Auto Normal [facility] Comment on above: Order Comment: Speci men Type: BLOOD SPECIMENOrdering Facility: [facility] Address: [address] [place] [address] Performed By: #### 5 7021-8 ####[facility] [id number] [place] [address] [place] Eosinophils (Bld) [#/Vol] 0.56 10*3/uL High <0.46 [facility] Comment on above: Order Comment: Speci men Type: BLOOD SPECIMENOrdering Facility: [facility] Address: [address] [place] [address] Performed By: #### 5 7021-8 ####[facility] [id number] [place] [address] [place] Eosinophils/100 WBC (Bld) 8.6 % Normal [facility] Comment on above: Order Comment: Speci men Type: BLOOD SPECIMENOrdering Facility: [facility] Address: [address] [place] [address] Performed By: #### 5 7021-8 ####[facility] ALCIRAGINNY [id number] [place] [address] [place] Erythrocyte distribution width (RBC) [Ratio] 12.6 % Normal 11.5-15.0 [facility] Comment on above: Order Comment: Speci men Type: BLOOD SPECIMENOrdering Facility: [facility] Address: [address] [place] [address] Performed By: #### 5 7021-8 ####[facility] [id number] [place] [address] [place] Hematocrit (Bld) [Volume fraction] 41.4 % Normal 36.0-46.0 [facility] Comment on above: Order Comment: Speci men Type: BLOOD SPECIMENOrdering Facility: [facility] Address: [address] [place] [address] Performed By: #### 5 7021-8 ####[facility] [id number] [place] [address] [place] Hemoglobin (Bld) [Mass/Vol] 13.9 g/dL Normal 11.5-15.5 [facility] [facility] Comment on above: Order Comment: Speci men Type: BLOOD SPECIMENOrdering Facility: [facility] Address: [address] [place] [address] Performed By: #### 5 7021-8 ####[facility]ITAL[facility]CLIA [id number] [place] [address] [place] Immature granulocytes (Bld) [#/Vol] 10*3/uL Normal <0.10 [facility] Comment on above: Order Comment: Speci men Type: BLOOD SPECIMENOrdering Facility: [facility] Address: [address] [place] [address] Performed By: #### 5 7021-8 ####[facility]ITALUGRUA [id number] [place] [address] [place] Immature granulocytes/100 WBC (Bld) 0.3 % Normal [facility] Comment on above: Order Comment: Speci men Type: BLOOD SPECIMENOrdering Facility: [facility] Address: [address] [place] [address] Performed By: #### 5 7021-8 ####[facility] [id number] [place] [address] [place] Lymphocytes (Bld) [#/Vol] 1.67 10*3/uL Normal 1.00-4.00 [facility] Comment on above: Order Comment: Speci men Type: BLOOD SPECIMENOrdering Facility: [facility] Address: [address] [place] [address] Performed By: #### 5 7021-8 ####[facility] [id number] [place] [address] [place] Lymphocytes/100 WBC (Bld) 25.7 % Normal [facility] Comment on above: Order Comment: Speci men Type: BLOOD SPECIMENOrdering Facility: [facility] Address: [address] [place] [address] Performed By: #### 5 7021-8 ####[facility] [id number] [place] [address] [place] MCH (RBC) [Entitic mass] 30.2 pg Normal 26.0-34.0 [facility] Comment on above: Order Comment: Speci men Type: BLOOD SPECIMENOrdering Facility: [facility] Address: [address] [place] [address] Performed By: #### 5 7021-8 ####[facility]ITALNCLI [id number] [place] [address] [place] MCHC (RBC) [Mass/Vol] 33.6 g/dL Normal 30.5-36.0 [facility] Comment on above: Order Comment: Speci men Type: BLOOD SPECIMENOrdering Facility: [facility] Address: [address] [place] [address] Performed By: #### 5 7021-8 ####[facility] [id number] [place] [address] [place] MCV (RBC) [Entitic vol] 89.8 fL Normal 80.0-100.0 [facility] Comment on above: Order Comment: Speci men Type: BLOOD SPECIMENOrdering Facility: [facility] Address: [address] [place] [address] Performed By: #### 5 7021-8 ####[facility] [id number] [place] [address] [place] Monocytes (Bld) [#/Vol] 0.39 10*3/uL Normal <0.87 [facility] Comment on above: Order Comment: Speci men Type: BLOOD SPECIMENOrdering Facility: [facility] Address: [address] [place] [address] Performed By: #### 5 7021-8 ####[facility] [id number] [place] [address] [place] Monocytes/100 WBC (Bld) 6.0 % Normal [facility] Comment on above: Order Comment: Speci men Type: BLOOD SPECIMENOrdering Facility: [facility] Address: [address] [place] [address] Performed By: #### 5 7021-8 ####[facility] [id number] [place] [address] [place] Neutrophils (Bld) [#/Vol] 3.79 10*3/uL Normal 1.45-7.50 [facility] Comment on above: Order Comment: Speci men Type: BLOOD SPECIMENOrdering Facility: [facility] Address: [address] [place] [address] Performed By: #### 5 7021-8 ####[facility] ALCIRAJJA [id number] [place] [address] [place] Neutrophils/100 WBC (Bld) 58.3 % Normal [facility] Comment on above: Order Comment: Speci men Type: BLOOD SPECIMENOrdering Facility: [facility] Address: [address] [place] [address] Performed By: #### 5 7021-8 ####[facility]PITALBOOGIEA [id number] [place] [address] [place] Nucleated RBC (Bld) [#/Vol] 10*3/uL Normal <0.01 [facility] Comment on above: Order Comment: Speci men Type: BLOOD SPECIMENOrdering Facility: [facility] Address: [address] [place] [address] Performed By: #### 5 7021-8 ####[facility]ITALGURUA [id number] [place] [address] [place] Nucleated RBC/100 WBC (Bld) [Ratio] 0.0 /100 WBC Normal [facility] Comment on above: Order Comment: Speci men Type: BLOOD SPECIMENOrdering Facility: [facility] Address: [address] [place] [address] Performed By: #### 5 7021-8 ####[facility] HOSPITALBOOGIELIA [id number] [place] [address] [place] Platelet mean volume (Bld) [Entitic vol] 10.0 fL Normal 9.0-12.7 [facility] Comment on above: Order Comment: Speci men Type: BLOOD SPECIMENOrdering Facility: [facility] Address: [address] [place] [address] Performed By: #### 5 7021-8 ####[facility]ITALNCLIA [id number] [place] [address] [place] Platelets (Bld) [#/Vol] 300 10*3/uL Normal 150-400 [facility] Comment on above: Order Comment: Speci men Type: BLOOD SPECIMENOrdering Facility: [facility] Address: [address] [place] [address] Performed By: #### 5 7021-8 ####[facility]ITALNCLIA [id number] [place] [address] [place] RBC (Bld) [#/Vol] 4.61 10*6/uL Normal 3.90-5.20 [facility] Comment on above: Order Comment: Speci men Type: BLOOD SPECIMENOrdering Facility: [facility] Address: [address] [place] [address] Performed By: #### 5 7021-8 ####[facility] [id number] [place] [address] [place] WBC (Bld) [#/Vol] 6.50 10*3/uL Normal 3.70-11.00 [facility] Comment on above: Order Comment: Speci men Type: BLOOD SPECIMENOrdering Facility: [facility] Address: [address] [place] [address] Performed By: #### 5 7021-8 ####[facility]ITALNCLIA [id number] [place] [address] [place] CK SerPl-cCncon 02-07-2025 CK [Catalytic activity/Vol] 87 U/L Normal 42-196 [facility] Comment on above: Order Comment: Speci men Type: BLOOD SPECIMENOrdering Facility: [facility] Address: [address] [place] [address] Performed By: #### 2 157-6 ####[facility] LABCLIA [id number] [place] [address] [place] Comprehensive metabolic 2000 panelon 02-07-2025 Albumin [Mass/Vol] 4.4 g/dL Normal 3.9-4.9 [facility] Comment on above: Order Comment: Speci men Type: BLOOD SPECIMENOrdering Facility: [facility] Address: [address] [place] [address] Performed By: #### 2 4323-8 ####[facility]ITALNCLIA [id number] [place] [address] [place] ALP [Catalytic activity/Vol] 56 U/L Normal 34-123 [facility] Comment on above: Order Comment: Speci men Type: BLOOD SPECIMENOrdering Facility: [facility] Address: [address] [place] [address] Performed By: #### 2 4323-8 ####[facility]OSPITALNCGURUA [id number] [place] [address] [place] ALT [Catalytic activity/Vol] 12 U/L Normal 7-38 [facility] Comment on above: Order Comment: Speci men Type: BLOOD SPECIMENOrdering Facility: [facility] Address: [address] [place] [address] Performed By: #### 2 4323-8 ####[facility]ITALNCLIA [id number] [place] [address] [place] Anion gap [Moles/Vol] 12 mmol/L Normal 8-15 [facility] Comment on above: Order Comment: Speci men Type: BLOOD SPECIMENOrdering Facility: [facility] Address: [address] [place] [address] Performed By: #### 2 4323-8 ####[facility]ITALNCLIA [id number] [place] [address] [place] AST [Catalytic activity/Vol] 19 U/L Normal 13-35 [facility] Comment on above: Order Comment: Speci men Type: BLOOD SPECIMENOrdering Facility: [facility] Address: [address] [place] [address] Performed By: #### 2 4323-8 ####[facility] ALCIRAMonetMIHAELA [id number] [place] [address] [place] Bilirubin [Mass/Vol] 0.5 mg/dL Normal 0.2-1.3 [facility] Comment on above: Order Comment: Speci men Type: BLOOD SPECIMENOrdering Facility: [facility] Address: [address] [place] [address] Performed By: #### 2 4323-8 ####[facility] HOSPITALMIHAELA [id number] [place] [address] [place] Calcium [Mass/Vol] 10.0 mg/dL Normal 8.5-10.2 [facility] Comment on above: Order Comment: Speci men Type: BLOOD SPECIMENOrdering Facility: [facility] Address: [address] [place] [address] Performed By: #### 2 4323-8 ####[facility] HOSPITALMIHAELA [id number] [place] [address] [place] Chloride [Moles/Vol] 102 mmol/L Normal 98-107 [facility] Comment on above: Order Comment: Speci men Type: BLOOD SPECIMENOrdering Facility: [facility] Address: [address] [place] [address] Performed By: #### 2 4323-8 ####[facility]ITALNCLIA [id number] [place] [address] [place] CO2 [Moles/Vol] 24 mmol/L Normal 22-30 [facility] Comment on above: Order Comment: Speci men Type: BLOOD SPECIMENOrdering Facility: [facility] Address: [address] [place] [address] Performed By: #### 2 4323-8 ####[facility]ITALNCLIA [id number] [place] [address] [place] Creatinine [Mass/Vol] 0.81 mg/dL Normal 0.58-0.96 [facility] Comment on above: Order Comment: Ceferino sandoval Type: BLOOD SPECIMENOrdering Facility: [facility] Address: [address] [place] [address] Performed By: #### 2 4323-8 ####[facility] [id number] [place] [address] [place] Creatinine and Glomerular filtration rate.predicted panel (S/P/Bld) 79 mL/min/1.73m??? Normal >=60 [facility] Comment on above: Order Comment: Ceferino sandoval Type: BLOOD SPECIMENOrdering Facility: [facility] Address: [address] [place] [address] Result Comment: Sujey mated Glomerular Filtration Rate (eGFR) is calculated using the 2020 CKD-EPI creatinine equation. This equation utilizes serum creatinine, sex, and age as parameters. The creatinine assay has traceable calibration to isotope dilution-mass spectrometry. Refer to KDIGO guidelines for clinical interpretation. In patients with unstable renal function, e.g. those with acute kidney injury, the eGFR may not accurately reflect actual GFR. Performed By: #### 2 4323-8 ####[facility] [id number] [place] [address] [place] Glucose [Mass/Vol] 104 mg/dL High 74-99 [facility] Comment on above: Order Comment: Ceferino sandoval Type: BLOOD SPECIMENOrdering Facility: [facility] Address: [address] [place] [address] Result Comment: The [place] Diabetes Association (ADA) provides guidance for cutoff values for fasting glucose and random glucose. The ADA defines fasting as no caloric intake for at least 8 hours. Fasting plasma glucose results between 100 to 125 mg/dL indicate increased risk for diabetes (prediabetes). Fasting plasma glucose results greater than or equal to 126 mg/dL meet the criteria for diagnosis of diabetes. In the absence of unequivocal hyperglycemia, results should be confirmed by repeat testing. In a patient with classic symptoms of hyperglycemia or hyperglycemic crisis, random plasma glucose results greater than or equal to 200 mg/dL meet the criteria for diagnosis of diabetes. Reference: Standards of Medical Care in Diabetes 2016, [employer] Diabetes Association. Diabetes Care. 2016.39(Suppl 1). Performed By: #### 2 4323-8 ####[facility] MILLWBOOGIELIA [id number] [place] [address] [place] Potassium [Moles/Vol] 3.9 mmol/L Normal 3.7-5.1 [facility] Comment on above: Order Comment: Speci men Type: BLOOD SPECIMENOrdering Facility: [facility] Address: [address] [place] [address] Performed By: #### 2 4323-8 ####[facility] HOSPITALLIA [id number] [place] [address] [place] Protein [Mass/Vol] 6.3 g/dL Normal 6.3-8.0 [facility] Comment on above: Order Comment: Speci men Type: BLOOD SPECIMENOrdering Facility: [facility] Address: [address] [place] [address] Performed By: #### 2 4323-8 ####[facility] HOSPITALLIA [id number] [place] [address] [place] Sodium [Moles/Vol] 138 mmol/L Normal 136-144 [facility] Comment on above: Order Comment: Speci men Type: BLOOD SPECIMENOrdering Facility: [facility] Address: [address] [place] [address] Performed By: #### 2 4323-8 ####[facility]ITALNCLIA [id number] [place] [address] [place] Urea nitrogen [Mass/Vol] 16 mg/dL Normal 7-21 [facility] Comment on above: Order Comment: Speci men Type: BLOOD SPECIMENOrdering Facility: [facility] Address: [address] [place] [address] Performed By: #### 2 4323-8 ####[facility] BONNIE ELICICEROMIHAELA [id number] [place] [address] [place] CBC W Auto Differential pane l (Bld)on 01-08-2025 Basophils (Bld) [#/Vol] 0.06 10*3/uL Normal <0.11 [facility] Comment on above: Order Comment: Speci men Type: BLOOD SPECIMEN [facility] Address: [address] [place] [address] Performed By: #### 2 157-6 #### [facility] CLIA [id number] [address] [place] [address] [place] Basophils/100 WBC (Bld) 0.9 % Normal [facility] Comment on above: Order Comment: Speci men Type: BLOOD SPECIMEN [facility]ing [facility]: [facility] Address: [address] [place] [address] Performed By: #### 2 157-6 #### [facility] CLIA [id number] [address] [place] [address] [place] Differential cell count method Nom (Bld) Auto Normal [facility] Comment on above: Order Comment: Speci men Type: BLOOD SPECIMEN [facility]ing [facility]: [facility] Address: [address] [place] [address] Performed By: #### 2 157-6 #### [facility] CLIA [id number] [address] [place] [address] [place] Eosinophils (Bld) [#/Vol] 0.49 10*3/uL High <0.46 [facility] Comment on above: Order Comment: Speci men Type: BLOOD SPECIMEN [facility]ing [facility]: [facility] Address: [address] [place] [address] Performed By: #### 2 157-6 #### [facility] CLIA [id number] [address] [place] [address] [place] Eosinophils/100 WBC (Bld) 7.7 % Normal [facility] Comment on above: Order Comment: Speci men Type: BLOOD SPECIMEN [facility]ing [facility]: [facility] Address: [address] [place] [address] Performed By: #### 2 157-6 #### [facility] CLIA [id number] [address] [place] [address] [place] Erythrocyte distribution width (RBC) [Ratio] 13.5 % Normal 11.5-15.0 [facility] Comment on above: Order Comment: Speci men Type: BLOOD SPECIMEN [facility]: [facility] Address: [address] [place] [address] Performed By: #### 2 157-6 #### [facility] CLIA [id number] [address] [place] [address] [place] Hematocrit (Bld) [Volume fraction] 39.0 % Normal 36.0-46.0 [facility] Comment on above: Order Comment: Speci men Type: BLOOD SPECIMEN [facility] Address: [address] [place] [address] Performed By: #### 2 157-6 #### [facility] CLIA [id number] [address] [place] [address] [place] Hemoglobin (Bld) [Mass/Vol] 13.3 g/dL Normal 11.5-15.5 [facility] Comment on above: Order Comment: Speci men Type: BLOOD SPECIMEN [facility]: [facility] Address: [address] [place] [address] Performed By: #### 2 157-6 #### [facility] CLIA [id number] [address] [place] [address] [place] Immature granulocytes (Bld) [#/Vol] 10*3/uL Normal <0.10 [facility] Comment on above: Order Comment: Speci men Type: BLOOD SPECIMEN [facility] Address: [address] [place] [address] Performed By: #### 2 157-6 #### [facility] CLIA [id number] [address] [place] [address] [place] Immature granulocytes/100 WBC (Bld) 0.2 % Normal [facility] Comment on above: Order Comment: Speci men Type: BLOOD SPECIMEN [facility] Address: [address] [place] [address] Performed By: #### 2 157-6 #### [facility] CLIA [id number] [address] [place] [address] [place] Lymphocytes (Bld) [#/Vol] 1.64 10*3/uL Normal 1.00-4.00 [facility] Comment on above: Order Comment: Speci men Type: BLOOD SPECIMEN [facility]: [facility] Address: [address] [place] [address] Performed By: #### 2 157-6 #### [facility] CLIA [id number] [address] [place] [address] [place] Lymphocytes/100 WBC (Bld) 25.8 % Normal [facility] Comment on above: Order Comment: Speci men Type: BLOOD SPECIMEN [facility]ing [facility]: [facility] Address: [address] [place] [address] Performed By: #### 2 157-6 #### [facility] CLIA [id number] [address] [place] [address] [place] MCH (RBC) [Entitic mass] 31.1 pg Normal 26.0-34.0 [facility] Comment on above: Order Comment: Speci men Type: BLOOD SPECIMEN [facility]ing [facility]: [facility] Address: [address] [place] [address] Performed By: #### 2 157-6 #### [facility] CLIA [id number] [address] [place] [address] [place] MCHC (RBC) [Mass/Vol] 34.1 g/dL Normal 30.5-36.0 [facility] Comment on above: Order Comment: Speci men Type: BLOOD SPECIMEN [facility]ing [facility]: [facility] Address: [address] [place] [address] Performed By: #### 2 157-6 #### [facility] CLIA [id number] [address] [place] [address] [place] MCV (RBC) [Entitic vol] 91.3 fL Normal 80.0-100.0 [facility] Comment on above: Order Comment: Speci men Type: BLOOD SPECIMEN [facility]ing [facility]: [facility] Address: [address] [place] [address] Performed By: #### 2 157-6 #### [facility] CLIA [id number] [address] [place] [address] [place] Monocytes (Bld) [#/Vol] 0.41 10*3/uL Normal <0.87 [facility] Comment on above: Order Comment: Speci men Type: BLOOD SPECIMEN [facility]ing [facility]: [facility] Address: [address] [place] [address] Performed By: #### 2 157-6 #### [facility] CLIA [id number] [address] [place] [address] [place] Monocytes/100 WBC (Bld) 6.4 % Normal [facility] Comment on above: Order Comment: Speci men Type: BLOOD SPECIMEN [facility]ing [facility]: [facility] Address: [address] [place] [address] Performed By: #### 2 157-6 #### [facility] CLIA [id number] [address] [place] [address] [place] Neutrophils (Bld) [#/Vol] 3.75 10*3/uL Normal 1.45-7.50 [facility] Comment on above: Order Comment: Speci men Type: BLOOD SPECIMEN [facility]ing [facility]: [facility] Address: [address] [place] [address] Performed By: #### 2 157-6 #### [facility] CLIA [id number] [address] [place] [address] [place] Neutrophils/100 WBC (Bld) 59.0 % Normal [facility] Comment on above: Order Comment: Speci men Type: BLOOD SPECIMEN [facility]ing [facility]: [facility] Address: [address] [place] [address] Performed By: #### 2 157-6 #### [facility] CLIA [id number] [address] [place] [address] [place] Nucleated RBC (Bld) [#/Vol] 10*3/uL Normal <0.01 [facility] Comment on above: Order Comment: Speci men Type: BLOOD SPECIMEN [facility]ing [facility]: [facility] Address: [address] [place] [address] Performed By: #### 2 157-6 #### [facility] CLIA [id number] [address] [place] [address] [place] Nucleated RBC/100 WBC (Bld) [Ratio] 0.0 /100 WBC Normal [facility] Comment on above: Order Comment: Speci men Type: BLOOD SPECIMEN [facility]ing [facility]: [facility] Address: [address] [place] [address] Performed By: #### 2 157-6 #### [facility] CLIA [id number] [address] [place] [address] [place] ANGIE Platelet mean volume (Bld) [Entitic vol] 9.8 fL Normal 9.0-12.7 [facility] Comment on above: Order Comment: Speci men Type: BLOOD SPECIMEN Ordering Facility: [facility] Address: [address] [place] [address] Performed By: #### 2 157-6 #### [facility] CLIA [id number] [address] [place] [address] [place] Platelets (Bld) [#/Vol] 287 10*3/uL Normal 150-400 [facility] Comment on above: Order Comment: Speci men Type: BLOOD SPECIMEN Ordering Facility: [facility] Address: [address] [place] [address] Performed By: #### 2 157-6 #### [facility] CLIA [id number] [address] [place] [address] [place] RBC (Bld) [#/Vol] 4.27 10*6/uL Normal 3.90-5.20 [facility] Comment on above: Order Comment: Speci men Type: BLOOD SPECIMEN Ordering Facility: [facility] Address: [address] [place] [address] Performed By: #### 2 157-6 #### [facility] CLIA [id number] [address] [place] [address] [place] WBC (Bld) [#/Vol] 6.36 10*3/uL Normal 3.70-11.00 [facility] Comment on above: Order Comment: Speci men Type: BLOOD SPECIMEN Ordering Facility: [facility] Address: [address] [place] [address] Performed By: #### 2 157-6 #### [facility] CLIA [id number] [address] [place] [address] [place] CK SerPl-cCncon 01-08-2025 CK [Catalytic activity/Vol] 69 U/L Normal 42-196 [facility] Comment on above: Order Comment: Speci men Type: BLOOD SPECIMENOrdering Facility: [facility] Address: [address] [place] [address] Performed By: #### 2 157-6 ####[facility]IA [id number] [place] [address] [place] Comprehensive metabolic 2000 panelon 01-08-2025 Albumin [Mass/Vol] 4.1 g/dL Normal 3.9-4.9 [facility] Comment on above: Order Comment: Speci men Type: BLOOD SPECIMEN Ordering Facility: [facility] Address: [address] [place] [address] Performed By: #### 2 157-6 #### [facility] CLIA [id number] [address] [place] [address] [place] ALP [Catalytic activity/Vol] 59 U/L Normal 34-123 [facility] Comment on above: Order Comment: Speci men Type: BLOOD SPECIMEN Ordering Facility: [facility] Address: [address] [place] [address] Performed By: #### 2 157-6 #### [facility] CLIA [id number] [address] [place] [address] [place] ALT [Catalytic activity/Vol] 9 U/L Normal 7-38 [facility] Comment on above: Order Comment: Speci men Type: BLOOD SPECIMEN Ordering Facility: [facility] Address: [address] [place] [address] Performed By: #### 2 157-6 #### [facility] CLIA [id number] [address] [place] [address] [place] Anion gap [Moles/Vol] 12 mmol/L Normal 8-15 [facility] Comment on above: Order Comment: Speci men Type: BLOOD SPECIMEN Ordering Facility: [facility] Address: [address] [place] [address] Performed By: #### 2 157-6 #### [facility] CLIA [id number] [address] [place] [address] [place] AST [Catalytic activity/Vol] 14 U/L Normal 13-35 [facility] Comment on above: Order Comment: Speci men Type: BLOOD SPECIMEN Ordering Facility: [facility] Address: [address] [place] [address] Performed By: #### 2 157-6 #### [facility] CLIA [id number] [address] [place] [address] [place] Bilirubin [Mass/Vol] 0.2 mg/dL Normal 0.2-1.3 [facility] Comment on above: Order Comment: Speci men Type: BLOOD SPECIMEN Ordering Facility: [facility] Address: [address] [place] [address] Performed By: #### 2 157-6 #### [facility] CLIA [id number] [address] [place] [address] [place] Calcium [Mass/Vol] 9.3 mg/dL Normal 8.5-10.2 [facility] Comment on above: Order Comment: Speci men Type: BLOOD SPECIMEN Ordering Facility: [facility] Address: [address] [place] [address] Performed By: #### 2 157-6 #### [facility] CLIA [id number] [address] [place] [address] [place] Chloride [Moles/Vol] 103 mmol/L Normal 98-107 [facility] Comment on above: Order Comment: Speci men Type: BLOOD SPECIMEN Ordering Facility: [facility] Address: [address] [place] [address] Performed By: #### 2 157-6 #### [facility] CLIA [id number] [address] [place] [address] [place] CO2 [Moles/Vol] 21 mmol/L Low 22-30 [facility] Comment on above: Order Comment: Speci men Type: BLOOD SPECIMEN Ordering Facility: [facility] Address: [address] [place] [address] Performed By: #### 2 157-6 #### [facility] CLIA [id number] [address] [place], [place] [address] [place] Creatinine [Mass/Vol] 0.76 mg/dL Normal 0.58-0.96 [facility] Comment on above: Order Comment: Ceferino sandoval Type: BLOOD SPECIMEN Ordering Facility: [facility] Address: [address] [place] [address] Performed By: #### 2 157-6 #### [facility] CLIA [id number] [address] [place] [address] [place] Creatinine and Glomerular filtration rate.predicted panel (S/P/Bld) 85 mL/min/1.73m??? Normal >=60 [facility] Comment on above: Order Comment: Ceferino sandoval Type: BLOOD SPECIMEN Ordering Facility: [facility] Address: [address] [place] [address] Result Comment: Sujey mated Glomerular Filtration Rate (eGFR) is calculated using the 2020 CKD-EPI creatinine equation. This equation utilizes serum creatinine, sex, and age as parameters. The creatinine assay has traceable calibration to isotope dilution-mass spectrometry. Refer to KDIGO guidelines for clinical interpretation. In patients with unstable renal function, e.g. those with acute kidney injury, the eGFR may not accurately reflect actual GFR. Performed By: #### 2 157-6 #### [facility] CLIA [id number] [address] [place] [address] [place] Glucose [Mass/Vol] 123 mg/dL High 74-99 [facility] Comment on above: Order Comment: Ceferino sandoval Type: BLOOD SPECIMEN Ordering Facility: [facility] Address: [address] [place] [address] Result Comment: The [place] Diabetes Association (ADA) provides guidance for cutoff values for fasting glucose and random glucose. The ADA defines fasting as no caloric intake for at least 8 hours. Fasting plasma glucose results between 100 to 125 mg/dL indicate increased risk for diabetes (prediabetes). Fasting plasma glucose results greater than or equal to 126 mg/dL meet the criteria for diagnosis of diabetes. In the absence of unequivocal hyperglycemia, results should be confirmed by repeat testing. In a patient with classic symptoms of hyperglycemia or hyperglycemic crisis, random plasma glucose results greater than or equal to 200 mg/dL meet the criteria for diagnosis of diabetes. Reference: Standards of Medical Care in Diabetes 2016, [employer] Diabetes Association. Diabetes Care. 2016.39(Suppl 1). Performed By: #### 2 157-6 #### [facility] CLIA [id number] [address] [place] [address] [place] Potassium [Moles/Vol] 4.4 mmol/L Normal 3.7-5.1 [facility] Comment on above: Order Comment: Speci men Type: BLOOD SPECIMEN Ordering Facility: [facility] Address: [address] [place] [address] Performed By: #### 2 157-6 #### [facility] CLIA [id number] [address] [place] [address] [place] Protein [Mass/Vol] 6.5 g/dL Normal 6.3-8.0 [facility] Comment on above: Order Comment: Speci men Type: BLOOD SPECIMEN Ordering Facility: [facility] Address: [address] [place] [address] Performed By: #### 2 157-6 #### [facility] CLIA [id number] [address] [place] [address] [place] Sodium [Moles/Vol] 136 mmol/L Normal 136-144 [facility] Comment on above: Order Comment: Speci men Type: BLOOD SPECIMEN Ordering Facility: [facility] Address: [address] [place] [address] Performed By: #### 2 157-6 #### [facility] CLIA [id number] [address] [place], [place] [address] [place] Urea nitrogen [Mass/Vol] 12 mg/dL Normal 7-21 [facility] Comment on above: Order Comment: Speci men Type: BLOOD SPECIMEN Ordering Facility: [facility] Address: [address] [place] [address] Performed By: #### 2 157-6 #### [facility] CLIA [id number] [address] [place], [place] [address] [place] CNPNon 05-13-2025 CNPN Telephone ([facility]) JESUS BENTON ([id number]) 1955 F Date Time Provider Department 01/02/25 MISTI BLANK [facility] During your visit today, we recorded the following information about you: Dari Castaneda 01/02/2025 4:22 PM Signed Order Request Caller : Jesus Contact Order Being Requested : Labs Orders Need to be placed in epic. Pt will get labs drawn on Wednesday. Allergies As of Date: 01/02/2025 Noted Allergy Reaction AMLODIPINE 04/20/2023 9 - Itching LATEX 05/19/2023 2 - Rash Date Reviewed: 05/19/2024 Reviewed by: Nida Null MA - Fully Assessed Reason for Visit: Orders [681] Prescriptions as of 02/09/2025 - ivosidenib (TIBSOVO) 250 mg tablet Take 2 tablets by mouth once daily. In Afternoon - iv contrast (will be provided with radiology test) MRI Brain Inject, intravenously, once for 1 dose.No IV access, insert saline lock prior to beginning of sedation, infusion, injection of imaging exam.Discontinue saline lock post exam. If Pt. has a central line or IVAD, may access for administration according to line specific nursing protocol.Once exam is complete flush line and de-access according to line specific nursing protocol in the MR contrast administration guidelines link - losartan (COZAAR) 25 mg tablet Take 25 mg by mouth once daily. - rosuvastatin (CRESTOR) 5 mg tablet Take 5 mg by mouth once daily. - famotidine (PEPCID) 40 mg tablet Take 1 tablet by mouth once daily. Continue while taking steroids - cholecalciferol, vitamin D3, (VITAMIN D-3) 10 mcg (400 unit) cap Take 400 Units by mouth once daily. - oxybutynin ER (DITROPAN XL) 10 mg 24 hr tablet Take 10 mg by mouth once daily. - traZODone (DESYREL) 50 mg tablet Take 1 tablet by mouth daily at bedtime. - estradiol 1 mg ORAL tablet Take 1 mg by mouth once daily. - VITAMIN C 250 MG TAB Take one(1) tablet daily. 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 Pedro Tiwari MD Status: CHRIS GARVEY Study:SCRN MAMM (CAD)W/TANA BILAT Date of Exa m: 12/25/24 Exam# [id number] Ordering Dr: Fran Plummer LEVEL VIAL SETTER-C EXAM: SCRN MAMM (CAD)W/TANA BILAT DATE: 12/25/2024 CLINICAL HISTORY: F, Age 69 y/o , SCREENING BREAST CANCER RISK ASSESSMENT: Has not been calculated. TECHNIQUE: Bilateral screening digital breast tomosynthesis with 2D and 3D images. Computeraided detection. COMPARISON: Prior exam(s) dated 09/03/2023 and 04/24/2022. FINDINGS: TISSUE DENSITY: The breast tissue is heterogenously dense, which may obscure small masses. Bilateral Breast Mammographic Findings: No significant masses, calcifications or other abnormalities are identified. Benign-appearing round microcalcifications are seen in both breasts. Stable nodular densities are seen in both breasts. Benign-appearing macrocalcifications are seen in the left breast. BI/SCRN MAMM (CAD)W/TANA BILAT IMPRESSION: OVERALL FINAL ASSESSMENT: BIRADS 2 BENIGN FINDING RECOMMENDATION: Routine annual follow-up in 1 Year A letter with findings and recommendations will be mailed to the patient. Reading Location: [id number] CC: DRE Plummer; Dr. Pedro Tiwari MD ~ Machine Shorthand Teacher: Signed [facility] SCRN MAMM (CAD)W/TANA BILATo n 12-25-2024 SCRN MAMM (CAD)W/TANA BILAT [facility] Imaging Services [address] [place] [address] SCRN MAMM (CAD)W/TANA BILAT MR#: [id number] Acct: [id number] Name: JESUS BENTON Rep #: [id number] : 1955 F 69 From: Michelle Jorgensen PCP: Dr. Pedro Tiwari MD Status: REG CLI Study: SCRN MAMM (CAD)W/TANA BILAT Date of Exam: 01/14 Exam# [id number] Ordering Dr: Rishabh Plummer EXAM: SCRN MAMM (CAD)W/TANA BILAT DATE: 12/25/2024 CLINICAL HISTORY: F, Age 69 y/o , SCREENING BREAST CANCER RISK ASSESSMENT: Has not been calculated. TECHNIQUE: Bilateral screening digital breast tomosynthesis with 2D and 3D images. Computer aided detection. COMPARISON: Prior exam(s) dated 09/03/2023 and 04/24/2022. FINDINGS: TISSUE DENSITY: The breast tissue is heterogenously dense, which may obscure small masses. Bilateral Breast Mammographic Findings: No significant masses, calcifications or other abnormalities are identified. Benign-appearing round microcalcifications are seen in both breasts. Stable nodular densities are seen in both breasts. Benign-appearing macrocalcifications are seen in the left breast. BI/SCRN MAMM (CAD)W/TANA BILAT IMPRESSION: OVERALL FINAL ASSESSMENT: BIRADS 2 BENIGN FINDING RECOMMENDATION: Routine annual follow-up in 1 Year A letter with findings and recommendations will be mailed to the patient. Reading Location: [id number] CC: DRE Plummer; Dr. Pedro Tiwari MD Machine Shorthand Teacher: Signed Normal [facility] ECG COMPLETEon 12-12-2024 Atrial Rate 71 BPM [facility] Calculated P [place] 49 degrees [facility] Calculated R [place] 11 degrees [facility] Calculated T [place] 10 degrees [facility] P-R Interval 162 ms [facility] QRS Duration 80 ms [facility] QT Interval 372 ms [facility] QTC Calculation (Bazett) 404 ms [facility] Ventricular [facility] 71 [facility] N[facility]AL SINUS RHYTHM NORMAL ECG NO PREVIOUS ECGS AVAILABLE Confirmed by BELTRAN CHAUDHARY M.D. ([id number]) on 12/12/2024 1:04:46 PM [facility] NAME : JESUS BENTON PID : [id number] : 1955 Gender : Female Race : ORD : [id number] Procedure Date : Dec 12 2024 09:49:39 Edit Date : Dec 12 2024 13:04:48 Diagnosis: NORMAL SINUS RHYTHM NORMAL ECG NO PREVIOUS ECGS AVAILABLE Confirmed by BELTRAN CHAUDHARY M.D. ([id number]) on 12/12/2024 1:04:46 PM Test Reason : Other - Specify Location : 0 : CARD Overread By : BELTRAN CHAUDHARY M.D. Edited By : BELTRAN CHAUDHARY M.D. Referred By : MISTI BLANK Acquired by : STEPHENIE PARSON [facility] ECG COMPLETE Ventricular Rate : 7 1 BPM Atrial Rate : 71 BPM P-R Interval : 162 ms QRS Duration : 80 ms Q-T Interval : 372 ms QTC Calculation(Bazett) : 404 ms Calculated P [place] : 49 degrees Calculated R [place] : 11 degrees Calculated T [place] : 10 degrees NORMAL SINUS RHYTHM NORMAL ECG NO PREVIOUS ECGS AVAILABLE Confirmed by BELTRAN CHAUDHARY M.D. ([id number]) on 12/12/2024 1:04:46 PM NAME : JESUS BENTON PID : [id number] : 1955 Gender : Female Race : ORD : [id number] Procedure Date : Dec 12 2024 09:49:39 Edit Date : Dec 12 2024 13:04:48 Diagnosis: NORMAL SINUS RHYTHM NORMAL ECG NO PREVIOUS ECGS AVAILABLE Confirmed by BELTRAN CHAUDHARY M.D. ([id number]) on 12/12/2024 1:04:46 PM Test Reason : Other - Specify Location : 0 : CARD Overread By : BELTRAN CHAUDHARY M.D. Edited By : BELTRAN CHAUDHARY M.D. Referred By : MISTI BLANK Acquired by : STEPHENIE PARSON [facility] CBC W Auto Differential pane l (Bld)on 12-11-2024 Basophils (Bld) [#/Vol] 0.07 10*3/uL Normal <0.11 [facility] Comment on above: Order Comment: Speci men Type: BLOOD SPECIMENOrdering Facility: [facility] Address: [address] [place] [address] Performed By: #### 5 7021-8 ####[facility] [id number] [place] [address] [place] Basophils/100 WBC (Bld) 1.0 % Normal [facility] Comment on above: Order Comment: Speci men Type: BLOOD SPECIMENOrdering Facility: [facility] Address: [address] [place] [address] Performed By: #### 5 7021-8 ####[facility] [id number] [place] [address] [place] Differential cell count method Nom (Bld) Auto Normal [facility] Comment on above: Order Comment: Speci men Type: BLOOD SPECIMENOrdering Facility: [facility] Address: [address] [place] [address] Performed By: #### 5 7021-8 ####[facility] ALCIRAGINNY [id number] [place] [address] [place] Eosinophils (Bld) [#/Vol] 0.37 10*3/uL Normal <0.46 [facility] Comment on above: Order Comment: Speci men Type: BLOOD SPECIMENOrdering Facility: [facility] Address: [address] [place] [address] Performed By: #### 5 7021-8 ####[facility] [id number] [place] [address] [place] Eosinophils/100 WBC (Bld) 5.3 % Normal [facility] Comment on above: Order Comment: Speci men Type: BLOOD SPECIMENOrdering Facility: [facility] Address: [address] [place] [address] Performed By: #### 5 7021-8 ####[facility]ITALNCMOE [id number] [place] [address] [place] Erythrocyte distribution width (RBC) [Ratio] 13.9 % Normal 11.5-15.0 [facility] Comment on above: Order Comment: Speci men Type: BLOOD SPECIMENOrdering Facility: [facility] Address: [address] [place] [address] Performed By: #### 5 7021-8 ####[facility]ITAL[facility]CLIA [id number] [place] [address] [place] Hematocrit (Bld) [Volume fraction] 39.5 % Normal 36.0-46.0 [facility] Comment on above: Order Comment: Speci men Type: BLOOD SPECIMENOrdering Facility: [facility] Address: [address] [place] [address] Performed By: #### 5 7021-8 ####[facility] MILLWNCLIA [id number] [place] [address] [place] Hemoglobin (Bld) [Mass/Vol] 13.2 g/dL Normal 11.5-15.5 [facility] Comment on above: Order Comment: Speci men Type: BLOOD SPECIMENOrdering Facility: [facility] Address: [address] [place] [address] Performed By: #### 5 7021-8 ####[facility] [id number] [place] [address] [place] Immature granulocytes (Bld) [#/Vol] 10*3/uL Normal <0.10 [facility] Comment on above: Order Comment: Speci men Type: BLOOD SPECIMENOrdering Facility: [facility] Address: [address] [place] [address] Performed By: #### 5 7021-8 ####[facility] [id number] [place] [address] [place] Immature granulocytes/100 WBC (Bld) 0.3 % Normal [facility] Comment on above: Order Comment: Speci men Type: BLOOD SPECIMENOrdering Facility: [facility] Address: [address] [place] [address] Performed By: #### 5 7021-8 ####[facility] [id number] [place] [address] [place] Lymphocytes (Bld) [#/Vol] 2.12 10*3/uL Normal 1.00-4.00 [facility] Comment on above: Order Comment: Speci men Type: BLOOD SPECIMENOrdering Facility: [facility] Address: [address] [place] [address] Performed By: #### 5 7021-8 ####[facility]ITAL[facility]CL[facility] [id number] [place] [address] [place] Lymphocytes/100 WBC (Bld) 30.5 % Normal [facility] Comment on above: Order Comment: Speci men Type: BLOOD SPECIMENOrdering Facility: [facility] Address: [address] [place] [address] Performed By: #### 5 7021-8 ####[facility]OSPITALNCA [id number] [place] [address] [place] MCH (RBC) [Entitic mass] 30.8 pg Normal 26.0-34.0 [facility] Comment on above: Order Comment: Speci men Type: BLOOD SPECIMENOrdering Facility: [facility] Address: [address] [place] [address] Performed By: #### 5 7021-8 ####[facility] [id number] [place] [address] [place] MCHC (RBC) [Mass/Vol] 33.4 g/dL Normal 30.5-36.0 [facility] Comment on above: Order Comment: Speci men Type: BLOOD SPECIMENOrdering Facility: [facility] Address: [address] [place] [address] Performed By: #### 5 7021-8 ####[facility]ITALNCLIA [id number] [place] [address] [place] MCV (RBC) [Entitic vol] 92.1 fL Normal 80.0-100.0 [facility] Comment on above: Order Comment: Speci men Type: BLOOD SPECIMENOrdering Facility: [facility] Address: [address] [place] [address] Performed By: #### 5 7021-8 ####[facility]ITALNCLI [id number] [place] [address] [place] Monocytes (Bld) [#/Vol] 0.44 10*3/uL Normal <0.87 [facility] Comment on above: Order Comment: Speci men Type: BLOOD SPECIMENOrdering Facility: [facility] Address: [address] [place] [address] Performed By: #### 5 7021-8 ####[facility] ALCIRAGINNY [id number] [place] [address] [place] Monocytes/100 WBC (Bld) 6.3 % Normal [facility] Comment on above: Order Comment: Speci men Type: BLOOD SPECIMENOrdering Facility: [facility] Address: [address] [place] [address] Performed By: #### 5 7021-8 ####[facility] [id number] [place] [address] [place] Neutrophils (Bld) [#/Vol] 3.92 10*3/uL Normal 1.45-7.50 [facility] Comment on above: Order Comment: Speci men Type: BLOOD SPECIMENOrdering Facility: [facility] Address: [address] [place] [address] Performed By: #### 5 7021-8 ####[facility] [id number] [place] [address] [place] Neutrophils/100 WBC (Bld) 56.6 % Normal [facility] Comment on above: Order Comment: Speci men Type: BLOOD SPECIMENOrdering Facility: [facility] Address: [address] [place] [address] Performed By: #### 5 7021-8 ####[facility] HOSPITALNCLIA [id number] [place] [address] [place] Nucleated RBC (Bld) [#/Vol] 10*3/uL Normal <0.01 [facility] Comment on above: Order Comment: Speci men Type: BLOOD SPECIMENOrdering Facility: [facility] Address: [address] [place] [address] Performed By: #### 5 7021-8 ####[facility] ALCIRAKMLIA [id number] [place] [address] [place] Nucleated RBC/100 WBC (Bld) [Ratio] 0.0 /100 WBC Normal [facility] Comment on above: Order Comment: Speci men Type: BLOOD SPECIMENOrdering Facility: [facility] Address: [address] [place] [address] Performed By: #### 5 7021-8 ####[facility] HOSPITALBOOGIELIA [id number] [place] [address] [place] Platelet mean volume (Bld) [Entitic vol] 9.8 fL Normal 9.0-12.7 [facility] Comment on above: Order Comment: Speci men Type: BLOOD SPECIMENOrdering Facility: [facility] Address: [address] [place] [address] Performed By: #### 5 7021-8 ####[facility] HOSPITALBOOGIEA [id number] [place] [address] [place] Platelets (Bld) [#/Vol] 300 10*3/uL Normal 150-400 [facility] Comment on above: Order Comment: Speci men Type: BLOOD SPECIMENOrdering Facility: [facility] Address: [address] [place] [address] Performed By: #### 5 7021-8 ####[facility]OSPITALGURUA [id number] [place] [address] [place] RBC (Bld) [#/Vol] 4.29 10*6/uL Normal 3.90-5.20 [facility] Comment on above: Order Comment: Speci men Type: BLOOD SPECIMENOrdering Facility: [facility] Address: [address] [place] [address] Performed By: #### 5 7021-8 ####[facility] HOSPITALBOOGIELIA [id number] [place] [address] [place] WBC (Bld) [#/Vol] 6.94 10*3/uL Normal 3.70-11.00 [facility] Comment on above: Order Comment: Speci men Type: BLOOD SPECIMENOrdering Facility: [facility] Address: [address] [place] [address] Performed By: #### 5 7021-8 ####[facility] HOSPITALNCMOE [id number] [place] [address] [place] CK SerPl-cCncon 12-11-2024 CK [Catalytic activity/Vol] 58 U/L Normal 42-196 [facility] Comment on above: Order Comment: Speci men Type: BLOOD SPECIMEN Ordering Facility: [facility] Address: [address] [place] [address] Performed By: #### 2 157-6 #### [facility] CLIA [id number] [address] [place] [address] [place] Comprehensive metabolic 2000 panelon 12-11-2024 Albumin [Mass/Vol] 4.2 g/dL Normal 3.9-4.9 [facility] Comment on above: Order Comment: Speci men Type: BLOOD SPECIMENOrdering Facility: [facility] Address: [address] [place] [address] Performed By: #### 2 4323-8 ####[facility]OSPITALNCLIA [id number] [place] [address] [place] ALP [Catalytic activity/Vol] 55 U/L Normal 34-123 [facility] Comment on above: Order Comment: Speci men Type: BLOOD SPECIMENOrdering Facility: [facility] Address: [address] [place] [address] Performed By: #### 2 4323-8 ####[facility]OSPITALWNCLIA [id number] [place] [address] [place] ALT [Catalytic activity/Vol] 9 U/L Normal 7-38 [facility] Comment on above: Order Comment: Speci men Type: BLOOD SPECIMENOrdering Facility: [facility] Address: [address] [place] [address] Performed By: #### 2 4323-8 ####[facility] BONNIE MILLTOWNCLIA [id number] [place] [address] [place] Anion gap [Moles/Vol] 7 mmol/L Low 8-15 [facility] Comment on above: Order Comment: Speci men Type: BLOOD SPECIMENOrdering Facility: [facility] Address: [address] [place] [address] Performed By: #### 2 4323-8 ####[facility] MILLTOWNCLIA [id number] [place] [address] [place] AST [Catalytic activity/Vol] 13 U/L Normal 13-35 [facility] Comment on above: Order Comment: Speci men Type: BLOOD SPECIMENOrdering Facility: [facility] Address: [address] [place] [address] Performed By: #### 2 4323-8 ####[facility] MILLTOWNCLIA [id number] [place] [address] [place] Bilirubin [Mass/Vol] 0.4 mg/dL Normal 0.2-1.3 [facility] Comment on above: Order Comment: Speci men Type: BLOOD SPECIMENOrdering Facility: [facility] Address: [address] [place] [address] Performed By: #### 2 4323-8 ####[facility] BONNIE MILLTOWNCLIA [id number] [place] [address] [place] Calcium [Mass/Vol] 9.5 mg/dL Normal 8.5-10.2 [facility] Comment on above: Order Comment: Speci men Type: BLOOD SPECIMENOrdering Facility: [facility] Address: [address] [place] [address] Performed By: #### 2 4323-8 ####[facility] MILLTOWNCLIA [id number] [place] [address] [place] Chloride [Moles/Vol] 102 mmol/L Normal 98-107 [facility] Comment on above: Order Comment: Speci men Type: BLOOD SPECIMENOrdering Facility: [facility] Address: [address] [place] [address] Performed By: #### 2 4323-8 ####[facility]OSPITALNCLIA [id number] [place] [address] [place] CO2 [Moles/Vol] 29 mmol/L Normal 22-30 [facility] Comment on above: Order Comment: Speci men Type: BLOOD SPECIMENOrdering Facility: [facility] Address: [address] [place] [address] Performed By: #### 2 4323-8 ####[facility] HOSPITALLIA [id number] [place] [address] [place] Creatinine [Mass/Vol] 0.83 mg/dL Normal 0.58-0.96 [facility] Comment on above: Order Comment: Speci men Type: BLOOD SPECIMENOrdering Facility: [facility] Address: [address] [place] [address] Performed By: #### 2 4323-8 ####[facility] [id number] [address] [facility] Creatinine and Glomerular filtration rate.predicted panel (S/P/Bld) 77 mL/min/1.73m??? Normal >=60 [facility] Comment on above: Order Comment: Speci men Type: BLOOD SPECIMENOrdering Facility: [facility] Address: [address] [place] [address] Result Comment: Sujey mated Glomerular Filtration Rate (eGFR) is calculated using the 2020 CKD-EPI creatinine equation. This equation utilizes serum creatinine, sex, and age as parameters. The creatinine assay has traceable calibration to isotope dilution-mass spectrometry. Refer to KDIGO guidelines for clinical interpretation. In patients with unstable renal function, e.g. those with acute kidney injury, the eGFR may not accurately reflect actual GFR. Performed By: #### 2 4323-8 ####[facility] HOSPITALWNCLIA [id number] [place] [address] [place] Glucose [Mass/Vol] 115 mg/dL High 74-99 [facility] Comment on above: Order Comment: Speci men Type: BLOOD SPECIMENOrdering Facility: [facility] Address: [address] [place] [address] Result Comment: The [place] Diabetes Association (ADA) provides guidance for cutoff values for fasting glucose and random glucose. The ADA defines fasting as no caloric intake for at least 8 hours. Fasting plasma glucose results between 100 to 125 mg/dL indicate increased risk for diabetes (prediabetes). Fasting plasma glucose results greater than or equal to 126 mg/dL meet the criteria for diagnosis of diabetes. In the absence of unequivocal hyperglycemia, results should be confirmed by repeat testing. In a patient with classic symptoms of hyperglycemia or hyperglycemic crisis, random plasma glucose results greater than or equal to 200 mg/dL meet the criteria for diagnosis of diabetes. Reference: Standards of Medical Care in Diabetes 2016, [employer] Diabetes Association. Diabetes Care. 2016.39(Suppl 1). Performed By: #### 2 4323-8 ####[facility] HOSPITALWMELIA [id number] [place] [address] [place] Potassium [Moles/Vol] 4.3 mmol/L Normal 3.7-5.1 [facility] Comment on above: Order Comment: Ceferino men Type: BLOOD SPECIMENOrdering Facility: [facility] Address: [address] [place] [address] Performed By: #### 2 4323-8 ####[facility] HOSPITALWNCLIA [id number] [place] [address] [place] Protein [Mass/Vol] 6.5 g/dL Normal 6.3-8.0 [facility] Comment on above: Order Comment: Speci men Type: BLOOD SPECIMENOrdering Facility: [facility] Address: [address] [place] [address] Performed By: #### 2 4323-8 ####[facility] B[facility]NIE KALI [id number] [place] [address] [place] Sodium [Moles/Vol] 138 mmol/L Normal 136-144 [facility] Comment on above: Order Comment: Speci men Type: BLOOD SPECIMENOrdering Facility: [facility] Address: [address] [place] [address] Performed By: #### 2 4323-8 ####[facility] ALCIRACATHOLIC HEALTH [id number] [place] [address] [place] Urea nitrogen [Mass/Vol] 12 mg/dL Normal 7-21 [facility] Comment on above: Order Comment: Speci men Type: BLOOD SPECIMENOrdering Facility: [facility] Address: [address] [place] [address] Performed By: #### 2 4323-8 ####[facility] ALCIRACICERONCLI [id number] [place] [address] [place] MR Brain WO and W contrast Raman Valdes 11-17-2024 * * *Final Report* * * DATE OF EXAM: Nov 17 2024 11:10AM [facility] 0295 - MRI BRAIN WO/W IVCON / 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 TECHNIQUE: Routine brain MRI protocol without and with contrast including diffusion images. MQ: MRBWOW_2 Contrast: 11 mL Dotarem IV COMPARISON: Brain MRI April dated back to 11/19/2023. RESULT: Postoperative change: There are postoperative findings related to a right frontal craniotomy. Acute Change: There is no evidence of restricted diffusion to suggest an acute infarct. Hemorrhage: No evidence of prior parenchymal hemorrhage on the susceptibility weighted images. Mass Lesion/ Mass Effect: There is no significant change in the size of the T2/FLAIR hyperintensity surrounding the right frontal lobe resection cavity in right frontal lobe, when compared to most recent prior MRI and MRs dating back to 02/21/2024. No abnormal enhancement associated with the resection cavity to suggest recurrent neoplasm. There is no elevated cerebral blood volume on the perfusion sequence elsewhere in the brain to suggest recurrent neovascularity. There is no mass effect, midline shift or herniation. Chronic Change: The white matter is within normal limits of signal intensity for age. Parenchyma: No significant volume loss for age. The brain parenchyma is otherwise within normal limits of signal intensity and morphology. Ventricles: Normal caliber and morphology. Skull Base: Hypothalamic and pituitary region are grossly normal. Craniocervical junction is normal. No significant marrow replacement process. Vasculature: Major intracranial arterial structures, and dural venous sinuses show typical flow void, suggesting patency by spin echo criteria. Other: There is scattered mucosal sinus thickening. The visualized paranasal sinuses and mastoid air cells are otherwise clear. The orbits and extracranial soft tissues are unremarkable. 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 TECHNIQUE: Routine brain MRI protocol without and with contrast including diffusion images. MQ: MRBWOW_2 Contrast: 11 mL Dotarem IV COMPARISON: Brain MRI April dated back to 11/19/2023. RESULT: Postoperative change: There are postoperative findings related to a right frontal craniotomy. Acute Change: There is no evidence of restricted diffusion to suggest an acute infarct. Hemorrhage: No evidence of prior parenchymal hemorrhage on the susceptibility weighted images. Mass Lesion/ Mass Effect: There is no significant change in the size of the T2/FLAIR hyperintensity surrounding the right frontal lobe resection cavity in right frontal lobe, when compared to most recent prior MRI and MRs dating back to 02/21/2024. No abnormal enhancement associated with the resection cavity to suggest recurrent neoplasm. There is no elevated cerebral blood volume on the perfusion sequence elsewhere in the brain to suggest recurrent neovascularity. There is no mass effect, midline shift or herniation. Chronic Change: The white matter is within normal limits of signal intensity for age. Parenchyma: No significant volume loss for age. The brain parenchyma is otherwise within normal limits of signal intensity and morphology. Ventricles: Normal caliber and morphology. Skull Base: Hypothalamic and pituitary region are grossly normal. Craniocervical junction is normal. No significant marrow replacement process. Vasculature: Major intracranial arterial structures, and dural venous sinuses show typical flow void, suggesting patency by spin echo criteria. Other: There is scattered mucosal sinus thickening. The visualized paranasal sinuses and mastoid air cells are otherwise clear. The orbits and extracranial soft tissues are unremarkable. IMPRESSION IMPRESSION: No evidence of recurrent or progressive disease. 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 TECHNIQUE: Routine brain MRI protocol without and with contrast including diffusion images. MQ: MRBWOW_2 Contrast: 11 mL Dotarem IV COMPARISON: Brain MRI April dated back to 11/19/2023. RESULT: Postoperative change: There are postoperative findings related to a right frontal craniotomy. Acute Change: There is no evidence of restricted diffusion to suggest an acute infarct. Hemorrhage: No evidence of prior parenchymal hemorrhage on the susceptibility weighted images. Mass Lesion/ Mass Effect: There is no significant change in the size of the T2/FLAIR hyperintensity surrounding the right frontal lobe resection cavity in right frontal lobe, when compared to most recent prior MRI and MRs dating back to 02/21/2024. No abnormal enhancement associated with the resection cavity to suggest recurrent neoplasm. There is no elevated cerebral blood volume on the perfusion sequence elsewhere in the brain to suggest recurrent neovascularity. There is no mass effect, midline shift or herniation. Chronic Change: The white matter is within normal limits of signal intensity for age. Parenchyma: No significant volume loss for age. The brain parenchyma is otherwise within normal limits of signal intensity and morphology. Ventricles: Normal caliber and morphology. Skull Base: Hypothalamic and pituitary region are grossly normal. Craniocervical junction is normal. No significant marrow replacement process. Vasculature: Major intracranial arterial structures, and dural venous sinuses show typical flow void, suggesting patency by spin echo criteria. Other: There is scattered mucosal sinus thickening. The visualized paranasal sinuses and mastoid air cells are otherwise clear. The orbits and extracranial soft tissues are unremarkable. IMPRESSION: No evidence of recurrent or progressive disease. Machine Shorthand Teacher: [facility] HOSPITALRicha Transcribe Date/Time: Nov 17 2024 11:43A Dictated by : FRANCESCA FIELDS MD This examination was interpreted and the report reviewed and electronically signed by: FRANCESCA FIELDS MD on Nov 17 2024 11:54AM EST [id number] Normal [facility] CBC W Auto Differential pane l (Bld)on 11-07-2024 Basophils (Bld) [#/Vol] 0.07 10*3/uL Normal <0.11 [facility] Comment on above: Order Comment: Speci men Type: BLOOD SPECIMENOrdering Facility: [facility] Address: [address] [place] [address] Performed By: #### 5 7021-8 ####[facility] [id number] [place] [address] [place] Basophils/100 WBC (Bld) 0.8 % Normal [facility] Comment on above: Order Comment: Speci men Type: BLOOD SPECIMENOrdering Facility: [facility] Address: [address] [place] [address] Performed By: #### 5 7021-8 ####[facility] ALCIRAWNCLIA [id number] [place] [address] [place] Differential cell count method Nom (Bld) Auto Normal [facility] Comment on above: Order Comment: Speci men Type: BLOOD SPECIMENOrdering Facility: [facility] Address: [address] [place] [address] Performed By: #### 5 7021-8 ####[facility] [id number] [place] [address] [place] Eosinophils (Bld) [#/Vol] 0.29 10*3/uL Normal <0.46 [facility] Comment on above: Order Comment: Speci men Type: BLOOD SPECIMENOrdering Facility: [facility] Address: [address] [place] [address] Performed By: #### 5 7021-8 ####[facility] [id number] [place] [address] [place] Eosinophils/100 WBC (Bld) 3.2 % Normal [facility] Comment on above: Order Comment: Speci men Type: BLOOD SPECIMENOrdering Facility: [facility] Address: [address] [place] [address] Performed By: #### 5 7021-8 ####[facility] [id number] [place] [address] [place] Erythrocyte distribution width (RBC) [Ratio] 13.2 % Normal 11.5-15.0 [facility] Comment on above: Order Comment: Speci men Type: BLOOD SPECIMENOrdering Facility: [facility] Address: [address] [place] [address] Performed By: #### 5 7021-8 ####[facility]PITALNCLIA [id number] [place] [address] [place] Hematocrit (Bld) [Volume fraction] 39.5 % Normal 36.0-46.0 [facility] Comment on above: Order Comment: Speci men Type: BLOOD SPECIMENOrdering Facility: [facility] Address: [address] [place] [address] Performed By: #### 5 7021-8 ####[facility]ITALNCS[facility] [id number] [place] [address] [place] Hemoglobin (Bld) [Mass/Vol] 13.2 g/dL Normal 11.5-15.5 [facility] Comment on above: Order Comment: Speci men Type: BLOOD SPECIMENOrdering Facility: [facility] Address: [address] [place] [address] Performed By: #### 5 7021-8 ####[facility] [id number] [place] [address] [place] Immature granulocytes (Bld) [#/Vol] 0.33 10*3/uL High <0.10 [facility] Comment on above: Order Comment: Speci men Type: BLOOD SPECIMENOrdering Facility: [facility] Address: [address] [place] [address] Performed By: #### 5 7021-8 ####[facility]ITALNCLIA [id number] [place] [address] [place] Immature granulocytes/100 WBC (Bld) 3.7 % Normal [facility] Comment on above: Order Comment: Speci men Type: BLOOD SPECIMENOrdering Facility: [facility] Address: [address] [place] [address] Performed By: #### 5 7021-8 ####[facility] [id number] [place] [address] [place] Lymphocytes (Bld) [#/Vol] 2.47 10*3/uL Normal 1.00-4.00 [facility] Comment on above: Order Comment: Speci men Type: BLOOD SPECIMENOrdering Facility: [facility] Address: [address] [place] [address] Performed By: #### 5 7021-8 ####[facility] KALI [id number] [address] [place] [facility] Lymphocytes/100 WBC (Bld) 27.4 % Normal [facility] Comment on above: Order Comment: Speci men Type: BLOOD SPECIMENOrdering Facility: [facility] Address: [address] [place] [address] Performed By: #### 5 7021-8 ####[facility] [facility] ALCIRAGINNY [id number] [place] [address] [place] MCH (RBC) [Entitic mass] 30.1 pg Normal 26.0-34.0 [facility] Comment on above: Order Comment: Speci men Type: BLOOD SPECIMENOrdering Facility: [facility] Address: [address] [place] [address] Performed By: #### 5 7021-8 ####[facility] [id number] [place] [address] [place] MCHC (RBC) [Mass/Vol] 33.4 g/dL Normal 30.5-36.0 [facility] Comment on above: Order Comment: Speci men Type: BLOOD SPECIMENOrdering Facility: [facility] Address: [address] [place] [address] Performed By: #### 5 7021-8 ####[facility] [id number] [place] [address] [place] MCV (RBC) [Entitic vol] 90.0 fL Normal 80.0-100.0 [facility] Comment on above: Order Comment: Speci men Type: BLOOD SPECIMENOrdering Facility: [facility] Address: [address] [place] [address] Performed By: #### 5 7021-8 ####[facility]PITALBOOGIEA [id number] [place] [address] [place] Monocytes (Bld) [#/Vol] 0.56 10*3/uL Normal <0.87 [facility] Comment on above: Order Comment: Speci men Type: BLOOD SPECIMENOrdering Facility: [facility] Address: [address] [place] [address] Performed By: #### 5 7021-8 ####[facility]ITALLIA [id number] [place] [address] [place] Monocytes/100 WBC (Bld) 6.2 % Normal [facility] Comment on above: Order Comment: Speci men Type: BLOOD SPECIMENOrdering Facility: [facility] Address: [address] [place] [address] Performed By: #### 5 7021-8 ####[facility] [id number] [place] [address] [place] Neutrophils (Bld) [#/Vol] 5.28 10*3/uL Normal 1.45-7.50 [facility] Comment on above: Order Comment: Speci men Type: BLOOD SPECIMENOrdering Facility: [facility] Address: [address] [place] [address] Performed By: #### 5 7021-8 ####[facility]ITALL[facility] [id number] [place] [address] [place] Neutrophils/100 WBC (Bld) 58.7 % Normal [facility] Comment on above: Order Comment: Speci men Type: BLOOD SPECIMENOrdering Facility: [facility] Address: [address] [place] [address] Performed By: #### 5 7021-8 ####[facility]ITALL[facility] [id number] [place] [address] [place] Nucleated RBC (Bld) [#/Vol] 10*3/uL Normal <0.01 [facility] Comment on above: Order Comment: Speci men Type: BLOOD SPECIMENOrdering Facility: [facility] Address: [address] [place] [address] Performed By: #### 5 7021-8 ####[facility] HOSPITALNCLI [id number] [place] [address] [place] Nucleated RBC/100 WBC (Bld) [Ratio] 0.0 /100 WBC Normal [facility] Comment on above: Order Comment: Speci men Type: BLOOD SPECIMENOrdering Facility: [facility] Address: [address] [place] [address] Performed By: #### 5 7021-8 ####[facility] HOSPITALNCLI [id number] [place] [address] [place] Platelet mean volume (Bld) [Entitic vol] 8.5 fL Low 9.0-12.7 [facility] Comment on above: Order Comment: Speci men Type: BLOOD SPECIMENOrdering Facility: [facility] Address: [address] [place] [address] Performed By: #### 5 7021-8 ####[facility] HOSPITALNCLIA [id number] [place] [address] [place] Platelets (Bld) [#/Vol] 677 10*3/uL High 150-400 [facility] Comment on above: Order Comment: Speci men Type: BLOOD SPECIMENOrdering Facility: [facility] Address: [address] [place] [address] Performed By: #### 5 7021-8 ####[facility]ALL[facility] [id number] [place] [address] [place] RBC (Bld) [#/Vol] 4.39 10*6/uL Normal 3.90-5.20 [facility] Comment on above: Order Comment: Speci men Type: BLOOD SPECIMENOrdering Facility: [facility] Address: [address] [place] [address] Performed By: #### 5 7021-8 ####[facility] HOSPITALNCNydia [id number] [place] [address] [place] WBC (Bld) [#/Vol] 9.00 10*3/uL Normal 3.70-11.00 [facility] Comment on above: Order Comment: Speci men Type: BLOOD SPECIMENOrdering Facility: [facility] Address: [address] [place] [address] Performed By: #### 5 7021-8 ####[facility] [id number] [place] [address] [place] CK SerPl-cCncon 11-07-2024 CK [Catalytic activity/Vol] 74 U/L Normal 42-196 [facility] Comment on above: Order Comment: Speci men Type: BLOOD SPECIMENOrdering Facility: [facility] Address: [address] [place] [address] Performed By: #### 2 157-6 ####[facility] LABCLIA [id number] [place] [address] [place] Comprehensive metabolic 2000 panelon 11-07-2024 Albumin [Mass/Vol] 4.1 g/dL Normal 3.9-4.9 [facility] Comment on above: Order Comment: Speci men Type: BLOOD SPECIMENOrdering Facility: [facility] Address: [address] [place] [address] Performed By: #### 2 4323-8 ####[facility] [id number] [place] [address] [place] ALP [Catalytic activity/Vol] 73 U/L Normal 34-123 [facility] Comment on above: Order Comment: Speci men Type: BLOOD SPECIMENOrdering Facility: [facility] Address: [address] [place] [address] Performed By: #### 2 4323-8 ####[facility] MILLTOWNCLIA [id number] [place] [address] [place] ALT [Catalytic activity/Vol] 40 U/L High 7-38 [facility] Comment on above: Order Comment: Speci men Type: BLOOD SPECIMENOrdering Facility: [facility] Address: [address] [place] [address] Performed By: #### 2 4323-8 ####[facility] HOSPITALWNCLIA [id number] [place] [address] [place] Anion gap [Moles/Vol] 12 mmol/L Normal 8-15 [facility] Comment on above: Order Comment: Speci men Type: BLOOD SPECIMENOrdering Facility: [facility] Address: [address] [place] [address] Performed By: #### 2 4323-8 ####[facility]OSPITALL[facility] [id number] [place] [address] [place] AST [Catalytic activity/Vol] 21 U/L Normal 13-35 [facility] Comment on above: Order Comment: Speci men Type: BLOOD SPECIMENOrdering Facility: [facility] Address: [address] [place] [address] Performed By: #### 2 4323-8 ####[facility] HOSPITALWNCLIA [id number] [place] [address] [place] Bilirubin [Mass/Vol] 0.3 mg/dL Normal 0.2-1.3 [facility] Comment on above: Order Comment: Speci men Type: BLOOD SPECIMENOrdering Facility: [facility] Address: [address] [place] [address] Performed By: #### 2 4323-8 ####[facility]OSPITALNCLIA [id number] [place] [address] [place] Calcium [Mass/Vol] 9.6 mg/dL Normal 8.5-10.2 [facility] Comment on above: Order Comment: Speci men Type: BLOOD SPECIMENOrdering Facility: [facility] Address: [address] [place] [address] Performed By: #### 2 4323-8 ####[facility] MILLWNCLIA [id number] [place] [address] [place] Chloride [Moles/Vol] 96 mmol/L Low 98-107 [facility] Comment on above: Order Comment: Speci men Type: BLOOD SPECIMENOrdering Facility: [facility] Address: [address] [place] [address] Performed By: #### 2 4323-8 ####[facility]OSPITALLIA [id number] [place] [address] [place] CO2 [Moles/Vol] 27 mmol/L Normal 22-30 [facility] Comment on above: Order Comment: Speci men Type: BLOOD SPECIMENOrdering Facility: [facility] Address: [address] [place] [address] Performed By: #### 2 4323-8 ####[facility]ITALL[facility] [id number] [place] [address] [place] Creatinine [Mass/Vol] 0.75 mg/dL Normal 0.58-0.96 [facility] Comment on above: Order Comment: Speci men Type: BLOOD SPECIMENOrdering Facility: [facility] Address: [address] [place] [address] Performed By: #### 2 4323-8 ####[facility]OSPITALLIA [id number] [place] [address] [place] Creatinine and Glomerular filtration rate.predicted panel (S/P/Bld) 87 mL/min/1.73m??? Normal >=60 [facility] Comment on above: Order Comment: Speci men Type: BLOOD SPECIMENOrdering Facility: [facility] Address: [address] [address] Result Comment: Sujey mated Glomerular Filtration Rate (eGFR) is calculated using the 2020 CKD-EPI creatinine equation. This equation utilizes serum creatinine, sex, and age as parameters. The creatinine assay has traceable calibration to isotope dilution-mass spectrometry. Refer to KDIGO guidelines for clinical interpretation. In patients with unstable renal function, e.g. those with acute kidney injury, the eGFR may not accurately reflect actual GFR. Performed By: #### 2 4323-8 ####[facility] [id number] [place] [address] [place] Glucose [Mass/Vol] 115 mg/dL High 74-99 [facility] Comment on above: Order Comment: Ceferino sandoval Type: BLOOD SPECIMENOrdering Facility: [facility] Address: [address] [place] [address] Result Comment: The [place] Diabetes Association (ADA) provides guidance for cutoff values for fasting glucose and random glucose. The ADA defines fasting as no caloric intake for at least 8 hours. Fasting plasma glucose results between 100 to 125 mg/dL indicate increased risk for diabetes (prediabetes). Fasting plasma glucose results greater than or equal to 126 mg/dL meet the criteria for diagnosis of diabetes. In the absence of unequivocal hyperglycemia, results should be confirmed by repeat testing. In a patient with classic symptoms of hyperglycemia or hyperglycemic crisis, random plasma glucose results greater than or equal to 200 mg/dL meet the criteria for diagnosis of diabetes. Reference: Standards of Medical Care in Diabetes 2016, [employer] Diabetes Association. Diabetes Care. 2016.39(Suppl 1). Performed By: #### 2 4323-8 ####[facility] HOSPITALLI [id number] [place] [address] [place] Potassium [Moles/Vol] 4.3 mmol/L Normal 3.7-5.1 [facility] Comment on above: Order Comment: Ceferino sandoval Type: BLOOD SPECIMENOrdering Facility: [facility] Address: [address] [address] Performed By: #### 2 4323-8 ####[facility] MILLTOWNCLIA [id number] [place] [address] [place] Protein [Mass/Vol] 7.2 g/dL Normal 6.3-8.0 [facility] Comment on above: Order Comment: Speci men Type: BLOOD SPECIMENOrdering Facility: [facility] Address: [address] [place] [address] Performed By: #### 2 4323-8 ####[facility] ALCIRAKMLIA [id number] [place] [address] [place] Sodium [Moles/Vol] 135 mmol/L Low 136-144 [facility] Comment on above: Order Comment: Speci men Type: BLOOD SPECIMENOrdering Facility: [facility] Address: [address] [place] [address] Performed By: #### 2 4323-8 ####[facility] MILLJEFFWNCLIA [id number] [place] [address] [place] Urea nitrogen [Mass/Vol] 10 mg/dL Normal 7-21 [facility] Comment on above: Order Comment: Speci men Type: BLOOD SPECIMENOrdering Facility: [facility] Address: [address] [place] [address] Performed By: #### 2 4323-8 ####[facility] HOSPITALWNCLIA [id number] [place] [address] [place] ECG COMPLETEon 11-06-2024 Atrial Rate 79 BPM [facility] Calculated P [place] 64 degrees [facility] Calculated R [place] 47 degrees [facility] Calculated T [place] 32 degrees [facility] P-R Interval 160 ms [facility] QRS Duration 78 ms [facility] QT Interval 356 ms [facility] QTC Calculation (Bazett) 408 ms [facility] Ventricular Rate 79 BPM [facility] NORMAL SINUS RHYTHM NORMAL ECG WHEN COMPARED WITH ECG OF 18-Sep-2024 09:56, NO SIGNIFICANT CHANGE WAS FOUND Confirmed by ALEXIA RAMIREZ MD ([id number]) on 11/06/2024 3:22:59 PM [facility] NAME : JESUS BENTON PID : [id number] : 1955 Gender : Female Race : ORD : [id number] Procedure Date : Nov 06 2024 09:53:43 Edit Date : Nov 06 2024 15:23:01 Diagnosis: NORMAL SINUS RHYTHM NORMAL ECG WHEN COMPARED WITH ECG OF 18-Sep-2024 09:56, NO SIGNIFICANT CHANGE WAS FOUND Confirmed by ALEXIA RAMIREZ MD ([id number]) on 11/06/2024 3:22:59 PM Test Reason : Arrhythmia Location : 0 : CARD Overread By : ALEXIA RAMIREZ MD Edited By : ALEXIA RAMIREZ MD Referred By : MISTI BLANK Acquired by : Shanti Augustin [facility] ECG COMPLETE Ventricular Rate : 7 9 BPM Atrial Rate : 79 BPM P-R Interval : 160 ms QRS Duration : 78 ms Q-T Interval : 356 ms QTC Calculation(Bazett) : 408 ms Calculated P [place] : 64 degrees Calculated R [place] : 47 degrees Calculated T [place] : 32 degrees NORMAL SINUS RHYTHM NORMAL ECG WHEN COMPARED WITH ECG OF 18-Sep-2024 09:56, NO SIGNIFICANT CHANGE WAS FOUND Confirmed by ALEXIA RAMIREZ MD ([id number]) on 11/06/2024 3:22:59 PM NAME : JESUS BENTON PID : [id number] : 1955 Gender : Female Race : ORD : [id number] Procedure Date : Nov 06 2024 09:53:43 Edit Date : Nov 06 2024 15:23:01 Diagnosis: NORMAL SINUS RHYTHM NORMAL ECG WHEN COMPARED WITH ECG OF 18-Sep-2024 09:56, NO SIGNIFICANT CHANGE WAS FOUND Confirmed by ALEXIA RAMIREZ MD ([id number]) on 11/06/2024 3:22:59 PM Test Reason : Arrhythmia Location : 0 : CARD Overread By : ALEXIA RAMIREZ MD Edited By : ALEXIA RAMIREZ MD Referred By : MISTI BLANK Acquired by : Shanti Augustin [facility] ([id number]) 1955 F Date Time Provider Department 11/01/24 MISTI BLANK [facility] During your visit today, we recorded the following information about you: Allergies As of Date: 11/01/2024 Noted Allergy Reaction AMLODIPINE 04/20/2023 9 - Itching LATEX 05/19/2023 2 - Rash Date Reviewed: 05/19/2024 Reviewed by: Nida Null MA - Fully Assessed Prescriptions as of 11/01/2024 - TIBSOVO 250 mg tablet TAKE 2 TABLETS BY MOUTH ONCE DAILY IN THE AFTERNOON - losartan (COZAAR) 25 mg tablet Take 25 mg by mouth once daily. - rosuvastatin (CRESTOR) 5 mg tablet Take 5 mg by mouth once daily. - famotidine (PEPCID) 40 mg tablet Take 1 tablet by mouth once daily. Continue while taking steroids - cholecalciferol, vitamin D3, (VITAMIN D-3) 10 mcg (400 unit) cap Take 400 Units by mouth once daily. - oxybutynin ER (DITROPAN XL) 10 mg 24 hr tablet Take 10 mg by mouth once daily. - traZODone (DESYREL) 50 mg tablet Take 1 tablet by mouth daily at bedtime. - estradiol 1 mg ORAL tablet Take 1 mg by mouth once daily. - VITAMIN C 250 MG TAB Take one(1) tablet daily. 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 Word finding difficulty [R47.89] 11/23/2023 Encounter Status:Closed by VON DAVILA on 11/01/24 Normal [facility] CNPNon 10-13-2024 CNPN Telephone (NSCAMN) JESUS BENTON ([id number]) 1955 F Date Time Provider Department 10/13/24 MISTI BLANK NSCAMN During your visit today, we recorded the following information about you: Nida Payton RN 10/13/2024 11:40 AM Signed Scheduling Request - Established Patient Time Frame: 6 weeks Orders: MRI brain at [place] Provider: Abhay Visit type: Virtual Visit Diagnosis: astrocytoma Micaela Martinez R 10/16/2024 2:50 PM Signed Done Allergies As of Date: 10/13/2024 Noted Allergy Reaction AMLODIPINE 04/20/2023 9 - Itching LATEX 05/19/2023 2 - Rash Date Reviewed: 05/19/2024 Reviewed by: Nida Null MA - Fully Assessed Reason for Visit: 6 weeks [Other] Prescriptions as of 10/16/2024 - TIBSOVO 250 mg tablet TAKE 2 TABLETS BY MOUTH ONCE DAILY IN THE AFTERNOON - losartan (COZAAR) 25 mg tablet Take 25 mg by mouth once daily. - rosuvastatin (CRESTOR) 5 mg tablet Take 5 mg by mouth once daily. - famotidine (PEPCID) 40 mg tablet Take 1 tablet by mouth once daily. Continue while taking steroids - cholecalciferol, vitamin D3, (VITAMIN D-3) 10 mcg (400 unit) cap Take 400 Units by mouth once daily. - oxybutynin ER (DITROPAN XL) 10 mg 24 hr tablet Take 10 mg by mouth once daily. - traZODone (DESYREL) 50 mg tablet Take 1 tablet by mouth daily at bedtime. - estradiol 1 mg ORAL tablet Take 1 mg by mouth once daily. - VITAMIN C 250 MG TAB Take one(1) tablet daily. 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 Word finding difficulty [R47.89] 11/23/2023 Encounter Status:Closed by NIDA PAYTON on 10/16/24 Normal [facility] CBC W Auto Differential pane l (Bld)on 10-10-2024 Basophils (Bld) [#/Vol] 0.09 10*3/uL Normal <0.11 [facility] Comment on above: Order Comment: Speci men Type: BLOOD SPECIMENOrdering Facility: [facility] Address: [address] [place] [address] Performed By: #### 5 7021-8 ####[facility] [id number] [place] [address] [place] Basophils/100 WBC (Bld) 1.3 % Normal [facility] Comment on above: Order Comment: Speci men Type: BLOOD SPECIMENOrdering Facility: [facility] Address: [address] [place] [address] Performed By: #### 5 7021-8 ####[facility] [id number] [place] [address] [place] Differential cell count method Nom (Bld) Auto Normal [facility] Comment on above: Order Comment: Speci men Type: BLOOD SPECIMENOrdering Facility: [facility] Address: [address] [place] [address] Performed By: #### 5 7021-8 ####[facility] HOSPITALWNCA [id number] [place] [address] [place] Eosinophils (Bld) [#/Vol] 0.57 10*3/uL High <0.46 [facility] Comment on above: Order Comment: Speci men Type: BLOOD SPECIMENOrdering Facility: [facility] Address: [address] [place] [address] Performed By: #### 5 7021-8 ####[facility] [id number] [place] [address] [place] Eosinophils/100 WBC (Bld) 8.1 % Normal [facility] Comment on above: Order Comment: Speci men Type: BLOOD SPECIMENOrdering Facility: [facility] Address: [address] [place] [address] Performed By: #### 5 7021-8 ####[facility]ITALNCS[facility] [id number] [place] [address] [place] Erythrocyte distribution width (RBC) [Ratio] 13.6 % Normal 11.5-15.0 [facility] Comment on above: Order Comment: Speci men Type: BLOOD SPECIMENOrdering Facility: [facility] Address: [address] [place] [address] Performed By: #### 5 7021-8 ####[facility] HOSPITALNCLI [id number] [place] [address] [place] Hematocrit (Bld) [Volume fraction] 41.6 % Normal 36.0-46.0 [facility] Comment on above: Order Comment: Speci men Type: BLOOD SPECIMENOrdering Facility: [facility] Address: [address] [place] [address] Performed By: #### 5 7021-8 ####[facility] HOSPITALBOOGIESAN JUAN HOSPITAL [id number] [place] [address] [place] Hemoglobin (Bld) [Mass/Vol] 13.9 g/dL Normal 11.5-15.5 [facility] Comment on above: Order Comment: Speci men Type: BLOOD SPECIMENOrdering Facility: [facility] Address: [address] [place] [address] Performed By: #### 5 7021-8 ####[facility] [id number] [place] [address] [place] Immature granulocytes (Bld) [#/Vol] 0.03 10*3/uL Normal <0.10 [facility] Comment on above: Order Comment: Speci men Type: BLOOD SPECIMENOrdering Facility: [facility] Address: [address] [place] [address] Performed By: #### 5 7021-8 ####[facility] [id number] [place] [address] [place] Immature granulocytes/100 WBC (Bld) 0.4 % Normal [facility] Comment on above: Order Comment: Speci men Type: BLOOD SPECIMENOrdering Facility: [facility] Address: [address] [place] [address] Performed By: #### 5 7021-8 ####[facility] [id number] [place] [address] [place] Lymphocytes (Bld) [#/Vol] 2.02 10*3/uL Normal 1.00-4.00 [facility] Comment on above: Order Comment: Speci men Type: BLOOD SPECIMENOrdering Facility: [facility] Address: [address] [place] [address] Performed By: #### 5 7021-8 ####[facility] HOSPITALBOOGIELIA [id number] [place] [address] [place] Lymphocytes/100 WBC (Bld) 28.6 % Normal [facility] Comment on above: Order Comment: Speci men Type: BLOOD SPECIMENOrdering Facility: [facility] Address: [address] [place] [address] Performed By: #### 5 7021-8 ####[facility] HOSPITALMARKUS [id number] [place] [address] [place] MCH (RBC) [Entitic mass] 30.3 pg Normal 26.0-34.0 [facility] Comment on above: Order Comment: Speci men Type: BLOOD SPECIMENOrdering Facility: [facility] Address: [address] [place] [address] Performed By: #### 5 7021-8 ####[facility] [id number] [address] [place] MCHC (RBC) [Mass/Vol] 33.4 g/dL Normal 30.5-36.0 [facility] Comment on above: Order Comment: Speci men Type: BLOOD SPECIMENOrdering Facility: [facility] Address: [address] [place] [address] Performed By: #### 5 7021-8 ####[facility] [id number] [place] [address] [place] MCV (RBC) [Entitic vol] 90.8 fL Normal 80.0-100.0 [facility] Comment on above: Order Comment: Speci men Type: BLOOD SPECIMENOrdering Facility: [facility] Address: [address] [place] [address] Performed By: #### 5 7021-8 ####[facility] [id number] [place] [address] [place] Monocytes (Bld) [#/Vol] 0.46 10*3/uL Normal <0.87 [facility] Comment on above: Order Comment: Speci men Type: BLOOD SPECIMENOrdering Facility: [facility] Address: [address] [place] [address] Performed By: #### 5 7021-8 ####[facility] [id number] [place] [address] [place] Monocytes/100 WBC (Bld) 6.5 % Normal [facility] Comment on above: Order Comment: Speci men Type: BLOOD SPECIMENOrdering Facility: [facility] Address: [address] [place] [address] Performed By: #### 5 7021-8 ####[facility] [id number] [place] [address] [place] Neutrophils (Bld) [#/Vol] 3.89 10*3/uL Normal 1.45-7.50 [facility] Comment on above: Order Comment: Speci men Type: BLOOD SPECIMENOrdering Facility: [facility] Address: [address] [place] [address] Performed By: #### 5 7021-8 ####[facility] [id number] [place] [address] [place] Neutrophils/100 WBC (Bld) 55.1 % Normal [facility] Comment on above: Order Comment: Speci men Type: BLOOD SPECIMENOrdering Facility: [facility] Address: [address] [place] [address] Performed By: #### 5 7021-8 ####[facility] [id number] [place] [address] [place] Nucleated RBC (Bld) [#/Vol] 10*3/uL Normal <0.01 [facility] Comment on above: Order Comment: Speci men Type: BLOOD SPECIMENOrdering Facility: [facility] Address: [address] [place] [address] Performed By: #### 5 7021-8 ####[facility] ALCIRAGINNY [id number] [place] [address] [place] Nucleated RBC/100 WBC (Bld) [Ratio] 0.0 /100 WBC Normal [facility] Comment on above: Order Comment: Speci men Type: BLOOD SPECIMENOrdering Facility: [facility] Address: [address] [place] [address] Performed By: #### 5 7021-8 ####[facility]OSPITALNCMOE [id number] [place] [address] [place] Platelet mean volume (Bld) [Entitic vol] 9.8 fL Normal 9.0-12.7 [facility] Comment on above: Order Comment: Speci men Type: BLOOD SPECIMENOrdering Facility: [facility] Address: [address] [place] [address] Performed By: #### 5 7021-8 ####[facility] PARKNydia [id number] [place] [address] [place] Platelets (Bld) [#/Vol] 300 10*3/uL Normal 150-400 [facility] Comment on above: Order Comment: Speci men Type: BLOOD SPECIMENOrdering Facility: [facility] Address: [address] [place] [address] Performed By: #### 5 7021-8 ####[facility]ALL[facility] [id number] [place] [address] [place] RBC (Bld) [#/Vol] 4.58 10*6/uL Normal 3.90-5.20 [facility] Comment on above: Order Comment: Speci men Type: BLOOD SPECIMENOrdering Facility: [facility] Address: [address] [place] [address] Performed By: #### 5 7021-8 ####[facility]ITALNCLIA [id number] [place] [address] [place] WBC (Bld) [#/Vol] 7.06 10*3/uL Normal 3.70-11.00 [facility] Comment on above: Order Comment: Speci men Type: BLOOD SPECIMENOrdering Facility: [facility] Address: [address] [place] [address] Performed By: #### 5 7021-8 ####[facility] [id number] [place] [address] [place] CK SerPl-cCncon 10-10-2024 CK [Catalytic activity/Vol] 61 U/L Normal 42-196 [facility] Comment on above: Order Comment: Speci men Type: BLOOD SPECIMENOrdering Facility: [facility] Address: [address] [place] [address] Performed By: #### 2 157-6 ####[facility] LABCLIA [id number] [address] [address] [place] Comprehensive metabolic 2000 panelon 10-10-2024 Albumin [Mass/Vol] 4.4 g/dL Normal 3.9-4.9 [facility] Comment on above: Order Comment: Speci men Type: BLOOD SPECIMEN Ordering Facility: [facility] Address: [address] [place] [address] Performed By: #### 2 157-6 #### [facility] CLIA [id number] [address] [place] [address] [place] ALP [Catalytic activity/Vol] 60 U/L Normal 34-123 [facility] Comment on above: Order Comment: Speci men Type: BLOOD SPECIMEN [facility]ing [facility]: [facility] Address: [address] [place] [address] Performed By: #### 2 157-6 #### [facility] CLIA [id number] [address] [place] [id number] [place] ALT [Catalytic activity/Vol] 13 U/L Normal 7-38 [facility] Comment on above: Order Comment: Speci men Type: BLOOD SPECIMEN Ordering Facility: [facility] Address: [address] [place] [address] Performed By: #### 2 157-6 #### [facility] CLIA [id number] [address] [place], [place] [address] [place] Anion gap [Moles/Vol] 8 mmol/L Normal 8-15 [facility] Comment on above: Order Comment: Speci men Type: BLOOD SPECIMEN Ordering Facility: [facility] Address: [address] [place] [address] Performed By: #### 2 157-6 #### [facility] CLIA [id number] [address] [place] [address] [place] AST [Catalytic activity/Vol] 15 U/L Normal 13-35 [facility] Comment on above: Order Comment: Speci men Type: BLOOD SPECIMEN [facility]ing [facility]: [facility] Address: [address] [place] [address] Performed By: #### 2 157-6 #### [facility] CLIA [id number] [address] [place], [place] [address] [place] Bilirubin [Mass/Vol] 0.3 mg/dL Normal 0.2-1.3 [facility] Comment on above: Order Comment: Speci men Type: BLOOD SPECIMEN [facility]ing [facility]: [facility] Address: [address] [place] [address] Performed By: #### 2 157-6 #### [facility] CLIA [id number] [address] [place] [address] [place] Calcium [Mass/Vol] 9.6 mg/dL Normal 8.5-10.2 [facility] Comment on above: Order Comment: Speci men Type: BLOOD SPECIMEN [facility]ing [facility]: [facility] Address: [address] [place] [address] Performed By: #### 2 157-6 #### [facility] CLIA [id number] [address] [place] [address] [place] Chloride [Moles/Vol] 102 mmol/L Normal 98-107 [facility] Comment on above: Order Comment: Speci men Type: BLOOD SPECIMEN [facility]ing [facility]: [facility] Address: [address] [place] [address] Performed By: #### 2 157-6 #### [facility] CLIA [id number] [address] [place] [address] [place] CO2 [Moles/Vol] 28 mmol/L Normal 22-30 [facility] Comment on above: Order Comment: Speci men Type: BLOOD SPECIMEN [facility]ing [facility]: [facility] Address: [address] [place] [address] Performed By: #### 2 157-6 #### [facility] CLIA [id number] [address] [place] [address] [place] Creatinine [Mass/Vol] 0.76 mg/dL Normal 0.58-0.96 [facility] Comment on above: Order Comment: Speci men Type: BLOOD SPECIMEN [facility]ing [facility]: [facility] Address: [address] [place] [address] Performed By: #### 2 157-6 #### [facility] CLIA [id number] [address] [place] [address] [place] Creatinine and Glomerular filtration rate.predicted panel (S/P/Bld) 85 mL/min/1.73m??? Normal >=60 [facility] Comment on above: Order Comment: Speci men Type: BLOOD SPECIMEN [facility]ing Facility: [facility] Address: [address] [place] [address] Result Comment: Sujey mated Glomerular Filtration Rate (eGFR) is calculated using the 2020 CKD-EPI creatinine equation. This equation utilizes serum creatinine, sex, and age as parameters. The creatinine assay has traceable calibration to isotope dilution-mass spectrometry. Refer to KDIGO guidelines for clinical interpretation. In patients with unstable renal function, e.g. those with acute kidney injury, the eGFR may not accurately reflect actual GFR. Performed By: #### 2 157-6 #### [facility] CLIA [id number] [address] [place] [address] [place] Glucose [Mass/Vol] 116 mg/dL High 74-99 [facility] Comment on above: Order Comment: Speci men Type: BLOOD SPECIMEN [facility]ing [facility]: [facility] Address: [address] [place] [address] Result Comment: The [place] Diabetes [employer] (ADA) provides guidance for cutoff values for fasting glucose and random glucose. The ADA defines fasting as no caloric intake for at least 8 hours. Fasting plasma glucose results between 100 to 125 mg/dL indicate increased risk for diabetes (prediabetes). Fasting plasma glucose results greater than or equal to 126 mg/dL meet the criteria for diagnosis of diabetes. In the absence of unequivocal hyperglycemia, results should be confirmed by repeat testing. In a patient with classic symptoms of hyperglycemia or hyperglycemic crisis, random plasma glucose results greater than or equal to 200 mg/dL meet the criteria for diagnosis of diabetes. Reference: Standards of Medical Care in Diabetes 2016, [employer] Diabetes Association. Diabetes Care. 2016.39(Suppl 1). Performed By: #### 2 157-6 #### [facility] CLIA [id number] [address] [place], [place] [address] [place] Potassium [Moles/Vol] 4.2 mmol/L Normal 3.7-5.1 [facility] Comment on above: Order Comment: Speci men Type: BLOOD SPECIMEN [facility]ing [facility]: [facility] Address: [address] [place] [address] Performed By: #### 2 157-6 #### [facility] CLIA [id number] [address] [place] [address] [place] Protein [Mass/Vol] 6.8 g/dL Normal 6.3-8.0 [facility] Comment on above: Order Comment: Speci men Type: BLOOD SPECIMEN Ordering [facility]: [facility] Address: [address] [place], [place] [address] Performed By: #### 2 157-6 #### [facility] CLIA [id number] [address] [place], [place] [address] [place] Sodium [Moles/Vol] 138 mmol/L Normal 136-144 [facility] Comment on above: Order Comment: Speci men Type: BLOOD SPECIMEN [facility]ing [facility]: [facility] Address: [address] [place] [address] Performed By: #### 2 157-6 #### [facility] CLIA [id number] [address] [place] [address] [place] Urea nitrogen [Mass/Vol] 12 mg/dL Normal 7-21 [facility] Comment on above: Order Comment: Speci men Type: BLOOD SPECIMEN [facility]ing [facility]: [facility] Address: [address] [place] [address] Performed By: #### 2 157-6 #### [facility] CLIA [id number] [address] [place], [place] [address] [place] ECG COMPLETEon 09-18-2024 Atrial Rate 77 BPM [facility] Calculated P [place] 53 degrees [facility] Calculated R [place] 43 degrees [facility] Calculated T [place] 41 degrees [facility] P-R Interval 150 ms [facility] QRS Duration 86 ms [facility] QT Interval 374 ms [facility] QTC Calculation (Bazett) 423 ms [facility] Ventricular Rate 77 BPM [facility] NORMAL SINUS RHYTHM NORMAL ECG WHEN COMPARED WITH ECG OF 07-Aug-2024 09:50, NO SIGNIFICANT CHANGE WAS FOUND Confirmed by BELTRAN CHAUDHARY M.D. ([id number]) on 09/18/2024 3:57:13 PM [facility] NAME : JESUS BENTON PID : [id number] : 1955 Gender : Female Race : ORD : [id number] Procedure Date : Sep 18 2024 09:56:47 Edit Date : Sep 18 2024 15:57:19 Diagnosis: NORMAL SINUS RHYTHM NORMAL ECG WHEN COMPARED WITH ECG OF 07-Aug-2024 09:50, NO SIGNIFICANT CHANGE WAS FOUND Confirmed by BELTRAN CHAUDHARY M.D. ([id number]) on 09/18/2024 3:57:13 PM Test Reason : Arrhythmia Location : 0 : CARD Overread By : BELTRAN CHAUDHARY M.D. Edited By : BELTRAN CHAUDHARY M.D. Referred By : MISTI BLANK Acquired by : [facility] ECG COMPLETE Ventricular Rate : 7 7 BPM Atrial Rate : 77 BPM P-R Interval : 150 ms QRS Duration : 86 ms Q-T Interval : 374 ms QTC Calculation(Bazett) : 423 ms Calculated P [place] : 53 degrees Calculated R [place] : 43 degrees Calculated T [place] : 41 degrees NORMAL SINUS RHYTHM NORMAL ECG WHEN COMPARED WITH ECG OF 07-Aug-2024 09:50, NO SIGNIFICANT CHANGE WAS FOUND Confirmed by BELTRAN CHAUDHARY M.D. ([id number]) on 09/18/2024 3:57:13 PM NAME : JESUS BENTON PID : [id number] : 1955 Gender : Female Race : ORD : [id number] Procedure Date : Sep 18 2024 09:56:47 Edit Date : Sep 18 2024 15:57:19 Diagnosis: NORMAL SINUS RHYTHM NORMAL ECG WHEN COMPARED WITH ECG OF 07-Aug-2024 09:50, NO SIGNIFICANT CHANGE WAS FOUND Confirmed by BELTRAN CHAUDHARY M.D. ([id number]) on 09/18/2024 3:57:13 PM Test Reason : Arrhythmia Location : 0 : CARD Overread By : BELTRAN CHAUDHARY M.D. Edited By : BELTRAN CHAUDHARY M.D. Referred By : MISTI BLANK [facility] Auto Differential pane l (Bld)on 09-12-2024 Basophils (Bld) [#/Vol] 0.05 10*3/uL Normal <0.11 [facility] Comment on above: Order Comment: Speci men Type: BLOOD SPECIMENOrdering Facility: [facility] Address: [address] [place] [address] Performed By: #### 5 7021-8 ####[facility] [id number] [place] [address] [place] Basophils/100 WBC (Bld) 0.8 % Normal [facility] Comment on above: Order Comment: Speci men Type: BLOOD SPECIMENOrdering Facility: [facility] Address: [address] [place] [address] Performed By: #### 5 7021-8 ####[facility] [id number] [place] [address] [place] Differential cell count method Nom (Bld) Auto Normal [facility] Comment on above: Order Comment: Speci men Type: BLOOD SPECIMENOrdering Facility: [facility] Address: [address] [place] [address] Performed By: #### 5 7021-8 ####[facility] [id number] [place] [address] [place] Eosinophils (Bld) [#/Vol] 0.57 10*3/uL High <0.46 [facility] Comment on above: Order Comment: Speci men Type: BLOOD SPECIMENOrdering Facility: [facility] Address: [address] [place] [address] Performed By: #### 5 7021-8 ####[facility] [id number] [place] [address] [place] Eosinophils/100 WBC (Bld) 9.6 % Normal [facility] Comment on above: Order Comment: Speci men Type: BLOOD SPECIMENOrdering Facility: [facility] Address: [address] [place] [address] Performed By: #### 5 7021-8 ####[facility] [id number] [place] [address] [place] Erythrocyte distribution width (RBC) [Ratio] 13.3 % Normal 11.5-15.0 [facility] Comment on above: Order Comment: Speci men Type: BLOOD SPECIMENOrdering Facility: [facility] Address: [address] [place] [address] Performed By: #### 5 7021-8 ####[facility] RONYGURUNydia [id number] [place] [address] [place] Hematocrit (Bld) [Volume fraction] 41.7 % Normal 36.0-46.0 [facility] Comment on above: Order Comment: Speci men Type: BLOOD SPECIMENOrdering Facility: [facility] Address: [address] [place] [address] Performed By: #### 5 7021-8 ####[facility]PITALMIHAELA [id number] [place] [address] [place] Hemoglobin (Bld) [Mass/Vol] 13.7 g/dL Normal 11.5-15.5 [facility] Comment on above: Order Comment: Speci men Type: BLOOD SPECIMENOrdering Facility: [facility] Address: [address] [place] [address] Performed By: #### 5 7021-8 ####[facility] HOSPITALBOOGIENydia [id number] [place] [address] [place] Immature granulocytes (Bld) [#/Vol] 10*3/uL Normal <0.10 [facility] Comment on above: Order Comment: Speci men Type: BLOOD SPECIMENOrdering Facility: [facility] Address: [address] [place] [address] Performed By: #### 5 7021-8 ####[facility] HOSPITALMARKUSA [id number] [place] [address] [place] Immature granulocytes/100 WBC (Bld) 0.2 % Normal [facility] Comment on above: Order Comment: Speci men Type: BLOOD SPECIMENOrdering Facility: [facility] Address: [address] [place] [address] Performed By: #### 5 7021-8 ####[facility] MILLWNCLIA [id number] [place] [address] [place] Lymphocytes (Bld) [#/Vol] 1.97 10*3/uL Normal 1.00-4.00 [facility] Comment on above: Order Comment: Speci men Type: BLOOD SPECIMENOrdering Facility: [facility] Address: [address] [place] [address] Performed By: #### 5 7021-8 ####[facility]ITALLIA [id number] [place] [address] [place] Lymphocytes/100 WBC (Bld) 33.2 % Normal [facility] Comment on above: Order Comment: Speci men Type: BLOOD SPECIMENOrdering Facility: [facility] Address: [address] [place] [address] Performed By: #### 5 7021-8 ####[facility] [id number] [place] [address] [place] MCH (RBC) [Entitic mass] 30.2 pg Normal 26.0-34.0 [facility] Comment on above: Order Comment: Speci men Type: BLOOD SPECIMENOrdering Facility: [facility] Address: [address] [place] [address] Performed By: #### 5 7021-8 ####[facility] HOSPITALLIA [id number] [place] [address] [place] MCHC (RBC) [Mass/Vol] 32.9 g/dL Normal 30.5-36.0 [facility] Comment on above: Order Comment: Speci men Type: BLOOD SPECIMENOrdering Facility: [facility] Address: [address] [place] [address] Performed By: #### 5 7021-8 ####[facility] HOSPITALNCLI [id number] [place] [address] [place] MCV (RBC) [Entitic vol] 92.1 fL Normal 80.0-100.0 [facility] Comment on above: Order Comment: Speci men Type: BLOOD SPECIMENOrdering Facility: [facility] Address: [address] [place] [address] Performed By: #### 5 7021-8 ####[facility]PITALNCLIA [id number] [place] [address] [place] Monocytes (Bld) [#/Vol] 0.47 10*3/uL Normal <0.87 [facility] Comment on above: Order Comment: Speci men Type: BLOOD SPECIMENOrdering Facility: [facility] Address: [address] [place] [address] Performed By: #### 5 7021-8 ####[facility]PITALNCLIA [id number] [place] [address] [place] Monocytes/100 WBC (Bld) 7.9 % Normal [facility] Comment on above: Order Comment: Speci men Type: BLOOD SPECIMENOrdering Facility: [facility] Address: [address] [place] [address] Performed By: #### 5 7021-8 ####[facility]PITALNCLIA [id number] [place] [address] [place] Neutrophils (Bld) [#/Vol] 2.86 10*3/uL Normal 1.45-7.50 [facility] Comment on above: Order Comment: Speci men Type: BLOOD SPECIMENOrdering Facility: [facility] Address: [address] [place] [address] Performed By: #### 5 7021-8 ####[facility]PITALNCLIA [id number] [place] [address] [place] Neutrophils/100 WBC (Bld) 48.3 % Normal [facility] Comment on above: Order Comment: Speci men Type: BLOOD SPECIMENOrdering Facility: [facility] Address: [address] [place] [address] Performed By: #### 5 7021-8 ####[facility] HOSPITALMIHAELA [id number] [place] [address] [place] Nucleated RBC (Bld) [#/Vol] 10*3/uL Normal <0.01 [facility] Comment on above: Order Comment: Speci men Type: BLOOD SPECIMENOrdering Facility: [facility] Address: [address] [place] [address] Performed By: #### 5 7021-8 ####[facility]ITALNCS[facility] [id number] [place] [address] [place] Nucleated RBC/100 WBC (Bld) [Ratio] 0.0 /100 WBC Normal [facility] Comment on above: Order Comment: Speci men Type: BLOOD SPECIMENOrdering Facility: [facility] Address: [address] [place] [address] Performed By: #### 5 7021-8 ####[facility] HOSPITALNCA [id number] [place] [address] [place] ANGIE Platelet mean volume (Bld) [Entitic vol] 9.7 fL Normal 9.0-12.7 [facility] Comment on above: Order Comment: Speci men Type: BLOOD SPECIMENOrdering Facility: [facility] Address: [address] [place] [address] Performed By: #### 5 7021-8 ####[facility]ITALNCLIA [id number] [place] [address] [place] Platelets (Bld) [#/Vol] 302 10*3/uL Normal 150-400 [facility] Comment on above: Order Comment: Speci men Type: BLOOD SPECIMENOrdering Facility: [facility] Address: [address] [place] [address] Performed By: #### 5 7021-8 ####[facility]ITALNCLIA [id number] [place] [address] [place] RBC (Bld) [#/Vol] 4.53 10*6/uL Normal 3.90-5.20 [facility] Comment on above: Order Comment: Speci men Type: BLOOD SPECIMENOrdering Facility: [facility] Address: [address] [place] [address] Performed By: #### 5 7021-8 ####[facility] [id number] [place] [address] [place] WBC (Bld) [#/Vol] 5.93 10*3/uL Normal 3.70-11.00 [facility] Comment on above: Order Comment: Speci men Type: BLOOD SPECIMENOrdering Facility: [facility] Address: [address] [place] [address] Performed By: #### 5 7021-8 ####[facility] [id number] [place] [address] [place] CK SerPl-cCncon 09-12-2024 CK [Catalytic activity/Vol] 77 U/L Normal 42-196 [facility] Comment on above: Order Comment: Speci men Type: BLOOD SPECIMENOrdering Facility: [facility] Address: [address] [place] [address] Performed By: #### 2 157-6 ####[facility] LABCLIA [id number] [address] [address] [place] Comprehensive metabolic 2000 panelon 09-12-2024 Albumin [Mass/Vol] 4.2 g/dL Normal 3.9-4.9 [facility] Comment on above: Order Comment: Speci men Type: BLOOD SPECIMENOrdering Facility: [facility] Address: [address] [place] [address] Performed By: #### 2 4323-8 ####[facility]ITALWNCLIA [id number] [place] [address] [place] ALP [Catalytic activity/Vol] 52 U/L Normal 34-123 [facility] Comment on above: Order Comment: Speci men Type: BLOOD SPECIMENOrdering Facility: [facility] Address: [address] [place] [address] Performed By: #### 2 4323-8 ####[facility] MILLTOWNCLIA [id number] [place] [address] [place] ALT [Catalytic activity/Vol] 12 U/L Normal 7-38 [facility] Comment on above: Order Comment: Speci men Type: BLOOD SPECIMENOrdering Facility: [facility] Address: [address] [place] [address] Performed By: #### 2 4323-8 ####[facility]ITALNCLIA [id number] [place] [address] [place] Anion gap [Moles/Vol] 9 mmol/L Normal 8-15 [facility] Comment on above: Order Comment: Speci men Type: BLOOD SPECIMENOrdering Facility: [facility] Address: [address] [place] [address] Performed By: #### 2 4323-8 ####[facility] ALCIRAWNCLIA [id number] [place] [address] [place] AST [Catalytic activity/Vol] 14 U/L Normal 13-35 [facility] Comment on above: Order Comment: Speci men Type: BLOOD SPECIMENOrdering Facility: [facility] Address: [address] [place] [address] Performed By: #### 2 4323-8 ####[facility] MILLTOWNCLIA [id number] [place] [address] [place] Bilirubin [Mass/Vol] 0.3 mg/dL Normal 0.2-1.3 [facility] Comment on above: Order Comment: Speci men Type: BLOOD SPECIMENOrdering Facility: [facility] Address: [address] [place] [address] Performed By: #### 2 4323-8 ####[facility] BONNIE URIBELIA [id number] [place] [address] [place] Calcium [Mass/Vol] 9.5 mg/dL Normal 8.5-10.2 [facility] Comment on above: Order Comment: Speci men Type: BLOOD SPECIMENOrdering Facility: [facility] Address: [address] [place] [address] Performed By: #### 2 4323-8 ####[facility] HOSPITALBOOGIELIA [id number] [place] [address] [place] Chloride [Moles/Vol] 102 mmol/L Normal 98-107 [facility] Comment on above: Order Comment: Speci men Type: BLOOD SPECIMENOrdering Facility: [facility] Address: [address] [place] [address] Performed By: #### 2 4323-8 ####[facility] HOSPITALLIA [id number] [place] [address] [place] CO2 [Moles/Vol] 29 mmol/L Normal 22-30 [facility] Comment on above: Order Comment: Speci men Type: BLOOD SPECIMENOrdering Facility: [facility] Address: [address] [place] [address] Performed By: #### 2 4323-8 ####[facility]ITALNCLIA [id number] [place] [address] [place] Creatinine [Mass/Vol] 0.69 mg/dL Normal 0.58-0.96 [facility] Comment on above: Order Comment: Speci men Type: BLOOD SPECIMENOrdering Facility: [facility] Address: [address] [place] [address] Performed By: #### 2 4323-8 ####[facility]ITALNCS[facility] [id number] [place] [address] [place] Creatinine and Glomerular filtration rate.predicted panel (S/P/Bld) 95 mL/min/1.73m??? Normal >=60 [facility] Comment on above: Order Comment: Ceferino sandoval Type: BLOOD SPECIMENOrdering Facility: [facility] Address: [address] [place] [address] Result Comment: Sujey mated Glomerular Filtration Rate (eGFR) is calculated using the 2020 CKD-EPI creatinine equation. This equation utilizes serum creatinine, sex, and age as parameters. The creatinine assay has traceable calibration to isotope dilution-mass spectrometry. Refer to KDIGO guidelines for clinical interpretation. In patients with unstable renal function, e.g. those with acute kidney injury, the eGFR may not accurately reflect actual GFR. Performed By: #### 2 4323-8 ####[facility] [id number] [place] [address] [place] Glucose [Mass/Vol] 83 mg/dL Normal 74-99 [facility] Comment on above: Order Comment: Ceferino sandoval Type: BLOOD SPECIMENOrdering Facility: [facility] Address: [address] [place] [address] Result Comment: The [place] Diabetes Association (ADA) provides guidance for cutoff values for fasting glucose and random glucose. The ADA defines fasting as no caloric intake for at least 8 hours. Fasting plasma glucose results between 100 to 125 mg/dL indicate increased risk for diabetes (prediabetes). Fasting plasma glucose results greater than or equal to 126 mg/dL meet the criteria for diagnosis of diabetes. In the absence of unequivocal hyperglycemia, results should be confirmed by repeat testing. In a patient with classic symptoms of hyperglycemia or hyperglycemic crisis, random plasma glucose results greater than or equal to 200 mg/dL meet the criteria for diagnosis of diabetes. Reference: Standards of Medical Care in Diabetes 2016, [employer] Diabetes Association. Diabetes Care. 2016.39(Suppl 1). Performed By: #### 2 4323-8 ####[facility] [id number] [place] [address] [place] Potassium [Moles/Vol] 4.3 mmol/L Normal 3.7-5.1 [facility] Comment on above: Order Comment: Speci men Type: BLOOD SPECIMENOrdering Facility: [facility] Address: [address] [place] [address] Performed By: #### 2 4323-8 ####[facility] MILLTOWNCLIA [id number] [place] [address] [place] Protein [Mass/Vol] 6.3 g/dL Normal 6.3-8.0 [facility] Comment on above: Order Comment: Speci men Type: BLOOD SPECIMENOrdering Facility: [facility] Address: [address] [place] [address] Performed By: #### 2 4323-8 ####[facility] MILLWNCLIA [id number] [place] [address] [place] Sodium [Moles/Vol] 140 mmol/L Normal 136-144 [facility] Comment on above: Order Comment: Speci men Type: BLOOD SPECIMENOrdering Facility: [facility] Address: [address] [place] [address] Performed By: #### 2 4323-8 ####[facility] MILLJEFFWNCLIA [id number] [place] [address] [place] Urea nitrogen [Mass/Vol] 11 mg/dL Normal 7-21 [facility] Comment on above: Order Comment: Speci men Type: BLOOD SPECIMENOrdering Facility: [facility] Address: [address] [place] [address] Performed By: #### 2 4323-8 ####[facility] MILLTOWNCLIA [id number] [place] [address] [place] Carotid Duplex Ultrasoundon 09-08-2024 Carotid Duplex Ultrasound [facility] [address] [place] [address] Carotid Duplex Ultrasound 09/08/24 1508 MR#: [id number] Acct: [id number] Name: JESUS BENTON Rep #: [id number] : 1955 68 From: Jef Finney MD Attending Dr: Dr. Pedro Tiwari MD Status: REG CLI Ordering Dr: Pedro Tiwari MD Date: 09/08/24 Location: [facility] Sex: F C Admitted: Reason For Study: Dizziness Rt. Velocities/BP Lt. Velocities/BP Prox CCA 75.6/25.3 cm/sec. Prox CCA 68.3/21.6 cm/sec. Mid CCA 72.0/26.5 cm/sec. Mid CCA 69.5/27.8 cm/sec. Dist CCA 65.8/25.3 cm/sec. Dist CCA 76.9/30.2 cm/sec. Prox ICA 64.6/24.1 cm/sec. Prox ICA 63.4/21.6 cm/sec. Mid ICA 85.5/41.3 cm/sec. Mid ICA 88.3/40.4 cm/sec. Dist ICA 103.9/52.3 cm/sec. Dist ICA 103.9/46.2 cm/sec. Rt. ICA/CCA = 1.4. Lt. ICA/CCA = 1.5. Prox ECA 51.6/11.9 cm/sec. Prox ECA 69.5/15.5 cm/sec. Rt. Vert. 52.3/20.4 cm/sec. Lt. Vert. 51.6/19.5 cm/sec. Right Extracranial There is intimal thickening but no significant atherosclerotic plaque noted in the right common carotid artery. There is intimal thickening but no significant atherosclerotic plaque noted in the right internal carotid artery. There is intimal thickening but no significant atherosclerotic plaque noted in the right external carotid artery. Antegrade flow is noted in the right vertebral artery. Left Extracranial There is intimal thickening but no significant atherosclerotic plaque noted in the left common carotid artery. There is intimal thickening but no significant atherosclerotic plaque noted in the left internal carotid artery. There is intimal thickening but no significant atherosclerotic plaque noted in the left external carotid artery. Antegrade flow is noted in the left vertebral artery. Procedure Carotid Duplex 52280. This is a Carotid Duplex examination using B-mode, color flow and specral Doppler. The exam was diagnostic. Exam performed in department. VL/Carotid Duplex Ultrasound Interpretation Summary No significant atherosclerotic plaque or stenosis noted in the internal carotid arteries bilaterally. Flow within the vertebral arteries is antegrade bilaterally. Ordering Physician: Pedro Tiwari Referring Physician: Pedro Tiwari Performed By: Saran Bhagat, T 09/08/24 8691 Date Jef Finney MD CC: Dr. Pedro Tiwari MD Date Dictated: 09/08/24 1508 Date Transcribed: 09/08/24 6987 Machine Shorthand Teacher: Signed [facility] 08-21-2024 [facility] Telephone ([facility]) JESUS BENTON ([id number]) 1955 F Date Time Provider Department 08/21/24 MIST[facility] During your visit today, we recorded the following information about you: Nida Payton, SEGUNDO 08/21/2024 4:02 PM Signed Scheduling Request - Established Patient Time Frame: 11 weeks Orders: MRI brain at [place] Provider: Abhay Visit type: virtual Diagnosis: astrocytoma Charles, Stefany 08/22/2024 12:55 PM Signed Done. Stefany Allergies As of Date: 08/21/2024 Noted Allergy Reaction AMLODIPINE 04/20/2023 9 - Itching LATEX 05/19/2023 2 - Rash Date Reviewed: 05/19/2024 Reviewed by: Nida Null MA - Fully Assessed Reason for Visit: YANICK- 11 weeks [Other] Prescriptions as of 08/22/2024 - iv contrast (will be provided with radiology test) MRI Brain Inject, intravenously, once for 1 dose.No IV access, insert saline lock prior to beginning of sedation, infusion, injection of imaging exam.Discontinue saline lock post exam. If Pt. has a central line or IVAD, may access for administration according to line specific nursing protocol.Once exam is complete flush line and de-access according to line specific nursing protocol in the MR contrast administration guidelines link - losartan (COZAAR) 25 mg tablet Take 25 mg by mouth once daily. - rosuvastatin (CRESTOR) 5 mg tablet Take 5 mg by mouth once daily. - TIBSOVO 250 mg tablet TAKE 2 TABLETS BY MOUTH EVERY AFTERNOON. - famotidine (PEPCID) 40 mg tablet Take 1 tablet by mouth once daily. Continue while taking steroids - cholecalciferol, vitamin D3, (VITAMIN D-3) 10 mcg (400 unit) cap Take 400 Units by mouth once daily. - oxybutynin ER (DITROPAN XL) 10 mg 24 hr tablet Take 10 mg by mouth once daily. - traZODone (DESYREL) 50 mg tablet Take 1 tablet by mouth daily at bedtime. - estradiol 1 mg ORAL tablet Take 1 mg by mouth once daily. - VITAMIN C 250 MG TAB Take one(1) tablet daily. 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 No evidence of interval neoplastic progression. Stable right frontal resection defect. No new or progressive adjacent enhancement. Stable extent of surrounding FLAIR hyperintensity since 05/18/2024, minimally increased along the medial margin since 11/19/2023, nonspecific and likely reflecting evolution of posttreatment change, however continued attention on follow-up recommended. 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 Ivosidenib since 07/21/2023. TECHNIQUE: Routine brain MRI protocol without and with contrast including diffusion images. MQ: MRBWOW_2 Contrast: 5 mL Elucirem IV COMPARISON: Multiple priors, most recently brain MRI 05/18/2024. RESULT: Acute Change: There is no evidence of restricted diffusion to suggest an acute infarct. Hemorrhage: Chronic postoperative blood products at the margins of the right frontal resection defect. No acute intracranial hemorrhage. Mass Lesion/ Mass Effect: Postoperative changes from right frontal craniotomy for mass resection. Underlying resection defect in the anterior-inferior right frontal lobe involving the orbital frontal region. Trace curvilinear enhancement within the resection cavity and abutting the margins is nonspecific and likely vascular and/or postoperative in nature. No new or progressive nodular or masslike enhancement. Stable extent of surrounding FLAIR hyperintense signal alteration compared to 05/18/2024, minimally increased at the medial aspect of the resection since 11/19/2023, nonspecific and may reflect evolution of posttreatment change. No significant mass effect. No abnormal enhancement elsewhere in the brain. Chronic Change: See above. Otherwise minimal nonspecific background white matter change. Parenchyma: No significant volume loss for age. The brain parenchyma is otherwise within normal limits of signal intensity and morphology. Ventricles: Stable normal caliber and morphology. Skull Base: Hypothalamic and pituitary region are grossly normal. Craniocervical junction is normal. No significant marrow replacement process. Vasculature: Small developmental venous anomaly in the left post central gyrus. Major intracranial arterial structures, and dural venous sinuses show typical flow void, suggesting patency by spin echo criteria. Other: Scattered mild paranasal sinus mucosal thickening. Essentially clear mastoid air cells. Postoperative changes in the scalp. Visualized extracranial soft tissues otherwise grossly unremarkable. 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 Ivosidenib since 07/21/2023. TECHNIQUE: Routine brain MRI protocol without and with contrast including diffusion images. MQ: MRBWOW_2 Contrast: 5 mL Elucirem IV COMPARISON: Multiple priors, most recently brain MRI 05/18/2024. RESULT: Acute Change: There is no evidence of restricted diffusion to suggest an acute infarct. Hemorrhage: Chronic postoperative blood products at the margins of the right frontal resection defect. No acute intracranial hemorrhage. Mass Lesion/ Mass Effect: Postoperative changes from right frontal craniotomy for mass resection. Underlying resection defect in the anterior-inferior right frontal lobe involving the orbital frontal region. Trace curvilinear enhancement within the resection cavity and abutting the margins is nonspecific and likely vascular and/or postoperative in nature. No new or progressive nodular or masslike enhancement. Stable extent of surrounding FLAIR hyperintense signal alteration compared to 05/18/2024, minimally increased at the medial aspect of the resection since 11/19/2023, nonspecific and may reflect evolution of posttreatment change. No significant mass effect. No abnormal enhancement elsewhere in the brain. Chronic Change: See above. Otherwise minimal nonspecific background white matter change. Parenchyma: No significant volume loss for age. The brain parenchyma is otherwise within normal limits of signal intensity and morphology. Ventricles: Stable normal caliber and morphology. Skull Base: Hypothalamic and pituitary region are grossly normal. Craniocervical junction is normal. No significant marrow replacement process. Vasculature: Small developmental venous anomaly in the left post central gyrus. Major intracranial arterial structures, and dural venous sinuses show typical flow void, suggesting patency by spin echo criteria. Other: Scattered mild paranasal sinus mucosal thickening. Essentially clear mastoid air cells. Postoperative changes in the scalp. Visualized extracranial soft tissues otherwise grossly unremarkable. IMPRESSION IMPRESSION: Stable MRI appearance of the brain since 05/18/2024. No evidence of interval neoplastic progression. Stable right frontal resection defect. No new or progressive adjacent enhancement. Stable extent of surrounding FLAIR hyperintensity since 05/18/2024, minimally increased along the medial margin since 11/19/2023, nonspecific and likely reflecting evolution of posttreatment change, however continued attention on follow-up recommended. Machine Shorthand Teacher: LEO Transcribe Date/Time: Aug 11 2024 10:05A Dictated by : WENDY HENDERSON MD This examination was interpreted and the report reviewed and electronically signed by: WENDY HENDERSON MD on Aug 11 2024 10:26AM EST [facility] Radiology Study observation (narrative) [facility] MR Brain WO and W contrast I VOrdered By: [facility] Provider on 08-11-2024 [facility] MRI BRAIN WO/W IVCONon 08-11 MRI BRAIN WO/W IVCON * * *Final Report* * * DATE OF EXAM: Aug 11 2024 9:48AM [facility] 0295 - MRI BRAIN WO/W IVCON / PROCEDURE REASON: 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 Ivosidenib since 07/21/2023. TECHNIQUE: Routine brain MRI protocol without and with contrast including diffusion images. MQ: MRBWOW_2 Contrast: 5 mL Elucirem IV COMPARISON: Multiple priors, most recently brain MRI 05/18/2024. RESULT: Acute Change: There is no evidence of restricted diffusion to suggest an acute infarct. Hemorrhage: Chronic postoperative blood products at the margins of the right frontal resection defect. No acute intracranial hemorrhage. Mass Lesion/ Mass Effect: Postoperative changes from right frontal craniotomy for mass resection. Underlying resection defect in the anterior-inferior right frontal lobe involving the orbital frontal region. Trace curvilinear enhancement within the resection cavity and abutting the margins is nonspecific and likely vascular and/or postoperative in nature. No new or progressive nodular or masslike enhancement. Stable extent of surrounding FLAIR hyperintense signal alteration compared to 05/18/2024, minimally increased at the medial aspect of the resection since 11/19/2023, nonspecific and may reflect evolution of posttreatment change. No significant mass effect. No abnormal enhancement elsewhere in the brain. Chronic Change: See above. Otherwise minimal nonspecific background white matter change. Parenchyma: No significant volume loss for age. The brain parenchyma is otherwise within normal limits of signal intensity and morphology. Ventricles: Stable normal caliber and morphology. Skull Base: Hypothalamic and pituitary region are grossly normal. Craniocervical junction is normal. No significant marrow replacement process. Vasculature: Small developmental venous anomaly in the left post central gyrus. Major intracranial arterial structures, and dural venous sinuses show typical flow void, suggesting patency by spin echo criteria. Other: Scattered mild paranasal sinus mucosal thickening. Essentially clear mastoid air cells. Postoperative changes in the scalp. Visualized extracranial soft tissues otherwise grossly unremarkable. IMPRESSION: Stable MRI appearance of the brain since 05/18/2024. No evidence of interval neoplastic progression. Stable right frontal resection defect. No new or progressive adjacent enhancement. Stable extent of surrounding FLAIR hyperintensity since 05/18/2024, minimally increased along the medial margin since 11/19/2023, nonspecific and likely reflecting evolution of posttreatment change, however continued attention on follow-up recommended. Machine Shorthand Teacher: LEO Transcribe Date/Time: Aug 11 2024 10:05A Dictated by : WENDY HENDERSON MD This examination was interpreted and the report reviewed and electronically signed by: WENDY HENDERSON MD on Aug 11 2024 10:26AM EST [id number] Normal [facility] CBC W Auto Differential pane l (Bld)on 08-08-2024 Basophils (Bld) [#/Vol] 0.06 10*3/uL Normal <0.11 [facility] Comment on above: Order Comment: Speci men Type: BLOOD SPECIMENOrdering Facility: [facility] Address: [address] [place] [address] Performed By: #### 5 7021-8 ####[facility] [id number] [place] [address] [place] Basophils/100 WBC (Bld) 0.8 % Normal [facility] Comment on above: Order Comment: Speci men Type: BLOOD SPECIMENOrdering Facility: [facility] Address: [address] [place] [address] Performed By: #### 5 7021-8 ####[facility] [id number] [place] [address] [place] Differential cell count method Nom (Bld) Auto Normal [facility] Comment on above: Order Comment: Speci men Type: BLOOD SPECIMENOrdering Facility: [facility] Address: [address] [place] [address] Performed By: #### 5 7021-8 ####[facility] [id number] [place] [address] [place] Eosinophils (Bld) [#/Vol] 0.45 10*3/uL Normal <0.46 [facility] Comment on above: Order Comment: Speci men Type: BLOOD SPECIMENOrdering Facility: [facility] Address: [address] [place] [address] Performed By: #### 5 7021-8 ####[facility] [id number] [place] [address] [place] Eosinophils/100 WBC (Bld) 6.3 % Normal [facility] Comment on above: Order Comment: Speci men Type: BLOOD SPECIMENOrdering Facility: [facility] Address: [address] [place] [address] Performed By: #### 5 7021-8 ####[facility] [id number] [place] [address] [place] Erythrocyte distribution width (RBC) [Ratio] 13.1 % Normal 11.5-15.0 [facility] Comment on above: Order Comment: Speci men Type: BLOOD SPECIMENOrdering Facility: [facility] Address: [address] [place] [address] Performed By: #### 5 7021-8 ####[facility] [id number] [place] [address] [place] Hematocrit (Bld) [Volume fraction] 39.5 % Normal 36.0-46.0 [facility] Comment on above: Order Comment: Speci men Type: BLOOD SPECIMENOrdering Facility: [facility] Address: [address] [place] [address] Performed By: #### 5 7021-8 ####[facility] [id number] [place] [address] [place] Hemoglobin (Bld) [Mass/Vol] 13.1 g/dL Normal 11.5-15.5 [facility] Comment on above: Order Comment: Speci men Type: BLOOD SPECIMENOrdering Facility: [facility] Address: [address] [place] [address] Performed By: #### 5 7021-8 ####[facility] [id number] [place] [address] [place] Immature granulocytes (Bld) [#/Vol] 10*3/uL Normal <0.10 [facility] Comment on above: Order Comment: Speci men Type: BLOOD SPECIMENOrdering Facility: [facility] Address: [address] [place] [address] Performed By: #### 5 7021-8 ####[facility] [id number] [place] [address] [place] [facility] Immature granulocytes/100 WBC (Bld) 0.1 % Normal [facility] Comment on above: Order Comment: Speci men Type: BLOOD SPECIMENOrdering Facility: [facility] Address: [address] [place] [address] Performed By: #### 5 7021-8 ####[facility] [id number] [place] [address] [place] Lymphocytes (Bld) [#/Vol] 1.80 10*3/uL Normal 1.00-4.00 [facility] Comment on above: Order Comment: Speci men Type: BLOOD SPECIMENOrdering Facility: [facility] Address: [address] [place] [address] Performed By: #### 5 7021-8 ####[facility] [id number] [place] [address] [place] Lymphocytes/100 WBC (Bld) 25.3 % Normal [facility] Comment on above: Order Comment: Speci men Type: BLOOD SPECIMENOrdering Facility: [facility] Address: [address] [place] [address] Performed By: #### 5 7021-8 ####[facility] [id number] [place] [address] [place] MCH (RBC) [Entitic mass] 30.6 pg Normal 26.0-34.0 [facility] Comment on above: Order Comment: Speci men Type: BLOOD SPECIMENOrdering Facility: [facility] Address: [address] [place] [address] Performed By: #### 5 7021-8 ####[facility] [id number] [place] [address] [place] MCHC (RBC) [Mass/Vol] 33.2 g/dL Normal 30.5-36.0 [facility] Comment on above: Order Comment: Speci men Type: BLOOD SPECIMENOrdering Facility: [facility] Address: [address] [place] [address] Performed By: #### 5 7021-8 ####[facility]OSPITALNCNydia [id number] [place] [address] [place] MCV (RBC) [Entitic vol] 92.3 fL Normal 80.0-100.0 [facility] Comment on above: Order Comment: Speci men Type: BLOOD SPECIMENOrdering Facility: [facility] Address: [address] [place] [address] Performed By: #### 5 7021-8 ####[facility] [id number] [place] [address] [place] Monocytes (Bld) [#/Vol] 0.65 10*3/uL Normal <0.87 [facility] Comment on above: Order Comment: Speci men Type: BLOOD SPECIMENOrdering Facility: [facility] Address: [address] [place] [address] Performed By: #### 5 7021-8 ####[facility]ITALNCLIA [id number] [place] [address] [place] Monocytes/100 WBC (Bld) 9.1 % Normal [facility] Comment on above: Order Comment: Speci men Type: BLOOD SPECIMENOrdering Facility: [facility] Address: [address] [place] [address] Performed By: #### 5 7021-8 ####[facility]ITALNCLIA [id number] [place] [address] [place] Neutrophils (Bld) [#/Vol] 4.15 10*3/uL Normal 1.45-7.50 [facility] Comment on above: Order Comment: Speci men Type: BLOOD SPECIMENOrdering Facility: [facility] Address: [address] [place] [address] Performed By: #### 5 7021-8 ####[facility] [id number] [place] [address] [place] Neutrophils/100 WBC (Bld) 58.4 % Normal [facility] Comment on above: Order Comment: Speci men Type: BLOOD SPECIMENOrdering Facility: [facility] Address: [address] [place] [address] Performed By: #### 5 7021-8 ####[facility] [id number] [place] [address] [place] Nucleated RBC (Bld) [#/Vol] 10*3/uL Normal <0.01 [facility] Comment on above: Order Comment: Speci men Type: BLOOD SPECIMENOrdering Facility: [facility] Address: [address] [place] [address] Performed By: #### 5 7021-8 ####[facility] [id number] [place] [address] [place] Nucleated RBC/100 WBC (Bld) [Ratio] 0.0 /100 WBC Normal [facility] Comment on above: Order Comment: Speci men Type: BLOOD SPECIMENOrdering Facility: [facility] Address: [address] [place] [address] Performed By: #### 5 7021-8 ####[facility] [id number] [place] [address] [place] Platelet mean volume (Bld) [Entitic vol] 9.6 fL Normal 9.0-12.7 [facility] Comment on above: Order Comment: Speci men Type: BLOOD SPECIMENOrdering Facility: [facility] Address: [address] [place] [address] Performed By: #### 5 7021-8 ####[facility] ALCIRAMonetNCLIA [id number] [place] [address] [place] Platelets (Bld) [#/Vol] 296 10*3/uL Normal 150-400 [facility] Comment on above: Order Comment: Speci men Type: BLOOD SPECIMENOrdering Facility: [facility] Address: [address] [place] [address] Performed By: #### 5 7021-8 ####[facility]ITALNCLIA [id number] [place] [address] [place] RBC (Bld) [#/Vol] 4.28 10*6/uL Normal 3.90-5.20 [facility] Comment on above: Order Comment: Speci men Type: BLOOD SPECIMENOrdering Facility: [facility] Address: [address] [place] [address] Performed By: #### 5 7021-8 ####[facility]ITALNCLIA [id number] [place] [address] [place] WBC (Bld) [#/Vol] 7.12 10*3/uL Normal 3.70-11.00 [facility] Comment on above: Order Comment: Speci men Type: BLOOD SPECIMENOrdering Facility: [facility] Address: [address] [place] [address] Performed By: #### 5 7021-8 ####[facility]PITALNCLIA [id number] [place] [address] [place] [facility] [place] CK SerPl-cCncon 08-08-2024 CK [Catalytic activity/Vol] 62 U/L Normal 42-196 [facility] Comment on above: Order Comment: Speci men Type: BLOOD SPECIMENOrdering Facility: [facility] Address: [address] [place] [address] Performed By: #### 2 157-6 ####[facility] LABCLIA [id number] [facility]ITALAngel [facility] HOSPITALK [id number] [address] [place] Comprehensive metabolic 2000 panelon 08-08-2024 Albumin [Mass/Vol] 4.3 g/dL Normal 3.9-4.9 [facility] Comment on above: Order Comment: Speci men Type: BLOOD SPECIMENOrdering Facility: [facility] Address: [address] [place] [address] Performed By: #### 2 4323-8 ####[facility] HOSPITALWNCLIA [id number] [place] [address] [place] ALP [Catalytic activity/Vol] 51 U/L Normal 34-123 [facility] Comment on above: Order Comment: Speci men Type: BLOOD SPECIMENOrdering Facility: [facility] Address: [address] [place] [address] Performed By: #### 2 4323-8 ####[facility] HOSPITALWNCLIA [id number] [place] [address] [place] ALT [Catalytic activity/Vol] 12 U/L Normal 7-38 [facility] Comment on above: Order Comment: Speci men Type: BLOOD SPECIMENOrdering Facility: [facility] Address: [address] [place] [address] Performed By: #### 2 4323-8 ####[facility] HOSPITALWNCLIA [id number] [place] [address] [place] Anion gap [Moles/Vol] 11 mmol/L Normal 8-15 [facility] Comment on above: Order Comment: Speci men Type: BLOOD SPECIMENOrdering Facility: [facility] Address: [address] [place] [address] Performed By: #### 2 4323-8 ####[facility] HOSPITALWNCLIA [id number] [place] [address] [place] AST [Catalytic activity/Vol] 18 U/L Normal 13-35 [facility] Comment on above: Order Comment: Speci men Type: BLOOD SPECIMENOrdering Facility: [facility] Address: [address] [place] [address] Performed By: #### 2 4323-8 ####[facility]ITALNCS[facility] [id number] [place] [address] [place] Bilirubin [Mass/Vol] 0.3 mg/dL Normal 0.2-1.3 [facility] Comment on above: Order Comment: Speci men Type: BLOOD SPECIMENOrdering Facility: [facility] Address: [address] [place] [address] Performed By: #### 2 4323-8 ####[facility] [id number] [place] [address] [place] Calcium [Mass/Vol] 9.3 mg/dL Normal 8.5-10.2 [facility] Comment on above: Order Comment: Speci men Type: BLOOD SPECIMENOrdering Facility: [facility] Address: [address] [place] [address] Performed By: #### 2 4323-8 ####[facility]ITALNCS[facility] [id number] [place] [address] [place] Chloride [Moles/Vol] 95 mmol/L Low 98-107 [facility] Comment on above: Order Comment: Speci men Type: BLOOD SPECIMENOrdering Facility: [facility] Address: [address] [place] [address] Performed By: #### 2 4323-8 ####[facility] [id number] [place] [address] [place] CO2 [Moles/Vol] 26 mmol/L Normal 22-30 [facility] Comment on above: Order Comment: Speci men Type: BLOOD SPECIMENOrdering Facility: [facility] Address: [address] [place] [address] Performed By: #### 2 4323-8 ####[facility] HOSPITALNCA [id number] [place] [address] [place] Creatinine [Mass/Vol] 0.68 mg/dL Normal 0.58-0.96 [facility] Comment on above: Order Comment: Speci men Type: BLOOD SPECIMENOrdering Facility: [facility] Address: [address] [place] [address] Performed By: #### 2 4323-8 ####[facility] HOSPITALNCLIA [id number] [place] [address] [place] Creatinine and Glomerular filtration rate.predicted panel (S/P/Bld) 96 mL/min/1.73m??? Normal >=60 [facility] Comment on above: Order Comment: Ceferino sandoval Type: BLOOD SPECIMENOrdering Facility: [facility] Address: [address] [place] [address] Result Comment: Sujey mated Glomerular Filtration Rate (eGFR) is calculated using the 2020 CKD-EPI creatinine equation. This equation utilizes serum creatinine, sex, and age as parameters. The creatinine assay has traceable calibration to isotope dilution-mass spectrometry. Refer to KDIGO guidelines for clinical interpretation. In patients with unstable renal function, e.g. those with acute kidney injury, the eGFR may not accurately reflect actual GFR. Performed By: #### 2 4323-8 ####[facility] HOSPITALNCLIA [id number] [place] [address] [place] Glucose [Mass/Vol] 97 mg/dL Normal 74-99 [facility] Comment on above: Order Comment: Ceferino sandoval Type: BLOOD SPECIMENOrdering Facility: [facility] Address: [address] [place] [address] Result Comment: The [place] Diabetes Association (ADA) provides guidance for cutoff values for fasting glucose and random glucose. The ADA defines fasting as no caloric intake for at least 8 hours. Fasting plasma glucose results between 100 to 125 mg/dL indicate increased risk for diabetes (prediabetes). Fasting plasma glucose results greater than or equal to 126 mg/dL meet the criteria for diagnosis of diabetes. In the absence of unequivocal hyperglycemia, results should be confirmed by repeat testing. In a patient with classic symptoms of hyperglycemia or hyperglycemic crisis, random plasma glucose results greater than or equal to 200 mg/dL meet the criteria for diagnosis of diabetes. Reference: Standards of Medical Care in Diabetes 2016, [employer] Diabetes Association. Diabetes Care. 2016.39(Suppl 1). Performed By: #### 2 4323-8 ####[facility] BONNIE MILLTOWNCLIA [id number] [place] [address] [place] Potassium [Moles/Vol] 4.3 mmol/L Normal 3.7-5.1 [facility] Comment on above: Order Comment: Speci men Type: BLOOD SPECIMENOrdering Facility: [facility] Address: [address] [place] [address] Performed By: #### 2 4323-8 ####[facility] HOSPITALWNCLIA [id number] [place] [address] [place] Protein [Mass/Vol] 6.3 g/dL Normal 6.3-8.0 [facility] Comment on above: Order Comment: Speci men Type: BLOOD SPECIMENOrdering Facility: [facility] Address: [address] [place] [address] Performed By: #### 2 4323-8 ####[facility] HOSPITALWNCLIA [id number] [place] [address] [place] Sodium [Moles/Vol] 132 mmol/L Low 136-144 [facility] Comment on above: Order Comment: Speci men Type: BLOOD SPECIMENOrdering Facility: [facility] Address: [address] [place] [address] Performed By: #### 2 4323-8 ####[facility] HOSPITALWNCLIA [id number] [place] [address] [place] Urea nitrogen [Mass/Vol] 14 mg/dL Normal 7-21 [facility] Comment on above: Order Comment: Speci men Type: BLOOD SPECIMENOrdering Facility: [facility] Address: [facility] [place] [id number] Performed By: #### 2 4323-8 ####[facility] BONNIE [facility] ESKENA[facility] HOSPITALMOE [id number] [place] [address] [place] ECG COMPLETEon 08-07-2024 Atrial Rate 64 BPM [facility] Calculated P [place] [address] [facility] Calculated R [place] 44 degrees [facility] Calculated T [place] 30 degrees [facility] P-R Interval 150 ms [facility] QRS Duration 84 ms [facility] QT Interval 380 ms [facility] QTC Calculation (Bazett) 392 ms [facility] Ventricular Rate 64 BPM [facility] NORMAL SINUS RHYTHM NORMAL ECG WHEN COMPARED WITH ECG OF 23-Jun-2024 09:42, NO SIGNIFICANT CHANGE WAS FOUND Confirmed by MD NOLAND GREGORY () on 08/07/2024 10:00:06 AM [employer] [facility] NAME : JESUS BENTON PID : [id number] : 1955 Gender : Female Race : ORD : [id number] Procedure Date : Aug 07 2024 09:50:21 Edit Date : Aug 07 2024 10:00:11 Diagnosis: NORMAL SINUS RHYTHM NORMAL ECG WHEN COMPARED WITH ECG OF 23-Jun-2024 09:42, NO SIGNIFICANT CHANGE WAS FOUND Confirmed by MD NOLAND GREGORY () on 08/07/2024 10:00:06 AM Test Reason : Arrhythmia Location : 0 : CARD Overread By : MD NOLAND GREGORY Edited By : MD NOLAND GREGORY Referred By : MISTI BLANK Acquired by : Shanti Augustin [facility] ECG COMPLETE Ventricular Rate : 6 4 BPM Atrial Rate : 64 BPM P-R Interval : 150 ms QRS Duration : 84 ms Q-T Interval : 380 ms QTC Calculation(Bazett) : 392 ms Calculated P [place] : 51 degrees Calculated R [place] : 44 degrees Calculated T [place] : 30 degrees NORMAL SINUS RHYTHM NORMAL ECG WHEN COMPARED WITH ECG OF 23-Jun-2024 09:42, NO SIGNIFICANT CHANGE WAS FOUND Confirmed by MD NOLAND GREGORY () on 08/07/2024 10:00:06 AM NAME : JESUS BENTON PID : [id number] : 1955 Gender : Female Race : ORD : [id number] Procedure Date : Aug 07 2024 09:50:21 Edit Date : Aug 07 2024 10:00:11 Diagnosis: NORMAL SINUS RHYTHM NORMAL ECG WHEN COMPARED WITH ECG OF 23-Jun-2024 09:42, NO SIGNIFICANT CHANGE WAS FOUND Confirmed by MD NOLAND GREGORY () on 08/07/2024 10:00:06 AM Test Reason : Arrhythmia Location : 0 : CARD Overread By : MD NOLAND GREGORY Edited By : MD NOLAND GREGORY Referred By : MISTI BLANK Acquired by : Shanti Augustin [facility] CBC W Auto Differential pane l (Bld)on 07-10-2024 Basophils (Bld) [#/Vol] 0.05 10*3/uL Normal <0.11 [facility] Comment on above: Order Comment: Speci men Type: BLOOD SPECIMENOrdering Facility: [facility] Address: [address] [place] [address] Performed By: #### 5 7021-8 ####[facility] [id number] [place] [address] [place] Basophils/100 WBC (Bld) 0.7 % Normal [facility] Comment on above: Order Comment: Speci men Type: BLOOD SPECIMENOrdering Facility: [facility] Address: [address] [place] [address] Performed By: #### 5 7021-8 ####[facility] [id number] [place] [address] [place] Differential cell count method Nom (Bld) Auto Normal [facility] Comment on above: Order Comment: Speci men Type: BLOOD SPECIMENOrdering Facility: [facility] Address: [address] [place] [address] Performed By: #### 5 7021-8 ####[facility] ALCIRAWNCLIA [id number] [place] [address] [place] Eosinophils (Bld) [#/Vol] 0.40 10*3/uL Normal <0.46 [facility] Comment on above: Order Comment: Speci men Type: BLOOD SPECIMENOrdering Facility: [facility] Address: [address] [place] [address] Performed By: #### 5 7021-8 ####[facility] HOSPITALLIA [id number] [place] [address] [place] Eosinophils/100 WBC (Bld) 5.7 % Normal [facility] Comment on above: Order Comment: Speci men Type: BLOOD SPECIMENOrdering Facility: [facility] Address: [address] [place] [address] Performed By: #### 5 7021-8 ####[facility] [id number] [place] [address] [place] Erythrocyte distribution width (RBC) [Ratio] 12.9 % Normal 11.5-15.0 [facility] Comment on above: Order Comment: Speci men Type: BLOOD SPECIMENOrdering Facility: [facility] Address: [address] [place] [address] Performed By: #### 5 7021-8 ####[facility] [id number] [place] [address] [place] Hematocrit (Bld) [Volume fraction] 37.2 % Normal 36.0-46.0 [facility] Comment on above: Order Comment: Speci men Type: BLOOD SPECIMENOrdering Facility: [facility] Address: [address] [place] [address] Performed By: #### 5 7021-8 ####[facility] HOSPITALNCLI [id number] [place] [address] [place] Hemoglobin (Bld) [Mass/Vol] 12.3 g/dL Normal 11.5-15.5 [facility] Comment on above: Order Comment: Speci men Type: BLOOD SPECIMENOrdering Facility: [facility] Address: [address] [place] [address] Performed By: #### 5 7021-8 ####[facility] [id number] [place] [address] [place] Immature granulocytes (Bld) [#/Vol] 10*3/uL Normal <0.10 [facility] Comment on above: Order Comment: Speci men Type: BLOOD SPECIMENOrdering Facility: [facility] Address: [address] [place] [address] Performed By: #### 5 7021-8 ####[facility] [id number] [place] [address] [place] Immature granulocytes/100 WBC (Bld) 0.1 % Normal [facility] Comment on above: Order Comment: Speci men Type: BLOOD SPECIMENOrdering Facility: [facility] Address: [address] [place] [address] Performed By: #### 5 7021-8 ####[facility] [id number] [place] [address] [place] Lymphocytes (Bld) [#/Vol] 1.47 10*3/uL Normal 1.00-4.00 [facility] Comment on above: Order Comment: Speci men Type: BLOOD SPECIMENOrdering Facility: [facility] Address: [address] [place] [address] Performed By: #### 5 7021-8 ####[facility] [id number] [place] [address] [place] Lymphocytes/100 WBC (Bld) 21.0 % Normal [facility] Comment on above: Order Comment: Speci men Type: BLOOD SPECIMENOrdering Facility: [facility] Address: [address] [place] [address] Performed By: #### 5 7021-8 ####[facility]ITALBOOGIENydia [id number] [address] MCH (RBC) [Entitic mass] 30.6 pg Normal 26.0-34.0 [facility] Comment on above: Order Comment: Speci men Type: BLOOD SPECIMENOrdering Facility: [facility] Address: [address] [place] [address] Performed By: #### 5 7021-8 ####[facility] [id number] [place] [address] [place] MCHC (RBC) [Mass/Vol] 33.1 g/dL Normal 30.5-36.0 [facility] Comment on above: Order Comment: Speci men Type: BLOOD SPECIMENOrdering Facility: [facility] Address: [address] [place] [address] Performed By: #### 5 7021-8 ####[facility] [id number] [place] [address] [place] MCV (RBC) [Entitic vol] 92.5 fL Normal 80.0-100.0 [facility] Comment on above: Order Comment: Speci men Type: BLOOD SPECIMENOrdering Facility: [facility] Address: [address] [place] [address] Performed By: #### 5 7021-8 ####[facility] [id number] [place] [address] [place] Monocytes (Bld) [#/Vol] 0.44 10*3/uL Normal <0.87 [facility] Comment on above: Order Comment: Speci men Type: BLOOD SPECIMENOrdering Facility: [facility] Address: [address] [place] [address] Performed By: #### 5 7021-8 ####[facility] ALCIRAWNCLIA [id number] [place] [address] [place] Monocytes/100 WBC (Bld) 6.3 % Normal [facility] Comment on above: Order Comment: Speci men Type: BLOOD SPECIMENOrdering Facility: [facility] Address: [address] [place] [address] Performed By: #### 5 7021-8 ####[facility] [id number] [place] [address] [place] Neutrophils (Bld) [#/Vol] 4.63 10*3/uL Normal 1.45-7.50 [facility] Comment on above: Order Comment: Speci men Type: BLOOD SPECIMENOrdering Facility: [facility] Address: [address] [place] [address] Performed By: #### 5 7021-8 ####[facility] [id number] [place] [address] [place] Neutrophils/100 WBC (Bld) 66.2 % Normal [facility] Comment on above: Order Comment: Speci men Type: BLOOD SPECIMENOrdering Facility: [facility] Address: [address] [place] [address] Performed By: #### 5 7021-8 ####[facility]IT[facility] [id number] [place] [address] [place] Nucleated RBC (Bld) [#/Vol] 10*3/uL Normal <0.01 [facility] Comment on above: Order Comment: Speci men Type: BLOOD SPECIMENOrdering Facility: [facility] Address: [address] [place] [address] Performed By: #### 5 7021-8 ####[facility]ITAL[facility]CLIA [id number] [place] [address] [place] Nucleated RBC/100 WBC (Bld) [Ratio] 0.0 /100 WBC Normal [facility] Comment on above: Order Comment: Speci men Type: BLOOD SPECIMENOrdering Facility: [facility] Address: [address] [place] [address] Performed By: #### 5 7021-8 ####[facility] [id number] [place] [address] [place] Platelet mean volume (Bld) [Entitic vol] 9.3 fL Normal 9.0-12.7 [facility] Comment on above: Order Comment: Speci men Type: BLOOD SPECIMENOrdering Facility: [facility] Address: [address] [place] [address] Performed By: #### 5 7021-8 ####[facility] [id number] [place] [address] [place] Platelets (Bld) [#/Vol] 259 10*3/uL Normal 150-400 [facility] Comment on above: Order Comment: Speci men Type: BLOOD SPECIMENOrdering Facility: [facility] Address: [address] [place] [address] Performed By: #### 5 7021-8 ####[facility] [id number] [place] [address] [place] RBC (Bld) [#/Vol] 4.02 10*6/uL Normal 3.90-5.20 [facility] Comment on above: Order Comment: Speci men Type: BLOOD SPECIMENOrdering Facility: [facility] Address: [address] [place] [address] Performed By: #### 5 7021-8 ####[facility] [id number] [place] [address] [place] WBC (Bld) [#/Vol] 7.00 10*3/uL Normal 3.70-11.00 [facility] Comment on above: Order Comment: Speci men Type: BLOOD SPECIMENOrdering Facility: [facility] Address: [address] [place] [address] Performed By: #### 5 7021-8 ####[facility]ITALNCLIA [id number] [place] [address] [place] CK SerPl-cCncon 07-10-2024 CK [Catalytic activity/Vol] 129 U/L Normal 42-196 [facility] Comment on above: Order Comment: Speci men Type: BLOOD SPECIMENOrdering Facility: [facility] Address: [address] [place] [address] Performed By: #### 2 157-6 ####[facility] LABCLIA [id number] [place] [address] [place] Comprehensive metabolic 2000 panelon 07-10-2024 Albumin [Mass/Vol] 4.3 g/dL Normal 3.9-4.9 [facility] Comment on above: Order Comment: Speci men Type: BLOOD SPECIMENOrdering Facility: [facility] Address: [address] [place] [address] Performed By: #### 2 4323-8 ####[facility]ITALNCLIA [id number] [place] [address] [place] ALP [Catalytic activity/Vol] 55 U/L Normal 34-123 [facility] Comment on above: Order Comment: Speci men Type: BLOOD SPECIMENOrdering Facility: [facility] Address: [address] [place] [address] Performed By: #### 2 4323-8 ####[facility]ITALNCLIA [id number] [place] [address] [place] ALT [Catalytic activity/Vol] 12 U/L Normal 7-38 [facility] Comment on above: Order Comment: Speci men Type: BLOOD SPECIMENOrdering Facility: [facility] Address: [address] [place] [address] Performed By: #### 2 4323-8 ####[facility] MILLTOWNCLIA [id number] [place] [address] [place] Anion gap [Moles/Vol] 11 mmol/L Normal 8-15 [facility] Comment on above: Order Comment: Speci men Type: BLOOD SPECIMENOrdering Facility: [facility] Address: [address] [place] [address] Performed By: #### 2 4323-8 ####[facility] MILLTOWNCLIA [id number] [place] [address] [place] AST [Catalytic activity/Vol] 18 U/L Normal 13-35 [facility] Comment on above: Order Comment: Speci men Type: BLOOD SPECIMENOrdering Facility: [facility] Address: [address] [place] [address] Performed By: #### 2 4323-8 ####[facility]OSPITALWNCLIA [id number] [place] [address] [place] Bilirubin [Mass/Vol] 0.4 mg/dL Normal 0.2-1.3 [facility] Comment on above: Order Comment: Speci men Type: BLOOD SPECIMENOrdering Facility: [facility] Address: [address] [place] [address] Performed By: #### 2 4323-8 ####[facility] MILLTOWNCLIA [id number] [place] [address] [place] Calcium [Mass/Vol] 9.2 mg/dL Normal 8.5-10.2 [facility] Comment on above: Order Comment: Speci men Type: BLOOD SPECIMENOrdering Facility: [facility] Address: [address] [place] [address] Performed By: #### 2 4323-8 ####[facility] MILLTOWNCLIA [id number] [place] [address] [place] Chloride [Moles/Vol] 98 mmol/L Normal 98-107 [facility] Comment on above: Order Comment: Speci men Type: BLOOD SPECIMENOrdering Facility: [facility] Address: [address] [place] [address] Performed By: #### 2 4323-8 ####[facility] [id number] [place] [address] [place] CO2 [Moles/Vol] 23 mmol/L Normal 22-30 [facility] Comment on above: Order Comment: Speci men Type: BLOOD SPECIMENOrdering Facility: [facility] Address: [address] [place] [address] Performed By: #### 2 4323-8 ####[facility] [id number] [place] [address] [place] Creatinine [Mass/Vol] 0.69 mg/dL Normal 0.58-0.96 [facility] Comment on above: Order Comment: Speci men Type: BLOOD SPECIMENOrdering Facility: [facility] Address: [address] [place] [address] Performed By: #### 2 4323-8 ####[facility] [id number] [address] [facility] Creatinine and Glomerular filtration rate.predicted panel (S/P/Bld) 95 mL/min/1.73m??? Normal >=60 [facility] Comment on above: Order Comment: Speci men Type: BLOOD SPECIMENOrdering Facility: [facility] Address: [address] [place] [address] Result Comment: Sujey mated Glomerular Filtration Rate (eGFR) is calculated using the 2020 CKD-EPI creatinine equation. This equation utilizes serum creatinine, sex, and age as parameters. The creatinine assay has traceable calibration to isotope dilution-mass spectrometry. Refer to KDIGO guidelines for clinical interpretation. In patients with unstable renal function, e.g. those with acute kidney injury, the eGFR may not accurately reflect actual GFR. Performed By: #### 2 4323-8 ####[facility] MILLTOWNCLIA [id number] [place] [address] [place] Glucose [Mass/Vol] 122 mg/dL High 74-99 [facility] Comment on above: Order Comment: Speci men Type: BLOOD SPECIMENOrdering Facility: [facility] Address: [address] [place] [address] Result Comment: The [place] Diabetes Association (ADA) provides guidance for cutoff values for fasting glucose and random glucose. The ADA defines fasting as no caloric intake for at least 8 hours. Fasting plasma glucose results between 100 to 125 mg/dL indicate increased risk for diabetes (prediabetes). Fasting plasma glucose results greater than or equal to 126 mg/dL meet the criteria for diagnosis of diabetes. In the absence of unequivocal hyperglycemia, results should be confirmed by repeat testing. In a patient with classic symptoms of hyperglycemia or hyperglycemic crisis, random plasma glucose results greater than or equal to 200 mg/dL meet the criteria for diagnosis of diabetes. Reference: Standards of Medical Care in Diabetes 2016, [employer] Diabetes Association. Diabetes Care. 2016.39(Suppl 1). Performed By: #### 2 4323-8 ####[facility] ALCIRAWNCLIA [id number] [place] [address] [place] Potassium [Moles/Vol] 3.6 mmol/L Low 3.7-5.1 [facility] Comment on above: Order Comment: Speci men Type: BLOOD SPECIMENOrdering Facility: [facility] Address: [address] [address] Performed By: #### 2 4323-8 ####[facility] ALCIRAWNCLIA [id number] [place] [address] [place] Protein [Mass/Vol] 6.4 g/dL Normal 6.3-8.0 [facility] Comment on above: Order Comment: Speci men Type: BLOOD SPECIMENOrdering Facility: [facility] Address: [address] [place] [address] Performed By: #### 2 4323-8 ####[facility] MILLTOWNCLIA [id number] [place] [address] [place] Sodium [Moles/Vol] 132 mmol/L Low 136-144 [facility] Comment on above: Order Comment: Speci men Type: BLOOD SPECIMENOrdering Facility: [facility] Address: [address] [place] [address] Performed By: #### 2 4323-8 ####[facility] MILLTOWNCLIA [id number] [place] [address] [place] Urea nitrogen [Mass/Vol] 12 mg/dL Normal 7-21 [facility] Comment on above: Order Comment: Speci men Type: BLOOD SPECIMENOrdering Facility: [facility] Address: [address] [place] [address] Performed By: #### 2 4323-8 ####[facility]ITALNCLIA [id number] [place] [address] [place] ECG COMPLETEon 06-23-2024 Atrial Rate 69 BPM [facility] Calculated P [place] 50 degrees [facility] Calculated R [place] 44 degrees [facility] Calculated T [place] 34 degrees [facility] P-R Interval 146 ms [facility] QRS Duration 84 ms [facility] QT Interval 372 ms [facility] QTC Calculation (Bazett) 398 ms [facility] Ventricular Rate 69 BPM [facility] NORMAL SINUS RHYTHM NORMAL ECG WHEN COMPARED WITH ECG OF 12-May-2024 09:47, NO SIGNIFICANT CHANGE WAS FOUND Confirmed by BELTRAN CHAUDHARY M.D. ([id number]) on 06/23/2024 4:16:48 PM [facility] NAME : JESUS BENTON PID : [id number] : 1955 Gender : Female Race : ORD : [id number] Procedure Date : Jun 23 2024 09:42:02 Edit Date : Jun 23 2024 16:16:50 Diagnosis: NORMAL SINUS RHYTHM NORMAL ECG WHEN COMPARED WITH ECG OF 12-May-2024 09:47, NO SIGNIFICANT CHANGE WAS FOUND Confirmed by BELTRAN CHAUDHARY M.D. ([id number]) on 06/23/2024 4:16:48 PM Test Reason : Other - Specify Location : 0 : CARD Overread By : BELTRAN CHAUDHARY M.D. Edited By : BELTRAN CHAUDHARY M.D. Referred By : MISTI BLANK Acquired by : [facility] ECG COMPLETE Ventricular Rate : 6 9 BPM Atrial Rate : 69 BPM P-R Interval : 146 ms QRS Duration : 84 ms Q-T Interval : 372 ms QTC Calculation(Bazett) : 398 ms Calculated P [place] : 50 degrees Calculated R [place] : 44 degrees Calculated T [place] : 34 degrees NORMAL SINUS RHYTHM NORMAL ECG WHEN COMPARED WITH ECG OF 12-May-2024 09:47, NO SIGNIFICANT CHANGE WAS FOUND Confirmed by BELTRAN CHAUDHARY M.D. ([id number]) on 06/23/2024 4:16:48 PM NAME : JESUS BENTON PID : [id number] : 1955 Gender : Female Race : ORD : [id number] Procedure Date : Jun 23 2024 09:42:02 Edit Date : Jun 23 2024 16:16:50 Diagnosis: NORMAL SINUS RHYTHM NORMAL ECG WHEN COMPARED WITH ECG OF 12-May-2024 09:47, NO SIGNIFICANT CHANGE WAS FOUND Confirmed by BELTRAN CHAUDHARY M.D. ([id number]) on 06/23/2024 4:16:48 PM Test Reason : Other - Specify Location : 0 : CARD Overread By : BELTRAN CHAUDHARY M.D. Edited By : BELTRAN CHAUDHARY M.D. Referred By : MISTI BLANK [facility] WO and W contrast I Von 05-18-2024 IMPRESSION: Stable treatment related findings with no evidence of interval tumor progression. No acute abnormalities on the diffusion sequence. 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 TECHNIQUE: Routine brain mass MRI protocol without and with contrast including diffusion images. MQ: MRBWOW_2 Contrast: 14 mL Dotarem IV COMPARISON: Previous MRI of the brain 02/21/2024, 11/19/2023, and 08/18/2023. RESULT: Acute Change: There is no evidence of restricted diffusion to suggest an acute infarct. Hemorrhage: Expected hemosiderin staining along the right frontal lobe surgical cavity with no evidence of interval new intraparenchymal hemorrhage. Mass Lesion/ Mass Effect: Remote right frontal craniotomy and debulking of anterior right frontal lobe astrocytoma with similar volume and extent of irregular T2 FLAIR hyperintense signal abnormality along the margins of the surgical cavity/treatment zone which may reflect gliosis and/or marginal treated neoplasm. Unchanged curvilinear enhancement multifocally along the surgical margins with no new or increasing abnormal enhancement identified, and suspect that this is related to some localized dural scarring. No mass effect or midline shift. Chronic Change: Scattered patchy T2 FLAIR hyperintensities are present in the bilateral cerebral white matter compatible sequelae of chronic small vessel disease. Parenchyma: No significant volume loss for age. Ventricles: No hydrocephalus. Skull Base: Hypothalamic and pituitary region are grossly normal. Craniocervical junction is normal. No significant marrow replacement process. Vasculature: The major intracranial arteries and dural venous sinuses are patent. Concordant appearance after gadolinium. Other: Small volume of fluid is present in the posterior ethmoid sinuses bilaterally. Minimal mucosal thickening along the floor of the right maxillary antrum. The orbits and extracranial soft tissues are unremarkable. 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 TECHNIQUE: Routine brain mass MRI protocol without and with contrast including diffusion images. MQ: MRBWOW_2 Contrast: 14 mL Dotarem IV COMPARISON: Previous MRI of the brain 02/21/2024, 11/19/2023, and 08/18/2023. RESULT: Acute Change: There is no evidence of restricted diffusion to suggest an acute infarct. Hemorrhage: Expected hemosiderin staining along the right frontal lobe surgical cavity with no evidence of interval new intraparenchymal hemorrhage. Mass Lesion/ Mass Effect: Remote right frontal craniotomy and debulking of anterior right frontal lobe astrocytoma with similar volume and extent of irregular T2 FLAIR hyperintense signal abnormality along the margins of the surgical cavity/treatment zone which may reflect gliosis and/or marginal treated neoplasm. Unchanged curvilinear enhancement multifocally along the surgical margins with no new or increasing abnormal enhancement identified, and suspect that this is related to some localized dural scarring. No mass effect or midline shift. Chronic Change: Scattered patchy T2 FLAIR hyperintensities are present in the bilateral cerebral white matter compatible sequelae of chronic small vessel disease. Parenchyma: No significant volume loss for age. Ventricles: No hydrocephalus. Skull Base: Hypothalamic and pituitary region are grossly normal. Craniocervical junction is normal. No significant marrow replacement process. Vasculature: The major intracranial arteries and dural venous sinuses are patent. Concordant appearance after gadolinium. Other: Small volume of fluid is present in the posterior ethmoid sinuses bilaterally. Minimal mucosal thickening along the floor of the right maxillary antrum. The orbits and extracranial soft tissues are unremarkable. IMPRESSION IMPRESSION: Stable treatment related findings with no evidence of interval tumor progression. No acute abnormalities on the diffusion sequence. Machine Shorthand Teacher: PSCB Transcribe Date/Time: May 18 2024 11:47A Dictated by : TARAS RUFFIN MD This examination was interpreted and the report reviewed and electronically signed by: TARAS RUFFIN MD on May 18 2024 11:52AM EST [facility] Radiology Study observation (narrative) [facility] MR Brain WO and W contrast I VOrdered By: [facility] Provider on 05-18-2024 [facility] ECG COMPLETEon 05-12-2024 Atrial Rate 68 BPM [facility] Calculated P [place] 58 degrees [facility] Calculated R [place] 37 degrees [facility] Calculated T [place] 29 degrees [facility] P-R Interval 158 ms [facility] QRS Duration 86 ms [facility] QT Interval 382 ms [facility] QTC Calculation (Bazett) 406 ms [facility] Ventricular Rate 68 BPM [facility] NORMAL SINUS RHYTHM NORMAL ECG WHEN COMPARED WITH ECG OF 12-Apr-2024 10:09, NO SIGNIFICANT CHANGE WAS FOUND Confirmed by MD NOLAND GREGORY () on 05/12/2024 10:29:58 AM [facility] NAME : JESUS BENTON PID : [id number] : 1955 Gender : Female Race : ORD : [id number] Procedure Date : May 12 2024 09:47:40 Edit Date : May 12 2024 10:30:04 Diagnosis: NORMAL SINUS RHYTHM NORMAL ECG WHEN COMPARED WITH ECG OF 12-Apr-2024 10:09, NO SIGNIFICANT CHANGE WAS FOUND Confirmed by MD NOLAND GREGORY () on 05/12/2024 10:29:58 AM Test Reason : Other - Specify Location : 0 : CARD Overread By : MD NOLAND GREGORY Edited By : MD NOLAND GREGORY Referred By : MISTI BLANK Acquired by : [facility] Lipid Profileon 05-03-2024 Cholesterol [Mass/Vol] 190 mg/dL Normal 200 [facility] Comment on above: Result Comment: <200 mg/dL Desirable 200-240 mg/dL Borderline >240 mg/dL High Risk Performed By: #### L 500.4100 #### [facility] [address] [place], [address] Cholesterol in HDL [Mass/Vol] 51 mg/dL Normal [facility] Comment on above: Result Comment: The drugs N-Acetylcysteine and Metamizole may falsely depress this assay. Reference Range HDL <40 mg/dL Low HDL Cholesterol HDL >or= 60 mg/dL High HDL Cholesterol Performed By: #### L 500.4100 #### [facility] [address] [place], [address] Cholesterol in LDL [Mass/Vol] 107 mg/dL Normal 0-130 [facility] [facility] Comment on above: Performed By: #### L 500.4100 #### [facility] [address] [place], [place], [address] Cholesterol in VLDL [Mass/Vol] 32 mg/dL Normal 5-40 [facility] Comment on above: Performed By: #### L 500.4100 #### [facility] [address] [place], [place], [address] Triglyceride [Mass/Vol] 160 mg/dL Normal [facility] Comment on above: Result Comment: The drugs N-Acetylcysteine and Metamizole may falsely depress this assay. Serum Triglycerides Reference Interval Normal <150 mg/dL Borderline high 150 - 199 mg/dL High 200 - 499 mg/dL Very High > or = 500 mg/dL Performed By: #### L 500.4100 #### [facility] [address] [facility] [place], [place], [address] ECG COMPLETEon 04-12-2024 Atrial Rate 68 BPM [facility] Calculated P [place] 48 degrees [facility] Calculated R [place] 43 degrees [facility] Calculated T [place] 32 degrees [facility] P-R Interval 154 ms [facility] QRS Duration 84 ms [facility] QT Interval 366 ms [facility] QTC Calculation (Bazett) 389 ms [facility] Ventricular Rate 68 BPM [facility] NORMAL SINUS RHYTHM NORMAL ECG WHEN COMPARED WITH ECG OF 10-Mar-2024 09:44, NO SIGNIFICANT CHANGE WAS FOUND Confirmed by MD SEVILLA QARAB ([id number]) on 04/12/2024 11:05:02 AM [facility] NAME : JESUS BENTON PID : [id number] : 1955 Gender : Female Race : ORD : [id number] Procedure Date : Apr 12 2024 10:09:34 Edit Date : Apr 12 2024 11:05:04 Diagnosis: NORMAL SINUS RHYTHM NORMAL ECG WHEN COMPARED WITH ECG OF 10-Mar-2024 09:44, NO SIGNIFICANT CHANGE WAS FOUND Confirmed by MD SEVILLA QARAB ([id number]) on 04/12/2024 11:05:02 AM Test Reason : Other - Specify Location : 0 : CARD Overread By : MD SEVILLA QARAB Edited By : MD SEVILLA QARAB Referred By : MISTI BLANK Acquired by : STEPHENIE PARSON [facility] No Panel Informationon 03-10 Atrial Rate 76 BPM [facility] Calculated P [place] 46 degrees [facility] Calculated R [place] 41 degrees [facility] Calculated T [place] 39 degrees [facility] P-R Interval 150 ms [facility] QRS Duration 82 ms [facility] QT Interval 374 ms [facility] QTC Calculation (Bazett) 420 ms [facility] Ventricular Rate 76 BPM [facility] NORMAL SINUS RHYTHM NORMAL ECG WHEN COMPARED WITH ECG OF 14-Feb-2024 09:56, NO SIGNIFICANT CHANGE WAS FOUND Confirmed by MD NOLAND GREGORY () on 03/10/2024 10:21:06 AM [facility] NAME : JESUS BENTON PID : [id number] : 1955 Gender : Female Race : ORD : [id number] Procedure Date : Mar 10 2024 09:44:40 Edit Date : Mar 10 2024 10:21:07 Diagnosis: NORMAL SINUS RHYTHM NORMAL ECG WHEN COMPARED WITH ECG OF 14-Feb-2024 09:56, NO SIGNIFICANT CHANGE WAS FOUND Confirmed by MD NOLAND GREGORY () on 03/10/2024 10:21:06 AM Test Reason : Other - Specify Location : 0 : CARD Overread By : MD NOLAND GREGORY Edited By : MD NOLAND GREGORY Referred By : MISTI BLANK Acquired by : Shanti Augustin SNELL [facility] MR Brain WO and W contrast I Lucio 02-21-2024 IMPRESSION: Stable treatment related findings with no evidence of interval tumor progression. 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 MQ: MRBWOW_2 Contrast: 14 mL Dotarem IV COMPARISON: MRI brain 11/19/2023 RESULT: Acute Change: There is no evidence of restricted diffusion to suggest an acute infarct. Hemorrhage: Expected hemosiderin staining along the right frontal lobe surgical cavity with no evidence of interval new intraparenchymal hemorrhage. Mass Lesion/ Mass Effect: Remote right frontal craniotomy and debulking of anterior right frontal lobe astrocytoma with similar volume and extent of irregular T2 FLAIR hyperintense signal abnormality along the margins of the surgical cavity/treatment zone which may reflect gliosis and/or residual treated tumor. Unchanged curvilinear enhancement multifocally along the surgical margins with no new or increasing abnormal enhancement identified. No mass effect or midline shift. Chronic Change: Scattered patchy T2 FLAIR hyperintensities are present in the bilateral cerebral white matter compatible sequelae of chronic small vessel disease. Parenchyma: No significant volume loss for age. Ventricles: No hydrocephalus. Skull Base: Hypothalamic and pituitary region are grossly normal. Craniocervical junction is normal. No significant marrow replacement process. Vasculature: The major intracranial arteries and dural venous sinuses are patent. Other: Small volume of fluid is present in the posterior ethmoid sinuses bilaterally. The orbits and extracranial soft tissues are unremarkable. 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 MQ: [id number]_2 Contrast: 14 mL Dotarem IV COMPARISON: MRI brain 11/19/2023 RESULT: Acute Change: There is no evidence of restricted diffusion to suggest an acute infarct. Hemorrhage: Expected hemosiderin staining along the right frontal lobe surgical cavity with no evidence of interval new intraparenchymal hemorrhage. Mass Lesion/ Mass Effect: Remote right frontal craniotomy and debulking of anterior right frontal lobe astrocytoma with similar volume and extent of irregular T2 FLAIR hyperintense signal abnormality along the margins of the surgical cavity/treatment zone which may reflect gliosis and/or residual treated tumor. Unchanged curvilinear enhancement multifocally along the surgical margins with no new or increasing abnormal enhancement identified. No mass effect or midline shift. Chronic Change: Scattered patchy T2 FLAIR hyperintensities are present in the bilateral cerebral white matter compatible sequelae of chronic small vessel disease. Parenchyma: No significant volume loss for age. Ventricles: No hydrocephalus. Skull Base: Hypothalamic and pituitary region are grossly normal. Craniocervical junction is normal. No significant marrow replacement process. Vasculature: The major intracranial arteries and dural venous sinuses are patent. Other: Small volume of fluid is present in the posterior ethmoid sinuses bilaterally. The orbits and extracranial soft tissues are unremarkable. IMPRESSION IMPRESSION: Stable treatment related findings with no evidence of interval tumor progression. Machine Shorthand Teacher: PSCB Transcribe Date/Time: Feb 21 2024 10:25A Dictated by : JOANNE HI MD This examination was interpreted and the report reviewed and electronically signed by: JOANNE HI MD on Feb 21 2024 10:34AM EST [facility] Radiology Study observation (narrative) [facility] MR Brain WO and W contrast I VOrdered By: [facility]cf Provider on 02-21-2024 [facility] ECG COMPLETEon 02-14-2024 Atrial Rate 61 BPM [facility] Calculated P [place] 45 degrees [facility] Calculated R [place] 34 degrees [facility] Calculated T [place] 29 degrees [facility] P-R Interval 160 ms [facility] QRS Duration 86 ms [facility] QT Interval 380 ms [facility] QTC Calculation (Bazett) 382 ms [facility] Ventricular Rate 61 BPM [facility] NORMAL SINUS RHYTHM NORMAL ECG WHEN COMPARED WITH ECG OF 12-Jan-2024 09:41, NO SIGNIFICANT CHANGE WAS FOUND Confirmed by BELTRAN CHAUDHARY M.D. ([id number]) on 02/14/2024 4:14:05 PM [facility] NAME : JESUS BENTON PID : [id number] : 1955 Gender : Female Race : ORD : [id number] Procedure Date : Feb 14 2024 09:56:30 Edit Date : Feb 14 2024 16:14:07 Diagnosis: NORMAL SINUS RHYTHM NORMAL ECG WHEN COMPARED WITH ECG OF 12-Jan-2024 09:41, NO SIGNIFICANT CHANGE WAS FOUND Confirmed by BELTRAN CHAUDHARY M.D. ([id number]) on 02/14/2024 4:14:05 PM Test Reason : Other - Specify Location : 0 : CARD Overread By : BELTRAN CHAUDHARY M.D. Edited By : BELTRAN CHAUDHARY M.D. Referred By : MISTI BLANK Acquired by : SUZI GELLER SNELL [facility] ECG COMPLETEon 01-12-2024 Atrial Rate 65 BPM [facility] Calculated P [place] 42 degrees [facility] Calculated R [place] 29 degrees [facility] Calculated T [place] 30 degrees [facility] P-R Interval 156 ms [facility] QRS Duration 88 ms [facility] QT Interval 378 ms [facility] QTC Calculation (Bazett) 393 ms [facility] Ventricular Rate 65 BPM [facility] NORMAL SINUS RHYTHM NORMAL ECG WHEN COMPARED WITH ECG OF 07-Dec-2023 10:01, NO SIGNIFICANT CHANGE WAS FOUND Confirmed by MD SEVILLA QARAB ([id number]) on 01/12/2024 5:34:01 PM SNELL [facility] NAME : JESUS BENTON PID : [id number] : 1955 Gender : Female Race : ORD : [id number] Procedure Date : Jan 12 2024 09:41:50 Edit Date : Jan 12 2024 17:34:05 Diagnosis: NORMAL SINUS RHYTHM NORMAL ECG WHEN COMPARED WITH ECG OF 07-Dec-2023 10:01, NO SIGNIFICANT CHANGE WAS FOUND Confirmed by MD SEVILLA QARAB ([id number]) on 01/12/2024 5:34:01 PM Test Reason : Other - Specify Location : 0 : CARD Overread By : MD SEVILLA QARAB Edited By : MD SEVILLA QARAB Referred By : MISTI BLANK Acquired by : Shanti Augustin SNELL [facility] ECG COMPLETEon 12-07-2023 Atrial Rate 66 BPM [facility] Calculated P [place] 37 degrees [facility] Calculated R [place] 9 degrees [facility] Calculated T [place] 23 degrees [facility] P-R Interval 158 ms [facility] QRS Duration 86 ms [facility] QT Interval 392 ms [facility] QTC Calculation (Bazett) 410 ms [facility] Ventricular Rate 66 BPM [facility] ECG COMPLETEon 11-05-2023 Atrial Rate 67 BPM [facility] Calculated P [place] 42 degrees [facility] Calculated R [place] 7 degrees [facility] Calculated T [place] 16 degrees [facility] P-R Interval 156 ms [facility] QRS Duration 82 ms [facility] QT Interval 364 ms [facility] QTC Calculation (Bazett) 384 ms [facility] Ventricular Rate 67 BPM [facility] ECG COMPLETEon 2023 Atrial Rate 71 [facility]PM [facility] Calculated P [place] 50 degrees [facility] Calculated R [place] 1 degrees [facility] Calculated T [place] 11 degrees [facility] P-R Interval 160 ms [facility] QRS Duration 86 ms [facility] QT Interval 388 ms [facility] QTC Calculation (Bazett) 421 ms [facility] Ventricular Rate 71 BPM [facility] Basophil percentageOrdered B y: Pedro Tiwari on 07-21-2023 Chloride [Moles/Vol] 106 mmol/L 98-107 [facility] Cholesterol [Mass/Vol] 194 mg/dL <200 [facility] Comment on above: <200 mg/dL Desirable 200-240 mg/dL Borderline >240 mg/dL High Risk Glucose [Mass/Vol] 98 mg/dL 74-106 [facility] Potassium [Moles/Vol] 4.1 mmol/L 3.5-5.1 [facility] Sodium [Moles/Vol] 137 mmol/L 136-145 [facility] Triglyceride [Mass/Vol] 207 mg/dL <199 [facility] Comment on above: The drugs N-Acetylcy steine and Metamizole may falsely depress this assay.Serum Triglycerides Reference Interval Normal <150 mg/dL Borderline high 150 - 199 mg/dL High 200 - 499 mg/dL Very High > or = 500 mg/dL Laboratory - Chemistry and C hemistry - challengeOrdered By: Pedro Tiwari on 07-21-2023 CO2 [Moles/Vol] 27.0 mmol/L 21.0-32.0 [facility] Urea nitrogen/Creatinine [Mass ratio] 12.7 mg/mg 10- [facility] No Panel InformationOrdered By: Pedro Tiwari on 07-21-2023 Estimated GFR (MDRD) Amer 94 mL/min >60 [facility] Comment on above: GFR Calc Estimated GFR (MDRD) Non-Af Amer 77 mL/min >60 [facility] Comment on above: Non- GFR Calc Vitamin D 25-Hydroxy 51.3 ng/mL [facility] Comment on above: Vitamin D 25(OH) Sta tus Range Deficiency <20 ng/mL (50nmol/L) Insufficiency 20 - 30 ng/mL (50 - 75 nmol/L) Sufficiency 30 - 100 ng/mL (75 - 250 nmol/L) Toxicity >100 ng/mL (>250 nmol/L) Serum or plasma calcium saida urement (mass/volume)Ordered By: Pedro Tiwari on 07-21-2023 Calcium [Mass/Vol] 8.9 mg/dL 8.5-10.1 [facility] Serum or plasma cholesterol in HDL measurement (mass/volume)Ordered By: Pedro Tiwari on 07-21-2023 Cholesterol in HDL [Mass/Vol] 64 mg/dL >40 [facility] Comment on above: The drugs N-Acetylcy steine and Metamizole may falsely depress this assay. Reference Range HDL <40 mg/dL Low HDL Cholesterol HDL >or= 60 mg/dL High HDL Cholesterol Serum or plasma cholesterol in VLDL measurement (mass/volume)Ordered By: Pedro Tiwari on 07-21-2023 Cholesterol in VLDL [Mass/Vol] 41 mg/dL 5-40 [facility] Serum or plasma creatinine m easurement (mass/volume)Ordered By: Pedro Tiwari on 07-21-2023 Creatinine [Mass/Vol] 0.79 mg/dL 0.55-1.02 [facility] Comment on above: The validity of the calculated GFR & GFRAA in patients over 70 years has not been determined. Clinical correlation is essential. Serum or plasma low density lipoprotein (LDL) cholesterol measurement (mass/volume)Ordered By: Pedro Tiwari on 07-21-2023 Cholesterol in LDL [Mass/Vol] 89 mg/dL 0-130 [facility] Serum or plasma urea nitroge n measurement (mass/volume)Ordered By: Pedro Tiwari on 07-21-2023 Urea nitrogen [Mass/Vol] 10 mg/dL 7-18 [facility] Thin prep Papanicolaou smear with manual screeningOrdered By: Pedro Tiwari on 07-21-2023 Thin prep Papanicolaou smear with manual screening 4 5-15 [facility] Basophil percentageOrdered B y: Pedro Tiwari on 03-12-2023 Bilirubin [Mass/Vol] 0.50 mg/dL 0.20-1.00 [facility] Comment on above: For patients on eltr ombopag therapy, use of Dimension [place] TBIL is not recommended. Chloride [Moles/Vol] 104 mmol/L 98-107 [facility] Glucose [Mass/Vol] 79 mg/dL 74-106 [facility] Potassium [Moles/Vol] 4.5 mmol/L 3.5-5.1 [facility] Protein [Mass/Vol] 7.0 g/dL 6.4-8.2 [facility] Sodium [Moles/Vol] 134 mmol/L 136-145 [facility] Laboratory - Chemistry and C hemistry - challengeOrdered By: Pedro Tiwari on 03-12-2023 ALP [Catalytic activity/Vol] 49 U/L 45-117 [facility] ALT [Catalytic activity/Vol] 21 U/L 13-56 [facility] CO2 [Moles/Vol] 23.0 mmol/L 21.0-32.0 [facility] Globulin (S) [Mass/Vol] 3.2 g/dL 2.2-4.2 [facility] Urea nitrogen/Creatinine [Mass ratio] 16.9 mg/mg 10-20 [facility] No Panel InformationOrdered By: Pedro Tiwari on 03-12-2023 Estimated GFR (MDRD) Amer 106 mL/min >60 [facility] Comment on above: GFR Calc Estimated GFR (MDRD) Non-Af Amer 88 mL/min >60 [facility] Comment on above: Non- GFR Calc Serum or plasma albumin saida urement (mass/volume)Ordered By: Pedro Tiwari on 03-12-2023 Albumin [Mass/Vol] 3.8 g/dL 3.2-5.0 [facility] Serum or plasma albumin/glob ulin mass ratioOrdered By: Pedro Tiwari on 03-12-2023 Albumin/Globulin [Mass ratio] 1.2 {ratio} 0.9-2.4 [facility] Serum or plasma calcium saida urement (mass/volume)Ordered By: Pedro Tiwari on 03-12-2023 Calcium [Mass/Vol] 8.9 mg/dL 8.5-10.1 [facility] Serum or plasma creatinine m easurement (mass/volume)Ordered By: Pedro Tiwari on 03-12-2023 Creatinine [Mass/Vol] 0.71 mg/dL 0.55-1.02 [facility] Comment on above: The validity of the calculated GFR & GFRAA in patients over 70 years has not been determined. Clinical correlation is essential. Serum or plasma urea nitroge n measurement (mass/volume)Ordered By: Pedro Tiwari on 03-12-2023 Urea nitrogen [Mass/Vol] 12 mg/dL 7-18 [facility] Thin prep Papanicolaou smear with manual screeningOrdered By: Pedro Tiwari on 03-12-2023 Thin prep Papanicolaou smear with manual screening 14 U/L 15- [facility] Thin prep Papanicolaou smear with manual screening 7 5-15 [facility] Basophil percentageOrdered B y: Dr. Tiwari on 09-11-2022 Basophil percentage < 0.9 mg/dL 0.55-1.02 [facility] No Panel InformationOrdered By: Dr. Tiwari on 09-11-2022 Bedside Estimated GFR (eGFR) > 60.0000 mL/min >60 [facility] Basophil percentageOrdered B y: Dr. Tiwari on 07-09-2022 Chloride [Moles/Vol] 105 mmol/L 98-107 [facility] Cholesterol [Mass/Vol] 196 mg/dL <200 [facility] Comment on above: <200 mg/dL Desirable 200-240 mg/dL Borderline >240 mg/dL High Risk Glucose [Mass/Vol] 101 mg/dL 74-106 [facility] Comment on above: Fasting Glucose resu lt from 100 to 125 mg/dL suggests IMPAIRED HOMEOSTASIS per A.D.A. criteria. Potassium [Moles/Vol] 4.1 mmol/L 3.5-5.1 [facility] Sodium [Moles/Vol] 139 mmol/L 136-145 [facility] Triglyceride [Mass/Vol] 107 mg/dL <199 [facility] Comment on above: The drugs N-Acetylcy steine and Metamizole may falsely depress this assay.Serum Triglycerides Reference Interval Normal <150 mg/dL Borderline high 150 - 199 mg/dL High 200 - 499 mg/dL Very High > or = 500 mg/dL Laboratory - Chemistry and C hemistry - challengeOrdered By: Dr. Tiwari on 07-09-2022 CO2 [Moles/Vol] 27.0 mmol/L 21.0-32.0 [facility] Urea nitrogen/Creatinine [Mass ratio] 23.5 mg/mg 10-20 [facility] No Panel InformationOrdered By: Dr. Tiwari on 07-09-2022 Estimated GFR (MDRD) Amer 97 mL/min >60 [facility] Comment on above: GFR Calc Estimated GFR (MDRD) Non-Af Amer 80 mL/min >60 [facility] Comment on above: Non- GFR Calc Vitamin D 25-Hydroxy 73.9 ng/mL [facility] Comment on above: Vitamin D 25(OH) Sta tus Range Deficiency <20 ng/mL (50nmol/L) Insufficiency 20 - 30 ng/mL (50 - 75 nmol/L) Sufficiency 30 - 100 ng/mL (75 - 250 nmol/L) Toxicity >100 ng/mL (>250 nmol/L) Serum or plasma calcium saida urement (mass/volume)Ordered By: Dr. Tiwari on 07-09-2022 Calcium [Mass/Vol] 9.3 mg/dL 8.5-10.1 [facility] Serum or plasma cholesterol in HDL measurement (mass/volume)Ordered By: Dr. Tiwari on 07-09-2022 Cholesterol in HDL [Mass/Vol] 76 mg/dL >40 [facility] Comment on above: The drugs N-Acetylcy steine and Metamizole may falsely depress this assay. Reference Range HDL <40 mg/dL Low HDL Cholesterol HDL >or= 60 mg/dL High HDL Cholesterol Serum or plasma cholesterol in VLDL measurement (mass/volume)Ordered By: Dr. Tiwari on 07-09-2022 Cholesterol in VLDL [Mass/Vol] 21 mg/dL 5-40 [facility] Serum or plasma creatinine m easurement (mass/volume)Ordered By: Dr. Tiwari on 07-09-2022 Creatinine [Mass/Vol] 0.76 mg/dL 0.55-1.02 [facility] Comment on above: The validity of the calculated GFR & GFRAA in patients over 70 years has not been determined. Clinical correlation is essential. Serum or plasma low density lipoprotein (LDL) cholesterol measurement (mass/volume)Ordered By: Dr. Tiwari on 07-09-2022 Cholesterol in LDL [Mass/Vol] 99 mg/dL 0-130 [facility] Serum or plasma urea nitroge n measurement (mass/volume)Ordered By: Dr. Tiwari on 07-09-2022 Urea nitrogen [Mass/Vol] 18 mg/dL 7-18 [facility] Thin prep Papanicolaou smear with manual screeningOrdered By: Dr. Tiwari on 07-09-2022 Thin prep Papanicolaou smear with manual screening 7 5-15 [facility] Culture, urineOrdered By: Dr Dian Webb on 06-04-2022 Bacteria identified Cx Nom (U) Culture exhibits no growth. [facility] Office Visit: UC: L thumb na il plate lacerationon 05-26-2017 Fall risk assessment No Invalid Interpretation Code [facility] Work Phone: Protein mass conc Done Invalid Interpretation Code [facility] Work Phone: Tobacco smoking status NHIS Former smoker Invalid Interpretation Code [facility] Work Phone: Culture, urine Bacteria identified Cx Nom (U) Culture exhibits no growth. [facility] Work Phone: Vital Signs Date Time Vital Sign Value Performing Clinician Facility 05-19-2024 10:22-0400 Body mass index (BMI) [Ratio] 22.21 kg/m2 Misti Blank MD Work Phone: [facility] 05-19-2024 10:22-040 Body temperature 98.01 [degF] Misti Blank MD Work Phone: [facility] 05-19-2024 10:22-040 Body weight 52.4 kg Misti Blank MD Work Phone: [facility] Comment on above: with shoes 05-19-2024 10:22-040 Diastolic blood pressure 78 mm[Hg] Misti Blank MD Work Phone: [facility] 05-19-2024 10:22-0400 Heart rate 66 /min Misti Blank MD Work Phone: [facility] 05-19-2024 10:22-0400 Respiratory rate 18 /min Misti Blank MD Work Phone: [facility] 05-19-2024 10:22-0400 SaO2% (BldA) [Mass fraction] 99 % Misti Blank MD Work Phone: [facility] 05-19-2024 10:22-0400 Systolic blood pressure 123 mm[Hg] Misti Blank MD Work Phone: [facility] 05-31-2023 15:05-0400 Body temperature 98.1 [degF] Patrick Rangel MD Work Phone: [facility] 05-31-2023 15:05-0400 Body weight 69.81 kg Patrick Rangel MD Work Phone: [facility] 05-31-2023 15:05-0400 Diastolic blood pressure 68 mm[Hg] Patrikc Rangel MD Work Phone: [facility] 05-31-2023 15:05-0400 Heart rate 81 /min Patrick Rangel MD Work Phone: [facility] 05-31-2023 15:05-0400 Respiratory rate 18 /min Patrick Rangel MD Work Phone: [facility] 05-31-2023 15:05-0400 SaO2% (BldA) [Mass fraction] 95 % Patrick Rangel MD Work Phone: [facility] 05-31-2023 15:05-0400 Systolic blood pressure 137 mm[Hg] Patrick Rangel MD Work Phone: [facility] 05-18-2023 07:19-0400 Body height 152.4 cm Pacc 6 Work Phone: [facility] 05-18-2023 07:19-0400 Body temperature 97.81 [degF] Pacc 6 Work Phone: [facility] 05-18-2023 07:19-0400 Body weight 64.09 kg Pacc 6 Work Phone: [facility] 05-18-2023 07:19-0400 Diastolic blood pressure 88 mm[Hg] Pacc 6 Work Phone: [facility] 05-18-2023 07:19-0400 Heart rate 79 /min Pacc 6 Work Phone: [facility] 05-18-2023 07:19-0400 SaO2% (BldA) [Mass fraction] 96 % Pac 6 Work Phone: [facility] 05-18-2023 07:19-0400 Systolic blood pressure 130 mm[Hg] Pac 6 Work Phone: [facility] 05-06-2023 10:06-0400 Body height 153.5 cm Chris Kelley MD Work Phone: [facility] 05-06-2023 10:06-0400 Body temperature 98.2 [degF] Chris Kelley MD Work Phone: [facility] 05-06-2023 10:06-0400 Body weight 64.91 kg Chris Kelley MD Work Phone: [facility] 05-06-2023 10:06-0400 Diastolic blood pressure 93 mm[Hg] Chris Kelley MD Work Phone: [facility] 05-06-2023 10:06-0400 Heart rate 75 /min Chris Kelley MD Work Phone: [facility] 05-06-2023 10:06-0400 Respiratory rate 18 /min Chris Kelley MD Work Phone: [facility] 05-06-2023 10:06-0400 SaO2% (BldA) [Mass fraction] 97 % Chris Kelley MD Work Phone: [facility] 05-06-2023 10:06-0400 Systolic blood pressure 124 mm[Hg] Chris Kelley MD Work Phone: [facility] 05-26-2017 16:02-0400 BMI (Body Mass Index) 28.57 kg/m2 Ruby Robles LPN [facility] Work Phone: 05-26-2017 16:02-0400 Body Temperature 98.5 [degF] Ruby Robles LPN [facility]ra Work Phone: 05-26-2017 16:02-0400 BP Diastolic 72 mm[Hg] Ruby Robles LPN [facility] Work Phone: 05-26-2017 16:02-0400 BP Systolic 140 mm[Hg] Ruby Robles LPN [facility] Work Phone: 05-26-2017 16:02-0400 Height 154.94 cm Ruby Robles LPN [facility] Work Phone: 05-26-2017 16:02-0400 Pulse (Heart Rate) 102 /min Ruby Robles LPN [facility] Work Phone: 05-26-2017 16:02-0400 Respiratory Rate 14 /min Ruby Robles LPN [facility] Work Phone: 05-26-2017 16:02-0400 Weight 68.58 kg Ruby Robles LPN [facility] Work Phone: Encounters Encounter Date Encounter Type Care Provider Facility Start: 06-12-2025 End: 06-13-2025 ambulatory PEDRO TIWARI Facility:[facility] Start: 06-11-2025 ambulatory MISTI BLANK Facility: [facility] Start: 06-11-2025 End: 06-11-2025 ambulatory PEDRO ITWARI Facility:[facility] Start: 05-07-2025 End: 05-07-2025 ambulatory PEDRO TIWARI Facility:[facility] Start: 05-02-2025 End: 05-04-2025 Chart abstracting Nida Payton RN [facility] Comment on above: Tibsovo Cycle #24 Start: 04-09-2025 End: 04-09-2025 ambulatory PEDRO TIWARI Facility:[facility] Start: 04-04-2025 End: 04-04-2025 Chart abstracting Nida Payton RN [facility] Comment on above: CYCLE #23 Tibsovo Start: 03-07-2025 End: 03-08-2025 Chart abstracting Nida Payton RN [facility] Comment on above: Tibsovo Cycle #22 Start: 03-06-2025 End: 03-06-2025 ambulatory PEDRO TIWARI Facility:[facility] Start: 03-01-2025 End: 03-01-2025 Orders Only Misti Blank MD Work Phone: [facility] Comment on above: 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) Start: 02-27-2025 End: 03-01-2025 Refill Misti Blank MD Work Phone: [facility] Comment on above: Refill Request Start: 02-27-2025 End: 02-27-2025 Telemedicine consultation with patient Heather Jeffery KEN.LATHE TENDER Work Phone: [facility] Start: 02-27-2025 End: 02-27-2025 ambulatory Heather Jeffery KEN.LATHE TENDER Work Phone: [facility] Comment on above: 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); Encounter for long-term (current) use of medications Start: 02-26-2025 ambulatory PEDRO TIWARI Facility :[facility] Start: 02-26-2025 End: 02-26-2025 Subsequent hospital visit by physician Mri Radio [facility] (I-Stat/1.5t) Work Phone: Radiology Comment on above: 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] Start: 02-14-2025 End: 02-14-2025 ambulatory Misti Blank MD Work Phone: [facility] Comment on above: Appt Start: 02-14-2025 End: 02-14-2025 E-mail encounter from caregiver Misti Blank MD Work Phone: [facility] Start: 02-12-2025 End: 04-14-2025 Follow-up encounter Heather Jeffery APRN.LATHE TENDER Work Phone: [facility] Start: 02-09-2025 ambulatory MISTI BLANK Facility: [facility] Start: 02-09-2025 End: 02-09-2025 Subsequent hospital visit by physician [facility] Work Phone: Cardiology Lab Comment on above: 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] Start: 02-08-2025 End: 02-08-2025 Chart abstracting Kishan Smith RN [facility] Comment on above: Tibsovo Cycle 21# Start: 02-08-2025 End: 02-08-2025 Telephone encounter Kishan Smith RN [facility] Comment on above: Patient Update; Event Promotions Coordinator - Other Start: 02-07-2025 End: 02-07-2025 ambulatory PEDRO TIWARI Facility:[facility] Start: 02-02-2025 End: 02-02-2025 Orders Only Misti Blank MD Work Phone: [facility] Comment on above: 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] Start: 12-11-2024 End: 12-11-2024 ambulatory PEDRO TIWARI Facility:[facility] Start: 12-05-2024 End: 12-07-2024 Chart abstracting Nida Payton RN [facility] Comment on above: Tibsovo Cycle #19 Start: 11-22-2024 End: 11-22-2024 Orders Only Misti Blank MD Work Phone: [facility] Comment on above: 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); Encounter for chemotherapy management Start: 11-17-2024 End: 11-17-2024 ambulatory PEDRO TIWARI Facility:[facility] Start: 11-17-2024 End: 11-17-2024 Subsequent hospital visit by physician Mri [facility] (I-Stat/1.5t) Work Phone: Radiology Comment on above: 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] Start: 11-07-2024 End: 11-07-2024 Chart abstracting Nida Payton RN [facility] Comment on above: Tibsovo Cycle #18 Start: 11-07-2024 End: 11-07-2024 ambulatory PEDRO TIWARI Facility:[facility] Start: 11-06-2024 ambulatory MISTI BLANK Facility: [facility] Start: 11-06-2024 End: 11-06-2024 Subsequent hospital visit by physician Ekantonio [facility] Work Phone: Cardiology Lab Comment on above: 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] Start: 11-01-2024 End: 11-02-2024 Refill Misti Blank MD Work Phone: [facility] Comment on above: Refill Request Start: 11-01-2024 End: 11-01-2024 Telephone encounter Misti Blank MD Work Phone: [facility] Start: 10-13-2024 End: 10-16-2024 Telephone encounter Misti Blank MD Work Phone: [facility] Comment on above: 6 weeks Start: 10-10-2024 End: 10-18-2024 Chart abstracting Nida Payton RN [facility] Comment on above: Tibsovo Cycle #17 Start: 10-10-2024 End: 10-10-2024 ambulatory PEDRO TIWARI Facility:[facility] Start: 09-18-2024 ambulatory MISTI BLANK Facility: [facility] Start: 09-18-2024 End: 09-18-2024 Subsequent hospital visit by physician [facility] Work Phone: Cardiology Lab Comment on above: 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) Start: 08-21-2024 End: 08-22-2024 Telephone encounter Misti Blank MD Work Phone: [facility] Comment on above: YANICK- 11 weeks Start: 08-17-2024 End: 08-17-2024 Chart abstracting Nida Payton RN [facility] Comment on above: Tibsovo Cycle #14 Start: 08-14-2024 End: 08-14-2024 ambulatory Misti Blank MD Work Phone: [facility] Comment on above: 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) Start: 08-14-2024 End: 08-14-2024 Telemedicine consultation with patient Misti Blank MD Work Phone: [facility] Start: 08-11-2024 End: 08-11-2024 ambulatory PEDRO TIWARI Facility:[facility] Start: 08-11-2024 End: 08-11-2024 Subsequent hospital visit by physician Mri [facility] (I-Stat/1.5t) Work Phone: Radiology Comment on above: 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] Start: 08-08-2024 End: 08-08-2024 ambulatory PEDRO TIWARI Facility:[facility] Start: 08-07-2024 ambulatory MISTI BLANK Facility: [facility] Start: 08-07-2024 End: 08-07-2024 Subsequent hospital visit by physician [facility] Work Phone: Cardiology Lab Comment on above: 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] Start: 07-10-2024 End: 07-10-2024 ambulatory PEDRO TIWARI Facility:[facility] Start: 06-23-2024 ambulatory MISTI BLANK Facility: [facility] Start: 06-23-2024 End: 06-23-2024 Subsequent hospital visit by physician [facility] Work Phone: Cardiology Lab Comment on above: 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] Start: 06-20-2024 End: 06-20-2024 Chart abstracting Nida Payton RN [facility] Comment on above: Tibsovo Cycle #13 Start: 06-07-2024 End: 06-07-2024 ambulatory Misti Blank MD Work Phone: [facility] Comment on above: EKG Start: 06-07-2024 End: 06-07-2024 E-mail encounter from caregiver Misti Blakn MD Work Phone: [facility] Start: 06-06-2024 End: 06-07-2024 Telephone encounter Misti Blank MD Work Phone: [facility] Start: 05-29-2024 End: 05-29-2024 Orders Only Misti Blank MD Work Phone: [facility] Comment on above: 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) Start: 05-23-2024 End: 05-26-2024 Chart abstracting Nida Payton RN [facility] Comment on above: Tibsovo Cycle #12 Start: 05-22-2024 End: 05-22-2024 ambulatory Misti Blank MD Work Phone: [facility] Comment on above: Sleep study Start: 05-22-2024 End: 05-22-2024 E-mail encounter from caregiver Misti Blank MD Work Phone: [facility] Start: 05-19-2024 End: 05-19-2024 Patient encounter procedure Misti Blank MD Work Phone: [facility] Comment on above: 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) Start: 05-18-2024 End: 05-18-2024 Subsequent hospital visit by physician Mri [facility] (I-Stat/1.5t) Work Phone: Radiology Comment on above: 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] Start: 05-12-2024 End: 05-12-2024 Subsequent hospital visit by physician [facility] Work Phone: Cardiology Lab Comment on above: 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] Start: 05-05-2024 End: 05-05-2024 Telephone encounter Misti Blank MD Work Phone: [facility] Comment on above: Medication Problem Start: 05-04-2024 End: 05-05-2024 Telephone encounter Misti Blank MD Work Phone: [facility] Comment on above: Medication Problem Start: 05-03-2024 End: 05-03-2024 ambulatory Pedro Tiwari Facility:[facility] Start: 05-01-2024 End: 05-01-2024 Refill Misti Blank MD Work Phone: [facility] Comment on above: Refill Request Start: 04-25-2024 End: 05-11-2024 Chart abstracting Nida Payton RN [facility] Comment on above: Tibsovo Cycle #11 Start: 04-12-2024 End: 04-12-2024 Subsequent hospital visit by physician [facility] Work Phone: Cardiology Lab Comment on above: 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] Start: 03-28-2024 Chart abstracting Nida Payton RN [facility] Comment on above: Tibsovo Cycle #10 Start: 03-10-2024 End: 03-10-2024 Subsequent hospital visit by physician [facility] Work Phone: Cardiology Lab Comment on above: 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] Start: 03-03-2024 Orders Only Misti Blank MD Work Phone: [facility] Comment on above: 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) Start: 03-02-2024 Refill Misti Blank MD Work Phone: [facility] Comment on above: Refill Request Start: 02-29-2024 Chart abstracting Nida Payton RN [facility] Comment on above: TIBSOVO CYCLE #9 Start: 02-23-2024 End: 02-23-2024 ambulatory Misti Blank MD Work Phone: [facility] Comment on above: 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) Start: 02-23-2024 End: 02-23-2024 Telemedicine consultation with patient Misti Blank MD Work Phone: [facility] Start: 02-21-2024 End: 02-21-2024 Subsequent hospital visit by physician Mri [facility] (I-Stat/1.5t) Work Phone: Radiology Comment on above: 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] Start: 02-14-2024 End: 02-14-2024 Subsequent hospital visit by physician [facility] Work Phone: Cardiology Lab Comment on above: 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] Start: 02-03-2024 ambulatory Misti Blank MD Work Phone: [facility] Comment on above: Lab results Start: 02-03-2024 E-mail encounter fro m caregiver Misti Blank MD Work Phone: [facility] Start: 02-01-2024 Chart abstracting Nida Payton RN [facility] Comment on above: TIBSOVO CYCLE #8 Start: 01-24-2024 ambulatory Misti Blank MD Work Phone: [facility] Comment on above: Labs Hyponatremia (Primar y Dx); 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) Start: 01-24-2024 E-mail encounter fro m caregiver Misti Blank MD Work Phone: [facility] Start: 01-12-2024 End: 01-12-2024 [facility] Work Phone: Card[facility] Lab Comment on above: 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] Start: 01-04-2024 Chart abstracting Nida Payton RN [facility] Comment on above: Tibsovo cycle #7 Start: 01-03-2024 Refill Misti Blank MD Work Phone: [facility] Comment on above: Refill Request Start: 12-21-2023 Telephone encounter Misti corea MD Work Phone: [facility] Comment on above: Orders Opened In Error Start: 12-07-2023 Telephone encounter Misti corea MD Work Phone: [facility] Comment on above: TIBSOVO CYCLE #6 Start: 12-07-2023 End: 12-07-2023 Subsequent [facility] Work Phone: Cardiology Lab Comment on above: 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] Start: 11-22-2023 End: 11-22-2023 ambulatory Misti Blank MD Work Phone: [facility] Comment on above: 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); Word finding difficulty Start: 11-22-2023 End: 11-22-2023 Telemedicine consultation with patient Misti Blank MD Work Phone: [facility] Start: 11-09-2023 Chart abstracting Nida Kovats RN [facility] Comment on above: TIBSOVO CYCLE #5 Start: 11-05-2023 End: 11-05-2023 Subsequent hospital visit by physician [facility] Work Phone: Cardiology Lab Comment on above: 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] Start: 11-03-2023 Refill Misti Blank MD Work Phone: [facility] Comment on above: Refill Request Start: 10-12-2023 Chart abstracting Nida Appiah RN [facility] Comment on above: Tibsovo cycle #4 Start: 2023 End: 2023 Subsequent hospital visit by physician [facility] Work Phone: Cardiology Lab Comment on above: 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] Start: 10-04-2023 Refill Larry Jorgensen PhD Work Phone: [facility] Comment on above: Refill Request Start: 09-14-2023 Chart abstracting Nida Appiah RN [facility] Comment on above: TIBSOVO CYCLE #3 ; P re-Op Teaching Start: 09-10-2023 Telephone encounter Misti corea MD Work Phone: [facility] Comment on above: YANICK- 10 weeks Start: 09-03-2023 End: 09-03-2023 ambulatory [facility] Work Phone: Start: 09-03-2023 End: 09-03-2023 Patient encounter procedure [facility]-Outpatient Breast Imaging Work Phone: Start: 07-30-2023 End: 07-30-2023 Nursing evaluation of patient and report Nurse Card [facility] Work Phone: Cardiology Comment on above: 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) Start: 07-13-2023 Telephone encounter Misti corea MD Work Phone: [facility] Comment on above: Medication Question Start: 07-09-2023 Refill Misti Blank MD Work Phone: [facility] Comment on above: Refill Request Start: 07-08-2023 Telephone encounter Misti corea MD Work Phone: [facility] Comment on above: YANICK 1-2 weeks Start: 07-06-2023 [facility] Start: 07-06-2023 [facility] Comment on above: SPP Oral Oncology/he matology - Treatment Referral (Tibosvo); Insurance Authorization (Pending PA Submission) Start: 05-31-2023 End: 06-01-2023 Patient encounter procedure Patrick Rangel MD Work Phone: Radiation Oncology Comment on above: 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) Start: 05-31-2023 End: 05-31-2023 Nursing evaluation of patient and report Dorothy Stinson RN Work Phone: [facility] Comment on above: Meningioma (HCC) (Pr imary Dx) 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 Pacc [address] 6 Work Phone: [facility] Start: 05-18-2023 End: 05-18-2023 [facility] Main 6 Work Phone: Pre Anesthesia Comment on above: Pre-op evaluation (P rimary Dx); PONV (postoperative nausea and vomiting); Essential (primary) hypertension; Gastroesophageal reflux disease without esophagitis Start: 05-18-2023 End: 05-18-2023 Preprocedural examination done Pac Main 6 Work Phone: [facility] Work Phone: Start: 05-10-2023 Telephone encounter Benjamin Enriquez MD Work Phone: Geriatrics Start: 05-06-2023 End: 05-06-2023 Patient encounter procedure Chris Kelley MD Work Phone: [facility] Comment on above: 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); Abnormal finding on MRI of brain Start: 04-23-2023 Chart abstracting eBnjamin Enriquez MD Work Phone: Neurology Comment on above: Received Outside [facility] Records (04/23/23/External medical records and images uploaded.-IN) Start: 04-21-2023 Telephone encounter Schuyler Hare [facility] Comment on above: Triage (Internal ref erral) Start: 03-12-2023 End: 03-12-2023 ambulatory [facility] Work Phone: Start: 03-12-2023 End: 03-12-2023 Patient encounter procedure [facility] Start: 09-11-2022 End: 09-11-2022 ambulatory [facility] Work Phone: Start: 09-11-2022 End: 09-11-2022 Patient encounter procedure [facility] Start: 09-04-2022 End: 09-04-2022 ambulatory [facility] Work Phone: Start: 09-04-2022 End: 09-04-2022 Patient encounter procedure [facility] Start: 07-09-2022 End: 07-09-2022 ambulatory [facility] Work Phone: Start: 07-09-2022 End: 07-09-2022 Patient encounter procedure [facility]-Ltac[facility] Start: 06-02-2022 End: 06-02-2022 ambulatory [facility] Work Phone: Start: 06-02-2022 End: 06-02-2022 Patient encounter procedure [facility]-Laboratory, Specimen Start: 04-24-2022 End: 04-24-2022 ambulatory [facility] Work Phone: Start: 04-24-2022 End: 04-24-2022 Patient encounter procedure [facility]-Outpatient Breast Imaging Procedures Date Procedure Procedure Detail Performing Clinician Start: 02-26-2025 Mri brain brain stem w/o w/contrast material Misti Blank MD Work Phone: Start: 02-09-2025 Ecg routine ecg w/le ast 12 lds i&r only Misti Blank MD Work Phone: Start: 12-25-2024 Screening mammography Angel Tiwari MD Work Phone: Start: 12-12-2024 Ecg routine ecg w/le ast 12 lds i&r only Misti Blank MD Work Phone: Start: 11-17-2024 Mri brain brain stem w/o w/contrast material Misti Blank MD Work Phone: Start: 11-06-2024 Ecg routine ecg w/le ast 12 lds i&r only Misti Blank MD Work Phone: Start: 09-18-2024 Ecg routine ecg w/le ast 12 lds i&r only Misti Blank MD Work Phone: Start: 08-11-2024 Mri brain brain stem w/o w/contrast material Misti Blank MD Work Phone: Start: 08-07-2024 Ecg routine ecg w/le ast 12 lds i&r only Misti Blank MD Work Phone: Start: 06-23-2024 Ecg routine ecg w/le ast 12 lds i&r only Misti Blank MD Work Phone: Start: 05-18-2024 Mri brain brain stem w/o w/contrast material Misti Blank MD Work Phone: Start: 05-12-2024 Ecg routine ecg w/le ast 12 lds i&r only Misti Blank MD Work Phone: Start: 04-12-2024 Ecg routine ecg w/le ast 12 lds i&r only Misti Blank MD Work Phone: Start: 03-10-2024 Ecg routine ecg w/le ast 12 lds i&r only Misti Blank MD Work Phone: Start: 02-21-2024 Mri brain brain stem w/o w/contrast material Misti Blank MD Work Phone: Start: 02-14-2024 Ecg routine ecg w/le ast 12 lds i&r only Misti Blank MD Work Phone: Start: 02-01-2024 Lipid 1996 panel - S rehan or Plasma Misti Blank MD Work Phone: Start: 01-12-2024 Ecg routine ecg w/le ast 12 lds i&r only Misti Blank MD Work Phone: Start: 12-07-2023 Ecg routine ecg w/le ast 12 lds i&r only Misti Blank MD Work Phone: Start: 11-05-2023 Ecg routine ecg w/le ast 12 lds i&r only Misti Blank MD Work Phone: Start: 2023 Ecg routine ecg w/le ast 12 lds i&r only Misti Blank MD Work Phone: Start: 09-03-2023 Screening mammography Start: 07-30-2023 Ecg routine ecg w/le ast 12 lds i&r only [facility] Start: 07-23-2023 Ecg routine ecg w/le ast 12 lds i&r only [facility] Provider Start: 09-11-2022 MRI of brain with contrast Start: 09-04-2022 MRI of brain without contrast Start: 07-09-2022 Plain x-ray of pelvi s and lower extremity Start: 04-24-2022 Screening mammograph y of bilateral breasts Urine culture Urine culture Plan of Treatment Date Care Activity Detail Author Start: 06-01-2034 Urine microalbumin profile DTa P,Tdap,Td Vaccine (4 - Td or Tdap) [facility] Start: 2031 RSV Vaccine (1 - 1-d ose 75+ series) RSV Vaccine (1 - 1-dose 75+ series) [facility] Start: 01-31-2029 Lipid panel Lipid Screening [facility] Start: 04-09-2028 Diabetes Screening Diabetes Screenin [facility] Start: 03-06-2028 [facility] Start: 02-08-2028 Diabetes Screening Diabetes Screenin [facility] Start: 01-09-2028 Diabetes Screening Diabetes Screenin [facility] Start: 12-12-2027 Diabetes Screening Diabetes Screenin [facility] Start: 11-08-2027 Diabetes Screening Diabetes Screenin [facility] Start: 10-10-2027 Diabetes Screening Diabetes Screenin [facility] Start: 09-12-2027 Diabetes Screening Diabetes Screenin g [facility] Start: 08-08-2027 Diabetes Screening Diabetes Screenin g [facility] Start: 07-10-2027 Diabetes Screening Diabetes Screenin [facility] Start: 06-23-2027 Urine microalbumin profile DTa P,Tdap,Td Vaccine (3 - Td or Tdap) [facility] Start: 06-13-2027 Diabetes Screening Diabetes Screenin g [facility] Start: 05-26-2027 Urine microalbumin profile DTa P,Tdap,Td Vaccine (2 - Td or Tdap) [facility] Start: 05-11-2027 Diabetes Screening Diabetes Screenin g [facility] Start: 04-11-2027 Diabetes Screening Diabetes Screenin g [facility] Start: 03-14-2027 Diabetes Screening Diabetes Screenin g [facility] Start: 02-10-2027 Diabetes Screening Diabetes Screenin g [facility] Start: 01-12-2027 Diabetes Screening Diabetes Screenin antonio [facility] Start: 12-13-2026 Diabetes Screening Diabetes Screenin g [facility] Start: 11-11-2026 Diabetes Screening Diabetes Screenin g [facility] Start: 10-14-2026 Diabetes Screening Diabetes Screenin g [facility] Start: 09-14-2026 Diabetes Screening Diabetes Screenin antonio [facility] Start: 07-14-2026 Diabetes Screening Diabetes Screenin antonio [facility] Start: 05-19-2026 Diabetes Screening Diabetes Screenin antonio [facility] Start: 05-10-2026 Diabetes Screening Diabetes Screenin antonio [facility] Start: 06-12-2025 End: 06-12-2025 Patient encounter procedure 06/12/2025 1:30 PM EDT Office Visit [facility] [address] [place] [address] Misti Blank MD [address] [facility] [address] [place] [address] 3 month f/u [facility] Comment on above: 3 month f/u Start: 06-11-2025 End: 06-11-2025 Patient encounter procedure Radiology Comment on above: Dx: Low grade astroc ytoma of frontal lobe (HCC) [C71.1] 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] Start: 06-11-2025 End: 06-11-2025 ambulatory 06/11/2025 9:30 AM EDT Results Only Bonnie [place] [facility] [address] [place] [address] lab [place] [facility] Comment on above: lab Start: 05-19-2025 BP Controlled (<130/80) BP Controlle d (<130/80) [facility] Start: 05-07-2025 End: 05-07-2025 ambulatory 05/07/2025 9:15 AM EDT Results Only [place] [facility] [address] [place] [address] Lab [place] [facility] Comment on above: Lab Start: 04-23-2025 Influenza vaccination Influenza Vacc ine (#1) [facility] Start: 04-09-2025 End: 04-09-2025 ambulatory [facility] Comment on above: Lab Start: 03-12-2025 End: 03-12-2025 ambulatory 03/12/2025 9:15 AM EDT Results Only [place] [facility] [address] [place] [address] Lab [place] [facility] Comment on above: Lab Start: 03-09-2025 End: 03-09-2025 ambulatory 03/09/2025 9:30 AM EDT Results Only [place] [facility] [address] [place] [address] Lab [place] [facility] Comment on above: Lab Start: 03-06-2025 End: 03-06-2025 ambulatory 03/06/2025 9:30 AM EDT Results Only [place] [facility] [address] [place] [address] Lab [place] [facility] Comment on above: Lab Start: 02-27-2025 End: 02-27-2025 ambulatory [facility] Comment on above: 3 month MRI Bonnie and VV Abhay Start: 02-26-2025 End: 02-26-2025 Patient encounter procedure 02/26/2025 11:30 AM EDT Appointment Radiology [address] [place] [address] 3 month MRI Bonnie and [facility] Radiology Comment on above: 3 month MRI Bonnie and VV Abhay Start: 02-09-2025 End: 02-09-2025 Patient encounter procedure 02/09/2025 10:00 AM EDT Appointment Cardiology Lab [address] [place] [address] 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] Cardiology Lab Comment on above: 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] Start: 02-07-2025 End: 02-07-2025 ambulatory 02/07/2025 8:45 AM EDT Results Only [place] [facility] [address] [place] [address] Lab [facility] Comment on above: Lab Start: 01-08-2025 End: 01-08-2025 ambulatory 01/08/2025 9:15 AM EDT Results Only [place] [facility] [address] [place] [address] [facility] Comment on above: LABS Start: 12-12-2024 End: 12-12-2024 Patient encounter procedure 12/12/2024 10:00 AM EDT Appointment Cardiology Lab [address] [place] [address] ECG COMPLETE EKG Cardiology Lab Comment on above: ECG COMPLETE EKG Start: 12-11-2024 End: 12-11-2024 ambulatory 12/11/2024 9:15 AM EDT Results Only [place] [facility] [address] [place] [address] LABS [facility] Comment on above: LABS Start: 11-22-2024 End: 11-22-2024 Follow-up encounter 11/22/2024 9:30 AM EDT [facility] [address] [place] [address] Misti Blank MD [address] [place] [address] 3 month follow up [facility] Comment on above: 3 month follow up Start: 11-17-2024 End: 11-17-2024 Patient encounter procedure 11/17/2024 10:30 AM EDT Appointment Radiology [address] [place] [address] Diagnosis: 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] Radiology Comment on above: Diagnosis: 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] Start: 11-10-2024 End: 11-10-2024 ambulatory 11/10/2024 10:00 AM EDT [facility] [address] [place] [address] Misti Blank MD [address] [place] [address] Time Frame: 11 weeks [facility] [place] Comment on above: Time Frame: 11 weeks Start: 11-08-2024 End: 11-08-2024 Patient encounter procedure 11/08/2024 10:00 AM EDT Appointment Radiology [address] [place] [address] Diagnosis: 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 Cardiology Lab Comment on above: ECG COMPLETE, Low gr twin astrocytoma of frontal lobe (HCC) [C71.1], orders in epic, pt is rescheduling. Start: 10-30-2024 End: 10-30-2024 Patient encounter procedure 10/30/2024 10:00 AM EDT Appointment Cardiology Lab [address] [place] [address] ECG COMPLETE EKG Cardiology Lab Comment on above: ECG COMPLETE EKG Start: 10-10-2024 End: 10-10-2024 ambulatory 10/10/2024 9:15 AM EST Results Only [facility] [address] [place] [address] LABS [facility] Comment on above: LABS Start: 09-18-2024 End: 09-18-2024 Patient encounter procedure 09/18/2024 10:00 AM EST Appointment Cardiology Lab [address] [place] [address] ECG COMPLETE EKG Cardiology Lab Comment on above: ECG COMPLETE EKG Start: 09-12-2024 End: 09-12-2024 ambulatory 09/12/2024 9:30 AM EST Results Only [place] [facility] [address] [place] [address] LABS [facility] Comment on above: LABS Start: 08-23-2024 Advance Directive Discussion Advance Directive Discussion [facility] Start: 08-17-2024 End: 08-17-2024 Chart abstracting 08/17/2024 Abstract [facility] [address] [place] [address] Nida Payton [facility] Comment on above: Tibsovo Cycle #14 Start: 08-14-2024 End: 08-14-2024 ambulatory 08/14/2024 8:30 AM EST [facility] [address] [place] [address] Misti Blank MD [address] [facility] [address] [place] [address] 3 month f/u [facility] Comment on above: 3 month f/u Start: 08-11-2024 End: 08-11-2024 Patient encounter procedure Radiology Comment on above: low grade astrocytom a Start: 08-08-2024 End: 08-08-2024 ambulatory 08/08/2024 8:15 AM EST Results Only [facility] [address] [place] [address] LABS [facility] Comment on above: LABS Start: 08-07-2024 End: 08-07-2024 Patient encounter procedure 08/07/2024 10:00 AM EST Appointment Cardiology Lab [address] [place] [address] ECG COMPLETE EKG Cardiology Lab Comment on above: ECG COMPLETE EKG Start: 07-11-2024 End: 07-11-2024 ambulatory 07/11/2024 8:15 AM EST Results Only [facility] [address] [place] [address] LABS [facility] Comment on above: LABS Start: 06-23-2024 End: 06-23-2024 Patient encounter procedure 06/23/2024 10:00 AM EDT Appointment Cardiology Lab [address] [place] [address] ECG COMPLETE EKG Cardiology Lab Comment on above: ECG COMPLETE EKG Start: 06-13-2024 End: 06-13-2024 ambulatory 06/13/2024 8:15 AM EDT [facility] [address] [place] [address] LABS [facility] Comment on above: LABS Start: 05-19-2024 End: 05-19-2024 Patient encounter procedure [facility] [place] Comment on above: MRI on 05/18 Start: 05-18-2024 End: 05-18-2024 Patient encounter procedure 05/18/2024 10:00 AM EDT Appointment Radiology [address] [place] [address] low grade astrocytoma Radiology Comment on above: low grade astrocytom a Start: 05-12-2024 End: 05-12-2024 Patient encounter procedure 05/12/2024 10:00 AM EDT Appointment Cardiology Lab [address] [place] [address] 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] Cardiology Lab Comment on above: 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] Start: 05-11-2024 End: 05-11-2024 ambulatory [facility] Comment on above: LABS Start: 04-23-2024 Covid-19 Vaccine () Covid-19 Vaccine () [facility] Start: 04-23-2024 Covid-19 Vaccine () Covid-19 Vaccine () [facility] Start: 04-23-2024 Influenza vaccination Influenza Vacc ine (#1) [facility] Start: 04-12-2024 End: 04-12-2024 Patient encounter procedure 04/12/2024 10:00 AM EDT Appointment Cardiology Lab [address] [place] [address] 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] Cardiology Lab Comment on above: 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] Start: 04-11-2024 End: 04-11-2024 ambulatory 04/11/2024 8:00 AM EDT Results Only [place] [facility] [address] [place] [address] LABS [facility] Comment on above: LABS Start: 03-14-2024 End: 03-14-2024 ambulatory 03/14/2024 8:00 AM EDT Results Only [facility] [address] [place] [address] LABS [facility] Comment on above: LABS Start: 03-10-2024 End: 03-10-2024 Patient encounter procedure 03/10/2024 10:00 AM EDT Appointment Cardiology Lab [address] [place] [address] 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] Cardiology Lab Comment on above: 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] Start: 02-23-2024 End: 02-23-2024 Follow-up encounter 02/23/2024 9:00 AM EDT [facility] [address] [place] [address] Misti Blank MD [address] [place] [address] 3 month follow up [facility] [place] Comment on above: 3 month follow up Start: 02-21-2024 End: 02-21-2024 Patient encounter procedure 02/21/2024 10:00 AM EDT Appointment Radiology [address] [place] [address] brain tumor Radiology Comment on above: brain tumor Start: 02-14-2024 End: 02-14-2024 Patient encounter procedure 02/14/2024 10:00 AM EDT Appointment Cardiology Lab [address] [place] [address] 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] Cardiology Lab Comment on above: 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] Start: 02-11-2024 End: 02-11-2024 ambulatory 02/11/2024 9:30 AM EDT Results Only [place] [facility] [address] [place] [address] labs [facility] Comment on above: labs Start: 01-24-2024 End: 04-24-2024 Cortisol [Mass/volume] in Serum or Plasma CORTISOL, SERUM Lab Routine Hyponatremia 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) Expected: 01/24/2024, Expires: 04/24/2024 [facility] Work Phone: Comment on above: Expected: 01/24/2024 , Expires: 04/24/2024 Start: 01-24-2024 End: 04-24-2024 Lipid 1996 panel - Serum or Plasma LIPID PANEL BASIC Lab Routine Hyponatremia 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) Expected: 01/24/2024, Expires: 04/24/2024 [facility] Comment on above: Expected: 01/24/2024 , Expires: 04/24/2024 Start: 01-24-2024 End: 04-24-2024 T4/FTI/T4U T4/FTI/T4U Lab Routine Hyponatremia 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) Expected: 01/24/2024, Expires: 04/24/2024 [facility] Comment on above: Expected: 01/24/2024 , Expires: 04/24/2024 Start: 01-24-2024 End: 04-24-2024 Thyrotropin [Units/volume] in Serum or Plasma THYROID STIMULATING HORMONE Lab Routine Hyponatremia 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) Expected: 01/24/2024, Expires: 04/24/2024 [facility] Comment on above: Expected: 01/24/2024 , Expires: 04/24/2024 Start: 01-24-2024 End: 04-24-2024 Triiodothyronine (T3) Free [Mass/volume] in Serum or Plasma T3, FREE Lab Routine Hyponatremia 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) Expected: 01/24/2024, Expires: 04/24/2024 [facility] Comment on above: Expected: 01/24/2024 , Expires: 04/24/2024 Start: 01-13-2024 End: 01-13-2024 ambulatory 01/13/2024 9:30 AM EDT Results Only [facility] [address] [place] [address] Labs [facility] Comment on above: Labs Start: 01-12-2024 End: 01-12-2024 Patient encounter procedure 01/12/2024 10:00 AM EDT Appointment Cardiology Lab [address] [place] [address] 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] EPIC ORDER Cardiology Lab Comment on above: 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] EPIC ORDER Start: 08-23-2023 Advance Directive Discussion Advance Directive Discussion [facility] Start: 08-23-2023 Behavioral Health Screening Behavioral Health Screening [facility] Start: 08-23-2023 Depression Assessment Depression Ass essment [facility] Start: 07-08-2023 Pneumococcal Vaccine : 50+ (2 of 2 - PCV) Pneumococcal Vaccine: 50+ (2 of 2 - PCV) [facility] Start: 07-08-2023 Pneumococcal Vaccine : 65+ (2 - PCV) Pneumococcal Vaccine: 65+ (2 - PCV) [facility] Start: 07-08-2023 Pneumococcal Vaccine : 65+ (2 of 2 - PCV) Pneumococcal Vaccine: 65+ (2 of 2 - PCV) [facility] Start: 04-23-2023 Covid-19 Vaccine () Covid-19 Vaccine ( season) [facility] Start: 04-23-2023 Influenza vaccination C [facility] Start: 08-23-2022 ADVANCE DIRECTIVE DISCUSSION ADVANCE DIRECTIVE DISCUSSION [facility] Start: 08-23-2022 DEPRESSION ASSESSMENT DEPRESSION ASS ESSMENT [facility] Start: 2021 BONE DENSITY BONE DENSITY [facility] Start: 2021 Bone Density Screening Bone Density Screening [facility] Start: 2021 Pneumococcal Vaccine : 65+ (1 - PCV) Pneumococcal Vaccine: 65+ (1 - PCV) [facility] Start: 2021 PNEUMOCOCCAL: 65+ (1 - PCV) PNEUMOCOCCAL: 65+ (1 - PCV) [facility] Start: 2021 Screening for osteoporosis Bone Dens ity Screening [facility] Start: 09-23-2021 Medicare Annual Well ness Visit Medicare Annual Wellness Visit [facility] Start: 09-19-2021 COVID-19 VACCINE (4 - Pfizer series) COVID-19 VACCINE (4 - Pfizer series) [facility] Start: 10-13-2019 Shingrix Vaccine (3 of 3) Mendenhall grix Vaccine (3 of 3) [facility] Start: 05-26-2017 End: 05-26-[address] [facility] Work Phone: Start: 2016 RSV Vaccine (1 - 1-d ose 60+ series) RSV Vaccine (1 - 1-dose 60+ series) [facility] Start: 2016 RSV Vaccine (1 - Ris k 60-74 years 1-dose series) RSV Vaccine (1 - Risk 60-74 years 1-dose series) [facility] Start: 2006 SHINGRIX VACCINE (1 of 2) MENDENHALL GRIX VACCINE (1 of 2) [facility] Start: 2001 COLOGUARD (FIT-DNA) COLOGUARD (FIT-D NA) [facility] Start: 2001 Colonoscopy COLONOSCOPY [facility] Start: 2001 COLORECTAL CANCER SCREENING COLORECTAL CANCER SCREENING [facility] Start: [address] COLONOGRAPHY [facility] Start: 2001 DIABETES SCREEN DIABETES SCREEN [facility] Start: 2001 Diabetes Screening Diabetes Screenin g [facility] Start: 2001 FECAL OCCULT BLOOD FECAL OCCULT BLOO D [facility] Start: 2001 Lipid 1996 panel - S rehan or Plasma Lipid Screening [facility] Start: 2001 Lipid panel Lipid Screening [facility] Start: 2001 LIPID SCREEN LIPID SCREEN [facility] Start: 2001 Screening for malign ant neoplasm of colon [facility] Start: 2001 SIGMOIDOSCOPY SIGMOIDOSCOPY [facility] Start: 1996 Mammography [facility] Start: 1996 Screening for malign ant neoplasm of breast Mammogram Screening [facility] Start: 1975 Urine microalbumin profile [facility] Start: 1974 Annual PCP Team Academic Affairs Director mayra Disease Visit Annual PCP Team Chronic Disease Visit [facility] Start: 1974 Anxiety Screening Anxiety Screening [facility] Start: 1974 BP Controlled (<130/80) BP Controlle d (<130/80) [facility] Start: 1974 Depression Screening Depression Scre ening [facility] Start: 1974 HEPATITIS C SCREENING HEPATITIS C [facility] Start: 1974 Hepatitis C screening Hepatitis C [facility] CARIS MO TUMOR SEEK HYBRID CARIS MO TUMOR SEEK HYBRID Lab Routine 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) 05/31/2023 2:20 PM EDT [facility] Work Phone: End: 01-02-2026 CBC W Auto Differential panel - Blood COMPLETE BLOOD COUNT AND DIFFERENTIAL Lab Routine 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) Once per month for 12 Occurrences starting 01/02/2025 until 01/02/2026 [facility] Work Phone: Comment on above: Once per month for 1 2 Occurrences starting 01/02/2025 until 01/02/2026 End: 01-02-2026 Comprehensive metabolic 2000 panel - Serum or Plasma COMPREHENSIVE METABOLIC PANEL Lab Routine 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) Once per month for 12 Occurrences starting 01/02/2025 until 01/02/2026 [facility] Comment on above: Once per month for 1 2 Occurrences starting 01/02/2025 until 01/02/2026 End: 01-02-2026 Creatine kinase [Enzymatic activity/volume] in Serum or Plasma CREATINE KINASE/CK Lab Routine 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) Once per month for 12 Occurrences starting 01/02/2025 until 01/02/2026 [facility] Comment on above: Once per month for 1 2 Occurrences starting 01/02/2025 until 01/02/2026 ECG COMPLETE ECG COMPLETE ECG Routine Pre-op evaluation 05/18/2023 8:18 AM EDT [facility] Work Phone: ECG COMPLETE ECG COMPLETE ECG 07/23/2023 9:48 AM [facility] ECG COMPLETE ECG COMPLETE ECG 07/30/2023 10:00 AM [facility] End: 11-22-2025 ECG COMPLETE ECG COMPLETE ECG Routine 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) Every 3 months for 4 Occurrences starting 11/22/2024 until 11/22/2025 [facility] Comment on above: Every 3 months for 4 Occurrences starting 11/22/2024 until 11/22/2025 End: 02-27-2026 ECG COMPLETE ECG COMPLETE ECG Routine Encounter for long-term (current) use of medications 1 Occurrences starting 02/27/2025 until 02/27/2026 [facility] Comment on above: 1 Occurrences starti ng 02/27/2025 until 02/27/2026 End: 04-02-2025 MR Brain WO and W contrast IV MRI BRAIN WO/W IVCON Radiology Routine 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) 1 Occurrences starting 03/03/2024 until 04/02/2025 [facility] Work Phone: Comment on above: 1 Occurrences starti ng 03/03/2024 until 04/02/2025 End: 06-28-2025 MR Brain WO and W contrast IV MRI BRAIN WO/W IVCON Radiology Routine 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) 1 Occurrences starting 05/29/2024 until 06/28/2025 [facility] Work Phone: Comment on above: 1 Occurrences starti ng 05/29/2024 until 06/28/2025 End: 09-20-2025 MR Brain WO and W contrast IV MRI BRAIN WO/W IVCON Radiology Routine 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) 1 Occurrences starting 08/21/2024 until 09/20/2025 [facility] Work Phone: Comment on above: 1 Occurrences starti ng 08/21/2024 until 09/20/2025 End: 12-22-2025 MR Brain WO and W contrast IV MRI BRAIN WO/W IVCON Radiology Routine 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) 1 Occurrences starting 11/22/2024 until 12/22/2025 [facility] Work Phone: Comment on above: 1 Occurrences starti ng 11/22/2024 until 12/22/2025 End: 03-29-2026 MR Brain WO and W contrast IV MRI BRAIN WO/W IVCON Radiology Routine 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) 1 Occurrences starting 02/27/2025 until 03/29/2026 [facility] Work Phone: Comment on above: 1 Occurrences starti ng 02/27/2025 until 03/29/2026 Patient Education [facility] Work Phone: [facility] Immunizations Immunization Date Immunization Notes Care Provider Scott thrasher 06-06-2024 influenza virus vaccine, unspecified formulation Mri (I-Stat/1.5t) Work Phone: [facility] 06-21-2023 influenza virus vaccine, unspecified formulation Mri (I-Stat/1.5t) Work Phone: [facility] 05-27-2022 influenza virus vaccine, unspecified formulation Chris Kelley MD Work Phone: [facility] 04-06-2019 Influenza virus vaccine [facility] 05-26-2017 tetanus toxoid, redu gray diphtheria toxoid, and acellular pertussis vaccine, adsorbed Ruby Robles LPN [facility] Work Phone: 05-26-2017 [id number] [facility] N ow Clinic Work Phone: Payers Date Payer Category Payer Unknown [id number] 2024 Self-pay [id number] 2023 Government (not [facility] or Medicaid) [id number] 2023 Department [facility] ([facility] and others) [id number] 2021 Medicare [id number] 2021 Medicare [id number] 2015 Unknown ANTHEM [id number] 2013 Unknown [id number] Unknown [place] AUTH REQUIR ED SEE NOTE [id number] Unknown [id number] Unknown [id number] Unknown [id number] Social History Date Type Detail Facility Start: 06-20-2019 End: 06-20-2019 Tobacco smoking status [facility] Unknown if ever smoked [facility] Start: 06-20-2019 None [facility] Start: 06-20-2019 Spouse/ Signif icant Other [facility] Start: 06-20-2019 Non-smoker [facility] Start: 1955 Sex Assigned At Female [facility] Start: 06-20-2019 End: 04-20-2023 Tobacco smoking status TXIS Ex-smoker [facility] End: 08-23-1979 History of tobacco use Current smoker [facility] End: 08-23-1979 History of tobacco use Cigarette Smoker [facility] Start: 04-20-2023 Tobacco use and exposure Smokeless tobacco non-user [facility] Start: 04-20-2023 End: 05-19-2024 Alcohol intake Current non-drinker of alcohol (finding) [facility] Start: 04-20-2023 End: 05-18-2023 History of Social function [facility] Start: 04-20-2023 End: 05-18-2023 Tobacco use panel [facility] Start: 07-24-2012 National Score (1-10 0), lower number is lower risk 75 [facility] Start: 1955 Sex Assigned At Not on file C [facility] Start: 05-05-2023 Gender identity Identifies as female gender (finding) [facility] Start: 05-05-2023 Sexual orientation Heterosexual (fin destiny) [facility] Medical Equipment Procedure Code Equipment Code Equipment Origin al Text Equipment Identifier Dates Graft Duragen Pl us Bovine Collagen Matrix 2x2in Soft Tissue Patch - [id number] Start: 05-19-2023 Cover 10mm Taisha Hole Low Profile 3mm Screw Cranium - [id number] Start: 05-19-2023 Cover 10mm Mediu m Titanium [place] Hole Low Profile Tab 1.5mm Screws - [id number] Start: 05-19-2023 Screw Bone Unive rsal Neuro 3 4mm 1.5mm Self Drill Axial Stability Latex - [id number] Start: 05-19-2023 Kit Tiss Vhsd Fr zn Prima 4ml - [id number] Start: 05-19-2023 Plate Low Profil e Titanium 12mm Bone 2 Hole Bar 1.5mm Screw Nonsterile - [id number] Start: 05-19-2023 Clinical Notes 04-21-2023 to 06-27-2025 Nida Payton, SEGUNDO - 05/04/2025 4:01 PM EDTSNida hinojosa RN - 04/04/2025 3:18 PM EDNida Rasheed RN - 03/08/2025 2:16 PM EDTTelephone Encounter - Shital Faith RN - 02/28/2025 2:47 PM EDT Note Date & Type Note Facility 06-27-2025 Note HNO ID: [id number] Author: NIDA PAYTON RN Service: ? Author Type: Registered Nurse Type: Progress Notes Filed: 06/27/2025 15:10 Note Text: Cycle #26 Tibsovo started on 06/27/25, cycle #27 will begin on 07/24/25. Labs were all WNL. Nida Payton RN [facility] 06-12-2025 Note HNO ID: [id number] Author: MISTI BLANK MD Service: ? Author Type: Physician Type: Progress Notes Filed: 06/18/2025 15:06 Note Text: [facility] Established Visit Referred by No referring provider defined for this encounter. Diagnosis: Astrocytoma, IDH-1 mutated, WHO grade 2 Subjective History of Present Illness: Patient is accompanied by . Hand dominance: right-handed. 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 The patient was initially seen in Brain [...] Neurosurgery in Brain Tumor Clinic by Dr. Kelley on 05/06/2023. Overall impression was low-grade glioma [...] incorrect grammar with writing since her surgery. 05/19/24: Since last seen in Neuro-Oncology Clinic virtually in February, Mrs. Benton has seen her primary care physician for elevated LDL and is now on rosuvastatin. She had her broken tooth extracted and unfortunately this was complicated by a dry socket. She has been seen in consultation by an oral surgeon. He wishes to ensure that there is no residual infection before an implant is considered. She continues to experience stress headache. The pain by her rib cage has resolved. She has had a few word substitutions over the past three days but otherwise none since I last saw her. Has been a no alteration of consciousness, aura or seizure, blurred or double vision, difficulty hearing or vertigo, dysarthria or dysphagia, focal weakness, numbness or tingling, gait ataxia, or difficulty withbowel or bladder control. She continues treatment with ivosidenib and tolerates this well. Interim EKGs and blood work have all been normal. 08/14/24: Since last seen in Neuro-Oncology clinic three months ago, Mrs. Benton has not experienced any word substitutions. In fact, there has been no alteration of consciousness, aura or seizure, blurred or double vision, difficulty hearing or vertigo, dysarthria or dysphagia, focal weakness, numbness or tingling, gait ataxia, or difficulty with bowel or bladder control. She continues treatment with ivosidenib and tolerates this well; she has been on this medication for one year now. All monthly interim EKGs and blood work have been normal. She has a longstanding headache history. The month of May was very bad for headache. She recognizes that stress is a factor and has tried to destress, to relax, and to use Tylenol and Advil without much effect. Her headaches are predominantly left frontal and pressure. They are not associated with any other symptoms. The can occur at anytime of day and she typically will wake up with one. She keeps the window open at night for some cool air. Oddly enough, she only had one headache in June and one in July. This is remarkable since her baby sister [age 65] suffered a very bad stroke at the end of June, went into hospice, and on July 24 shortly after Mrs. Benton's niece, her sister's daughter, gave to a baby. She has had difficulty with insomnia. Her follow-up total cholesterol in April was 190 on rosuvastatin. Her dry socket has resolved. 11/22/24: Today, Ms Benton presents virtually to Neuro-Oncology Clinic unaccompanied for follow-up evaluation and MRI review. Since her last visit in July, she has been overall stable. She did just get over the flu - officially tested positive for influenza, has had symptoms for three weeks. She is still coughing but otherwise on the mend. Negative for Covid. She did take Tamiflu initially, then pzti-jat-azjersj cold medicine, as well as azithromycin. She has continued to take some of the nighttime cold m (more content not included)... [facility] 06-12-2025 Note HNO ID: [id number] Author: RAGHAV HASSAN LPN Service: ? Author Type: Licensed Nurse Type: Progress Notes Filed: 06/12/2025 13:06 Note Text: Additional intake questions: Has the patient had fever, nausea, vomiting, diarrhea, constipation, fatigue for > 1 week? No Does the patient have a decreased appetite? No Does patient want to see a Chief Radiation Therapist? No (yes to any of above refer patient to schedulers for dietitian appointment) ) Does patient have any new or increased numbness or tingling of extremities? No Is patient interested in fertility information? NA Does patient need any prescription refills? No Does patient have an advanced directive in place? Yes, copies are in Epic Electronically Signed By: Raghav Hassan LPN [facility] 06-11-2025 Note HNO ID: [id number] Author: TREY ARANA RT(R) Service: Radiology Author Type: Technologist Type: Progress Notes Filed: 06/11/2025 12:55 Note Text: Radiology Service Progress Note PATIENT NAME: Jesus Benton DATE OF SERVICE: June 11, 2025 TIME: 12:55 PM PATIENT IDENTITY VERIFICATION COMPLETED USING TWO (2) IDENTIFIERS: Name and Date of confirmed by patient verbally and Name and Date of confirmed by identification band. FALL SCREENING: Has the patient had 2 falls in the last year or 1 fall with injury or currently using an Ambulatory Assistive Device (Walker, Cane, Wheelchair, Crutches, etc.)? No PATIENT GENDER DATA: Assigned female at . status: : No status: NO. PATIENT RELEVANT IMPLANT DATA REVIEWED: Yes PATIENT PRESENTS WITH AN IMPLANTABLE OR ATTACHED INDUSTRIAL GAS SERVICER: No RADIOLOGY DEPARTMENT: MR; Exam(s) Completed: Head: Routine Brain with Perfusion. Anesthesia: No. Aromatherapy Administered: No PERIPHERAL IV DATA: Site assessment: Clean,Dry and Intact, Site disposition Discontinued SIGNED BY: RT Jeremiah(R) June 11, 2025 12:55 PM [facility] 06-01-2025 Note HNO ID: [id number] Author: NIDA PAYTON RN Service: ? Author Type: Registered Nurse Type: Progress Notes Filed: 06/01/2025 11:05 Note Text: Cycle #25 Tibsovo started on 05/30/25, cycle #26 will begin on 06/27/25. Labs were all WNL. Nida Payton RN [facility] 05-04-2025 Note HNO ID: [id number] Author: NIDA PAYTON RN Service: ? Author Type: Registered Nurse Type: Progress Notes Filed: 05/04/2025 16:17 Note Text: Cycle #24 Tibsovo started on 05/02/25, cycle #25 will begin on 05/30/25. Labs were all WNL. Nida Payton RN [facility] 05-04-2025 History of Presen t illness Narrative Cycle #24 Tibsovo started on 05/02/25, cycle #25 will begin on 05/30/25. Labs were all WNL. Nida Payton RN documented in this encounter [facility] 04-04-2025 Note HNO ID: [id number] Author: NIDA PAYTON RN Service: ? Author Type: Registered Nurse Type: Progress Notes Filed: 04/04/2025 15:19 Note Text: Cycle #23 Tibsovo started on 04/04/25, cycle #24 will begin on 05/02/25. Labs were all WNL. Nida Payton RN [facility] 04-04-2025 History of Presen t illness Narrative Cycle #23 Tibsovo started on 04/04/25, cycle #24 will begin on 05/02/25. Labs were all WNL. Nida Payton RN documented in this encounter [facility] 03-08-2025 Note HNO ID: [id number] Author: NIDA PAYTON RN Service: ? Author Type: Registered Nurse Type: Progress Notes Filed: 03/08/2025 14:17 Note Text: Cycle #22 Tibsovo started on 03/07/25, cycle #23 will begin on 04/04/25. Labs were all WNL. Nida Payton RN [facility] 03-08-2025 History of Presen t illness Narrative Cycle #22 Tibsovo started on 03/07/25, cycle #23 will begin on 04/04/25. Labs were all WNL. Ndia Payton RN documented in this encounter [facility] 02-28-2025 Telephone encounter Note Duplicate order [facility] Work Phone: 02-28-2025 Miscellaneous Notes Duplicate order documented in this encounter [facility] 02-27-2025 Note HNO ID: [id number] Author: HEATHER JEFFERY APRN.LATHE TENDER Service: ? Author Type: Nurse Practitioner Type: Progress Notes Filed: 02/27/2025 12:23 Note Text: [facility] Virtual Visit I have communicated my name and active licensure. The patient's identity and physical location were verified at the time of this visit. Either the patient or their legal outbound sales representative has been informed of the risks and benefits of -- and alternatives to -- treatment through a remote evaluation and consents to proceed with the evaluation remotely. The patient is referred for post-op neuro-oncologic evaluation. Final recommendations will be communicated back to the requesting physician by way of the shared medical records, or letters to requesting physician via [place] Mail. Diagnosis: Astrocytoma, IDH-1 mutated, WHO grade 2 Subjective Chief Complaint: Mrs. 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 History of Present Illness: Patient is accompanied by . Hand dominance: right-handed. Neuro-Oncology History Surgery: 05/19/2023 Chemo: 07/21/2023 - Ivosidenib started Current Steroid Dose: - None Current AED Dose: - None 68 year old right-handed female with a newly [...] Neurosurgery in Brain Tumor Clinic by Dr. Kelley on 05/06/2023. Overall impression was low-grade glioma [...] with writing since her surgery. Interval History: Today, she notes that she is feeling really well overall. She has a few questions that she would like to address at today's visit: - She notes that the electrolytes on her labs have been abnormal - specifically, in the past she has had low sodium, which is not new for her (hospitalized for this in 2019), and wonders about starting an electrolyte drink such as EmergenC to try and normalize the electrolyte values. Notably, on the most recent labs, her sodium was within normal limits. - In addition, on recent labs she has had an elevated LDL. She has discussed this with her PCP and has made healthier changes to her diet and her lifestyle overall and the LDL has still been high. Her primary doctor had noted that she would check again in May and if the LDL was still high after 6 months of making positive changes, they would then discuss medications. She therefore wonders if she is should reach back out to her PCP now rather than May. She is walking 4-6 miles per day and ensuring that she is getting enough protein and fiber. - About 3 weeks ago, she was brushing her teeth and part of her tooth broke off and fell down the drain. This tooth had cracked and had decay surrounding it - her dentist started putting a crown on it but stopped midway because they were worried the decay and crack went too far down. They now have the option of having a root canal or pulling the tooth and potentially getting an implant. She is unsure of which route to take given that she is on therapy and worries about the possibility of a procedure. Otherwise, she has been tolerating the ivosidenib without side effects and has no problems getting the medication. Occasionally, she gets a headache and seldom takes anything for them - she has wondered about taking acetaminophen sparingly, perhaps 1-2 times per week. The stomach pain that she was having at the last appointment has completely subsided. If she moves her hand down her ribcage and curls her fingers underneath her ribs, she occasionally has pain there. A few weeks ago, it was happening every single day, but the frequency has significantly decreased. This wa (more content not included)... [facility] 02-27-2025 History of Presen t illness Narrative Images from the original note were not included. [facility] Virtual Visit I have communicated my name and active licensure. The patient's identity and physical location were verified at the time of this visit. Either the patient or their legal outbound sales representative has been informed of the risks and benefits of -- and alternatives to -- treatment through a remote evaluation and consents to proceed with the evaluation remotely. The patient is referred for post-op neuro-oncologic evaluation. Final recommendations will be communicated back to the requesting physician by way of the shared medical records, or letters to requesting physician via [place] Mail. Diagnosis: Astrocytoma, IDH-1 mutated, WHO grade 2 Subjective Chief Complaint: Mrs. 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 History of Present Illness: Patient is accompanied by . Hand dominance: right-handed. Neuro-Oncology History Surgery: 05/19/2023 Chemo: 07/21/2023 - Ivosidenib started Current Steroid Dose: - None Current AED Dose: - None 68 year old right-handed female with a newly [...] Neurosurgery in Brain Tumor Clinic by Dr. Kelley on 05/06/2023. Overall impression was low-grade glioma [...] with writing since her surgery. Interval History: Today, she notes that she is feeling really well overall. She has a few questions that she would like to address at today's visit: - She notes that the electrolytes on her labs have been abnormal - specifically, in the past she has had low sodium, which is not new for her (hospitalized for this in 2019), and wonders about starting an electrolyte drink such as EmergenC to try and normalize the electrolyte values. Notably, on the most recent labs, her sodium was within normal limits. - In addition, on recent labs she has had an elevated LDL. She has discussed this with her PCP and has made healthier changes to her diet and her lifestyle overall and the LDL has still been high. Her primary doctor had noted that she would check again in May and if the LDL was still high after 6 months of making positive changes, they would then discuss medications. She therefore wonders if she is should reach back out to her PCP now rather than May. She is walking 4-6 miles per day and ensuring that she is getting enough protein and fiber. - About 3 weeks ago, she was brushing her teeth and part of her tooth broke off and fell down the drain. This tooth had cracked and had decay surrounding it - her dentist started putting a crown on it but stopped midway because they were worried the decay and crack went too far down. They now have the option of having a root canal or pulling the tooth and potentially getting an implant. She is unsure of which route to take given that she is on therapy and worries about the possibility of a procedure. Otherwise, she has been tolerating the ivosidenib without side effects and has no problems getting the medication. Occasionally, she gets a headache and seldom takes anything for them - she has wondered about taking acetaminophen sparingly, perhaps 1-2 times per week. The stomach pain that she was having at the last appointment has completely subsided. If she moves her hand down her ribcage and curls her fingers underneath her ribs, she occasionally has pain there. A few weeks ago, it was happening every single day, but the frequency has significantly decreased. This was always on the left side and in the same spot - not positional or pleuritic; also did not get worse with mealtime. She does still notice issues with word substitution, not so much word-finding. She does not feel like this interacts with her day to day life. Her feels like it is not worse, perhaps even a little better. She does not usually notice the errors that she makes. 05/19/24: Since last seen in Neuro-Oncology Clinic virtually in February, Mrs. Benton has seen her primary care physician for elevated LDL and is now on rosuvastatin. She had her broken tooth extracted and unfortunately this was complicated by a dry socket. She has been seen in consultation by an oral surgeon. He wishes to ensure that there is no residual infection before an implant is considered. She continues to experience stress headache. The pain by her rib cage has resolved. She has had a few word substitutions over the past three days but otherwise none since I last saw her. Has been a no alteration of consciousness, aura or seizure, blurred or double vision, difficulty hearing or vertigo, dysarthria or dysphagia, focal weakness, numbness or tingling, gait ataxia, or difficulty with bowel or bladder control. She continues treatment with ivosidenib and tolerates this well. Interim EKGs and blood work have all been normal. 08/14/24: Since last seen in Neuro-Oncology clinic three months ago, Mrs. Benton has not experienced any word substitutions. In fact, there has been no alteration of consciousness, aura or seizure, blurred or double vision, difficulty hearing or vertigo, dysarthria or dysphagia, focal weakness, numbness or tingling, gait ataxia, or difficulty with bowel or bladder control. She continues treatment with ivosidenib and tolerates this well; she has been on this medication for one year now. All monthly interim EKGs and blood work have been normal. She has a longstanding headache history. The month of May was very bad for headache. She recognizes that stress is a factor and has tried to destress, to relax, and to use Tylenol and Advil without much effect. Her headaches are predominantly left frontal and pressure. They are not associated with any other symptoms. The can occur at anytime of day and she typically will wake up with one. She keeps the window open at night for some cool air. Oddly enough, she only had one headache in June and one in July. This is remarkable since her baby sister [age 65] suffered a very bad stroke at the end of June, went into hospice, and on July 24 shortly after Mrs. Benton's niece, her sister's daughter, gave to a baby. She has had difficulty with insomnia. Her follow-up total cholesterol in April was 190 on rosuvastatin. Her dry socket has resolved. 11/22/24: Today, Ms Benton presents virtually to Neuro-Oncology Clinic unaccompanied for follow-up evaluation and MRI review. Since her last visit in July, she has been overall stable. She did just get over the flu - officially tested positive for influenza, has had symptoms for three weeks. She is still coughing but otherwise on the mend. Negative for Covid. She did take Tamiflu initially, then fwea-lvu-zgbhqwi cold medicine, as well as azithromycin. She has continued to take some of the nighttime cold medicine because it has helped with sleep - which has been an ongoing issue. She plans on calling the [facility] study described at the last visit because of this. She is taking trazodone 50 mg at night with no side effects - her primary care physician is prescribing this. Energy level was good leading up to her illness - she and her started walking six miles per day -> three miles per day and she hopes to return to this. Things have also been overall very stressful the last few months following her sister dying in July and her sister's daughter giving a week or so prior to that. She is otherwise managing well - still has good appetite, motivation, etc. She otherwise has no new symptoms gilliam general updates to her health today. Cycle 18 ivosidenib started 11/07/24. Interval History [02/27/2025]: Jesus presents today for follow up, accompanied by Luciano, with a new MRI to review. Since her last visit, she has been doing pretty well. She continues to mourn the loss of her sister who in July 2024. She recently started a Bible study with her neighbor which has been helpful, but she feels she continues to need additional support. She has gained some weight which she feels is from comfort eating. Sleep is improved with taking trazodone, and occasionally Z-Quil ultra. She is getting ~7 hours which is adequate for her. She reached out to [facility] however the sleep study is closed; they sent her a list of open/ongoing research which she plans to explore. She and Luciano are trying to be more active, and she acknowledges exercise is very beneficial to her energy level and mood. She began Cycle 21 ivosidenib on 02/07/25 and is having no issues. She has no new neurological concerns or symptoms today. Past Medical History: PAST MEDICAL HISTORY Diagnosis [...] Social History Tobacco Use Smoking status: Former Current packs/day: 0.00 Types: Cigarettes Quit date: 1979 Years since quittin.5 Smokeless tobacco: Never Substance Use Topics Alcohol use: No Drug use: No Medications: ivosidenib (TIBSOVO) 250 mg tablet Take 2 tablets (500mg) by mouth once daily. acetaminophen (TYLENOL) 325 mg tablet 2 tablets [...] Amlodipine Itching Latex Rash Review of Systems: A complete review of systems was negative apart from the symptoms noted in the interval history above. Objective There were no vitals taken for this visit. Physical Examination: Exam limited due to the virtual nature of this visit. Findings are as follows: Mental Status: alert, conversant. Comprehension and recall intact to history. Language is fluent without evidence of word-finding difficulty. Cranial Nerves: Face is symmetric at rest and with activation. No dysarthria. Karnofsky performance status: 90 - Able to carry on normal activity, minor signs or symptoms of disease. ECOG performance status: 1 - Restricted in physically strenuous activity but ambulatory and able to carry out work of a light or sedentary nature, e.g., light house work or office work. Review of Labs: CMP Latest Ref Rng & Units 02/07/2025 CMP Sodium 136 - 144 mmol/L 138 Potassium 3.7 - 5.1 mmol/L 3.9 Chloride 98 - 107 mmol/L 102 CO2 22 - 30 mmol/L 24 Glucose 74 - 99 mg/dL 104 BUN 7 - 21 mg/dL 16 Creatinine 0.58 - 0.96 mg/dL 0.81 EGFR >=60 mL/min/1.73m 79 Protein, Total 6.3 - 8.0 g/dL 6.3 Albumin 3.9 - 4.9 g/dL 4.4 Calcium 8.5 - 10.2 mg/dL 10.0 Bilirubin, Total 0.2 - 1.3 mg/dL 0.5 AST 13 - 35 U/L 19 ALT 7 - 38 U/L 12 Alkaline Phosphatase 34 - 123 U/L 56 , CBC Latest Ref Rng & Units 02/07/2025 CBC WBC 3.70 - 11.00 k/uL 6.50 RBC 3.90 - 5.20 m/uL 4.61 Hemoglobin 11.5 - 15.5 g/dL 13.9 Hematocrit 36.0 - 46.0 % 41.4 MCV 80.0 - 100.0 fL 89.8 MCH 26.0 - 34.0 pg 30.2 MCHC 30.5 - 36.0 g/dL 33.6 RDW-CV 11.5 - 15.0 % 12.6 Platelet Count 150 - 400 k/uL 300 MPV 9.0 - 12.7 fL 10.0 Baso% % 1.1 Abs Neut (ANC) 1.45 - 7.50 k/uL 3.79 Abs Lymph 1.00 - 4.00 k/uL 1.67 Abs [place] <0.87 k/uL 0.39 Abs Eosin <0.46 k/uL 0.56 Abs Baso <0.11 k/uL 0.07 NRBC /100 WBC 0.0 , and BMP Latest Ref Rng & Units 02/07/2025 BMP Glucose 74 - 99 mg/dL 104 BUN 7 - 21 mg/dL 16 Creatinine 0.58 - 0.96 mg/dL 0.81 Sodium 136 - 144 mmol/L 138 Potassium 3.7 - 5.1 mmol/L 3.9 Chloride 98 - 107 mmol/L 102 CO2 22 - 30 mmol/L 24 Anion Gap 8 - 15 mmol/L 12 Calcium 8.5 - 10.2 mg/dL 10.0 EGFR >=60 mL/min/1.73m 79 Final Pathology: Component FINAL DIAGNOSIS A, B. 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 RAP/dkm 05/24/2023 Diagnosis Comment Histologic sections show infiltrating low grade glioma, marked by mild hypercellularity with rare atypical appearing glial cells. Vascular proliferative changes, prominent mitotic activity, and necrosis are not seen. Immunostains were performed on block B6. Scattered atypical cells demonstrate positive staining with antibody to IDH-1 (R132H). Rare positive Ki-67 positive staining atypical cells are noted. No definite loss of ATRX staining is observed. Addendums will be issued following additional molecular testing including 1p/19q FISH, MGMT analysis, and the Targeted Oncology Panel. Laboratory Developed Test (LDT) Disclaimer: Performance characteristics of immunohistochemical, immunofluorescent and chromogenic in-situ hybridization tests have been determined by the performing laboratory within [facility] [place] ([facility], [facility], [facility], [facility], [facility], or [facility]) in a manner consistent with CLIA requirements. One or more of these tests have not been cleared or approved by the FDA. [facility] is regulated under CLIA as qualified to perform high-complexity testing. These tests are used for clinical purposes. They should not be regarded as investigational or for research. Positive and negative controls stain appropriately. Laboratory Developed Test (LDT) Disclaimer: Performance characteristics of immunohistochemical, immunofluorescent and chromogenic in-situ hybridization tests have been determined by the performing laboratory within [facility] [place] ([facility], [facility], [facility], [facility], Replaced [facility], or [facility]) in a manner consistent with CLIA requirements. One or more of these tests have not been cleared or approved by the FDA. [facility] is regulated under CLIA as qualified to perform high-complexity testing. These tests are used for clinical purposes. They should not be regarded as investigational or for research. Positive and negative controls stain appropriately. Gross Description A. BRAIN RESECTION Received fresh for intraoperative consultation labeled brain resection-right frontal tumor are multiple pieces of soft wang-white tissue with an aggregate measurement of 1.7 x 0.4 x 0.2 cm. Half of the tissue submitted for frozen section in FSA1, the remaining tissue submitted for permanent in A2. [place] [address] CLIA# [id number] 05/19/23 10:54 AM B. BRAIN RESECTION Received fresh for intraoperative consultation, labeled as right frontal tumor is a single white-wang soft tissue fragment that measures 3.8 x 2.8 x 1.0 cm and weighs 4.97 g. Sectioning reveals white-wang cut surfaces. A outbound sales representative section is submitted in FS B1, the remainder of the specimen is submitted in 5 cassettes. VINAY/SEDRICK May 19, 2023 12:31 PM [place] [address] CLIA# [id number] Intraoperative Diagnosis A. BRAIN RESECTION FSA1: Right frontal tumor: Slightly hypercellular brain parenchyma, no high-grade features seen (Dr. Mclaughlin). Intraoperative diagnosis performed at [place] [address] CLIA# [id number] B. BRAIN RESECTION FSB1: Right frontal tumor: Mildly hypercellular WET ROLLER tissue, rule out infiltrating glioma (Dr. Mclaughlin). 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 Resulting Agency CCM Specimen Collected: 05/19/23 10:40 AM EDT Last Resulted: 10/02/23 12:16 PM EDT 1p19q intact by FISH. MGMT promoter not hypermethylated. IDH-1[R132H] by TOP NGS. No other mutations detected by TOP. 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 Microsatellite instability is stable, and tumor mutational burden is low at 1 mut/Mb. Genomic loss of hetereozygosity is low [4%]. No mutations are detected in any other cancer-type relevant biomarkers. 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 TECHNIQUE: Routine brain MRI protocol without and with contrast including diffusion images. Perfusion with gadolinium. MQ: [id number] Contrast: 10 mL Dotarem IV COMPARISON: MRI brain from November 09, 2024. RESULT: Postop: Again noted are remote postop changes of right frontal craniotomy. There is stable wedge-shaped parenchymal defect in the right frontal pole from the previous resection. Acute Change: There is no evidence of restricted diffusion to suggest an acute infarct. Hemorrhage: There is stable mild nodular susceptibility artifact along the right frontal resection site compatible with chronic blood byproducts. Mass Lesion/ Mass Effect: Postcontrast images show no evidence of residual enhancing mass in the right frontal resection site. There is a small amount of curvilinear enhancement within the cavity compatible with vessels/scar. There is stable minimal hyperintensity on T2 and FLAIR along the resection margin. There is no elevated CBV to suggest high-grade neoplasm in the right frontal lobe or elsewhere in the brain. No significant mass effect. Chronic Change: The white matter is within normal limits of signal intensity for age. Parenchyma: No significant volume loss for age. The brain parenchyma is otherwise within normal limits of signal intensity and morphology. Ventricles: Normal caliber and morphology. Skull Base: Hypothalamic and pituitary region are grossly normal. Craniocervical junction is normal. No significant marrow replacement process. Vasculature: Major intracranial arterial structures, and dural venous sinuses show typical flow void, suggesting patency by spin echo criteria. Other: The visualized paranasal sinuses and mastoid air cells are clear. The orbits and extracranial soft tissues are unremarkable. Impression: IMPRESSION: Stable MRI brain after right frontal resection. No pathologic enhancement or elevated CBV. No new enhancing lesions or leptomeningeal disease. Machine Shorthand Teacher: LEO Transcribe Date/Time: Feb 26 2025 12:38P Dictated by : CORIE CHURCHILL MD This examination was interpreted and the report reviewed and electronically signed by: CORIE CHURCHILL MD on Feb 26 2025 12:41PM EST I have independently reviewed the MRI images of February 26, 2025 and have compared them to the previous study of November 17, 2024 and I agree with the official interpretation - stable. Data Review: Personal review of medical records: I reviewed the [facility] chart. Personal review of image, tracing or specimen: Yes Lesion size: N/A [FLAIR abnormality could be residual tumor or post-surgical change] Multifocal: No Subependymal spread: No ASSESSMENT and PLAN: Neurologically, Mrs. Benton is doing very well. She is tolerating the ivosidenib without side effects or significant abnormalities of blood work. Radiographically her most recent MRI continues to demonstrate stability. She will continue the ivosidenib. Recent past slight elevation in ALT [40, previously 13] likely in the setting of concurrent illness, and prolonged use of niud-gvr-ujnglpt cold medicines. In addition, elevated platelet count likely acute phase reactant to recent illness. These have normalized and remained stable. Insomnia, particularly in times of stress, is very common in patients with primary brain tumors. She has been in contact with [facility] and plans to call them re: available trials as the sleep study has closed. Encouraged to continue trazodone, and prn ZQuil. We also discussed how her grief from her sister's recent passing can contribute to her sleep quality, among other things. Recommended she consider seeing a grief counselor to help her navigate this. She is very receptive to this idea and will explore options near her home. We also discussed how exercise can help improve sleep, energy levels, and mood; she may be eligible for a free membership at her local [employer] through the [employer] program and she will look into this. We will see her in follow-up in three months in person ~May which will be around the time of her two-year milestone since her surgery; and continue q3 month EKGs for monitoring given ongoing stability. Continue monthly labs. She was in agreement with the plan, and had no additional questions. Pt was seen and discussed with Dr. Blank, staff neuro-oncologist. Heather Jeffery APRN.CNP I spent a total of 42 minutes on the date of the service which included preparing to see the patient, igmu-tl-qgpg patient care, completing clinical documentation, obtaining and/or reviewing separately obtained history, performing a medically appropriate examination, counseling and educating the patient/family/caregiver, ordering medications, tests, or procedures, communicating with other HCPs (not separately reported), communicating results to the patient/family/caregiver, and care coordination (not separately reported). documented in this encounter [facility] 02-26-2025 History of Presen t illness Narrative Radiology Service Progress Note DATE OF SERVICE: February 26, 2025 TIME: 11:27 AM PATIENT IDENTITY VERIFICATION COMPLETED USING TWO (2) STANDARD IDENTIFIERS: Name and Date of confirmed by patient verbally. FALL SCREENING: Has the patient had 2 falls in the last year or 1 fall with injury or currently using an Ambulatory Assistive Device (Walker, Cane, Wheelchair, Crutches, etc.)? No PATIENT GENDER DATA: Assigned female at . status: : No status: NO. PATIENT RELEVANT IMPLANT DATA REVIEWED: Yes PATIENT PRESENTS WITH AN IMPLANTABLE OR ATTACHED INDUSTRIAL GAS SERVICER: No ALLERGIES: Reviewed and unchanged CONTRAST ALLERGY: NO. EXAM: MRI - CONTRAST TYPE: GROUP II PERIPHERAL IV DATA: Ambulatory: A peripheral IV was started in the Left antecubital site with a Angio cath: 20 gauge. RADIOLOGY DEPARTMENT: MR; Exam(s) Completed: Head: Routine Brain with Perfusion. Aromatherapy Administered: No SIGNATURE: RT Carolynn(R) PATIENT NAME: Jesus Benton DATE: February 26, 2025 TIME: 11:27 AM documented in this encounter [facility] 02-26-2025 Note HNO ID: [id number] Author: KELIN BOX RT(R) Service: ? Author Type: Technologist Type: Progress Notes Filed: 02/26/2025 11:28 Note Text: Radiology Service Progress Note DATE OF SERVICE: February 26, 2025 TIME: 11:27 AM PATIENT IDENTITY VERIFICATION COMPLETED USING TWO (2) STANDARD IDENTIFIERS: Name and Date of confirmed by patient verbally. FALL SCREENING: Has the patient had 2 falls in the last year or 1 fall with injury or currently using an Ambulatory Assistive Device (Walker, Cane, Wheelchair, Crutches, etc.)? No PATIENT GENDER DATA: Assigned female at . status: : No status: NO. PATIENT RELEVANT IMPLANT DATA REVIEWED: Yes PATIENT PRESENTS WITH AN IMPLANTABLE OR ATTACHED INDUSTRIAL GAS SERVICER: No ALLERGIES: Reviewed and unchanged CONTRAST ALLERGY: NO. EXAM: MRI - CONTRAST TYPE: GROUP II PERIPHERAL IV DATA: Ambulatory: A peripheral IV was started in the Left antecubital site with a Angio cath: 20 gauge. RADIOLOGY DEPARTMENT: MR; Exam(s) Completed: Head: Routine Brain with Perfusion. Aromatherapy Administered: No SIGNATURE: RT Carolynn(R) PATIENT NAME: Jesus Benton DATE: February 26, 2025 TIME: 11:27 AM [facility] 02-08-2025 Telephone encounter Note Called and spoke with patient Jesus Benton in regards to Tibsovo arrival and start. Patient stated that she received Tibsovo on 02/07/2025 and started her dose on same date. Patient thankful for the call. Kishan England, R.N. Brain Tumor Event Promotions Coordinator [place] [address] Desk Number [phone] Mobile/Pager [phone] Email [email or web address] [facility] 02-08-2025 Miscellaneous Notes Called and spoke with patient Jesus Benton in regards to Tibsovo arrival and start. Patient stated that she received Tibsovo on 02/07/2025 and started her dose on same date. Patient thankful for the call. Kishan Enlgand R.N. Brain Tumor Event Promotions Coordinator Neurological [place] [id number] Desk Number [phone] Mobile/Pager [phone] Email [email or web address] documented in this encounter [facility] 02-08-2025 Note HNO ID: [id number] Author: KISHAN SMITH RN Service: ? Author Type: Registered Nurse Type: Progress Notes Filed: 02/08/2025 16:27 Note Text: Cycle #21 Tibsovo started on 02/07/25, cycle #22 will begin on 03/06/25. Labs were all WNL. Kishan England R.N. Brain Tumor Event Promotions Coordinator [place] [id number] Desk Number [phone] Mobile/Pager [phone] Email [email or web address] [facility] 02-08-2025 History of Presen t illness Narrative Cycle #21 Tibsovo started on 02/07/25, cycle #22 will begin on 03/06/25. Labs were all WNL. Kishan England R.N. Brain Tumor Event Promotions Coordinator [address] [address] Desk Number [phone] Mobile/Pager [phone] Email [email or web address] documented in this encounter [facility] 01-02-2025 Note HNO ID: [id number] Author: NIDA PAYTON RN Service: ? Author Type: Registered Nurse Type: Progress Notes Filed: 01/02/2025 16:52 Note Text: Cycle #20 Tibsovo started on 01/02/25, cycle #21 will begin on 01/30/25. Labs were all WNL. Nida Payton RN [facility] 01-02-2025 History of Presen t illness Narrative Cycle #20 Tibsovo started on 01/02/25, cycle #21 will begin on 01/30/25. Labs were all WNL. Nida Payton RN documented in this encounter [facility] 01-02-2025 Telephone encounter Note Order Request Caller : Jesus Contact Order Being Requested : Labs Orders Need to be placed in epic. Pt will get labs drawn on Wednesday. [facility] 01-02-2025 Miscellaneous Notes Order Request Caller : Jesus Contact Order Being Requested : Labs Orders Need to be placed in epic. Pt will get labs drawn on Wednesday. documented in this encounter [facility] 12-07-2024 Note HNO ID: [id number] Author: NIDA PAYTON RN Service: ? Author Type: Registered Nurse Type: Progress Notes Filed: 12/07/2024 15:17 Note Text: Cycle #19 Tibsovo started on 12/05/24, cycle #20 will begin on 01/02/25. Labs were all WNL. Nida Payton RN [facility] 12-07-2024 History of Presen t illness Narrative Cycle #19 Tibsovo started on 12/05/24, cycle #20 will begin on 01/02/25. Labs were all WNL. Nida Payton RN documented in this encounter [facility] 11-22-2024 History of Presen t illness Narrative Images from the original note were not included. [facility] Virtual Established Visit I have communicated my name and active licensure. The patient's identity and physical location were verified at the time of this visit. Either the patient or their legal outbound sales representative has been informed of the risks and benefits of -- and alternatives to -- treatment through a remote evaluation and consents to proceed with the evaluation remotely. The patient is referred for post-op neuro-oncologic evaluation. Final recommendations will be communicated back to the requesting physician by way of the shared medical records, or letters to requesting physician via US Mail. Diagnosis: Astrocytoma, IDH-1 mutated, WHO grade 2 Subjective Chief Complaint: Mrs. 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 History of Present Illness: Patient is accompanied by . Hand dominance: right-handed. Neuro-Oncology History Surgery: 05/19/2023 Chemo: 07/21/2023 - Ivosidenib started Current Steroid Dose: - None Current AED Dose: - None 68 year old right-handed female with a newly [...] Neurosurgery in Brain Tumor Clinic by Dr. Kelley on 05/06/2023. Overall impression was low-grade glioma [...] with writing since her surgery. Interval History: Today, she notes that she is feeling really well overall. She has a few questions that she would like to address at today's visit: - She notes that the electrolytes on her labs have been abnormal - specifically, in the past she has had low sodium, which is not new for her (hospitalized for this in 2019), and wonders about starting an electrolyte drink such as EmergenC to try and normalize the electrolyte values. Notably, on the most recent labs, her sodium was within normal limits. - In addition, on recent labs she has had an elevated LDL. She has discussed this with her PCP and has made healthier changes to her diet and her lifestyle overall and the LDL has still been high. Her primary doctor had noted that she would check again in May and if the LDL was still high after 6 months of making positive changes, they would then discuss medications. She therefore wonders if she is should reach back out to her PCP now rather than May. She is walking 4-6 miles per day and ensuring that she is getting enough protein and fiber. - About 3 weeks ago, she was brushing her teeth and part of her tooth broke off and fell down the drain. This tooth had cracked and had decay surrounding it - her dentist started putting a crown on it but stopped midway because they were worried the decay and crack went too far down. They now have the option of having a root canal or pulling the tooth and potentially getting an implant. She is unsure of which route to take given that she is on therapy and worries about the possibility of a procedure. Otherwise, she has been tolerating the ivosidenib without side effects and has no problems getting the medication. Occasionally, she gets a headache and seldom takes anything for them - she has wondered about taking acetaminophen sparingly, perhaps 1-2 times per week. The stomach pain that she was having at the last appointment has completely subsided. If she moves her hand down her ribcage and curls her fingers underneath her ribs, she occasionally has pain there. A few weeks ago, it was happening every single day, but the frequency has significantly decreased. This was always on the left side and in the same spot - not positional or pleuritic; also did not get worse with mealtime. She does still notice issues with word substitution, not so much word-finding. She does not feel like this interacts with her day to day life. Her feels like it is not worse, perhaps even a little better. She does not usually notice the errors that she makes. 05/19/24: Since last seen in Neuro-Oncology Clinic virtually in February, Mrs. Benton has seen her primary care physician for elevated LDL and is now on rosuvastatin. She had her broken tooth extracted and unfortunately this was complicated by a dry socket. She has been seen in consultation by an oral surgeon. He wishes to ensure that there is no residual infection before an implant is considered. She continues to experience stress headache. The pain by her rib cage has resolved. She has had a few word substitutions over the past three days but otherwise none since I last saw her. Has been a no alteration of consciousness, aura or seizure, blurred or double vision, difficulty hearing or vertigo, dysarthria or dysphagia, focal weakness, numbness or tingling, gait ataxia, or difficulty with bowel or bladder control. She continues treatment with ivosidenib and tolerates this well. Interim EKGs and blood work have all been normal. 08/14/24: Since last seen in Neuro-Oncology clinic three months ago, Mrs. Benton has not experienced any word substitutions. In fact, there has been no alteration of consciousness, aura or seizure, blurred or double vision, difficulty hearing or vertigo, dysarthria or dysphagia, focal weakness, numbness or tingling, gait ataxia, or difficulty with bowel or bladder control. She continues treatment with ivosidenib and tolerates this well; she has been on this medication for one year now. All monthly interim EKGs and blood work have been normal. She has a longstanding headache history. The month of May was very bad for headache. She recognizes that stress is a factor and has tried to destress, to relax, and to use Tylenol and Advil without much effect. Her headaches are predominantly left frontal and pressure. They are not associated with any other symptoms. The can occur at anytime of day and she typically will wake up with one. She keeps the window open at night for some cool air. Oddly enough, she only had one headache in June and one in July. This is remarkable since her baby sister [age 65] suffered a very bad stroke at the end of June, went into hospice, and on July 24 shortly after Mrs. Benton's niece, her sister's daughter, gave to a baby. She has had difficulty with insomnia. Her follow-up total cholesterol in April was 190 on rosuvastatin. Her dry socket has resolved. 11/22/24: Today, Ms Bneton presents virtually to [facility] unaccompanied for follow-up evaluation and MRI review. Since her last visit in July, she has been overall stable. She did just get over the flu - officially tested positive for influenza, has had symptoms for three weeks. She is still coughing but otherwise on the mend. Negative for Covid. She did take Tamiflu initially, then bwsq-sfo-stuaxxv cold medicine, as well as azithromycin. She has continued to take some of the nighttime cold medicine because it has helped with sleep - which has been an ongoing issue. She plans on calling the [facility] study described at the last visit because of this. She is taking trazodone 50 mg at night with no side effects - her primary care physician is prescribing this. Energy level was good leading up to her illness - she and her started walking six miles per day -> three miles per day and she hopes to return to this. Things have also been overall very stressful the last few months following her sister dying in July and her sister's daughter giving a week or so prior to that. She is otherwise managing well - still has good appetite, motivation, etc. She otherwise has no new symptoms gilliam general updates to her health today. Cycle 18 ivosidenib started 11/07/24. Past Medical History: PAST MEDICAL HISTORY Diagnosis [...] Social History Tobacco Use Smoking status: Former Current packs/day: 0.00 Types: Cigarettes Quit date: 1979 Years since quittin.2 Smokeless tobacco: Never Substance Use Topics Alcohol use: No Drug use: No Medications: ivosidenib (TIBSOVO) 250 mg tablet Take 2 tablets (500mg) by mouth once daily. acetaminophen (TYLENOL) 325 mg tablet 2 tablets [...] Amlodipine Itching Latex Rash Review of Systems: A complete review of systems was negative apart from the symptoms noted in the interval history above. Objective There were no vitals taken for this visit. Physical Examination: Due to the virtual nature of this encounter a complete neurologic examination could not be accomplished. Nevertheless, it was evident that Mrs. Benton was awake, alert, attentive and lucid. There was no evidence of cognitive deficit, aphasia, or word substitution. Face moved symmetrically. Karnofsky performance status: 90 - Able to carry on normal activity, minor signs or symptoms of disease. ECOG performance status: 1 - Restricted in physically strenuous activity but ambulatory and able to carry out work of a light or sedentary nature, e.g., light house work or office work. Review of Labs: CMP Latest Ref Rng & Units 11/07/2024 CMP Sodium 136 - 144 mmol/L 135 Potassium 3.7 - 5.1 mmol/L 4.3 Chloride 98 - 107 mmol/L 96 CO2 22 - 30 mmol/L 27 Glucose 74 - 99 mg/dL 115 BUN 7 - 21 mg/dL 10 Creatinine 0.58 - 0.96 mg/dL 0.75 EGFR >=60 mL/min/1.73m 87 Protein, Total 6.3 - 8.0 g/dL 7.2 Albumin 3.9 - 4.9 g/dL 4.1 Calcium 8.5 - 10.2 mg/dL 9.6 Bilirubin, Total 0.2 - 1.3 mg/dL 0.3 AST 13 - 35 U/L 21 ALT 7 - 38 U/L 40 Alkaline Phosphatase 34 - 123 U/L 73 , CBC Latest Ref Rng & Units 11/07/2024 CBC WBC 3.70 - 11.00 k/uL 9.00 RBC 3.90 - 5.20 m/uL 4.39 Hemoglobin 11.5 - 15.5 g/dL 13.2 Hematocrit 36.0 - 46.0 % 39.5 MCV 80.0 - 100.0 fL 90.0 MCH 26.0 - 34.0 pg 30.1 MCHC 30.5 - 36.0 g/dL 33.4 RDW-CV 11.5 - 15.0 % 13.2 Platelet Count 150 - 400 k/uL 677 MPV 9.0 - 12.7 fL 8.5 Baso% % 0.8 Abs Neut (ANC) 1.45 - 7.50 k/uL 5.28 Abs Lymph 1.00 - 4.00 k/uL 2.47 Abs [place] <0.87 k/uL 0.56 Abs Eosin <0.46 k/uL 0.29 Abs Baso <0.11 k/uL 0.07 NRBC /100 WBC 0.0 , and BMP Latest Ref Rng & Units 11/07/2024 BMP Glucose 74 - 99 mg/dL 115 BUN 7 - 21 mg/dL 10 Creatinine 0.58 - 0.96 mg/dL 0.75 Sodium 136 - 144 mmol/L 135 Potassium 3.7 - 5.1 mmol/L 4.3 Chloride 98 - 107 mmol/L 96 CO2 22 - 30 mmol/L 27 Anion Gap 8 - 15 mmol/L 12 Calcium 8.5 - 10.2 mg/dL 9.6 EGFR >=60 mL/min/1.73m 87 Final Pathology: Component FINAL DIAGNOSIS A, B. 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 RAP/dkm 05/24/2023 Diagnosis Comment Histologic sections show infiltrating low grade glioma, marked by mild hypercellularity with rare atypical appearing glial cells. Vascular proliferative changes, prominent mitotic activity, and necrosis are not seen. Immunostains were performed on block B6. Scattered atypical cells demonstrate positive staining with antibody to IDH-1 (R132H). Rare positive Ki-67 positive staining atypical cells are noted. No definite loss of ATRX staining is observed. Addendums will be issued following additional molecular testing including 1p/19q FISH, MGMT analysis, and the Targeted Oncology Panel. Laboratory Developed Test (LDT) Disclaimer: Performance characteristics of immunohistochemical, immunofluorescent and chromogenic in-situ hybridization tests have been determined by the performing laboratory within [facility] s [facility] Pathology [facility] Laboratory [facility] [place] ([facility], [facility], [facility], [facility], [facility], Replaced By [facility], or [facility]) in a manner consistent with CLIA requirements. One or more of these tests have not been cleared or approved by the FDA. [facility] is regulated under CLIA as qualified to perform high-complexity testing. These tests are used for clinical purposes. They should not be regarded as investigational or for research. Positive and negative controls stain appropriately. Laboratory Developed Test (LDT) Disclaimer: Performance characteristics of immunohistochemical, immunofluorescent and chromogenic in-situ hybridization tests have been determined by the performing laboratory within [facility] [place] ([facility], [facility], [facility], [facility], [facility], Replaced By [facility], or [facility]) in a manner consistent with CLIA requirements. One or more of these tests have not been cleared or approved by the FDA. [facility] is regulated under CLIA as qualified to perform high-complexity testing. These tests are used for clinical purposes. They should not be regarded as investigational or for research. Positive and negative controls stain appropriately. Gross Description A. BRAIN RESECTION Received fresh for intraoperative consultation labeled brain resection-right frontal tumor are multiple pieces of soft wang-white tissue with an aggregate measurement of 1.7 x 0.4 x 0.2 cm. Half of the tissue submitted for frozen section in FSA1, the remaining tissue submitted for permanent in A2. Gross examination performed at [facility], [address] [place] [address] CLIA# [id number] 05/19/23 10:54 AM B. BRAIN RESECTION Received fresh for intraoperative consultation, labeled as right frontal tumor is a single white-wang soft tissue fragment that measures 3.8 x 2.8 x 1.0 cm and weighs 4.97 g. Sectioning reveals white-wang cut surfaces. A outbound sales representative section is submitted in FS B1, the remainder of the specimen is submitted in 5 cassettes. CATHERINE May 19, 2023 12:31 PM Gross examination performed at [facility], [address] [place] [address] CLIA# [id number] Intraoperative Diagnosis A. BRAIN RESECTION FSA1: Right frontal tumor: Slightly hypercellular brain parenchyma, no high-grade features seen (Dr. Mclaughlin). Intraoperative diagnosis performed at [place] [address] CLIA# [id number] B. BRAIN RESECTION FSB1: Right frontal tumor: Mildly hypercellular WET ROLLER tissue, rule out infiltrating glioma (Dr. Mclaughlin). 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 Resulting Agency CCM Specimen Collected: 05/19/23 10:40 AM EDT Last Resulted: 05/24/23 12:16 PM EDT 1p19q intact by FISH. MGMT promoter not hypermethylated. IDH-1[R132H] by TOP NGS. No other mutations detected by TOP. 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 Microsatellite instability is stable, and tumor mutational burden is low at 1 mut/Mb. Genomic loss of hetereozygosity is low [4%]. No mutations are detected in any other cancer-type relevant biomarkers. 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 TECHNIQUE: Routine brain MRI protocol without and with contrast including diffusion images. MQ: [id number] Contrast: 11 mL Dotarem IV COMPARISON: Brain MRI April dated back to 11/19/2023. RESULT: Postoperative change: There are postoperative findings related to a right frontal craniotomy. Acute Change: There is no evidence of restricted diffusion to suggest an acute infarct. Hemorrhage: No evidence of prior parenchymal hemorrhage on the susceptibility weighted images. Mass Lesion/ Mass Effect: There is no significant change in the size of the T2/FLAIR hyperintensity surrounding the right frontal lobe resection cavity in right frontal lobe, when compared to most recent prior MRI and MRs dating back to 02/21/2024. No abnormal enhancement associated with the resection cavity to suggest recurrent neoplasm. There is no elevated cerebral blood volume on the perfusion sequence elsewhere in the brain to suggest recurrent neovascularity. There is no mass effect, midline shift or herniation. Chronic Change: The white matter is within normal limits of signal intensity for age. Parenchyma: No significant volume loss for age. The brain parenchyma is otherwise within normal limits of signal intensity and morphology. Ventricles: Normal caliber and morphology. Skull Base: Hypothalamic and pituitary region are grossly normal. Craniocervical junction is normal. No significant marrow replacement process. Vasculature: Major intracranial arterial structures, and dural venous sinuses show typical flow void, suggesting patency by spin echo criteria. Other: There is scattered mucosal sinus thickening. The visualized paranasal sinuses and mastoid air cells are otherwise clear. The orbits and extracranial soft tissues are unremarkable. Impression: IMPRESSION: No evidence of recurrent or progressive disease. Machine Shorthand Teacher: PSCB Transcribe Date/Time: Nov 17 2024 11:43A Dictated by : FRANCESCA FIELDS MD This examination was interpreted and the report reviewed and electronically signed by: FRANCESCA FIELDS MD on Nov 17 2024 11:54AM EST I have independently reviewed the MRI images of November 17, 2024 and have compared them to the previous study of August 11, 2024 and I agree with the official interpretation - stable. Data Review: Personal review of medical records: I reviewed the [facility] chart. Personal review of image, tracing or specimen: Yes Lesion size: N/A [FLAIR abnormality could be residual tumor or post-surgical change] Multifocal: No Subependymal spread: No ASSESSMENT and PLAN: Neurologically, Mrs. Benton is doing very well. She is tolerating the ivosidenib without side effects or significant abnormalities of blood work. Radiographically her most recent MRI continues to demonstrate stability. She will continue the ivosidenib. Recent slight elevation in ALT [40, previously 13] likely related to recent flu and prolonged use of adjy-bzw-ifwhlhu cold medicines. In addition, elevated platelet count likely acute phase reactant to recent illness. Suspect both of these will normalize during the next set of labs - if liver enzymes up-trend, will discuss transitioning ivosidenib to vorasidenib at that time. Insomnia, particularly in times of stress, is very common in patients with primary brain tumors. She has been forwarded the recruitment flyer for the cognitive behavioral therapy intervention for sleep disturbance in primary brain tumor patient's for the clinical trial ongoing at [facility] and plans to call them. Discussed our agreement with preferring trazodone for sleep rather than habit-forming medications such as benzodiazepines or nonbenzodiazepine-hypnotics. We also encouraged her to ask her primary care provider if perhaps a dose increase in trazodone would be reasonable given that she is tolerating it well. We will see her in follow-up in three months as a virtual visit with pre-clinic MRI of the brain without and with contrast to monitor response to therapy. Will plan for in-person visit in ~May which will be around the time of her two-year milestone since her surgery. Will also move from monthly to every three month EKGs for monitoring given ongoing stability. Continue monthly labs. Seen and staffed with Dr. Blank, staff neuro-oncologist. Raquel Romero MD Neuro-Oncology Fellow Attending Physician Attestation: I saw and evaluated Jesus Benton virtually with Dr. Raquel Romero on November 22, 2024, and I agree with the findings, formulation and plan outlined in her note above. Misti Blank MD Staff Neuro-Oncologist November 26, 2024 documented in this encounter [facility] 11-22-2024 Note HNO ID: [id number] Author: MISTI BLANK MD Service: ? Author Type: Physician Type: Progress Notes Filed: 11/26/2024 11:47 Note Text: [facility] Virtual Established Visit I have communicated my name and active licensure. The patient's identity and physical location were verified at the time of this visit. Either the patient or their legal outbound sales representative has been informed of the risks and benefits of -- and alternatives to -- treatment through a remote evaluation and consents to proceed with the evaluation remotely. The patient is referred for post-op neuro-oncologic evaluation. Final recommendations will be communicated back to the requesting physician by way of the shared medical records, or letters to requesting physician via [place] Mail. Diagnosis: Astrocytoma, IDH-1 mutated, WHO grade 2 Subjective Chief Complaint: Mrs. 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 History of Present Illness: Patient is accompanied by . Hand dominance: right-handed. Neuro-Oncology History Surgery: 05/19/2023 Chemo: 07/21/2023 - Ivosidenib started Current Steroid Dose: - None Current AED Dose: - None 68 year old right-handed female with a newly [...] Neurosurgery in Brain Tumor Clinic by Dr. Kelley on 05/06/2023. Overall impression was low-grade glioma [...] with writing since her surgery. Interval History: Today, she notes that she is feeling really well overall. She has a few questions that she would like to address at today's visit: - She notes that the electrolytes on her labs have been abnormal - specifically, in the past she has had low sodium, which is not new for her (hospitalized for this in 2019), and wonders about starting an electrolyte drink such as EmergenC to try and normalize the electrolyte values. Notably, on the most recent labs, her sodium was within normal limits. - In addition, on recent labs she has had an elevated LDL. She has discussed this with her PCP and has made healthier changes to her diet and her lifestyle overall and the LDL has still been high. Her primary doctor had noted that she would check again in May and if the LDL was still high after 6 months of making positive changes, they would then discuss medications. She therefore wonders if she is should reach back out to her PCP now rather than May. She is walking 4-6 miles per day and ensuring that she is getting enough protein and fiber. - About 3 weeks ago, she was brushing her teeth and part of her tooth broke off and fell down the drain. This tooth had cracked and had decay surrounding it - her dentist started putting a crown on it but stopped midway because they were worried the decay and crack went too far down. They now have the option of having a root canal or pulling the tooth and potentially getting an implant. She is unsure of which route to take given that she is on therapy and worries about the possibility of a procedure. Otherwise, she has been tolerating the ivosidenib without side effects and has no problems getting the medication. Occasionally, she gets a headache and seldom takes anything for them - she has wondered about taking acetaminophen sparingly, perhaps 1-2 times per week. The stomach pain that she was having at the last appointment has completely subsided. If she moves her hand down her ribcage and curls her fingers underneath her ribs, she occasionally has pain there. A few weeks ago, it was happening every single day, but the frequency has significantly decreased. This was alway (more content not included)... [facility] 11-17-2024 Note IMPRESSION: No evidence of recurrent or progressive disease. Machine Shorthand Teacher: LEO Transcribe Date/Time: Nov 17 2024 11:43A Dictated by : FRANCESCA FIELDS MD This examination was interpreted and the report reviewed and electronically signed by: FRANCESCA FIELDS MD on Nov 17 2024 11:54AM [facility] DIV[facility] OF RADIOLOGY 11-17-2024 History of Presen t illness Narrative Radiology Service Progress Note DATE OF SERVICE: November 17, 2024 TIME: 10:39 AM PATIENT IDENTITY VERIFICATION COMPLETED USING TWO (2) STANDARD IDENTIFIERS: Name and Date of confirmed by patient verbally. FALL SCREENING: Has the patient had 2 falls in the last year or 1 fall with injury or currently using an Ambulatory Assistive Device (Walker, Cane, Wheelchair, Crutches, etc.)? No PATIENT GENDER DATA: Assigned female at . status: : No status: NO. PATIENT RELEVANT IMPLANT DATA REVIEWED: Yes PATIENT PRESENTS WITH AN IMPLANTABLE OR ATTACHED INDUSTRIAL GAS SERVICER: No ALLERGIES: Reviewed and unchanged CONTRAST ALLERGY: NO. EXAM: MRI - CONTRAST TYPE: GROUP II PERIPHERAL IV DATA: Ambulatory: A peripheral IV was started in the Left antecubital site with a Angio cath: 20 gauge. RADIOLOGY DEPARTMENT: MR; Exam(s) Completed: Head: Routine Brain with Perfusion SIGNATURE: RT Carolynn(R) PATIENT NAME: Jesus Benton DATE: November 17, 2024 TIME: 10:39 AM documented in this encounter [facility] 11-17-2024 Note HNO ID: [id number] Author: KELIN BOX RT(Vidhya) Service: ? Author Type: Technologist Type: Progress Notes Filed: 11/17/2024 10:41 Note Text: Radiology Service Progress Note DATE OF SERVICE: November 17, 2024 TIME: 10:39 AM PATIENT IDENTITY VERIFICATION COMPLETED USING TWO (2) STANDARD IDENTIFIERS: Name and Date of confirmed by patient verbally. FALL SCREENING: Has the patient had 2 falls in the last year or 1 fall with injury or currently using an Ambulatory Assistive Device (Walker, Cane, Wheelchair, Crutches, etc.)? No PATIENT GENDER DATA: Assigned female at . status: : No status: NO. PATIENT RELEVANT IMPLANT DATA REVIEWED: Yes PATIENT PRESENTS WITH AN IMPLANTABLE OR ATTACHED INDUSTRIAL GAS SERVICER: No ALLERGIES: Reviewed and unchanged CONTRAST ALLERGY: NO. EXAM: MRI - CONTRAST TYPE: GROUP II PERIPHERAL IV DATA: Ambulatory: A peripheral IV was started in the Left antecubital site with a Angio cath: 20 gauge. RADIOLOGY DEPARTMENT: MR; Exam(s) Completed: Head: Routine Brain with Perfusion SIGNATURE: RT Carolynn(R) PATIENT NAME: Jesus Benton DATE: November 17, 2024 TIME: 10:39 AM [facility] 11-07-2024 Note HNO ID: [id number] Author: NIDA PAYTON RN Service: ? Author Type: Registered Nurse Type: Progress Notes Filed: 11/07/2024 10:09 Note Text: Cycle #18 Tibsovo started on 11/07/24, cycle #19 will begin on 12/05/24. Labs were all WNL. Nida Payton RN [facility] 11-07-2024 History of Presen t illness Narrative Cycle #18 Tibsovo started on 11/07/24, cycle #19 will begin on 12/05/24. Labs were all WNL. Nida Payton RN documented in this encounter [facility] 10-18-2024 Note HNO ID: [id number] Author: NIDA PAYTON RN Service: ? Author Type: Registered Nurse Type: Progress Notes Filed: 10/18/2024 11:15 Note Text: Cycle #17 started on 10/10/24, cycle #18 will begin on 11/07/24. Labs were all WNL. Nida Payton RN [facility] 10-18-2024 History of Presen t illness Narrative Cycle #17 started on 10/10/24, cycle #18 will begin on 11/07/24. Labs were all WNL. Nida Payton RN documented in this encounter [facility] 10-16-2024 Telephone encounter Note Done [facility] 10-16-2024 Miscellaneous Notes Done Scheduling Request - Established Patient Time Frame: 6 weeks Orders: MRI brain at [place] Provider: Abhay Visit type: Virtual Visit Diagnosis: astrocytoma documented in this encounter [facility] 10-13-2024 Telephone encounter Note Scheduling Request - Established Patient Time Frame: 6 weeks Orders: MRI brain at [place] Provider: [facility] Visit type: Virtual Visit Diagnosis: astrocytoma [facility] 09-13-2024 Note HNO ID: [id number] Author: NIDA PAYTON RN Service: ? Author Type: Registered Nurse Type: Progress Notes Filed: 09/13/2024 15:06 Note Text: Cycle #16 started on 09/12/24, cycle #17 will begin on 10/10/24. Labs were all WNL. Nida Payton RN [facility] 09-13-2024 History of Presen t illness Narrative Cycle #16 started on 09/12/24, cycle #17 will begin on 10/10/24. Labs were all WNL. Nida Payton RN documented in this encounter [facility] 08-22-2024 Miscellaneous Notes Mirella. Stefany Scheduling Request - Established Patient Time Frame: 11 weeks Orders: MRI brain at [place] Provider: [facility] Visit type: virtual Diagnosis: astrocytoma documented in this encounter [facility] 08-22-2024 Telephone encounter Note Done. Stefany [facility] Work Phone: 08-21-2024 Telephone encounter Note Scheduling Request - Established Patient Time Frame: 11 weeks Orders: MRI brain at [place] Provider: [facility] Visit type: virtual Diagnosis: astrocytoma [facility] 08-21-2024 Note HNO ID: [id number] Author: NIDA PAYTON RN Service: ? Author Type: Registered Nurse Type: Progress Notes Filed: 08/21/2024 16:01 Note Text: Cycle #15 started on 08/15/24, cycle #16 will begin on 09/12/24. Labs were all WNL. Nida Payton RN [facility] 08-21-2024 History of Presen t illness Narrative Cycle #15 started on 08/15/24, cycle #16 will begin on 09/12/24. Labs were all WNL. Nida Payton RN documented in this encounter [facility] 08-14-2024 Note HNO ID: [id number] Author: MISTI BLANK MD Service: ? Author Type: Physician Type: Progress Notes Filed: 08/14/2024 09:39 Note Text: [facility] Virtual Established Visit The patient is referred for post-op neuro-oncologic evaluation. Final recommendations will be communicated back to the requesting physician by way of the shared medical records, or letters to requesting physician via [place] Mail. Diagnosis: Astrocytoma, IDH-1 mutated, WHO grade 2 Subjective Chief Complaint: Mrs. 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 History of Present Illness: Patient is accompanied by . Hand dominance: right-handed. Neuro-Oncology History Surgery: 05/19/2023 Chemo: 07/21/2023 - Ivosidenib started Current Steroid Dose: - None Current AED Dose: - None 68 year old right-handed female with a newly [...] Neurosurgery in [facility] by Dr. Kelley on 05/06/2023. Overall impression was low-grade glioma [...] with writing since her surgery. Interval History: Today, she notes that she is feeling really well overall. She has a few questions that she would like to address at today's visit: - She notes that the electrolytes on her labs have been abnormal - specifically, in the past she has had low sodium, which is not new for her (hospitalized for this in 2019), and wonders about starting an electrolyte drink such as EmergenC to try and normalize the electrolyte values. Notably, on the most recent labs, her sodium was within normal limits. - In addition, on recent labs she has had an elevated LDL. She has discussed this with her PCP and has made healthier changes to her diet and her lifestyle overall and the LDL has still been high. Her primary doctor had noted that she would check again in May and if the LDL was still high after 6 months of making positive changes, they would then discuss medications. She therefore wonders if she is should reach back out to her PCP now rather than May. She is walking 4-6 miles per day and ensuring that she is getting enough protein and fiber. - About 3 weeks ago, she was brushing her teeth and part of her tooth broke off and fell down the drain. This tooth had cracked and had decay surrounding it - her dentist started putting a crown on it but stopped midway because they were worried the decay and crack went too far down. They now have the option of having a root canal or pulling the tooth and potentially getting an implant. She is unsure of which route to take given that she is on therapy and worries about the possibility of a procedure. Otherwise, she has been tolerating the ivosidenib without side effects and has no problems getting the medication. Occasionally, she gets a headache and seldom takes anything for them - she has wondered about taking acetaminophen sparingly, perhaps 1-2 times per week. The stomach pain that she was having at the last appointment has completely subsided. If she moves her hand down her ribcage and curls her fingers underneath her ribs, she occasionally has pain there. A few weeks ago, it was happening every single day, but the frequency has significantly decreased. This was always on the left side and in the same spot - not positional or pleuritic; also did not get worse with mealtime. She does still notice issues with word substitution, not so much word-finding. She does not feel like this interacts with her day to day life. Her feels like it is not worse, perhaps even a little better. She does not usually notic (more content not included)... [facility] 08-14-2024 History of Presen t illness Narrative Images from the original note were not included. [facility] Virtual Established Visit The patient is referred for post-op neuro-oncologic evaluation. Final recommendations will be communicated back to the requesting physician by way of the shared medical records, or letters to requesting physician via US Mail. Diagnosis: Astrocytoma, IDH-1 mutated, WHO grade 2 Subjective Chief Complaint: Mrs. 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 History of Present Illness: Patient is accompanied by . Hand dominance: right-handed. Neuro-Oncology History Surgery: 05/19/2023 Chemo: 07/21/2023 - Ivosidenib started Current Steroid Dose: - None Current AED Dose: - None 68 year old right-handed female with a newly [...] Neurosurgery in [facility] by Dr. Kelley on 05/06/2023. Overall impression was low-grade glioma [...] with writing since her surgery. Interval History: Today, she notes that she is feeling really well overall. She has a few questions that she would like to address at today's visit: - She notes that the electrolytes on her labs have been abnormal - specifically, in the past she has had low sodium, which is not new for her (hospitalized for this in 2019), and wonders about starting an electrolyte drink such as EmergenC to try and normalize the electrolyte values. Notably, on the most recent labs, her sodium was within normal limits. - In addition, on recent labs she has had an elevated LDL. She has discussed this with her PCP and has made healthier changes to her diet and her lifestyle overall and the LDL has still been high. Her primary doctor had noted that she would check again in May and if the LDL was still high after 6 months of making positive changes, they would then discuss medications. She therefore wonders if she is should reach back out to her PCP now rather than May. She is walking 4-6 miles per day and ensuring that she is getting enough protein and fiber. - About 3 weeks ago, she was brushing her teeth and part of her tooth broke off and fell down the drain. This tooth had cracked and had decay surrounding it - her dentist started putting a crown on it but stopped midway because they were worried the decay and crack went too far down. They now have the option of having a root canal or pulling the tooth and potentially getting an implant. She is unsure of which route to take given that she is on therapy and worries about the possibility of a procedure. Otherwise, she has been tolerating the ivosidenib without side effects and has no problems getting the medication. Occasionally, she gets a headache and seldom takes anything for them - she has wondered about taking acetaminophen sparingly, perhaps 1-2 times per week. The stomach pain that she was having at the last appointment has completely subsided. If she moves her hand down her ribcage and curls her fingers underneath her ribs, she occasionally has pain there. A few weeks ago, it was happening every single day, but the frequency has significantly decreased. This was always on the left side and in the same spot - not positional or pleuritic; also did not get worse with mealtime. She does still notice issues with word substitution, not so much word-finding. She does not feel like this interacts with her day to day life. Her feels like it is not worse, perhaps even a little better. She does not usually notice the errors that she makes. 05/19/24: Since last seen in Neuro-Oncology Clinic virtually in February, Mrs. Benton has seen her primary care physician for elevated LDL and is now on rosuvastatin. She had her broken tooth extracted and unfortunately this was complicated by a dry socket. She has been seen in consultation by an oral surgeon. He wishes to ensure that there is no residual infection before an implant is considered. She continues to experience stress headache. The pain by her rib cage has resolved. She has had a few word substitutions over the past three days but otherwise none since I last saw her. Has been a no alteration of consciousness, aura or seizure, blurred or double vision, difficulty hearing or vertigo, dysarthria or dysphagia, focal weakness, numbness or tingling, gait ataxia, or difficulty with bowel or bladder control. She continues treatment with ivosidenib and tolerates this well. Interim EKGs and blood work have all been normal. 08/14/24: Since last seen in Neuro-Oncology clinic three months ago, Mrs. Benton has not experienced any word substitutions. In fact, there has been no alteration of consciousness, aura or seizure, blurred or double vision, difficulty hearing or vertigo, dysarthria or dysphagia, focal weakness, numbness or tingling, gait ataxia, or difficulty with bowel or bladder control. She continues treatment with ivosidenib and tolerates this well; she has been on this medication for one year now. All monthly interim EKGs and blood work have been normal. She has a longstanding headache history. The month of May was very bad for headache. She recognizes that stress is a factor and has tried to destress, to relax, and to use Tylenol and Advil without much effect. Her headaches are predominantly left frontal and pressure. They are not associated with any other symptoms. The can occur at anytime of day and she typically will wake up with one. She keeps the window open at night for some cool air. Oddly enough, she only had one headache in June and one in July. This is remarkable since her baby sister [age 65] suffered a very bad stroke at the end of June, went into hospice, and on July 24 shortly after Mrs. Benton's niece, her sister's daughter, gave to a baby. She has had difficulty with insomnia. Her follow-up total cholesterol in April was 190 on rosuvastatin. Her dry socket has resolved. Past Medical History: PAST MEDICAL HISTORY Diagnosis [...] Social History Tobacco Use Smoking status: Former Current packs/day: 0.00 Types: Cigarettes Quit date: 1979 Years since quittin.0 Smokeless tobacco: Never Substance Use Topics Alcohol use: No Drug use: No Medications: ivosidenib (TIBSOVO) 250 mg tablet Take 2 tablets (500mg) by mouth once daily. acetaminophen (TYLENOL) 325 mg tablet 2 tablets [...] Amlodipine Itching Latex Rash Review of Systems: A complete review of systems was negative apart from the symptoms noted in the interval history above. Objective There were no vitals taken for this visit. Physical Examination: Due to the virtual nature of this encounter a complete neurologic examination could not be accomplished. Nevertheless, it was evident that Mrs. Benton was awake, alert, attentive and lucid. There was no evidence of cognitive deficit, aphasia, or word substitution. Face moved symmetrically. Extraocular movements were full without nystagmus. Facial sensation to the light touch of her fingers was normal bilaterally. Hearing was normal to conversation. Tongue protruded in the midline and move normally [id number] without dysarthria. Shoulder shrug was normal bilaterally. There was no pronation or drift of the outstretched upper limbs. Rapid alternating movements of the fingers were normal bilaterally. Arm roll was normal forward and backward bilaterally. Jsdtet-[id number]-ghdxda maneuver was normal bilaterally without ataxia, dysmetria, or tremor. Karnofsky performance status: 90 - Able to carry on normal activity, minor signs or symptoms of disease. ECOG performance status: 1 - Restricted in physically strenuous activity but ambulatory and able to carry out work of a light or sedentary nature, e.g., light house work or office work. Review of Labs: CMP Latest Ref Rng & Units 08/08/2024 CMP Sodium 136 - 144 mmol/L 132 Potassium 3.7 - 5.1 mmol/L 4.3 Chloride 98 - 107 mmol/L 95 CO2 22 - 30 mmol/L 26 Glucose 74 - 99 mg/dL 97 BUN 7 - 21 mg/dL 14 Creatinine 0.58 - 0.96 mg/dL 0.68 EGFR >=60 mL/min/1.73m 96 Protein, Total 6.3 - 8.0 g/dL 6.3 Albumin 3.9 - 4.9 g/dL 4.3 Calcium 8.5 - 10.2 mg/dL 9.3 Bilirubin, Total 0.2 - 1.3 mg/dL 0.3 AST 13 - 35 U/L 18 ALT 7 - 38 U/L 12 Alkaline Phosphatase 34 - 123 U/L 51 , CBC Latest Ref Rng & Units 08/08/2024 CBC WBC 3.70 - 11.00 k/uL 7.12 RBC 3.90 - 5.20 m/uL 4.28 Hemoglobin 11.5 - 15.5 g/dL 13.1 Hematocrit 36.0 - 46.0 % 39.5 MCV 80.0 - 100.0 fL 92.3 MCH 26.0 - 34.0 pg 30.6 MCHC 30.5 - 36.0 g/dL 33.2 RDW-CV 11.5 - 15.0 % 13.1 Platelet Count 150 - 400 k/uL 296 MPV 9.0 - 12.7 fL 9.6 Baso% % 0.8 Abs Neut (ANC) 1.45 - 7.50 k/uL 4.15 Abs Lymph 1.00 - 4.00 k/uL 1.80 Abs [place] <0.87 k/uL 0.65 Abs Eosin <0.46 k/uL 0.45 Abs Baso <0.11 k/uL 0.06 NRBC /100 WBC 0.0 , and BMP Latest Ref Rng & Units 08/08/2024 BMP Glucose 74 - 99 mg/dL 97 BUN 7 - 21 mg/dL 14 Creatinine 0.58 - 0.96 mg/dL 0.68 Sodium 136 - 144 mmol/L 132 Potassium 3.7 - 5.1 mmol/L 4.3 Chloride 98 - 107 mmol/L 95 CO2 22 - 30 mmol/L 26 Anion Gap 8 - 15 mmol/L 11 Calcium 8.5 - 10.2 mg/dL 9.3 EGFR >=60 mL/min/1.73m 96 Final Pathology: Component FINAL DIAGNOSIS A, B. 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 RAP/dkm 05/24/2023 Diagnosis Comment Histologic sections show infiltrating low grade glioma, marked by mild hypercellularity with rare atypical appearing glial cells. Vascular proliferative changes, prominent mitotic activity, and necrosis are not seen. Immunostains were performed on block B6. Scattered atypical cells demonstrate positive staining with antibody to IDH-1 (R132H). Rare positive Ki-67 positive staining atypical cells are noted. No definite loss of ATRX staining is observed. Addendums will be issued following additional molecular testing including 1p/19q FISH, MGMT analysis, and the Targeted Oncology Panel. Laboratory Developed Test (LDT) Disclaimer: Performance characteristics of immunohistochemical, immunofluorescent and chromogenic in-situ hybridization tests have been determined by the performing laboratory within [facility] [place] ([facility], [facility], [facility], [facility], [facility], or [facility]) in a manner consistent with CLIA requirements. One or more of these tests have not been cleared or approved by the FDA. [facility] is regulated under CLIA as qualified to perform high-complexity testing. These tests are used for clinical purposes. They should not be regarded as investigational or for research. Positive and negative controls stain appropriately. Laboratory Developed Test (LDT) Disclaimer: Performance characteristics of immunohistochemical, immunofluorescent and chromogenic in-situ hybridization tests have been determined by the performing laboratory within [facility] [place] ([facility], [facility], [facility], [facility], [facility], or [facility]) in a manner consistent with CLIA requirements. One or more of these tests have not been cleared or approved by the FDA. [facility] is regulated under CLIA as qualified to perform high-complexity testing. These tests are used for clinical purposes. They should not be regarded as investigational or for research. Positive and negative controls stain appropriately. Gross Description A. BRAIN RESECTION Received fresh for intraoperative consultation labeled brain resection-right frontal tumor are multiple pieces of soft wang-white tissue with an aggregate measurement of 1.7 x 0.4 x 0.2 cm. Half of the tissue submitted for frozen section in FSA1, the remaining tissue submitted for permanent in A2. [place] [address] CLIA# [id number] 05/19/23 10:54 AM B. BRAIN RESECTION Received fresh for intraoperative consultation, labeled as right frontal tumor is a single white-wang soft tissue fragment that measures 3.8 x 2.8 x 1.0 cm and weighs 4.97 g. Sectioning reveals white-wang cut surfaces. A outbound sales representative section is submitted in FS B1, the remainder of the specimen is submitted in 5 cassettes. CATHERINE May 19, 2023 12:31 PM [place] [address] CLIA# [id number] Intraoperative Diagnosis A. BRAIN RESECTION FSA1: Right frontal tumor: Slightly hypercellular brain parenchyma, no high-grade features seen (Dr. Mclaughlin). Intraoperative diagnosis performed at [place] [address] CLIA# [id number] B. BRAIN RESECTION FSB1: Right frontal tumor: Mildly hypercellular WET ROLLER tissue, rule out infiltrating glioma (Dr. Mclaughlin). 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 Resulting Agency CCM Specimen Collected: 05/19/23 10:40 AM EDT Last Resulted: 05/24/23 12:16 PM EDT 1p19q intact by FISH. MGMT promoter not hypermethylated. IDH-1[R132H] by TOP NGS. No other mutations detected by TOP. 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 Microsatellite instability is stable, and tumor mutational burden is low at 1 mut/Mb. Genomic loss of hetereozygosity is low [4%]. No mutations are detected in any other cancer-type relevant biomarkers. Imaging: MRI Report MRI BRAIN WO/W IVCON Exam End: 08/11/2024 9:53 AM (Final result) Narrative: * * *Final Report* * * DATE OF EXAM: Aug 11 2024 9:48AM [facility] [id number] - MRI BRAIN WO/W IVCON / PROCEDURE REASON: 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 Ivosidenib since 07/21/2023. TECHNIQUE: Routine brain MRI protocol without and with contrast including diffusion images. MQ: [id number] Contrast: 5 mL Elucirem IV COMPARISON: Multiple priors, most recently brain MRI 05/18/2024. RESULT: Acute Change: There is no evidence of restricted diffusion to suggest an acute infarct. Hemorrhage: Chronic postoperative blood products at the margins of the right frontal resection defect. No acute intracranial hemorrhage. Mass Lesion/ Mass Effect: Postoperative changes from right frontal craniotomy for mass resection. Underlying resection defect in the anterior-inferior right frontal lobe involving the orbital frontal region. Trace curvilinear enhancement within the resection cavity and abutting the margins is nonspecific and likely vascular and/or postoperative in nature. No new or progressive nodular or masslike enhancement. Stable extent of surrounding FLAIR hyperintense signal alteration compared to 05/18/2024, minimally increased at the medial aspect of the resection since 11/19/2023, nonspecific and may reflect evolution of posttreatment change. No significant mass effect. No abnormal enhancement elsewhere in the brain. Chronic Change: See above. Otherwise minimal nonspecific background white matter change. Parenchyma: No significant volume loss for age. The brain parenchyma is otherwise within normal limits of signal intensity and morphology. Ventricles: Stable normal caliber and morphology. Skull Base: Hypothalamic and pituitary region are grossly normal. Craniocervical junction is normal. No significant marrow replacement process. Vasculature: Small developmental venous anomaly in the left post central gyrus. Major intracranial arterial structures, and dural venous sinuses show typical flow void, suggesting patency by spin echo criteria. Other: Scattered mild paranasal sinus mucosal thickening. Essentially clear mastoid air cells. Postoperative changes in the scalp. Visualized extracranial soft tissues otherwise grossly unremarkable. Impression: IMPRESSION: Stable MRI appearance of the brain since 05/18/2024. No evidence of interval neoplastic progression. Stable right frontal resection defect. No new or progressive adjacent enhancement. Stable extent of surrounding FLAIR hyperintensity since 05/18/2024, minimally increased along the medial margin since 11/19/2023, nonspecific and likely reflecting evolution of posttreatment change, however continued attention on follow-up recommended. Machine Shorthand Teacher: [facility] Transcribe Date/Time: Aug 11 2024 10:05A Dictated by : WENDY HENDERSON MD This examination was interpreted and the report reviewed and electronically signed by: WENDY HENDERSON MD on Aug 11 2024 10:26AM EST I have independently reviewed the MRI images of August 11, 2024 and have compared them to the previous study of May 18, 2024 and I agree with the official interpretation. Data Review: Personal review of medical records: I reviewed the [facility] chart. Personal review of image, tracing or specimen: Yes Lesion size: N/A [FLAIR abnormality could be residual tumor or post-surgical change] Multifocal: No Subependymal spread: No ASSESSMENT and PLAN: Neurologically, Mrs. Benton is doing very well. She is tolerating the ivosidenib without side effects or abnormalities of blood work. Radiographically her most recent MRI continues to demonstrate stability. She will continue the ivosidenib. It sounds like her headache is the tension related, possibly precipitated or exacerbated by stress. Should she have another month like May I will refer her to Headache Clinic here for advice. Insomnia, particularly in times of stress, is very common in patients with primary brain tumors. I will forward to her the recruitment flyer for the cognitive behavioral therapy intervention for sleep disturbance in primary brain tumor patient's for the clinical trial ongoing at [facility]. I will see her in follow-up in three months as a virtual visit with pre-clinic MRI of the brain without and with contrast to monitor response to therapy. Misti Blank MD Staff Neuro-Oncologist August 14, 2024 documented in this encounter [facility] 08-11-2024 History of Presen t illness Narrative Radiology Service Progress Note DATE OF SERVICE: August 11, 2024 TIME: 9:23 AM PATIENT IDENTITY VERIFICATION COMPLETED USING TWO (2) STANDARD IDENTIFIERS: Name and Date of confirmed by patient verbally. FALL SCREENING: Has the patient had 2 falls in the last year or 1 fall with injury or currently using an Ambulatory Assistive Device (Walker, Cane, Wheelchair, Crutches, etc.)? No PATIENT GENDER DATA: Female. status: : No status: NO. PATIENT RELEVANT IMPLANT DATA REVIEWED: Yes PATIENT PRESENTS WITH AN IMPLANTABLE OR ATTACHED INDUSTRIAL GAS SERVICER: No ALLERGIES: Reviewed and unchanged CONTRAST ALLERGY: NO. EXAM: MRI - CONTRAST TYPE: GROUP II PERIPHERAL IV DATA: Ambulatory: A peripheral IV was started in the Left with a Angio cath: 20 gauge. RADIOLOGY DEPARTMENT: MR; Exam(s) Completed: Head: Routine Brain SIGNATURE: RT Carolynn(R) PATIENT NAME: Jesus Benton DATE: August 11, 2024 TIME: 9:23 AM documented in this encounter [facility] 08-11-2024 Note HNO ID: [id number] Author: KELIN BOX RT(Vidhya) Service: ? Author Type: Technologist Type: Progress Notes Filed: 08/11/2024 09:24 Note Text: Radiology Service Progress Note DATE OF SERVICE: August 11, 2024 TIME: 9:23 AM PATIENT IDENTITY VERIFICATION COMPLETED USING TWO (2) STANDARD IDENTIFIERS: Name and Date of confirmed by patient verbally. FALL SCREENING: Has the patient had 2 falls in the last year or 1 fall with injury or currently using an Ambulatory Assistive Device (Walker, Cane, Wheelchair, Crutches, etc.)? No PATIENT GENDER DATA: Female. status: : No status: NO. PATIENT RELEVANT IMPLANT DATA REVIEWED: Yes PATIENT PRESENTS WITH AN IMPLANTABLE OR ATTACHED INDUSTRIAL GAS SERVICER: No ALLERGIES: Reviewed and unchanged CONTRAST ALLERGY: NO. EXAM: MRI - CONTRAST TYPE: GROUP II PERIPHERAL IV DATA: Ambulatory: A peripheral IV was started in the Left with a Angio cath: 20 gauge. RADIOLOGY DEPARTMENT: MR; Exam(s) Completed: Head: Routine Brain SIGNATURE: Kelin Box, RT(R) PATIENT NAME: Jeuss Benton DATE: August 11, 2024 TIME: 9:23 AM [facility] 07-28-2024 Note HNO ID: [id number] Author: NIDA PAYTON RN Service: ? Author Type: Registered Nurse Type: Progress Notes Filed: 07/28/2024 12:54 Note Text: Cycle #14 started on 07/18/24, cycle #15 will begin on 08/15/24. Labs were all WNL. Nida Payton RN [facility] 07-28-2024 History of Presen t illness Narrative Cycle #14 started on 07/18/24, cycle #15 will begin on 08/15/24. Labs were all WNL. Nida Payton RN documented in this encounter [facility] 06-20-2024 History of Presen t illness Narrative Cycle #13 started on 06/20/24, cycle #14 would begin on 07/18/24. Labs were all WNL and EKG is normal. Nida Payton RN documented in this encounter [facility] 06-07-2024 Telephone encounter Note See my chart message 06/07/24 Nida Payton RN [facility] 06-07-2024 Miscellaneous Notes See my chart message 06/07/24 Nida Payton RN General Call Caller : Pt Contact Reason for Call : Multiple orders for EKG are needed in [facility] in order to schedule pt to have them every 6 weeks. Patient requesting return call ? Yes documented in this encounter [facility] 06-06-2024 Telephone encounter Note General Call Caller : Pt Contact Reason for Call : Multiple orders for EKG are needed in [facility] in order to schedule pt to have them every 6 weeks. Patient requesting return call ? Yes [facility] 05-26-2024 History of Presen t illness Narrative Cycle #12 started on 05/23/24, cycle #13 would begin on 06/20/24. Labs were all WNL and EKG is normal. Nida Payton RN documented in this encounter [facility] 05-19-2024 History of Presen t illness Narrative Images from the original note were not included. [facility] The patient is referred for post-op neuro-oncologic evaluation. Final recommendations will be communicated back to the requesting physician by way of the shared medical records, or letters to requesting physician via US Mail. Diagnosis: Astrocytoma, IDH-1 mutated, WHO grade 2 Subjective Chief Complaint: Mrs. 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 History of Present Illness: Patient is accompanied by . Hand dominance: right-handed. Neuro-Oncology History Surgery: 05/19/2023 Chemo: 07/21/2023 - Ivosidenib started Current Steroid Dose: - None Current AED Dose: - None 68 year old right-handed female with a newly [...] Neurosurgery in [facility] Clinic by Dr. Kelley on 05/06/2023. Overall impression was low-grade glioma [...] with writing since her surgery. Interval History: Today, she notes that she is feeling really well overall. She has a few questions that she would like to address at today's visit: - She notes that the electrolytes on her labs have been abnormal - specifically, in the past she has had low sodium, which is not new for her (hospitalized for this in 2019), and wonders about starting an electrolyte drink such as EmergenC to try and normalize the electrolyte values. Notably, on the most recent labs, her sodium was within normal limits. - In addition, on recent labs she has had an elevated LDL. She has discussed this with her PCP and has made healthier changes to her diet and her lifestyle overall and the LDL has still been high. Her primary doctor had noted that she would check again in May and if the LDL was still high after 6 months of making positive changes, they would then discuss medications. She therefore wonders if she is should reach back out to her PCP now rather than May. She is walking 4-6 miles per day and ensuring that she is getting enough protein and fiber. - About 3 weeks ago, she was brushing her teeth and part of her tooth broke off and fell down the drain. This tooth had cracked and had decay surrounding it - her dentist started putting a crown on it but stopped midway because they were worried the decay and crack went too far down. They now have the option of having a root canal or pulling the tooth and potentially getting an implant. She is unsure of which route to take given that she is on therapy and worries about the possibility of a procedure. Otherwise, she has been tolerating the ivosidenib without side effects and has no problems getting the medication. Occasionally, she gets a headache and seldom takes anything for them - she has wondered about taking acetaminophen sparingly, perhaps 1-2 times per week. The stomach pain that she was having at the last appointment has completely subsided. If she moves her hand down her ribcage and curls her fingers underneath her ribs, she occasionally has pain there. A few weeks ago, it was happening every single day, but the frequency has significantly decreased. This was always on the left side and in the same spot - not positional or pleuritic; also did not get worse with mealtime. She does still notice issues with word substitution, not so much word-finding. She does not feel like this interacts with her day to day life. Her feels like it is not worse, perhaps even a little better. She does not usually notice the errors that she makes. 05/19/24: Since last seen in Neuro-Oncology Clinic virtually in February, Mrs. Benton has seen her primary care physician for elevated LDL and is now on rosuvastatin. She had her broken tooth extracted and unfortunately this was complicated by a dry socket. She has been seen in consultation by an oral surgeon. He wishes to ensure that there is no residual infection before an implant is considered. She continues to experience stress headache. The pain by her rib cage has resolved. She has had a few word substitutions over the past three days but otherwise none since I last saw her. Has been a no alteration of consciousness, aura or seizure, blurred or double vision, difficulty hearing or vertigo, dysarthria or dysphagia, focal weakness, numbness or tingling, gait ataxia, or difficulty with bowel or bladder control. She continues treatment with ivosidenib and tolerates this well. Interim EKGs and blood work have all been normal. Past Medical History: PAST MEDICAL HISTORY Diagnosis [...] Social History Tobacco Use Smoking status: Former Current packs/day: 0.00 Types: Cigarettes Quit date: 1979 Years since quittin.7 Smokeless tobacco: Never Substance Use Topics Alcohol use: No Drug use: No Medications: ivosidenib (TIBSOVO) 250 mg tablet Take 2 tablets (500mg) by mouth once daily. acetaminophen (TYLENOL) 325 mg tablet 2 tablets [...] Itching Latex Rash Review of Systems: Constitutional: Negative for fever. HENT: Negative for trouble swallowing. Musculoskeletal: Negative for muscle weakness. Eyes: Negative for diplopia. Respiratory: Negative for cough and shortness of breath. Gastrointestinal: Negative for nausea and vomiting. Endocrine: Negative for mood swings. Psychiatric: Negative for nervous/anxious and depression. Neurological: Positive for headaches. Negative for extremity numbness, double vision, extremity weakness, memory loss, seizures and disorientation. Objective BP 123/78 Pulse 66 Temp 36.7 C (98 F) (Oral) Resp 18 Wt 52.4 kg (115 lb 8.3 oz) SpO2 99% BMI 22.21 kg/m Physical Examination: On examination today, Mrs. Benton was awake, alert, attentive and fully lucid. There was no evidence of cognitive deficit or aphasia. Visual russell were full. Fundi were normal. Extraocular movements were full without nystagmus. Facial sensation to light touch was normal bilaterally. Face moved symmetrically. Hearing was normal to finger rub bilaterally. Tongue protruded in the midline and move normally [id number]. Palate mira in the midline. Shoulder shrug was normal bilaterally. There was no pronation or drift of the outstretched upper limbs. Muscle bulk, tone and strength was normal in all 4 limbs. Stretch reflexes were of normal response symmetrically. Light touch sensation was normal bilaterally in the upper and lower limbs. Stance was normal and Romberg was negative. Gait, toe walk, heel walk and tandem gait were all normal. Karnofsky performance status: 90 - Able to carry on normal activity, minor signs or symptoms of disease. ECOG performance status: 1 - Restricted in physically strenuous activity but ambulatory and able to carry out work of a light or sedentary nature, e.g., light house work or office work. Review of Labs: CMP Latest Ref Rng & Units 05/11/2024 CMP Sodium 136 - 144 mmol/L 133 Potassium 3.7 - 5.1 mmol/L 4.0 Chloride 98 - 107 mmol/L 100 CO2 22 - 30 mmol/L 23 Glucose 74 - 99 mg/dL 99 BUN 7 - 21 mg/dL 13 Creatinine 0.58 - 0.96 mg/dL 0.69 EGFR >=60 mL/min/1.73m 95 Protein, Total 6.3 - 8.0 g/dL 5.9 Albumin 3.9 - 4.9 g/dL 4.0 Calcium 8.5 - 10.2 mg/dL 9.3 Bilirubin, Total 0.2 - 1.3 mg/dL 0.3 AST 13 - 35 U/L 14 ALT 7 - 38 U/L 11 Alkaline Phosphatase 34 - 123 U/L 49 , CBC Latest Ref Rng & Units 05/11/2024 CBC WBC 3.70 - 11.00 k/uL 6.42 RBC 3.90 - 5.20 m/uL 3.98 Hemoglobin 11.5 - 15.5 g/dL 12.4 Hematocrit 36.0 - 46.0 % 36.6 MCV 80.0 - 100.0 fL 92.0 MCH 26.0 - 34.0 pg 31.2 MCHC 30.5 - 36.0 g/dL 33.9 RDW-CV 11.5 - 15.0 % 13.3 Platelet Count 150 - 400 k/uL 301 MPV 9.0 - 12.7 fL 10.4 Baso% % 1.1 Abs Neut (ANC) 1.45 - 7.50 k/uL 3.10 Abs Lymph 1.00 - 4.00 k/uL 2.18 Abs [place] <0.87 k/uL 0.51 Abs Eosin <0.46 k/uL 0.54 Abs Baso <0.11 k/uL 0.07 NRBC /100 WBC 0.0 , and BMP Latest Ref Rng & Units 05/11/2024 BMP Glucose 74 - 99 mg/dL 99 BUN 7 - 21 mg/dL 13 Creatinine 0.58 - 0.96 mg/dL 0.69 Sodium 136 - 144 mmol/L 133 Potassium 3.7 - 5.1 mmol/L 4.0 Chloride 98 - 107 mmol/L 100 CO2 22 - 30 mmol/L 23 Anion Gap 8 - 15 mmol/L 10 Calcium 8.5 - 10.2 mg/dL 9.3 EGFR >=60 mL/min/1.73m 95 Final Pathology: Component FINAL DIAGNOSIS A, B. 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 NAS/yenifer 05/24/2023 Diagnosis Comment Histologic sections show infiltrating low grade glioma, marked by mild hypercellularity with rare atypical appearing glial cells. Vascular proliferative changes, prominent mitotic activity, and necrosis are not seen. Immunostains were performed on block B6. Scattered atypical cells demonstrate positive staining with antibody to IDH-1 (R132H). Rare positive Ki-67 positive staining atypical cells are noted. No definite loss of ATRX staining is observed. Addendums will be issued following additional molecular testing including 1p/19q FISH, MGMT analysis, and the Targeted Oncology Panel. Laboratory Developed Test (LDT) Disclaimer: Performance characteristics of immunohistochemical, immunofluorescent and chromogenic in-situ hybridization tests have been determined by the performing laboratory within [facility] [place] ([facility], [facility], [facility], [facility], [facility], [facility], or [facility]) in a manner consistent with CLIA requirements. One or more of these tests have not been cleared or approved by the FDA. [facility] is regulated under CLIA as qualified to perform high-complexity testing. These tests are used for clinical purposes. They should not be regarded as investigational or for research. Positive and negative controls stain appropriately. Laboratory Developed Test (LDT) Disclaimer: Performance characteristics of immunohistochemical, immunofluorescent and chromogenic in-situ hybridization tests have been determined by the performing laboratory within [facility] [place] ([facility], [facility], [facility], [facility], Replaced [facility], or [facility]) in a manner consistent with CLIA requirements. One or more of these tests have not been cleared or approved by the FDA. [facility] is regulated under CLIA as qualified to perform high-complexity testing. These tests are used for clinical purposes. They should not be regarded as investigational or for research. Positive and negative controls stain appropriately. Gross Description A. BRAIN RESECTION Received fresh for intraoperative consultation labeled brain resection-right frontal tumor are multiple pieces of soft wang-white tissue with an aggregate measurement of 1.7 x 0.4 x 0.2 cm. Half of the tissue submitted for frozen section in FSA1, the remaining tissue submitted for permanent in A2. Gross examination performed at [facility], [address] [place] [address] CLIA# [id number] [place] 05/19/23 10:54 AM B. BRAIN RESECTION Received fresh for intraoperative consultation, labeled as right frontal tumor is a single white-wang soft tissue fragment that measures 3.8 x 2.8 x 1.0 cm and weighs 4.97 g. Sectioning reveals white-wang cut surfaces. A outbound sales representative section is submitted in FS B1, the remainder of the specimen is submitted in 5 cassettes. VINAY/SEDRICK May 19, 2023 12:31 PM Gross examination performed at [facility], [address] [place] [address] CLIA# [id number] Intraoperative Diagnosis A. BRAIN RESECTION FSA1: Right frontal tumor: Slightly hypercellular brain parenchyma, no high-grade features seen (Dr. Mclaughlin). Intraoperative diagnosis performed at [facility], [address] [place] [address] CLIA# [id number] B. BRAIN RESECTION FSB1: Right frontal tumor: Mildly hypercellular WET ROLLER tissue, rule out infiltrating glioma (Dr. Mclaughlin). 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 Resulting Agency CCM Specimen Collected: 05/19/23 10:40 AM EDT Last Resulted: 05/24/23 12:16 PM EDT 1p19q intact by FISH. MGMT promoter not hypermethylated. IDH-1[R132H] by TOP NGS. No other mutations detected by [facility]. 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 Microsatellite instability is stable, and tumor mutational burden is low at 1 mut/Mb. Genomic loss of hetereozygosity is low [4%]. No mutations are detected in any other cancer-type relevant biomarkers. 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 TECHNIQUE: Routine brain mass MRI protocol without and with contrast including diffusion images. MQ: [id number] Contrast: 14 mL Dotarem IV COMPARISON: Previous MRI of the brain 02/21/2024, 11/19/2023, and 08/18/2023. RESULT: Acute Change: There is no evidence of restricted diffusion to suggest an acute infarct. Hemorrhage: Expected hemosiderin staining along the right frontal lobe surgical cavity with no evidence of interval new intraparenchymal hemorrhage. Mass Lesion/ Mass Effect: Remote right frontal craniotomy and debulking of anterior right frontal lobe astrocytoma with similar volume and extent of irregular T2 FLAIR hyperintense signal abnormality along the margins of the surgical cavity/treatment zone which may reflect gliosis and/or marginal treated neoplasm. Unchanged curvilinear enhancement multifocally along the surgical margins with no new or increasing abnormal enhancement identified, and suspect that this is related to some localized dural scarring. No mass effect or midline shift. Chronic Change: Scattered patchy T2 FLAIR hyperintensities are present in the bilateral cerebral white matter compatible sequelae of chronic small vessel disease. Parenchyma: No significant volume loss for age. Ventricles: No hydrocephalus. Skull Base: Hypothalamic and pituitary region are grossly normal. Craniocervical junction is normal. No significant marrow replacement process. Vasculature: The major intracranial arteries and dural venous sinuses are patent. Concordant appearance after gadolinium. Other: Small volume of fluid is present in the posterior ethmoid sinuses bilaterally. Minimal mucosal thickening along the floor of the right maxillary antrum. The orbits and extracranial soft tissues are unremarkable. Impression: IMPRESSION: Stable treatment related findings with no evidence of interval tumor progression. No acute abnormalities on the diffusion sequence. Machine Shorthand Teacher: LEO Transcribe Date/Time: May 18 2024 11:47A Dictated by : TARAS RUFFIN MD This examination was interpreted and the report reviewed and electronically signed by: TARAS RUFFIN MD on May 18 2024 11:52AM EST I have independently reviewed the MRI images of May 18, 2024 and have compared them to the previous study of February 20nd I agree with the official interpretation. Data Review: Personal review of medical records: I reviewed the [facility] chart. Personal review of image, tracing or specimen: Yes Lesion size: N/A [FLAIR abnormality could be residual tumor or post-surgical change] Multifocal: No Subependymal spread: No ASSESSMENT and PLAN: Neurologically, Mrs. Benton is doing very well. She is tolerating the ivosidenib without side effects or abnormalities of blood work. Radiographically her most recent MRI continues to demonstrate stability. She will continue the ivosidenib. Her speech issues are unlikely to be related to her tumor since she is left handed, and the tumor on the right side. She continues to make rare paraphasic errors, but is independent in all activities of daily living. We have previously discussed the possibility of a referral to Speech and Language Pathology for this, but given how sporadic/intermittent her symptoms are, it is of unclear benefit at this time. Follow up in three months with MRI and virtual visit. I will contact my colleague, Dr. Minerva Tillman, at [facility] to ask whether in her experience ivosidenib is associated with delayed wound healing. This will help determine when Mrs. Benton can have her dental implant. Misti Blank MD Staff Neuro-Oncologist May 25, 2024 documented in this encounter [facility] 05-19-2024 Nurse Note Additional intake questions: Has the patient had fever, nausea, vomiting, diarrhea, constipation, fatigue for > 1 week? No Does the patient have a decreased appetite? No Does patient want to see a Chief Radiation Therapist? No (yes to any of above refer patient to schedulers for dietitian appointment) ) Does patient have any new or increased numbness or tingling of extremities? No Is patient interested in fertility information? No Does patient need any prescription refills? No Does patient have an advanced directive in place? Yes, copies are in [employer] [facility] 05-19-2024 Nurse Note Additional intake questions: Has the patient had fever, nausea, vomiting, diarrhea, constipation, fatigue for > 1 week? No Does the patient have a decreased appetite? No Does patient want to see a Chief Radiation Therapist? No (yes to any of above refer patient to schedulers for dietitian appointment) ) Does patient have any new or increased numbness or tingling of extremities? No Is patient interested in fertility information? No Does patient need any prescription refills? No Does patient have an advanced directive in place? Yes, copies are in [employer] documented in this encounter [facility] 05-18-2024 History of Presen t illness Narrative Radiology Service Progress Note DATE OF SERVICE: May 18, 2024 TIME: 10:35 AM PATIENT IDENTITY VERIFICATION COMPLETED USING TWO [...] NO. PATIENT RELEVANT IMPLANT DATA REVIEWED: Yes PATIENT PRESENTS WITH AN IMPLANTABLE OR ATTACHED INDUSTRIAL GAS SERVICER: No ALLERGIES: Reviewed and unchanged CONTRAST ALLERGY: NO. EXAM: MRI - CONTRAST TYPE: GROUP II PERIPHERAL IV DATA: Ambulatory: A peripheral IV was started in the Left antecubital site with a Angio cath: 22 gauge. RADIOLOGY DEPARTMENT: MR; Exam(s) Completed: Head: Routine Brain SIGNATURE: MAMTA Mora PATIENT NAME: Jesus Benton DATE: May 18, 2024 TIME: 10:35 AM documented in this encounter [facility] 05-11-2024 History of Presen t illness Narrative Cycle #11 started on 04/25/24, cycle #12 would begin on 05/23/24. Labs were all WNL and EKG is normal. Nida Payton RN documented in this encounter [facility] 05-05-2024 Telephone encounter Note Spoke to patient and let her know that Anita, the pharmacist stated that since the Z-marvin is only for a short period of time it should be ok to take along with Tibsovo since her last QTc a couple weeks ago was 389, so it was not showing that it was prolonged at all. Nida Payton RN [facility] 05-05-2024 Miscellaneous Notes Spoke to patient and let her know that Anita, the pharmacist stated that since the Z-marvin is only for a short period of time it should be ok to take along with Tibsovo since her last QTc a couple weeks ago was 389, so it was not showing that it was prolonged at all. Nida Payton RN documented in this encounter [facility] 05-05-2024 Telephone encounter Note Spoke to pharmacist Anita Carnes and she stated since the z-marvin is temporary then it should not cause any QT prolongation with the Tibsovo. I will call patient and let her know. Nida Payton RN [facility] 05-05-2024 Miscellaneous Notes Spoke to pharmacist Anita Carnes and she stated since the z-marvin is temporary then it should not cause any QT prolongation with the Tibsovo. I will call patient and let her know. Nida Payton, RN General Call Caller : Jesus Contact Reason for Call : Pt called to discuss an alternative antibiotic that works with chemo medication. Patient requesting return call ? Yes documented in this encounter [facility] 05-04-2024 Telephone encounter Note General Call Caller : Jesus Contact Reason for Call : Pt called to discuss an alternative antibiotic that works with chemo medication. Patient requesting return call ? Yes [facility] 03-29-2024 History of Presen t illness Narrative Cycle #10 started on 03/28/24, cycle #11 would begin on 04/25/24. Labs were all WNL on 03/14 and EKG is normal. Nida Payton RN documented in this encounter [facility] 03-03-2024 History of Presen t illness Narrative Cycle #9 started on 02/29/24, cycle #10 would begin on 03/28/24. Labs were all WNL and EKG. Nida Payton RN documented in this encounter [facility] 03-03-2024 History of Presen t illness Narrative Mri documented in this encounter [facility] 02-23-2024 History of Presen t illness Narrative Images from the original note were not included. [facility] The patient is referred for post-op neuro-oncologic evaluation. Final recommendations will be communicated back to the requesting physician by way of the shared medical records, or letters to requesting physician via US Mail. Diagnosis: Astrocytoma, IDH-1 mutated, WHO grade 2 Subjective Chief Complaint: Mrs. 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 History of Present Illness: Patient is accompanied by . Hand dominance: right-handed. Neuro-Oncology History Surgery: 05/19/2023 Chemo: 07/21/2023 - Ivosidenib started Current Steroid Dose: - None Current AED Dose: - None 68 year old right-handed female with a newly [...] Neurosurgery in [facility] Clinic by Dr. Kelley on 05/06/2023. Overall impression was low-grade glioma [...] with writing since her surgery. Interval History: Today, she notes that she is feeling really well overall. She has a few questions that she would like to address at today's visit: - She notes that the electrolytes on her labs have been abnormal - specifically, in the past she has had low sodium, which is not new for her (hospitalized for this in 2019), and wonders about starting an electrolyte drink such as EmergenC to try and normalize the electrolyte values. Notably, on the most recent labs, her sodium was within normal limits. - In addition, on recent labs she has had an elevated LDL. She has discussed this with her PCP and has made healthier changes to her diet and her lifestyle overall and the LDL has still been high. Her primary doctor had noted that she would check again in May and if the LDL was still high after 6 months of making positive changes, they would then discuss medications. She therefore wonders if she is should reach back out to her PCP now rather than May. She is walking 4-6 miles per day and ensuring that she is getting enough protein and fiber. - About 3 weeks ago, she was brushing her teeth and part of her tooth broke off and fell down the drain. This tooth had cracked and had decay surrounding it - her dentist started putting a crown on it but stopped midway because they were worried the decay and crack went too far down. They now have the option of having a root canal or pulling the tooth and potentially getting an implant. She is unsure of which route to take given that she is on therapy and worries about the possibility of a procedure. Otherwise, she has been tolerating the ivosidenib without side effects and has no problems getting the medication. Occasionally, she gets a headache and seldom takes anything for them - she has wondered about taking acetaminophen sparingly, perhaps 1-2 times per week. The stomach pain that she was having at the last appointment has completely subsided. If she moves her hand down her ribcage and curls her fingers underneath her ribs, she occasionally has pain there. A few weeks ago, it was happening every single day, but the frequency has significantly decreased. This was always on the left side and in the same spot - not positional or pleuritic; also did not get worse with mealtime. She does still notice issues with word substitution, not so much word-finding. She does not feel like this interacts with her day to day life. Her feels like it is not worse, perhaps even a little better. She does not usually notice the errors that she makes. Past Medical History: PAST MEDICAL HISTORY Diagnosis Date Brain tumor (HCC) right frontal Esophageal reflux Gastroesophageal reflux PONV (postoperative nausea and vomiting) Past Surgical History: PAST SURGICAL HISTORY Procedure Laterality Date CHOLECYSTECTOMY HX EXCIS SUPRATENT BRAIN TUMOR 05/19/2023 REPAIR RECTOCELE SEPARATE PROCEDURE TOTAL ABDOMINAL HYSTERECT W/WO RMVL TUBE OVARY Hysterectomy, LUCEI TREAT LOWER LEG FRACTURE Left ronald with [...] Types: Cigarettes Quit date: 1979 Years since quittin.5 Smokeless tobacco: Never Substance Use Topics Alcohol use: No Drug use: No Medications: ivosidenib (TIBSOVO) 250 mg tablet Take 2 tablets (500mg) by mouth once daily. acetaminophen (TYLENOL) 325 mg tablet 2 tablets [...] Itching Latex Rash Review of Systems: Constitutional: Negative for fever. HENT: Negative for trouble swallowing. Musculoskeletal: Negative for muscle weakness. Eyes: Negative for diplopia. Respiratory: Negative for cough and shortness of breath. Gastrointestinal: Negative for nausea and vomiting. Endocrine: Negative for mood swings. Psychiatric: Negative for nervous/anxious and depression. Neurological: Positive for headaches. Negative for extremity numbness, double vision, extremity weakness, memory loss, seizures and disorientation. Objective There were no vitals taken for this visit. Physical Examination: No aphasia/word-finding difficulty noted at today's visit. EOMS: intact. BL UE: antigravity. No facial weakness. Karnofsky performance status: 90 - Able to carry on normal activity, minor signs or symptoms of disease. ECOG performance status: 1 - Restricted in physically strenuous activity but ambulatory and able to carry out work of a light or sedentary nature, e.g., light house work or office work. Review of Labs: CMP Latest Ref Rng & Units 02/11/2024 CMP Sodium 136 - 144 mmol/L 137 Potassium 3.7 - 5.1 mmol/L 4.5 Chloride 98 - 107 mmol/L 104 CO2 22 - 30 mmol/L 23 Glucose 74 - 99 mg/dL 106 BUN 7 - 21 mg/dL 11 Creatinine 0.58 - 0.96 mg/dL 0.70 EGFR >=60 mL/min/1.73m 95 Protein, Total 6.3 - 8.0 g/dL 6.7 Albumin 3.9 - 4.9 g/dL 4.4 Calcium 8.5 - 10.2 mg/dL 9.6 Bilirubin, Total 0.2 - 1.3 mg/dL 0.2 AST 13 - 35 U/L 16 ALT 7 - 38 U/L 11 Alkaline Phosphatase 34 - 123 U/L 46 , CBC Latest Ref Rng & Units 02/11/2024 CBC WBC 3.70 - 11.00 k/uL 6.38 RBC 3.90 - 5.20 m/uL 4.44 Hemoglobin 11.5 - 15.5 g/dL 13.3 Hematocrit 36.0 - 46.0 % 39.7 MCV 80.0 - 100.0 fL 89.4 MCH 26.0 - 34.0 pg 30.0 MCHC 30.5 - 36.0 g/dL 33.5 RDW-CV 11.5 - 15.0 % 14.7 Platelet Count 150 - 400 k/uL 314 MPV 9.0 - 12.7 fL 11.0 Baso% % 0.9 Abs Neut (ANC) 1.45 - 7.50 k/uL 3.32 Abs Lymph 1.00 - 4.00 k/uL 2.00 Abs [place] <0.87 k/uL 0.50 Abs Eosin <0.46 k/uL 0.42 Abs Baso <0.11 k/uL 0.06 NRBC /100 WBC 0.0 , and BMP Latest Ref Rng & Units 02/11/2024 BMP Glucose 74 - 99 mg/dL 106 BUN 7 - 21 mg/dL 11 Creatinine 0.58 - 0.96 mg/dL 0.70 Sodium 136 - 144 mmol/L 137 Potassium 3.7 - 5.1 mmol/L 4.5 Chloride 98 - 107 mmol/L 104 CO2 22 - 30 mmol/L 23 Anion Gap 8 - 15 mmol/L 10 Calcium 8.5 - 10.2 mg/dL 9.6 EGFR >=60 mL/min/1.73m 95 Final Pathology: Component FINAL DIAGNOSIS A, B. 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 RAP/dkm 05/24/2023 Diagnosis Comment Histologic sections show infiltrating low grade glioma, marked by mild hypercellularity with rare atypical appearing glial cells. Vascular proliferative changes, prominent mitotic activity, and necrosis are not seen. Immunostains were performed on block B6. Scattered atypical cells demonstrate positive staining with antibody to IDH-1 (R132H). Rare positive Ki-67 positive staining atypical cells are noted. No definite loss of ATRX staining is observed. Addendums will be issued following additional molecular testing including 1p/19q FISH, MGMT analysis, and the Targeted Oncology Panel. Laboratory Developed Test (LDT) Disclaimer: Performance characteristics of immunohistochemical, immunofluorescent and chromogenic in-situ hybridization tests have been determined by the performing laboratory within [facility] s [facility] Pathology and Laboratory Medicine [place] ([facility], [place], [facility], [facility], [facility], Re[facility], or [facility]) in a manner consistent with CLIA requirements. One or more of these tests have not been cleared or approved by the FDA. [facility] is regulated under CLIA as qualified to perform high-complexity testing. These tests are used for clinical purposes. They should not be regarded as investigational or for research. Positive and negative controls stain appropriately. Laboratory Developed Test (LDT) Disclaimer: Performance characteristics of immunohistochemical, immunofluorescent and chromogenic in-situ hybridization tests have been determined by the performing laboratory within [facility] s [facility] Pathology and Laboratory Medicine [place] ([facility], [facility], [facility], [facility], [facility], [facility]placed [facility], or [facility]) in a manner consistent with CLIA requirements. One or more of these tests have not been cleared or approved by the FDA. [facility] is regulated under CLIA as qualified to perform high-complexity testing. These tests are used for clinical purposes. They should not be regarded as investigational or for research. Positive and negative controls stain appropriately. Gross Description A. BRAIN RESECTION Received fresh for intraoperative consultation labeled brain resection-right frontal tumor are multiple pieces of soft wang-white tissue with an aggregate measurement of 1.7 x 0.4 x 0.2 cm. Half of the tissue submitted for frozen section in FSA1, the remaining tissue submitted for permanent in A2. Gross examination performed at [facility], [address] [place] [address] CLIA# [id number] 05/19/23 10:54 AM B. BRAIN RESECTION Received fresh for intraoperative consultation, labeled as right frontal tumor is a single white-wang soft tissue fragment that measures 3.8 x 2.8 x 1.0 cm and weighs 4.97 g. Sectioning reveals white-wang cut surfaces. A outbound sales representative section is submitted in FS B1, the remainder of the specimen is submitted in 5 cassettes. CATHERINE May 19, 2023 12:31 PM Gross examination performed at [facility], [address] [place] [address] CLIA# [id number] Intraoperative Diagnosis A. BRAIN RESECTION FSA1: Right frontal tumor: Slightly hypercellular brain parenchyma, no high-grade features seen (Dr. Mclaughlin). Intraoperative diagnosis performed at [facility], [address] [facility] [address] CLIA# [id number] B. BRAIN RESECTION FSB1: Right frontal tumor: Mildly hypercellular WET ROLLER tissue, rule out infiltrating glioma (Dr. Mclaughlin). 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 Resulting Agency CCM Specimen Collected: 05/19/23 10:40 AM EDT Last Resulted: 05/24/23 12:16 PM EDT 1p19q intact by FISH. MGMT promoter not hypermethylated. IDH-1[R132H] by TOP NGS. No other mutations detected by TOP. 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 Microsatellite instability is stable, and tumor mutational burden is low at 1 mut/Mb. Genomic loss of hetereozygosity is low [4%]. No mutations are detected in any other cancer-type relevant biomarkers. 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 MQ: [id number] Contrast: 14 mL Dotarem IV COMPARISON: MRI brain 11/19/2023 RESULT: Acute Change: There is no evidence of restricted diffusion to suggest an acute infarct. Hemorrhage: Expected hemosiderin staining along the right frontal lobe surgical cavity with no evidence of interval new intraparenchymal hemorrhage. Mass Lesion/ Mass Effect: Remote right frontal craniotomy and debulking of anterior right frontal lobe astrocytoma with similar volume and extent of irregular T2 FLAIR hyperintense signal abnormality along the margins of the surgical cavity/treatment zone which may reflect gliosis and/or residual treated tumor. Unchanged curvilinear enhancement multifocally along the surgical margins with no new or increasing abnormal enhancement identified. No mass effect or midline shift. Chronic Change: Scattered patchy T2 FLAIR hyperintensities are present in the bilateral cerebral white matter compatible sequelae of chronic small vessel disease. Parenchyma: No significant volume loss for age. Ventricles: No hydrocephalus. Skull Base: Hypothalamic and pituitary region are grossly normal. Craniocervical junction is normal. No significant marrow replacement process. Vasculature: The major intracranial arteries and dural venous sinuses are patent. Other: Small volume of fluid is present in the posterior ethmoid sinuses bilaterally. The orbits and extracranial soft tissues are unremarkable. Impression: IMPRESSION: Stable treatment related findings with no evidence of interval tumor progression. Machine Shorthand Teacher: LEO Transcribe Date/Time: Feb 21 2024 10:25A Dictated by : JOANNE HI MD This examination was interpreted and the report reviewed and electronically signed by: JOANNE HI MD on Feb 21 2024 10:34AM EST I have independently reviewed the MRI images of February 21, 2024 and have compared them to the previous study of November 19, 2023 and I agree with the official interpretation. Data Review: Personal review of medical records: I reviewed the [facility] chart. Personal review of image, tracing or specimen: Yes Lesion size: N/A [FLAIR abnormality could be residual tumor or post-surgical change] Multifocal: No Subependymal spread: No ASSESSMENT and PLAN: Neurologically, Mrs. Benton is doing very well. She is tolerating the ivosidenib without side effects or abnormalities of blood work. Radiographically her most recent MRI continues to demonstrate stability. She will continue the ivosidenib. Her speech issues are unlikely to be related to her tumor since she is left handed, and the tumor on the right side. She continues to make paraphasic errors, but is independent in all activities of daily living. We have previously discussed the possibility of a referral to Speech and Language Pathology for this, but given how sporadic/intermittent her symptoms are, it is of unclear benefit at this time. Follow up in three months with MRI and virtual visit. Otherwise, if indicated from a hyperlipidemia perspective, there are no contraindications to initiation of a statin - including no drug interaction with ivosidenib. Similarly, if a dental procedure is indicated, the ivosidenib would not preclude this. Seen and discussed with Dr. Blank. Raquel Romero MD Neuro-Oncology Fellow Attending Physician Attestation: I saw and evaluated Jesus douglas in Neuro-Oncology Clinic on February 23, [address] Raquel Romero, and I agree with the findings, formulation and plan outlined in her note above. Misti Blank MD Staff Neuro-Oncologist February 29, 2024 documented in this encounter [facility] 02-21-2024 History of Presen t illness Narrative Radiology Service Progress Note DATE OF SERVICE: February 21, 2024 TIME: 10:10 AM PATIENT IDENTITY VERIFICATION COMPLETED USING TWO (2) STANDARD IDENTIFIERS: Name and Date of confirmed by patient verbally. FALL SCREENING: Has the patient had 2 falls in the last year or 1 fall with injury or currently using an Ambulatory Assistive Device (Walker, Cane, Wheelchair, Crutches, etc.)? No PATIENT GENDER DATA: Female. status: : No status: NO. PATIENT RELEVANT IMPLANT DATA REVIEWED: Yes PATIENT PRESENTS WITH AN IMPLANTABLE OR ATTACHED INDUSTRIAL GAS SERVICER: No ALLERGIES: Reviewed and unchanged CONTRAST ALLERGY: NO. EXAM: MRI - CONTRAST TYPE: GROUP II PERIPHERAL IV DATA: Ambulatory: A peripheral IV was started in the Right antecubital site with a Angio cath: 22 gauge. RADIOLOGY DEPARTMENT: MR; Exam(s) Completed: Head: Routine Brain SIGNATURE: RT Su(R) PATIENT NAME: Jesus Benton DATE: February 21, 2024 TIME: 10:10 AM documented in this encounter [facility] 02-14-2024 History of Presen t illness Narrative Cycle #8 started on 02/01/24, cycle #9 would begin on 02/29/24. Labs were all WNL and EKG. Nida Payton RN documented in this encounter [facility] 01-05-2024 History of Presen t illness Narrative Cycle #7 started on 01/04/24, cycle #8 would begin on 02/01/24. Labs were all WNL and EKG. Nida Payton RN documented in this encounter [facility] 01-04-2024 Telephone encounter Note Refill Needed : Requested Prescriptions Pending Prescriptions Disp Refills TIBSOVO 250 mg tablet [Pharmacy Med Name: Tibsovo 250 mg Tablet 250 Tablet] 60 tablet 0 Sig: TAKE 2 TABLETS BY MOUTH EVERY AFTERNOON. [facility] 01-04-2024 Miscellaneous Notes Refill Needed : Requested Prescriptions Pending Prescriptions Disp Refills TIBSOVO 250 mg tablet [Pharmacy Med Name: Tibsovo 250 mg Tablet 250 Tablet] 60 tablet 0 Sig: TAKE 2 TABLETS BY MOUTH EVERY AFTERNOON. documented in this encounter [facility] 12-22-2023 Telephone encounter Note Spoke to patient, will add standing orders. Nida Payton RN [facility] 12-22-2023 Miscellaneous Notes Spoke to patient, will add standing orders. Nida Payton RN General Call Caller : Pt Contact Reason for Call : pt states she needs new EKG orders and lab orders. Pt would like to discuss further w you. Patient requesting return call ? Yes documented in this encounter [facility] 12-22-2023 Telephone encounter Note Cycle #6 started on 12/07/23, cycle #7 would begin on 01/04/24. Labs were all WNL and EKG. Nida Payton RN [facility] 12-22-2023 Miscellaneous Notes Cycle #6 started on 12/07/23, cycle #7 would begin on 01/04/24. Labs were all WNL and EKG. Nida Payton RN documented in this encounter [facility] 12-21-2023 Telephone encounter Note General Call Caller : Pt Contact Reason for Call : pt states she needs new EKG orders and lab orders. Pt would like to discuss further w you. Patient requesting return call ? Yes [facility] 11-22-2023 History of Presen t illness Narrative Images from the original note were not included. [facility] The patient is referred for post-op neuro-oncologic evaluation. Final recommendations will be communicated back to the requesting physician by way of the shared medical records, or letters to requesting physician via US Mail. Diagnosis: Astrocytoma, IDH-1 mutated, WHO grade 2 Subjective Chief Complaint: Mrs. Benton returned to Neuro-Oncology Clinic for follow-up of [...] Neurosurgery in Brain Tumor Clinic by Dr. Kelley on 05/06/2023. Overall impression was low-grade glioma [...] with writing since her surgery. Interval History: Has dry hands and dry feet right now, controllable with hand cream. She has stomach pain, even if she is eating a low fat diet from 10am-2pm. Hasn't had stomach pain in one week. Speech issues: getting worse. Catching more often, makes more mistakes. She is always certain that she isn't making mistakes, but when she goes back and sees it, she sees it's an error. and she have both noticed more errors in talking and writing. has noticed it more in the last month, doesn't happen everyday, but has noticed some paraphasic errors. No garbled speech. Has also had headaches: bilateral temples. 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 Every now and then she gets pin prick feelings in the right posterior area of the surgery. Uptrending eosinophilia (0.36 in June 2023 ---> 0.96 in October 2023). Started Tibsovo 250mg PO daily at noon. Past Medical History: PAST MEDICAL HISTORY Diagnosis [...] Types: Cigarettes Quit date: 1979 Years since quittin.2 Smokeless tobacco: Never Substance Use Topics Alcohol use: No Drug use: No Medications: ivosidenib (TIBSOVO) 250 mg tablet Take 2 tablets (500mg) by mouth once daily. acetaminophen (TYLENOL) 325 mg tablet 2 tablets [...] Itching Latex Rash Review of Systems: Constitutional: Negative for fever. HENT: Negative for trouble swallowing. Musculoskeletal: Negative for muscle weakness. Eyes: Negative for diplopia. Respiratory: Negative for cough and shortness of breath. Gastrointestinal: Negative for nausea and vomiting. Endocrine: Positive for heat intolerance. Negative for mood swings. Psychiatric: Negative for nervous/anxious and depression. Neurological: Negative for extremity numbness, double vision, headaches, extremity weakness, memory loss, seizures and disorientation. Objective There were no vitals taken for this visit. Physical Examination: No aphasia, EOMS: intact BL UE: antigravity. No facial weakness. Karnofsky performance status: 90 - Able to carry on normal activity, minor signs or symptoms of disease. ECOG performance status: 1 - Restricted in physically strenuous activity but ambulatory and able to carry out work of a light or sedentary nature, e.g., light house work or office work. Review of Labs: CMP Latest Ref Rng & Units 11/12/2023 CMP Sodium 136 - 144 mmol/L 138 Potassium 3.7 - 5.1 mmol/L 4.3 Chloride 97 - 105 mmol/L 103 CO2 22 - 30 mmol/L 28 Glucose 74 - 99 mg/dL 113 BUN 7 - 21 mg/dL 17 Creatinine 0.58 - 0.96 mg/dL 0.81 EGFR >=60 mL/min/1.73m 80 Protein, Total 6.3 - 8.0 g/dL 7.0 Albumin 3.9 - 4.9 g/dL 4.2 Calcium 8.5 - 10.2 mg/dL 10.0 Bilirubin, Total 0.2 - 1.3 mg/dL 0.3 AST 13 - 35 U/L 13 ALT 7 - 38 U/L 8 Alkaline Phosphatase 34 - 123 U/L 86 , CBC Latest Ref Rng & Units 11/12/2023 CBC WBC 3.70 - 11.00 k/uL 8.95 RBC 3.90 - 5.20 m/uL 4.87 Hemoglobin 11.5 - 15.5 g/dL 14.1 Hematocrit 36.0 - 46.0 % 42.4 MCV 80.0 - 100.0 fL 87.1 MCH 26.0 - 34.0 pg 29.0 MCHC 30.5 - 36.0 g/dL 33.3 RDW-CV 11.5 - 15.0 % 14.1 Platelet Count 150 - 400 k/uL 334 MPV 9.0 - 12.7 fL 10.5 Baso% % 0.6 Abs Neut (ANC) 1.45 - 7.50 k/uL 5.00 Abs Lymph 1.00 - 4.00 k/uL 2.20 Abs [place] <0.87 k/uL 0.72 Abs Eosin <0.46 k/uL 0.96 Abs Baso <0.11 k/uL 0.05 NRBC /100 WBC 0.0 , and BMP Latest Ref Rng & Units 11/12/2023 BMP Glucose 74 - 99 mg/dL 113 BUN 7 - 21 mg/dL 17 Creatinine 0.58 - 0.96 mg/dL 0.81 Sodium 136 - 144 mmol/L 138 Potassium 3.7 - 5.1 mmol/L 4.3 Chloride 97 - 105 mmol/L 103 CO2 22 - 30 mmol/L 28 Anion Gap 9 - 18 mmol/L 7 Calcium 8.5 - 10.2 mg/dL 10.0 EGFR >=60 mL/min/1.73m 80 Final Pathology: Component FINAL DIAGNOSIS A, B. 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 RAP/dkm 05/24/2023 Diagnosis Comment Histologic sections show infiltrating low grade glioma, marked by mild hypercellularity with rare atypical appearing glial cells. Vascular proliferative changes, prominent mitotic activity, and necrosis are not seen. Immunostains were performed on block B6. Scattered atypical cells demonstrate positive staining with antibody to IDH-1 (R132H). Rare positive Ki-67 positive staining atypical cells are noted. No definite loss of ATRX staining is observed. Addendums will be issued following additional molecular testing including 1p/19q FISH, MGMT analysis, and the Targeted Oncology Panel. Laboratory Developed Test (LDT) Disclaimer: Performance characteristics of immunohistochemical, immunofluorescent and chromogenic in-situ hybridization tests have been determined by the performing laboratory within [facility] s [facility] Pathology and Laboratory Medicine [place] ([facility], [facility], [facility], [facility], [facility], [facility], or [facility]) in a manner consistent with CLIA requirements. One or more of these tests have not been cleared or approved by the FDA. [facility] is regulated under CLIA as qualified to perform high-complexity testing. These tests are used for clinical purposes. They should not be regarded as investigational or for research. Positive and negative controls stain appropriately. Laboratory Developed Test (LDT) Disclaimer: Performance characteristics of immunohistochemical, immunofluorescent and chromogenic in-situ hybridization tests have been determined by the performing laboratory within [facility] Pathology and Laboratory Medicine [place] ([facility], [facility], [facility], [facility], [facility], [facility], or [facility]) in a manner consistent with CLIA requirements. One or more of these tests have not been cleared or approved by the FDA. [facility] is regulated under CLIA as qualified to perform high-complexity testing. These tests are used for clinical purposes. They should not be regarded as investigational or for research. Positive and negative controls stain appropriately. Gross Description A. BRAIN RESECTION Received fresh for intraoperative consultation labeled brain resection-right frontal tumor are multiple pieces of soft wang-white tissue with an aggregate measurement of 1.7 x 0.4 x 0.2 cm. Half of the tissue submitted for frozen section in FSA1, the remaining tissue submitted for permanent in A2. Gross examination performed at [facility], [address] [place] [address] CLIA# [id number] 05/19/23 10:54 AM B. BRAIN RESECTION Received fresh for intraoperative consultation, labeled as right frontal tumor is a single white-wang soft tissue fragment that measures 3.8 x 2.8 x 1.0 cm and weighs 4.97 g. Sectioning reveals white-wang cut surfaces. A outbound sales representative section is submitted in FS B1, the remainder of the specimen is submitted in 5 cassettes. CATHERINE May 19, 2023 12:31 PM Gross examination performed at [facility], [address] [place] [address] CLIA# [id number] Intraoperative Diagnosis A. BRAIN RESECTION FSA1: Right frontal tumor: Slightly hypercellular brain parenchyma, no high-grade features seen (Dr. Mclaughlin). Intraoperative diagnosis performed at [facility], [address] [facility] [address] CLIA# [id number] B. BRAIN RESECTION FSB1: Right frontal tumor: Mildly hypercellular WET ROLLER tissue, rule out infiltrating glioma (Dr. Mclaughlin). 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 Resulting Agency CCM Specimen Collected: 05/19/23 10:40 AM EDT Last Resulted: 05/24/23 12:16 PM EDT 1p19q intact by FISH. MGMT promoter not hypermethylated. IDH-1[R132H] by TOP NGS. No other mutations detected by TOP. 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 Microsatellite instability is stable, and tumor mutational burden is low at 1 mut/Mb. Genomic loss of hetereozygosity is low [4%]. No mutations are detected in any other cancer-type relevant biomarkers. 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 MQ: [id number] Contrast: 14 mL Dotarem IV COMPARISON: Brain MRI 08/18/2023. 05/20/2023.. RESULT: Postoperative change: There are postoperative findings related to a right frontal craniotomy for resection of a prior right inferior frontal lobe neoplasm. Acute Change: There is no evidence of restricted diffusion to suggest an acute infarct. Hemorrhage: No evidence of prior parenchymal hemorrhage on the gradient echo images. Mass Lesion/ Mass Effect: There is no significant change in the thinned T2/FLAIR hyperintensity surrounding the resection cavity, likely postoperative. There a slight interval decrease in pachymeningeal enhancement deep to the craniotomy (the resection cavity and mild linear enhancement within the resection cavity, likely postoperative. There is no evidence of midline shift or herniation. Chronic Change: Scattered punctate foci of increased T2 and FLAIR signal are noted in the supratentorial white matter which is a nonspecific finding, but likely represents minimal chronic microvascular ischemia. Parenchyma: No significant volume loss for age. The brain parenchyma is otherwise within normal limits of signal intensity and morphology. Ventricles: Normal caliber and morphology. Skull Base: Hypothalamic and pituitary region are grossly normal. Craniocervical junction is normal. No significant marrow replacement process. Vasculature: Major intracranial arterial structures, and dural venous sinuses show typical flow void, suggesting patency by spin echo criteria. Other: The visualized paranasal sinuses and mastoid air cells are clear. The orbits and extracranial soft tissues are unremarkable. Impression: IMPRESSION: No progressive disease. Machine Shorthand Teacher: LEO Transcribe Date/Time: Nov 19 2023 10:27A Dictated by : FRANCESCA FIELDS MD This examination was interpreted and the report reviewed and electronically signed by: FRANCESCA FIELDS MD on Nov 19 2023 10:42AM EST I have independently reviewed the MRI images of November 19, 2023 and have compared them to the previous study of August 18, 2023 and I agree with the official interpretation. Data Review: Personal review of medical records: I reviewed the [facility] chart. Personal review of image, tracing or specimen: Yes Lesion size: N/A [FLAIR abnormality could be residual tumor or post-surgical change] Multifocal: No Subependymal spread: No ASSESSMENT and PLAN: Neurologically, Mrs. Benton is doing very well. She is tolerating the ivosutinib without side effects or abnormalities of blood work. Radiographically it is questionable whether the small residual FLAIR abnormality represents microscopic tumor or postsurgical change or a combination of both. She will continue the ivosutinib. Her speech issues are unlikely to be related to her tumor since she is left handed, and the tumor on the right side. She continues to make paraphasic errors, but is independent in all activities of daily living. Will recommend Speech and Language Pathology consult for this. Follow up in three months with MRI and virtual visit. Magan Dunn MD PGY2 Adult Neurology Page [id number] 11/22/23, 11:55 AM Attending Physician Attestation: I saw and evaluated Jesus Benton in Neuro-Oncology Clinic with Dr. Magan Ansari on November 22, 2023, and I agree with the findings, formulation and plan outlined in her note above. Misti Blank MD Staff Neuro-Oncologist November 23, 2023 documented in this encounter [facility] 11-16-2023 History of Presen t illness Narrative Cycle #5 started on 11/09/23, cycle #6 would begin on 12/07/23 Labs were all WNL and EKG WNL. Vidhya Cancino documented in this encounter [facility] 10-19-2023 History of Presen t illness Narrative cycle #4 started on 10/12/23, cycle #5 would begin on 11/09/23. Labs were all WNL and EKG WNL. MRI will be before cycle #5. Nida Appiah RN documented in this encounter [facility] 2023 History of Presen t illness Narrative Patient started Tibsovo cycle #3 on 09/14/23, cycle #4 would begin on 10/12/23. Labs on 09/14 were all WNL and EKG on 09/07 WNL. MRI will be before cycle #5. Nida Appiah RN documented in this encounter [facility] 10-04-2023 Miscellaneous Notes Refill Needed : Requested Prescriptions Pending Prescriptions Disp Refills ivosidenib (TIBSOVO) 250 mg tablet 60 tablet 0 Sig: Take 2 tablets by mouth every afternoon. documented in this encounter [facility] 09-10-2023 Miscellaneous Notes Scheduling Request - Established Patient Time Frame: 10 weeks Orders: MRI brain at [place] Provider: Abhay Visit type: In person or virtual Diagnosis: low grade astrocytoma documented in this encounter [facility] 07-30-2023 Nurse Note EKG performed per protocol on Jesus Benton EKG was handed to Eugenia Bradford RN on July 30, 2023 at 10:02 AM Jing Toscano MA documented in this encounter [facility] 07-28-2023 History of Presen t illness Narrative Patient started Tibsovo 500mg daily on 07/21/23 cycle #2 would begin on 08/18/23. Labs on 07/14 were all WNL. Will have monthly labs done and weekly EKG X3 then monthly thereafter. Nida Appiah RN documented in this encounter [facility] 07-23-2023 Nurse Note EKG performed per protocol on Jesus Benton EKG was handed to Eugenia Bradford RN on July 23, 2023 at 9:44 AM Jing Toscano MA documented in this encounter [facility] 07-16-2023 Nurse Note EKG performed per protocol on Jesus Benton EKG was review to nurse on on July 16, 2023 at 10:03 AM Parisa Pope Ma documented in this encounter [facility] 07-13-2023 Miscellaneous Notes Spoke to patient and told her she can have the medication shipped to her but to not start it until she has the EKG and labs completed. Nida Appiah, RN General Call Caller : Jesus Contact Reason for Call : Wants to know if she should get Tibsovo delivered to her home? Patient requesting return call ? Yes documented in this encounter [facility] 07-09-2023 Miscellaneous Notes Prior authorization was approved for Tibsovo. Plan Name: Melecio IRWIN reference number: [id number] Approval Dates: 06/06/23 - 08/22/2099 However, s/he is required to use [facility] to fill this medication. Will queue prescription(s) to go to designated specialty pharmacy. For reference, their pharmacy phone number is [phone]. No further action by [facility] Specialty. Wilber Ngo, PharmD Clinical Pharmacist, Oncology [facility] P: ; F: Pool: P CC [facility] Pool #: [id number] documented in this encounter [facility] 07-08-2023 Miscellaneous Notes I called [facility] to schedule and was told by Jana Sim That only patients who are established with primary or cardio at [facility] can schedule an EKG at the [facility] location. Lynette Esquivel Time Frame: weekly EKG times 4 starting 07/13 or 07/14 (if possible) then weekly thereafter Orders: EKG at [facility] Provider: Abhay -no appt needed yet Diagnosis: meningioma documented in this encounter [facility] 07-06-2023 History of Presen t illness Narrative [facility] received prescription(s) for Tibsovo from Dr. Blank's office. Benefits investigation was conducted, indicating that a prior authorization is required by patient's insurance plan with [employer]. Encounter will be updated once prior authorization has been submitted by [facility]. [facility] received prescription(s) for Tibsovo from Dr. Blank's office. PA was initiated and pending review. Plan Name: [employer] Medicare / [employer] Case: TBD Timeline: URGENT GIRISH Araujo, RN July 06, 2023 3:12 PM documented in this encounter [facility] 05-31-2023 History of Presen t illness Narrative Radiation Oncology - New Patient/Consult Note PATIENT NAME: Jesus Benton PATIENT REQUESTING PROVIDER: Dr. Chris Kelley. DIAGNOSIS: 67 year old female with an [...] to requesting physician via US mail. Ms. 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 She presented to the [facility] on 04/20/23 due [...] Other examples: Windfall elimination plan but said [facility] elimination plan. I need toothpaste but said I need mouthwash and Call sign [id number] and said Call sign [id number]. These numerics are both call signs for [...] taken for maximal safe resection with Dr. Kelley which was performed on 05/19/23 with an [...] Alcohol use: No Drug use: No Residence: [place], [place] COMPLETE REVIEW OF SYSTEMS: Negative for [...] with CHT Plan/Recommendations Await CARIS testing results Discussion of adjuvant IDH-inhibitor vs SoC RT [...] favored. Final recommendation is pending CARIS testing. Patrick Rangel MD cc: Chris Kelley [address] [facility] [address] Dr. Misti Blank, [facility] neuro-oncology documented in this encounter [facility] 05-31-2023 History of Presen t illness Narrative Patient is here today accompanied by for surgical incision wound check. Surgery: Right frontal Craniotomy on 05/19/2023 for tumor resection with Dr Kelley Patient is recovering well postoperatively. No neurological [...] questions or concerns. Dorothy Stinson RN BSN Event Promotions Coordinator [phone]. documented in this encounter [facility] 05-31-2023 Nurse Note Reviewed and confirmed with patient that there were no changes in the the nursing assessment and vitals that were completed on May 31, 2023 during previous provider appointment. Nida Null Ma documented in this encounter [facility] 05-27-2023 Miscellaneous Notes I spoke with Jesus. She is doing well since being home [...] looks well. We reviewed her medications and Jesus verbalized understanding and awareness and had no questions in regards to her medications at this time. Dorothy Stinson RN BSN Event Promotions Coordinator. General Call Caller : Jesus Contact Reason for Call : Pt wants to know why she has sutures from her nondenominational down the right side her face? Patient requesting return call ? Yes documented in this encounter [facility] 05-27-2023 Telephone encounter Note PATIENT INFORMATION Record ID: [id number] Patient Name: [facility] [place]: [facility] [place] Attending: Chris Kelley Center: Brain Tumor and Neuro-Oncology INSTRUCTIONS MA to remind patient of appointment date, time, location All Clear All Clear SURVEY INFORMATION Medical/Nurse Clinic Lpn: Lynette Bermudez 1. Your discharge instructions are important in guiding you through the recovery process. Is there anything I could help you clarify on your discharge instructions? (Standard Question) No 2. Do you have a follow up appointment related to your hospital stay scheduled within the next 30 days? (Standard Question) Yes 3. Have you had a fever of 100 degrees or higher or any increased redness, swelling, or any drainage from your wound since discharge? (Red Flag Question) No 4. Have you had any leg swelling or leg pain since discharge? (Red Flag Question) No 5. Many patients have concerns about their medications once they are home. Do you have any questions about getting or taking your medications? (Standard Question) No 6. Do you have any new or different symptoms? (Standard Question) No [facility] 05-27-2023 Miscellaneous Notes PATIENT INFORMATION Record ID: [id number] Patient Name: [facility] [place]: [facility] [place] Attending: Chris Kelley Center: Brain Tumor and Neuro-Oncology INSTRUCTIONS MA to remind patient of appointment date, time, location All Clear All Clear SURVEY INFORMATION Medical/Nurse Clinic Lpn: Lynette Bermudez 1. Your discharge instructions are important in guiding you through the recovery process. Is there anything I could help you clarify on your discharge instructions? (Standard Question) No 2. Do you have a follow up appointment related to your hospital stay scheduled within the next 30 days? (Standard Question) Yes 3. Have you had a fever of 100 degrees or higher or any increased redness, swelling, or any drainage from your wound since discharge? (Red Flag Question) No 4. Have you had any leg swelling or leg pain since discharge? (Red Flag Question) No 5. Many patients have concerns about their medications once they are home. Do you have any questions about getting or taking your medications? (Standard Question) No 6. Do you have any new or different symptoms? (Standard Question) No documented in this encounter [facility] 05-18-2023 Nurse Note Reviewed and confirmed with patient that there were no changes in the the nursing assessment and vitals that were completed on May 18, 2023 during previous provider appointment. Nida Null Ma documented in this encounter [facility] 05-18-2023 History of Presen t illness Narrative Reviewed and confirmed with patient that there were no changes in the the nursing assessment and vitals that were completed on 05/18/2023 during previous provider appointment. Alisa Medina MA documented in this encounter [facility] 05-18-2023 Instructions Huma Hernandez PA-C - 05/18/2023 7:46 AM EDT PATIENT PREOPERATIVE INSTRUCTIONS No ref. provider found has scheduled you for your procedure at this surgery center: [facility] [place] Scheduling Office: [phone] --[address] [place] [address]. Please read below carefully for your personalized [...] Procedures: - YOU MUST HAVE A RESPONSIBLE MEDICAL ACCOUNTS RECEIVABLE SPECIALIST TAKE YOU HOME. A CLEANING SUPERVISOR OR SYNTHETIC PLASTERER CANNOT BE MADE A RESPONSIBLE MEDICAL ACCOUNTS RECEIVABLE SPECIALIST. - We recommend that a responsible person [...] call the Wednesday before. Your surgeon s front counter clerk will tell you what time to call the office. - If you have not reached the departmental front counter clerk by 5 P.M., call [phone] after 5 P.M. the day before your surgery. Please be aware that emergency situations arise, which may delay or change your surgical time. If this happens, we will notify you as soon as possible and regret any inconvenience. If you already have an Advance Directive, please fax a copy to [phone] or email to for it to be [...] and scanned into your chart that day. Huma Hernandez PA-C documented in this encounter [facility] 05-18-2023 History and physical note HISTORY AND PHYSICAL EXAMINATION SERVICE DATE: May 17, 2023 SERVICE TIME: 10:07 AM PRIMARY CARE PHYSICIAN: No primary care provider on file. REASON FOR VISIT: Jesus Benton is a 67 year old female who [...] Disease Subjective CHIEF COMPLAINT: Pre-op exam HPI: Jesus Benton is a 67 year old female who [...] COPD. Cardiovascular: +HTN Denies any history of MO, CAD, CHF, DVT, PE, arrhythmias or murmurs. [...] 370 QTC Calculation (Bazett) 399 Calculated P Hanover 24 Calculated R Han[place] 0 Calculated T Han[place] 7 Impression NORMAL SINUS RHYTHM NORMAL ECG No results found for this or any previous visit (from the past 77112 hour(s)). Assessment/Plan PONV (postoperative nausea and vomiting) [...] instructions and voices comprehension and compliance. SIGNATURE: Huma Hernandez PA-C PATIENT NAME: Jesus Benton DATE: May 18, 2023 TIME: 10:07 AM documented in this encounter [facility] 05-10-2023 Miscellaneous Notes Spoke with Jesus regarding her recent neurosurgery evaluation that resulted in diagnosis of low-grade glioma and she is scheduled for surgery this month. Offered that she can see me 6 to 7 months later to follow-up on her concerns regarding speech. At this time she should continue treatment plan with neurosurgery. documented in this encounter [facility] 05-06-2023 History of Presen t illness Narrative Images from the original note were not included. Brain Tumor Neuro-Oncology Center New Patient Consultation Referred by Benjamin Enriquez [address] [address] Diagnosis: Right frontal low grade glioma Subjective History of Present Illness: Jesus Benton is a 67 year old Right handed female who presents to the [facility] for an initial evaluation. Patient has been seen and referred by Dr. Pedro Tiwari. Today's visit: She is here for complaint [...] which included preparing to see the patient, [id number] patient care, completing clinical documentation, obtaining and/or reviewing separately obtained history, counseling and educating the patient/family/caregiver, independently interpreting results (not separately reported), and care coordination (not separately reported). Chris Kelley MD May 06, 2023 10:59 AM documented in this encounter [facility] 05-06-2023 Nurse Note Additional intake questions: Has the patient had fever, nausea, vomiting, diarrhea, constipation, fatigue for > 1 week? No Does the patient have a decreased appetite? No Does patient want to see a Chief Radiation Therapist? No (yes to any of above refer patient to schedulers for dietitian appointment) ) Does patient have any new or increased numbness or tingling of extremities? No Is patient interested in fertility information? No Does patient need any prescription refills? No Does patient have an advanced directive in place? Yes, no copy found in [facility] Patient referred to Resource Center documented in this encounter [facility] 04-21-2023 Miscellaneous Notes Time Frame: YANICK 1-2 [...] work up for memory loss. Lazara Newby APRN.LATHE TENDER Case discussed with Dr. 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 Abnormal finding on MRI of brain Nonspecific (abnormal) findings on radiological and other examination of skull and head [facility] Pre-op evaluation- Primary Preoperative examination, unspecified PONV (postoperative nausea and vomiting) Nausea with vomiting Essential (primary) hypertension Unspecified essential hypertension Gastroesophageal reflux disease without esophagitis Esophageal reflux 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 [facility] 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 [facility] Diagnosis Meningioma (HCC)- Primary Benign neoplasm of cerebral meninges [facility] Diagnosis 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 [facility] 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 [facility] 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 [facility] Diagnosis 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) [facility] 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 [facility] 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 [facility] [...] grade astrocytoma of frontal lobe (HCC)- Primary Word finding difficulty Problems with communication (including speech) [facility] Diagnosis 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) [facility] Diagnosis 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) [facility] Diagnosis Hyponatremia- Primary Hyposmolality and/or hyponatremia 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) [facility] Diagnosis 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) documented in this encounter [facility] note* Diagnosis 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) documented in this encounter [facility] note* 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 documented in this encounter [facility] note* 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 documented in this encounter [facility] note* Diagnosis 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) documented in this encounter [facility] note* Diagnosis 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, 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 Post-op pain Other acute postoperative pain Neoplasm of uncertain behavior Neoplasm of uncertain behavior, site unspecified Essential (primary) hypertension Unspecified essential hypertension At risk of seizures Other specified conditions influencing health status Cerebral edema (HCC) Cerebral edema Post-op pain Other acute postoperative pain Pre-op evaluation- Primary Preoperative examination, unspecified PONV (postoperative nausea and vomiting) Nausea with vomiting Essential (primary) hypertension Unspecified essential hypertension Gastroesophageal reflux disease without esophagitis Esophageal reflux 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) documented in this encounter [facility] note* Diagnosis 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, 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 Post-op pain Other acute postoperative pain Neoplasm of uncertain behavior Neoplasm of uncertain behavior, site unspecified Essential (primary) hypertension Unspecified essential hypertension At risk of seizures Other specified conditions influencing health status Cerebral edema (HCC) Cerebral edema Post-op pain Other acute postoperative pain Pre-op evaluation- Primary Preoperative examination, unspecified PONV (postoperative nausea and vomiting) Nausea with vomiting Essential (primary) hypertension Unspecified essential hypertension Gastroesophageal reflux disease without esophagitis Esophageal reflux 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) documented in this encounter [facility] note* Diagnosis 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, 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 Post-op pain Other acute postoperative pain Neoplasm of uncertain behavior Neoplasm of uncertain behavior, site unspecified Essential (primary) hypertension Unspecified essential hypertension At risk of seizures Other specified conditions influencing health status Cerebral edema (HCC) Cerebral edema Post-op pain Other acute postoperative pain Pre-op evaluation- Primary Preoperative examination, unspecified PONV (postoperative nausea and vomiting) Nausea with vomiting Essential (primary) hypertension Unspecified essential hypertension Gastroesophageal reflux disease without esophagitis Esophageal reflux 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) [facility] Diagnosis 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, 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 Post-op pain Other acute postoperative pain Neoplasm of uncertain behavior Neoplasm of uncertain behavior, site unspecified Essential (primary) hypertension Unspecified essential hypertension At risk of seizures Other specified conditions influencing health status Cerebral edema (HCC) Cerebral edema Post-op pain Other acute postoperative pain Pre-op evaluation- Primary Preoperative examination, unspecified PONV (postoperative nausea and vomiting) Nausea with vomiting Essential (primary) hypertension Unspecified essential hypertension Gastroesophageal reflux disease without esophagitis Esophageal reflux 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) [facility] Diagnosis 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, 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 Post-op pain Other acute postoperative pain Neoplasm of uncertain behavior Neoplasm of uncertain behavior, site unspecified Essential (primary) hypertension Unspecified essential hypertension At risk of seizures Other specified conditions influencing health status Cerebral edema (HCC) Cerebral edema Post-op pain Other acute postoperative pain Pre-op evaluation- Primary Preoperative examination, unspecified PONV (postoperative nausea and vomiting) Nausea with vomiting Essential (primary) hypertension Unspecified essential hypertension Gastroesophageal reflux disease without esophagitis Esophageal reflux 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 [facility] Diagnosis 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, 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 Post-op pain Other acute postoperative pain Neoplasm of uncertain behavior Neoplasm of uncertain behavior, site unspecified Essential (primary) hypertension Unspecified essential hypertension At risk of seizures Other specified conditions influencing health status Cerebral edema (HCC) Cerebral edema Post-op pain Other acute postoperative pain Pre-op evaluation- Primary Preoperative examination, unspecified PONV (postoperative nausea and vomiting) Nausea with vomiting Essential (primary) hypertension Unspecified essential hypertension Gastroesophageal reflux disease without esophagitis Esophageal reflux 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 [facility] 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, 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 Post-op pain Other acute postoperative pain Neoplasm of uncertain behavior Neoplasm of uncertain behavior, site unspecified Essential (primary) hypertension Unspecified essential hypertension At risk of seizures Other specified conditions influencing health status Cerebral edema (HCC) Cerebral edema Post-op pain Other acute postoperative pain Pre-op evaluation- Primary Preoperative examination, unspecified PONV (postoperative nausea and vomiting) Nausea with vomiting Essential (primary) hypertension Unspecified essential hypertension Gastroesophageal reflux disease without esophagitis Esophageal reflux 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) [facility] Diagnosis 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, 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 Post-op pain Other acute postoperative pain Neoplasm of uncertain behavior Neoplasm of uncertain behavior, site unspecified Essential (primary) hypertension Unspecified essential hypertension At risk of seizures Other specified conditions influencing health status Cerebral edema (HCC) Cerebral edema Post-op pain Other acute postoperative pain Pre-op evaluation- Primary Preoperative examination, unspecified PONV (postoperative nausea and vomiting) Nausea with vomiting Essential (primary) hypertension Unspecified essential hypertension Gastroesophageal reflux disease without esophagitis Esophageal reflux 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) [facility] Diagnosis 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, 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 Post-op pain Other acute postoperative pain Neoplasm of uncertain behavior Neoplasm of uncertain behavior, site unspecified Essential (primary) hypertension Unspecified essential hypertension At risk of seizures Other specified conditions influencing health status Cerebral edema (HCC) Cerebral edema Post-op pain Other acute postoperative pain Pre-op evaluation- Primary Preoperative examination, unspecified PONV (postoperative nausea and vomiting) Nausea with vomiting Essential (primary) hypertension Unspecified essential hypertension Gastroesophageal reflux disease without esophagitis Esophageal reflux 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) [facility] Diagnosis 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, 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 Post-op pain Other acute postoperative pain Neoplasm of uncertain behavior Neoplasm of uncertain behavior, site unspecified Essential (primary) hypertension Unspecified essential hypertension At risk of seizures Other specified conditions influencing health status Cerebral edema (HCC) Cerebral edema Post-op pain Other acute postoperative pain Pre-op evaluation- Primary Preoperative examination, unspecified PONV (postoperative nausea and vomiting) Nausea with vomiting Essential (primary) hypertension Unspecified essential hypertension Gastroesophageal reflux disease without esophagitis Esophageal reflux 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 [facility] Diagnosis 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, 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 Post-op pain Other acute postoperative pain Neoplasm of uncertain behavior Neoplasm of uncertain behavior, site unspecified Essential (primary) hypertension Unspecified essential hypertension At risk of seizures Other specified conditions influencing health status Cerebral edema (HCC) Cerebral edema Post-op pain Other acute postoperative pain Pre-op evaluation- Primary Preoperative examination, unspecified PONV (postoperative nausea and vomiting) Nausea with vomiting Essential (primary) hypertension Unspecified essential hypertension Gastroesophageal reflux disease without esophagitis Esophageal reflux 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 documented in this encounter [facility] note* Diagnosis 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, 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 Post-op pain Other acute postoperative pain Neoplasm of uncertain behavior Neoplasm of uncertain behavior, site unspecified Essential (primary) hypertension Unspecified essential hypertension At risk of seizures Other specified conditions influencing health status Cerebral edema (HCC) Cerebral edema Post-op pain Other acute postoperative pain Pre-op evaluation- Primary Preoperative examination, unspecified PONV (postoperative nausea and vomiting) Nausea with vomiting Essential (primary) hypertension Unspecified essential hypertension Gastroesophageal reflux disease without esophagitis Esophageal reflux 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) [facility] Diagnosis 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, 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 Post-op pain Other acute postoperative pain Neoplasm of uncertain behavior Neoplasm of uncertain behavior, site unspecified Essential (primary) hypertension Unspecified essential hypertension At risk of seizures Other specified conditions influencing health status Cerebral edema (HCC) Cerebral edema Post-op pain Other acute postoperative pain Pre-op evaluation- Primary Preoperative examination, unspecified PONV (postoperative nausea and vomiting) Nausea with vomiting Essential (primary) hypertension Unspecified essential hypertension Gastroesophageal reflux disease without esophagitis Esophageal reflux 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) [facility] Diagnosis 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, 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 Post-op pain Other acute postoperative pain Neoplasm of uncertain behavior Neoplasm of uncertain behavior, site unspecified Essential (primary) hypertension Unspecified essential hypertension At risk of seizures Other specified conditions influencing health status Cerebral edema (HCC) Cerebral edema Post-op pain Other acute postoperative pain Pre-op evaluation- Primary Preoperative examination, unspecified PONV (postoperative nausea and vomiting) Nausea with vomiting Essential (primary) hypertension Unspecified essential hypertension Gastroesophageal reflux disease without esophagitis Esophageal reflux 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) documented in this encounter [facility] note* Diagnosis 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, 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 Post-op pain Other acute postoperative pain Neoplasm of uncertain behavior Neoplasm of uncertain behavior, site unspecified Essential (primary) hypertension Unspecified essential hypertension At risk of seizures Other specified conditions influencing health status Cerebral edema (HCC) Cerebral edema Post-op pain Other acute postoperative pain Pre-op evaluation- Primary Preoperative examination, unspecified PONV (postoperative nausea and vomiting) Nausea with vomiting Essential (primary) hypertension Unspecified essential hypertension Gastroesophageal reflux disease without esophagitis Esophageal reflux 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) [facility] Diagnosis 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, 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 Post-op pain Other acute postoperative pain Neoplasm of uncertain behavior Neoplasm of uncertain behavior, site unspecified Essential (primary) hypertension Unspecified essential hypertension At risk of seizures Other specified conditions influencing health status Cerebral edema (HCC) Cerebral edema Post-op pain Other acute postoperative pain Pre-op evaluation- Primary Preoperative examination, unspecified PONV (postoperative nausea and vomiting) Nausea with vomiting Essential (primary) hypertension Unspecified essential hypertension Gastroesophageal reflux disease without esophagitis Esophageal reflux 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) [facility] Diagnosis 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, 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 Post-op pain Other acute postoperative pain Neoplasm of uncertain behavior Neoplasm of uncertain behavior, site unspecified Essential (primary) hypertension Unspecified essential hypertension At risk of seizures Other specified conditions influencing health status Cerebral edema (HCC) Cerebral edema Post-op pain Other acute postoperative pain Pre-op evaluation- Primary Preoperative examination, unspecified PONV (postoperative nausea and vomiting) Nausea with vomiting Essential (primary) hypertension Unspecified essential hypertension Gastroesophageal reflux disease without esophagitis Esophageal reflux 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 [facility] Diagnosis 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, 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 Post-op pain Other acute postoperative pain Neoplasm of uncertain behavior Neoplasm of uncertain behavior, site unspecified Essential (primary) hypertension Unspecified essential hypertension At risk of seizures Other specified conditions influencing health status Cerebral edema (HCC) Cerebral edema Post-op pain Other acute postoperative pain Pre-op evaluation- Primary Preoperative examination, unspecified PONV (postoperative nausea and vomiting) Nausea with vomiting Essential (primary) hypertension Unspecified essential hypertension Gastroesophageal reflux disease without esophagitis Esophageal reflux 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 Encounter for chemotherapy management documented in this encounter [facility] note* Diagnosis 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, 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 Post-op pain Other acute postoperative pain Neoplasm of uncertain behavior Neoplasm of uncertain behavior, site unspecified Essential (primary) hypertension Unspecified essential hypertension At risk of seizures Other specified conditions influencing health status Cerebral edema (HCC) Cerebral edema Post-op pain Other acute postoperative pain Pre-op evaluation- Primary Preoperative examination, unspecified PONV (postoperative nausea and vomiting) Nausea with vomiting Essential (primary) hypertension Unspecified essential hypertension Gastroesophageal reflux disease without esophagitis Esophageal reflux 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) documented in this encounter [facility] note* Diagnosis 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, 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 Post-op pain Other acute postoperative pain Neoplasm of uncertain behavior Neoplasm of uncertain behavior, site unspecified Essential (primary) hypertension Unspecified essential hypertension At risk of seizures Other specified conditions influencing health status Cerebral edema (HCC) Cerebral edema Post-op pain Other acute postoperative pain Pre-op evaluation- Primary Preoperative examination, unspecified PONV (postoperative nausea and vomiting) Nausea with vomiting Essential (primary) hypertension Unspecified essential hypertension Gastroesophageal reflux disease without esophagitis Esophageal reflux 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) [facility] Diagnosis 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, 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 Post-op pain Other acute postoperative pain Neoplasm of uncertain behavior Neoplasm of uncertain behavior, site unspecified Essential (primary) hypertension Unspecified essential hypertension At risk of seizures Other specified conditions influencing health status Cerebral edema (HCC) Cerebral edema Post-op pain Other acute postoperative pain Pre-op evaluation- Primary Preoperative examination, unspecified PONV (postoperative nausea and vomiting) Nausea with vomiting Essential (primary) hypertension Unspecified essential hypertension Gastroesophageal reflux disease without esophagitis Esophageal reflux 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 [facility] Diagnosis 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, 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 Post-op pain Other acute postoperative pain Neoplasm of uncertain behavior Neoplasm of uncertain behavior, site unspecified Essential (primary) hypertension Unspecified essential hypertension At risk of seizures Other specified conditions influencing health status Cerebral edema (HCC) Cerebral edema Post-op pain Other acute postoperative pain Pre-op evaluation- Primary Preoperative examination, unspecified PONV (postoperative nausea and vomiting) Nausea with vomiting Essential (primary) hypertension Unspecified essential hypertension Gastroesophageal reflux disease without esophagitis Esophageal reflux 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) documented in this encounter [facility] note* Diagnosis 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, 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 Post-op pain Other acute postoperative pain Neoplasm of uncertain behavior Neoplasm of uncertain behavior, site unspecified Essential (primary) hypertension Unspecified essential hypertension At risk of seizures Other specified conditions influencing health status Cerebral edema (HCC) Cerebral edema Post-op pain Other acute postoperative pain Pre-op evaluation- Primary Preoperative examination, unspecified PONV (postoperative nausea and vomiting) Nausea with vomiting Essential (primary) hypertension Unspecified essential hypertension Gastroesophageal reflux disease without esophagitis Esophageal reflux 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) documented in this encounter [facility] note* Diagnosis 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, 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 Post-op pain Other acute postoperative pain Neoplasm of uncertain behavior Neoplasm of uncertain behavior, site unspecified Essential (primary) hypertension Unspecified essential hypertension At risk of seizures Other specified conditions influencing health status Cerebral edema (HCC) Cerebral edema Post-op pain Other acute postoperative pain Pre-op evaluation- Primary Preoperative examination, unspecified PONV (postoperative nausea and vomiting) Nausea with vomiting Essential (primary) hypertension Unspecified essential hypertension Gastroesophageal reflux disease without esophagitis Esophageal reflux 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) documented in this encounter [facility] note* Diagnosis 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, 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 Post-op pain Other acute postoperative pain Neoplasm of uncertain behavior Neoplasm of uncertain behavior, site unspecified Essential (primary) hypertension Unspecified essential hypertension At risk of seizures Other specified conditions influencing health status Cerebral edema (HCC) Cerebral edema Post-op pain Other acute postoperative pain Pre-op evaluation- Primary Preoperative examination, unspecified PONV (postoperative nausea and vomiting) Nausea with vomiting Essential (primary) hypertension Unspecified essential hypertension Gastroesophageal reflux disease without esophagitis Esophageal reflux 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) documented in this encounter [facility] note* Diagnosis 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, 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 Post-op pain Other acute postoperative pain Neoplasm of uncertain behavior Neoplasm of uncertain behavior, site unspecified Essential (primary) hypertension Unspecified essential hypertension At risk of seizures Other specified conditions influencing health status Cerebral edema (HCC) Cerebral edema Post-op pain Other acute postoperative pain Pre-op evaluation- Primary Preoperative examination, unspecified PONV (postoperative nausea and vomiting) Nausea with vomiting Essential (primary) hypertension Unspecified essential hypertension Gastroesophageal reflux disease without esophagitis Esophageal reflux 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 Encounter for long-term (current) use of medications Encounter for long-term (current) use of other medications [facility] 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, 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 Post-op pain Other acute postoperative pain Neoplasm of uncertain behavior Neoplasm of uncertain behavior, site unspecified Essential (primary) hypertension Unspecified essential hypertension At risk of seizures Other specified conditions influencing health status Cerebral edema (HCC) Cerebral edema Post-op pain Other acute postoperative pain Pre-op evaluation- Primary Preoperative examination, unspecified PONV (postoperative nausea and vomiting) Nausea with vomiting Essential (primary) hypertension Unspecified essential hypertension Gastroesophageal reflux disease without esophagitis Esophageal reflux 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 for referral (narrative)* Outpatient Procedure (Routine) - Closed Specialty Diagnoses / Procedures Referred By Jaspal stevens [facility] Diagnoses Pre-op evaluation Procedures ECG COMPLETE ECG ROUTINE ECG W/LEAST 12 LDS W/I&R Huma Hernandez PA-C [address] [address] [facility] [place] [id number] [place] [id number] Referral ID Status Reason Start Date Expiration Date V isits Requested Visits Authorized [id number] Closed Auto-Generate d Referral 05/18/2023 05/17/2024 1 1 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) Procedures MRI BRAIN WO/W IVCON MRI BRAIN BRAIN STEM W/O W/CONTRAST MATERIAL Misti Blank MD [address] [place] [address] Phone: tel: fax: [facility] [place] [address] Referral ID Status Reason Start Date Expiration Date V isits Requested Visits Authorized [id number] Closed Auto-Generate d Referral 11/22/2024 12/22/2025 1 1 [facility] Chief Complaint and Reason for Visit Chief Complaint SCREENING Chief Complaint SCREENING LABS AND XRAY- LEFT HIP PAIN Chief Complaint LABS AND XRAY- LEFT HIP PAIN WORD FINDING DIFFICULTY ABNORMAL BRAIN MRI Chief Complaint Admit Date STROKE RISK September 08, 2024 2 :47pm DIZZINESS September 08, 2024 3 :08pm SCREENING December 25, 2024 7:39am Family History No Family History Records Found Relationship Condition Age at Onset Recorded Date/T payton Unknown Family History?Heart Disease Unknown June 20, 2019 1:08am Family History?Heart Disease, Stroke Unknown June 20, 2019 1:08am Relationship Condition Age at Onset Recorded Date/T payton Unknown Family History?Heart Disease Unknown June 20, 2019 12:08am Family History?Heart Disease, Stroke Unknown June 20, 2019 12:08am Advance Directives No Advanced Directives Records Found Advance Directive Response Recorded Date/ Time Living Will Yes June 19 10:19pm Power of Commanding Officer [employer] Yes June 19, 2019 10:19pm Advance Directive Response Recorded Date/ Time Living Will Yes June 19 9:19pm Power of Commanding Officer [employer] Yes June 19, 2019 9:19pm Reason for Referral Specialty Diagnoses / Procedures Referred By Contac t Referred To Contact [facility] Diagnoses 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) Procedures MRI BRAIN WO/W IVCON MRI BRAIN BRAIN STEM W/O W/CONTRAST MATERIAL Misti Blank MD [address] [place] [id number] [id number] Referral ID Status Reason Start Date Expiration Date V isits Requested Visits Authorized [id number] Closed Auto-Generate d Referral 11/26/2023 12/25/2024 1 1 Referral ID Status Reason Start Date Expiration Date Visits Requested Visits Authorized [id number] Authorized Auto-Generat ed Referral 03/03/2024 04/02/2025 1 1 Referral ID Status Reason Start Date Expiration Date V isits Requested Visits Authorized [id number] Closed Auto-Generate d Referral 03/03/2024 04/02/2025 1 1 Referral ID Status Reason Start Date Expiration Date Visits Requested Visits Authorized [id number] Authorized Auto-Generat ed Referral 05/29/2024 06/28/2025 1 1 Referral ID Status Reason Start Date Expiration Date V isits Requested Visits Authorized [id number] Closed Auto-Generate d Referral 05/29/2024 06/28/2025 1 1 Referral ID Status Reason Start Date Expiration Date Visits Requested Visits Authorized [id number] New Request Auto-Generat ed Referral 09/20/2025 1 1 Summary Purpose Additional Source Comments Goals (unrecognized section and content) Goals may be documented in a n alternate sectionGoals may be documented in an alternate sectionGoals may be documented in an alternate sectionGoals may be documented in an alternate sectionGoals may be documented in an alternate sectionGoals may be documented in an alternate sectionGoals may be documented in an alternate sectionGoals may be documented in an alternate section Care Teams (unrecognized sec tion and content) Team Status: Active Member Role Status Dates Dr. Lizandro White MD Family Provider Active Dr. Pedro Tiwari MD Primary Care Provider Active Team Status: Inactive Member Role Status Dates Dr. Pedro Tiwari MD Primary Care Provider Active Dr. Yan Webb MD Attending Provider Active Team Status: Inactive Member Role Status Dates Dr. Pedro Tiwari MD Primary Care Provi moises, Attending Provider, Referring Provider Active Team Status: Inactive Member Role Status Dates Dr. Pedro Tiwari MD Primary Care Provider, Attending Provider Active Team Status: Active Member Role Status Dates Dr. Pedro Tiwari MD Primary Care Provi moises, Attending Provider, Referring Provider Active Team Status: Inactive Member Role Status Dates Dr. Pedro Tiwari MD Primary Care Provider Active ANGELLA WU Attending Provider, Referring Provi moises Active Elevator Mechanic Apprentice Relationship Specialty Start Date End Date Pedro Tiwari MD [address] [place] [address] PCP - General Family Medicine 08/17/23 Elevator Mechanic Apprentice Relationship Specialty Start Date End Date Pedro Tiwari MD [address] [facility] [address] [place] [address] PCP - General Family Medicine 08/17/23 Elevator Mechanic Apprentice Relationship Specialty Start Date End Date Pedro Tiwari MD [address] [facility] [address] [place] [address] PCP - General Family Medicine 08/17/23 Elevator Mechanic Apprentice Relationship Specialty Start Date End Date Pedro Tiwari MD [address] [facility] [address] [place] [address] PCP - General Family Medicine 08/17/23 Elevator Mechanic Apprentice Relationship Specialty Start Date End Date Pedro Tiwari MD [address] [facility] [address] [place] [address] PCP - General Family Medicine 08/17/23 Elevator Mechanic Apprentice Relationship Specialty Start Date End Date Pedro Tiwari MD [address] [facility] [address] [place] [address] PCP - General Family Medicine 08/17/23 Elevator Mechanic Apprentice Relationship Specialty Start Date End Date Pedro Tiwari MD [address] [facility] [address] [place] [address] PCP - General Family Medicine 08/17/23 Elevator Mechanic Apprentice Relationship Specialty Start Date End Date Pedro Tiwari MD [address] [facility] [address] [place] [address] PCP - General Family Medicine 08/17/23 Elevator Mechanic Apprentice Relationship Specialty Start Date End Date Pedro Tiwari MD [address] [facility] [address] [place] [address] PCP - General Family Medicine 08/17/23 Elevator Mechanic Apprentice Relationship Specialty Start Date End Date Pedro Tiwari MD [address] [facility] [address] [place] [address] PCP - General Family Medicine 08/17/23 Elevator Mechanic Apprentice Relationship Specialty Start Date End Date Pedro Tiwari MD [address] [facility] [address] [place] [address] PCP - General Family Medicine 08/17/23 Elevator Mechanic Apprentice Relationship Specialty Start Date End Date Pedro Tiwari MD [address] [facility] [address] [place] [address] PCP - General Family Medicine 08/17/23 Elevator Mechanic Apprentice Relationship Specialty Start Date End Date Pedro Tiwari MD [address] [facility] [address] [place] [address] PCP - General Family Medicine 08/17/23 Elevator Mechanic Apprentice Relationship Specialty Start Date End Date Pedro Tiwari MD [address] [facility] [address] [place] [address] PCP - General Family Medicine 08/17/23 Elevator Mechanic Apprentice Relationship Specialty Start Date End Date Pedro Tiwari MD [address] [facility] [address] [place] [address] PCP - General Family Medicine 08/17/23 Elevator Mechanic Apprentice Relationship Specialty Start Date End Date Pedro Tiwari MD [address] [facility] [address] [place] [address] PCP - General Family Medicine 08/17/23 Elevator Mechanic Apprentice Relationship Specialty Start Date End Date Pedro Tiwari MD [address] [facility] [address] [place] [address] PCP - General Family Medicine 08/17/23 Elevator Mechanic Apprentice Relationship Specialty Start Date End Date Pedro Tiwari MD [address] [facility] [address] [place] [address] PCP - General Family Medicine 08/17/23 Elevator Mechanic Apprentice Relationship Specialty Start Date End Date Pedro Tiwari MD [address] [facility] [address] [place] [address] PCP - General Family Medicine 08/17/23 Elevator Mechanic Apprentice Relationship Specialty Start Date End Date Pedro Tiwari MD [address] [facility] [address] [place] [address] PCP - General Family Medicine 08/17/23 Elevator Mechanic Apprentice Relationship Specialty Start Date End Date Pedro Tiwari MD [address] [facility] [address] [place] [address] PCP - General Family Medicine 08/17/23 Elevator Mechanic Apprentice Relationship Specialty Start Date End Date Pedro Tiwari MD [address] [facility] [address] [place] [address] PCP - General Family Medicine 08/17/23 Elevator Mechanic Apprentice Relationship Specialty Start Date End Date Pedro Tiwari MD [address] [facility] [address] [place] [address] PCP - General Family Medicine 08/17/23 Elevator Mechanic Apprentice Relationship Specialty Start Date End Date Pedro Tiwari MD [address] [facility] [address] [place] [address] PCP - General Family Medicine 08/17/23 Elevator Mechanic Apprentice Relationship Specialty Start Date End Date Pedro Tiwari MD [address] [facility] [address] [place] [address] PCP - General Family Medicine 08/17/23 Elevator Mechanic Apprentice Relationship Specialty Start Date End Date Pedro Tiwari MD [address] [facility] [address] [place] [address] PCP - General Family Medicine 08/17/23 Elevator Mechanic Apprentice Relationship Specialty Start Date End Date Pedro Tiwari MD [address] [facility] [address] [place] [address] PCP - General Family Medicine 08/17/23 Elevator Mechanic Apprentice Relationship Specialty Start Date End Date Pedro Tiwari MD [address] [facility] [address] [place] [address] PCP - General Family Medicine 08/17/23 Elevator Mechanic Apprentice Relationship Specialty Start Date End Date Pedro Tiwari MD [address] [facility] [address] [place] [address] PCP - General Family Medicine 08/17/23 Elevator Mechanic Apprentice Relationship Specialty Start Date End Date Pedro Tiwari MD [address] [facility] [address] [place] [address] PCP - General Family Medicine 08/17/23 Elevator Mechanic Apprentice Relationship Specialty Start Date End Date Pedro Tiwari MD [address] [facility] [address] [place] [address] PCP - General Family Medicine 08/17/23 Elevator Mechanic Apprentice Relationship Specialty Start Date End Date Pedro Tiwari MD [address] [facility] [address] [place] [address] PCP - General Family Medicine 08/17/23 Elevator Mechanic Apprentice Relationship Specialty Start Date End Date Pedro Tiwari MD [address] [facility] [address] [place] [address] PCP - General Family Medicine 08/17/23 Elevator Mechanic Apprentice Relationship Specialty Start Date End Date Pedro Tiwari MD [address] [facility] [address] [place] [address] PCP - General Family Medicine 08/17/23 Elevator Mechanic Apprentice Relationship Specialty Start Date End Date Pedro Tiwari MD [address] [facility] [address] [place] [address] PCP - General Family Medicine 08/17/23 Elevator Mechanic Apprentice Relationship Specialty Start Date End Date Pedro Tiwari MD [address] [facility] [address] [place] [address] PCP - General Family Medicine 08/17/23 Elevator Mechanic Apprentice Relationship Specialty Start Date End Date Pedro Tiwari MD [address] [facility] [address] [place] [address] PCP - General Family Medicine 08/17/23 Elevator Mechanic Apprentice Relationship Specialty Start Date End Date Pedro Tiwari MD [address] [facility] [address] [place] [address] PCP - General Family Medicine 08/17/23 Elevator Mechanic Apprentice Relationship Specialty Start Date End Date Pedro Twiari MD [address] [facility] [address] [place] [address] PCP - General Family Medicine 08/17/23 Elevator Mechanic Apprentice Relationship Specialty Start Date End Date Pedro Tiwari MD [address] [facility] [address] [place] [address] PCP - General Family Medicine 08/17/23 Elevator Mechanic Apprentice Relationship Specialty Start Date End Date Pedro Tiwari MD [address] [facility] [address] [place], [place] [address] PCP - General Family Medicine 08/17/23 Elevator Mechanic Apprentice Relationship Specialty Start Date End Date Pedro Tiwari MD [address] [facility] [address] [place] [address] PCP - General Family Medicine 08/17/23 Team Status: Active Member Role Status Dates Dr. Pedro Tiwari MD Primary Care Provider Active Team Status: Inactive Member Role Status Dates Dr. Pedro Tiwari MD Primary Care Provider Active Start: September 08, 2024 End: September 08, 2024 Dr. Pedro Tiwari MD Attending Provider Active Start: September 08, 2024 End: September 08, 2024 Dr. Pedro Tiwari MD Referring Provider Active Start: September 08, 2024 End: September 08, 2024 Team Status: Active Member Role Status Dates Dr. Jef Finney MD Attending Provider Active Start: September 08, 2024 Dr. Pedro Tiwari MD Referring Provider Active Start: September 08, 2024 Team Status: Inactive Member Role Status Dates Dr. Pedro Tiwari MD Primary Care Provider Active Start: December 25, 2024 End: December 25, 2024 DRE Busby Attending Provider Active S tart: December 25, 2024 End: December 25, 2024 DRE Busby Referring Provider Active S tart: December 25, 2024 End: December 25, 2024 Elevator Mechanic Apprentice Relationship Specialty Start Date End Date Pedro Tiwari MD [address] [facility] [address] [place] [address] PCP - General Family Medicine 08/17/23 Elevator Mechanic Apprentice Relationship Specialty Start Date End Date Pedro Tiwari MD [address] [facility] [address] [place] [address] PCP - General Family Medicine 08/17/23 Elevator Mechanic Apprentice Relationship Specialty Start Date End Date Pedro Tiwari MD [address] [facility] [address] [place] [address] PCP - General Family Medicine 08/17/23 Elevator Mechanic Apprentice Relationship Specialty Start Date End Date Pedro Tiwari MD [address] [facility] [address] [place] [address] PCP - General Family Medicine 08/17/23 Elevator Mechanic Apprentice Relationship Specialty Start Date End Date Pedro Tiwari MD [address] [facility] [address] [place] [address] PCP - General Family Medicine 08/17/23 Elevator Mechanic Apprentice Relationship Specialty Start Date End Date Pedro Tiwari MD [address] [facility] [address] [place] [address] PCP - General Family Medicine 08/17/23 Elevator Mechanic Apprentice Relationship Specialty Start Date End Date Pedro Tiwari MD [address] [facility] [address] [place] [address] PCP - General Family Medicine 08/17/23 Elevator Mechanic Apprentice Relationship Specialty Start Date End Date Pedro Tiwari MD [address] [facility] [address] [place] [address] PCP - General Family Medicine 08/17/23 Elevator Mechanic Apprentice Relationship Specialty Start Date End Date Pedro Tiwari MD [address] [facility] [address] [place] [address] PCP - General Family Medicine 08/17/23 Elevator Mechanic Apprentice Relationship Specialty Start Date End Date Pedro Tiwari MD [address] [facility] [address] [place], [place] [address] PCP - General Family Medicine 08/17/23 Source Comments (unrecognize d section and content) In the event this informatio n is protected by the Federal Confidentiality of Alcohol and Drug Abuse Patient Records regulations: The Federal rules restrict any use of the information to criminally investigate or prosecute any alcohol or drug abuse patient.[facility] the event this information is protected by the Federal Confidentiality of Alcohol and Drug Abuse Patient Records regulations: The Federal rules restrict any use of the information to criminally investigate or prosecute any alcohol or drug abuse patient.[facility] Hospital[facility] the event this information is protected by the Federal Confidentiality of Alcohol and Drug Abuse Patient Records regulations: The Federal rules restrict any use of the information to criminally investigate or prosecute any alcohol or drug abuse patient.[facility] the event this information is protected by the Federal Confidentiality of Alcohol and Drug Abuse Patient Records regulations: The Federal rules restrict any use of the information to criminally investigate or prosecute any alcohol or drug abuse patient.[facility] Hospital[facility] the event this information is protected by the Federal Confidentiality of Alcohol and Drug Abuse Patient Records regulations: The Federal rules restrict any use of the information to criminally investigate or prosecute any alcohol or drug abuse patient.[facility] HospitalIn the event this information is protected by the Federal Confidentiality of Alcohol and Drug Abuse Patient Records regulations: The Federal rules restrict any use of the information to criminally investigate or prosecute any alcohol or drug abuse patient.[facility] HospitalIn the event this information is protected by the Federal Confidentiality of Alcohol and Drug Abuse Patient Records regulations: The Federal rules restrict any use of the information to criminally investigate or prosecute any alcohol or drug abuse patient.[facility] HospitalIn the event this information is protected by the Federal Confidentiality of Alcohol and Drug Abuse Patient Records regulations: The Federal rules restrict any use of the information to criminally investigate or prosecute any alcohol or drug abuse patient.[facility] HospitalIn the event this information is protected by the Federal Confidentiality of Alcohol and Drug Abuse Patient Records regulations: The Federal rules restrict any use of the information to criminally investigate or prosecute any alcohol or drug abuse patient.[facility] HospitalIn the event this information is protected by the Federal Confidentiality of Alcohol and Drug Abuse Patient Records regulations: The Federal rules restrict any use of the information to criminally investigate or prosecute any alcohol or drug abuse patient.[facility] HospitalIn the event this information is protected by the Federal Confidentiality of Alcohol and Drug Abuse Patient Records regulations: The Federal rules restrict any use of the information to criminally investigate or prosecute any alcohol or drug abuse patient.[facility] HospitalIn the event this information is protected by the Federal Confidentiality of Alcohol and Drug Abuse Patient Records regulations: The Federal rules restrict any use of the information to criminally investigate or prosecute any alcohol or drug abuse patient.[facility] HospitalIn the event this information is protected by the Federal Confidentiality of Alcohol and Drug Abuse Patient Records regulations: The Federal rules restrict any use of the information to criminally investigate or prosecute any alcohol or drug abuse patient.[facility] HospitalIn the event this information is protected by the Federal Confidentiality of Alcohol and Drug Abuse Patient Records regulations: The Federal rules restrict any use of the information to criminally investigate or prosecute any alcohol or drug abuse patient.[facility] HospitalIn the event this information is protected by the Federal Confidentiality of Alcohol and Drug Abuse Patient Records regulations: The Federal rules restrict any use of the information to criminally investigate or prosecute any alcohol or drug abuse patient.[facility] HospitalIn the event this information is protected by the Federal Confidentiality of Alcohol and Drug Abuse Patient Records regulations: The Federal rules restrict any use of the information to criminally investigate or prosecute any alcohol or drug abuse patient.[facility] HospitalIn the event this information is protected by the Federal Confidentiality of Alcohol and Drug Abuse Patient Records regulations: The Federal rules restrict any use of the information to criminally investigate or prosecute any alcohol or drug abuse patient.[facility] HospitalIn the event this information is protected by the Federal Confidentiality of Alcohol and Drug Abuse Patient Records regulations: The Federal rules restrict any use of the information to criminally investigate or prosecute any alcohol or drug abuse patient.[facility] HospitalIn the event this information is protected by the Federal Confidentiality of Alcohol and Drug Abuse Patient Records regulations: The Federal rules restrict any use of the information to criminally investigate or prosecute any alcohol or drug abuse patient.[facility] HospitalIn the event this information is protected by the Federal Confidentiality of Alcohol and Drug Abuse Patient Records regulations: The Federal rules restrict any use of the information to criminally investigate or prosecute any alcohol or drug abuse patient.[facility] HospitalIn the event this information is protected by the Federal Confidentiality of Alcohol and Drug Abuse Patient Records regulations: The Federal rules restrict any use of the information to criminally investigate or prosecute any alcohol or drug abuse patient.[facility] HospitalIn the event this information is protected by the Federal Confidentiality of Alcohol and Drug Abuse Patient Records regulations: The Federal rules restrict any use of the information to criminally investigate or prosecute any alcohol or drug abuse patient.[facility] HospitalIn the event this information is protected by the Federal Confidentiality of Alcohol and Drug Abuse Patient Records regulations: The Federal rules restrict any use of the information to criminally investigate or prosecute any alcohol or drug abuse patient.[facility] HospitalIn the event this information is protected by the Federal Confidentiality of Alcohol and Drug Abuse Patient Records regulations: The Federal rules restrict any use of the information to criminally investigate or prosecute any alcohol or drug abuse patient.[facility] HospitalIn the event this information is protected by the Federal Confidentiality of Alcohol and Drug Abuse Patient Records regulations: The Federal rules restrict any use of the information to criminally investigate or prosecute any alcohol or drug abuse patient.[facility] HospitalIn the event this information is protected by the Federal Confidentiality of Alcohol and Drug Abuse Patient Records regulations: The Federal rules restrict any use of the information to criminally investigate or prosecute any alcohol or drug abuse patient.[facility] HospitalIn the event this information is protected by the Federal Confidentiality of Alcohol and Drug Abuse Patient Records regulations: The Federal rules restrict any use of the information to criminally investigate or prosecute any alcohol or drug abuse patient.[facility] HospitalIn the event this information is protected by the Federal Confidentiality of Alcohol and Drug Abuse Patient Records regulations: The Federal rules restrict any use of the information to criminally investigate or prosecute any alcohol or drug abuse patient.[facility] HospitalIn the event this information is protected by the Federal Confidentiality of Alcohol and Drug Abuse Patient Records regulations: The Federal rules restrict any use of the information to criminally investigate or prosecute any alcohol or drug abuse patient.[facility] HospitalIn the event this information is protected by the Federal Confidentiality of Alcohol and Drug Abuse Patient Records regulations: The Federal rules restrict any use of the information to criminally investigate or prosecute any alcohol or drug abuse patient.[facility] HospitalIn the event this information is protected by the Federal Confidentiality of Alcohol and Drug Abuse Patient Records regulations: The Federal rules restrict any use of the information to criminally investigate or prosecute any alcohol or drug abuse patient.[facility] HospitalIn the event this information is protected by the Federal Confidentiality of Alcohol and Drug Abuse Patient Records regulations: The Federal rules restrict any use of the information to criminally investigate or prosecute any alcohol or drug abuse patient.[facility] HospitalIn the event this information is protected by the Federal Confidentiality of Alcohol and Drug Abuse Patient Records regulations: The Federal rules restrict any use of the information to criminally investigate or prosecute any alcohol or drug abuse patient.[facility] HospitalIn the event this information is protected by the Federal Confidentiality of Alcohol and Drug Abuse Patient Records regulations: The Federal rules restrict any use of the information to criminally investigate or prosecute any alcohol or drug abuse patient.[facility] HospitalIn the event this information is protected by the Federal Confidentiality of Alcohol and Drug Abuse Patient Records regulations: The Federal rules restrict any use of the information to criminally investigate or prosecute any alcohol or drug abuse patient.[facility] HospitalIn the event this information is protected by the Federal Confidentiality of Alcohol and Drug Abuse Patient Records regulations: The Federal rules restrict any use of the information to criminally investigate or prosecute any alcohol or drug abuse patient.[facility] HospitalIn the event this information is protected by the Federal Confidentiality of Alcohol and Drug Abuse Patient Records regulations: The Federal rules restrict any use of the information to criminally investigate or prosecute any alcohol or drug abuse patient.[facility] HospitalIn the event this information is protected by the Federal Confidentiality of Alcohol and Drug Abuse Patient Records regulations: The Federal rules restrict any use of the information to criminally investigate or prosecute any alcohol or drug abuse patient.[facility] HospitalIn the event this information is protected by the Federal Confidentiality of Alcohol and Drug Abuse Patient Records regulations: The Federal rules restrict any use of the information to criminally investigate or prosecute any alcohol or drug abuse patient.[facility] HospitalIn the event this information is protected by the Federal Confidentiality of Alcohol and Drug Abuse Patient Records regulations: The Federal rules restrict any use of the information to criminally investigate or prosecute any alcohol or drug abuse patient.[facility] HospitalIn the event this information is protected by the Federal Confidentiality of Alcohol and Drug Abuse Patient Records regulations: The Federal rules restrict any use of the information to criminally investigate or prosecute any alcohol or drug abuse patient.[facility] HospitalIn the event this information is protected by the Federal Confidentiality of Alcohol and Drug Abuse Patient Records regulations: The Federal rules restrict any use of the information to criminally investigate or prosecute any alcohol or drug abuse patient.[facility] HospitalIn the event this information is protected by the Federal Confidentiality of Alcohol and Drug Abuse Patient Records regulations: The Federal rules restrict any use of the information to criminally investigate or prosecute any alcohol or drug abuse patient.[facility] HospitalIn the event this information is protected by the Federal Confidentiality of Alcohol and Drug Abuse Patient Records regulations: The Federal rules restrict any use of the information to criminally investigate or prosecute any alcohol or drug abuse patient.[facility] HospitalIn the event this information is protected by the Federal Confidentiality of Alcohol and Drug Abuse Patient Records regulations: The Federal rules restrict any use of the information to criminally investigate or prosecute any alcohol or drug abuse patient.[facility] HospitalIn the event this information is protected by the Federal Confidentiality of Alcohol and Drug Abuse Patient Records regulations: The Federal rules restrict any use of the information to criminally investigate or prosecute any alcohol or drug abuse patient.[facility] HospitalIn the event this information is protected by the Federal Confidentiality of Alcohol and Drug Abuse Patient Records regulations: The Federal rules restrict any use of the information to criminally investigate or prosecute any alcohol or drug abuse patient.[facility] HospitalIn the event this information is protected by the Federal Confidentiality of Alcohol and Drug Abuse Patient Records regulations: The Federal rules restrict any use of the information to criminally investigate or prosecute any alcohol or drug abuse patient.[facility] HospitalIn the event this information is protected by the Federal Confidentiality of Alcohol and Drug Abuse Patient Records regulations: The Federal rules restrict any use of the information to criminally investigate or prosecute any alcohol or drug abuse patient.[facility] HospitalIn the event this information is protected by the Federal Confidentiality of Alcohol and Drug Abuse Patient Records regulations: The Federal rules restrict any use of the information to criminally investigate or prosecute any alcohol or drug abuse patient.[facility] HospitalIn the event this information is protected by the Federal Confidentiality of Alcohol and Drug Abuse Patient Records regulations: The Federal rules restrict any use of the information to criminally investigate or prosecute any alcohol or drug abuse patient.[facility] HospitalIn the event this information is protected by the Federal Confidentiality of Alcohol and Drug Abuse Patient Records regulations: The Federal rules restrict any use of the information to criminally investigate or prosecute any alcohol or drug abuse patient.[facility] HospitalIn the event this information is protected by the Federal Confidentiality of Alcohol and Drug Abuse Patient Records regulations: The Federal rules restrict any use of the information to criminally investigate or prosecute any alcohol or drug abuse patient.[facility] HospitalIn the event this information is protected by the Federal Confidentiality of Alcohol and Drug Abuse Patient Records regulations: The Federal rules restrict any use of the information to criminally investigate or prosecute any alcohol or drug abuse patient.[facility] HospitalIn the event this information is protected by the Federal Confidentiality of Alcohol and Drug Abuse Patient Records regulations: The Federal rules restrict any use of the information to criminally investigate or prosecute any alcohol or drug abuse patient.[facility] HospitalIn the event this information is protected by the Federal Confidentiality of Alcohol and Drug Abuse Patient Records regulations: The Federal rules restrict any use of the information to criminally investigate or prosecute any alcohol or drug abuse patient.[facility] HospitalIn the event this information is protected by the Federal Confidentiality of Alcohol and Drug Abuse Patient Records regulations: The Federal rules restrict any use of the information to criminally investigate or prosecute any alcohol or drug abuse patient.[facility] HospitalIn the event this information is protected by the Federal Confidentiality of Alcohol and Drug Abuse Patient Records regulations: The Federal rules restrict any use of the information to criminally investigate or prosecute any alcohol or drug abuse patient.[facility] HospitalIn the event this information is protected by the Federal Confidentiality of Alcohol and Drug Abuse Patient Records regulations: The Federal rules restrict any use of the information to criminally investigate or prosecute any alcohol or drug abuse patient.[facility] HospitalIn the event this information is protected by the Federal Confidentiality of Alcohol and Drug Abuse Patient Records regulations: The Federal rules restrict any use of the information to criminally investigate or prosecute any alcohol or drug abuse patient.[facility] HospitalIn the event this information is protected by the Federal Confidentiality of Alcohol and Drug Abuse Patient Records regulations: The Federal rules restrict any use of the information to criminally investigate or prosecute any alcohol or drug abuse patient.[facility] HospitalIn the event this information is protected by the Federal Confidentiality of Alcohol and Drug Abuse Patient Records regulations: The Federal rules restrict any use of the information to criminally investigate or prosecute any alcohol or drug abuse patient.[facility] HospitalIn the event this information is protected by the Federal Confidentiality of Alcohol and Drug Abuse Patient Records regulations: The Federal rules restrict any use of the information to criminally investigate or prosecute any alcohol or drug abuse patient.[facility] HospitalIn the event this information is protected by the Federal Confidentiality of Alcohol and Drug Abuse Patient Records regulations: The Federal rules restrict any use of the information to criminally investigate or prosecute any alcohol or drug abuse patient.[facility] HospitalIn the event this information is protected by the Federal Confidentiality of Alcohol and Drug Abuse Patient Records regulations: The Federal rules restrict any use of the information to criminally investigate or prosecute any alcohol or drug abuse patient.[facility]In the event this information is protected by the Federal Confidentiality of Alcohol and Drug Abuse Patient Records regulations: The Federal rules restrict any use of the information to criminally investigate or prosecute any alcohol or drug abuse patient.[facility] HospitalIn the event this information is protected by the Federal Confidentiality of Alcohol and Drug Abuse Patient Records regulations: The Federal rules restrict any use of the information to criminally investigate or prosecute any alcohol or drug abuse patient.[facility] HospitalIn the event this information is protected by the Federal Confidentiality of Alcohol and Drug Abuse Patient Records regulations: The Federal rules restrict any use of the information to criminally investigate or prosecute any alcohol or drug abuse patient.[facility] HospitalIn the event this information is protected by the Federal Confidentiality of Alcohol and Drug Abuse Patient Records regulations: The Federal rules restrict any use of the information to criminally investigate or prosecute any alcohol or drug abuse patient.[facility] HospitalIn the event this information is protected by the Federal Confidentiality of Alcohol and Drug Abuse Patient Records regulations: The Federal rules restrict any use of the information to criminally investigate or prosecute any alcohol or drug abuse patient.[facility] HospitalIn the event this information is protected by the Federal Confidentiality of Alcohol and Drug Abuse Patient Records regulations: The Federal rules restrict any use of the information to criminally investigate or prosecute any alcohol or drug abuse patient.[facility] HospitalIn the event this information is protected by the Federal Confidentiality of Alcohol and Drug Abuse Patient Records regulations: The Federal rules restrict any use of the information to criminally investigate or prosecute any alcohol or drug abuse patient.[facility] HospitalIn the event this information is protected by the Federal Confidentiality of Alcohol and Drug Abuse Patient Records regulations: The Federal rules restrict any use of the information to criminally investigate or prosecute any alcohol or drug abuse patient.[facility] HospitalIn the event this information is protected by the Federal Confidentiality of Alcohol and Drug Abuse Patient Records regulations: The Federal rules restrict any use of the information to criminally investigate or prosecute any alcohol or drug abuse patient.[facility] HospitalIn the event this information is protected by the Federal Confidentiality of Alcohol and Drug Abuse Patient Records regulations: The Federal rules restrict any use of the information to criminally investigate or prosecute any alcohol or drug abuse patient.[facility] HospitalIn the event this information is protected by the Federal Confidentiality of Alcohol and Drug Abuse Patient Records regulations: The Federal rules restrict any use of the information to criminally investigate or prosecute any alcohol or drug abuse patient.[facility] HospitalIn the event this information is protected by the Federal Confidentiality of Alcohol and Drug Abuse Patient Records regulations: The Federal rules restrict any use of the information to criminally investigate or prosecute any alcohol or drug abuse patient.[facility]In the event this information is protected by the Federal Confidentiality of Alcohol and Drug Abuse Patient Records regulations: The Federal rules restrict any use of the information to criminally investigate or prosecute any alcohol or drug abuse patient.[facility] HospitalIn the event this information is protected by the Federal Confidentiality of Alcohol and Drug Abuse Patient Records regulations: The Federal rules restrict any use of the information to criminally investigate or prosecute any alcohol or drug abuse patient.[facility]In the event this information is protected by the Federal Confidentiality of Alcohol and Drug Abuse Patient Records regulations: The Federal rules restrict any use of the information to criminally investigate or prosecute any alcohol or drug abuse patient.[facility] HospitalIn the event this information is protected by the Federal Confidentiality of Alcohol and Drug Abuse Patient Records regulations: The Federal rules restrict any use of the information to criminally investigate or prosecute any alcohol or drug abuse patient.[facility]In the event this information is protected by the Federal Confidentiality of Alcohol and Drug Abuse Patient Records regulations: The Federal rules restrict any use of the information to criminally investigate or prosecute any alcohol or drug abuse patient.[facility]In the event this information is protected by the Federal Confidentiality of Alcohol and Drug Abuse Patient Records regulations: The Federal rules restrict any use of the information to criminally investigate or prosecute any alcohol or drug abuse patient.[facility]In the event this information is protected by the Federal Confidentiality of Alcohol and Drug Abuse Patient Records regulations: The Federal rules restrict any use of the information to criminally investigate or prosecute any alcohol or drug abuse patient.[facility]In the event this information is protected by the Federal Confidentiality of Alcohol and Drug Abuse Patient Records regulations: The Federal rules restrict any use of the information to criminally investigate or prosecute any alcohol or drug abuse patient.[facility]In the event this information is protected by the Federal Confidentiality of Alcohol and Drug Abuse Patient Records regulations: The Federal rules restrict any use of the information to criminally investigate or prosecute any alcohol or drug abuse patient.[facility] HospitalIn the event this information is protected by the Federal Confidentiality of Alcohol and Drug Abuse Patient Records regulations: The Federal rules restrict any use of the information to criminally investigate or prosecute any alcohol or drug abuse patient.[facility] HospitalIn the event this information is protected by the Federal Confidentiality of Alcohol and Drug Abuse Patient Records regulations: The Federal rules restrict any use of the information to criminally investigate or prosecute any alcohol or drug abuse patient.[facility]In the event this information is protected by the Federal Confidentiality of Alcohol and Drug Abuse Patient Records regulations: The Federal rules restrict any use of the information to criminally investigate or prosecute any alcohol or drug abuse patient.[facility]In the event this information is protected by the Federal Confidentiality of Alcohol and Drug Abuse Patient Records regulations: The Federal rules restrict any use of the information to criminally investigate or prosecute any alcohol or drug abuse patient.[facility]In the event this information is protected by the Federal Confidentiality of Alcohol and Drug Abuse Patient Records regulations: The Federal rules restrict any use of the information to criminally investigate or prosecute any alcohol or drug abuse patient.[facility] HospitalIn the event this information is protected by the Federal Confidentiality of Alcohol and Drug Abuse Patient Records regulations: The Federal rules restrict any use of the information to criminally investigate or prosecute any alcohol or drug abuse patient.[facility] HospitalIn the event this information is protected by the Federal Confidentiality of Alcohol and Drug Abuse Patient Records regulations: The Federal rules restrict any use of the information to criminally investigate or prosecute any alcohol or drug abuse patient.[facility] HospitalIn the event this information is protected by the Federal Confidentiality of Alcohol and Drug Abuse Patient Records regulations: The Federal rules restrict any use of the information to criminally investigate or prosecute any alcohol or drug abuse patient.[facility] HospitalIn the event this information is protected by the Federal Confidentiality of Alcohol and Drug Abuse Patient Records regulations: The Federal rules restrict any use of the information to criminally investigate or prosecute any alcohol or drug abuse patient.[facility] HospitalIn the event this information is protected by the Federal Confidentiality of Alcohol and Drug Abuse Patient Records regulations: The Federal rules restrict any use of the information to criminally investigate or prosecute any alcohol or drug abuse patient.[facility] HospitalIn the event this information is protected by the Federal Confidentiality of Alcohol and Drug Abuse Patient Records regulations: The Federal rules restrict any use of the information to criminally investigate or prosecute any alcohol or drug abuse patient.[facility] HospitalIn the event this information is protected by the Federal Confidentiality of Alcohol and Drug Abuse Patient Records regulations: The Federal rules restrict any use of the information to criminally investigate or prosecute any alcohol or drug abuse patient.[facility] HospitalIn the event this information is protected by the Federal Confidentiality of Alcohol and Drug Abuse Patient Records regulations: The Federal rules restrict any use of the information to criminally investigate or prosecute any alcohol or drug abuse patient.[facility] HospitalIn the event this information is protected by the Federal Confidentiality of Alcohol and Drug Abuse Patient Records regulations: The Federal rules restrict any use of the information to criminally investigate or prosecute any alcohol or drug abuse patient.[facility] HospitalIn the event this information is protected by the Federal Confidentiality of Alcohol and Drug Abuse Patient Records regulations: The Federal rules restrict any use of the information to criminally investigate or prosecute any alcohol or drug abuse patient.[facility] HospitalIn the event this information is protected by the Federal Confidentiality of Alcohol and Drug Abuse Patient Records regulations: The Federal rules restrict any use of the information to criminally investigate or prosecute any alcohol or drug abuse patient.[facility] HospitalIn the event this information is protected by the Federal Confidentiality of Alcohol and Drug Abuse Patient Records regulations: The Federal rules restrict any use of the information to criminally investigate or prosecute any alcohol or drug abuse patient.[facility] HospitalIn the event this information is protected by the Federal Confidentiality of Alcohol and Drug Abuse Patient Records regulations: The Federal rules restrict any use of the information to criminally investigate or prosecute any alcohol or drug abuse patient.[facility] Reason for Visit (unrecogniz ed section and content) Reason Comments Triage Internal referral Reason Comments Received Outside Medical Records 04/23/23E xternal medical records and images uploaded.-IN Reason Comments New Patient Specialty Diagnoses / Procedures Referred By Contac t Referred To Contact Neurology Diagnoses Abnormal finding on MRI of brain Procedures CONSULT TO NEUROLOGY OFFICE/OUTPATIENT NEW HIGH MDM 60-74 MINUTES Benjamin Enriquez MD [address] [place] [id number] Referral ID Status Reason Start Date Expiration Date V isits Requested Visits Authorized [id number] Closed PCP Requested Referral 04/20/2023 04/19/2024 1 [...] #1 (500mg) Reason Comments Nurse Visit EKG Reason Onset Date Comments Refill Request 10/04/2023 Reason Comments TIBSOVO CYCLE #3 Pre-Op Teaching Reason Comments Tibsovo cycle #4 Reason Comments Refill Request Reason Comments TIBSOVO CYCLE #5 Reason Comments Established Patient Reason Comments YANICK- 10 weeks Reason Comments TIBSOVO CYCLE #6 Reason Comments Orders Reason Comments Opened In Error Reason Comments Tibsovo cycle #7 Reason Comments TIBSOVO CYCLE #8 Specialty Diagnoses / Procedures Referred By Contac t Referred To Contact MR IMAGING Diagnoses 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) Procedures MRI BRAIN WO/W IVCON MRI BRAIN BRAIN STEM W/O W/CONTRAST MATERIAL Misti Blank MD [address] [place] [address] [place] [id number] Referral ID Status Reason Start Date Expiration Date V isits Requested Visits Authorized [id number] Closed Auto-Generate d Referral 11/26/2023 12/25/2024 1 1 Reason Comments TIBSOVO CYCLE #9 Reason Comments Tibsovo Cycle #10 Reason Comments Follow Up Phone Call All clear Reason Comments Medication Problem Reason Comments Tibsovo Cycle #11 Referral ID Status Reason Start Date Expiration Date V isits Requested Visits Authorized [id number] Closed Auto-Generate d Referral 03/03/2024 04/02/2025 1 1 Reason Comments Tibsovo Cycle #12 Reason Comments Tibsovo Cycle #13 Reason Comments Tibsovo Cycle #14 Referral ID Status Reason Start Date Expiration Date V isits Requested Visits Authorized [id number] Closed Auto-Generate d Referral 05/29/2024 06/28/2025 1 1 Reason Comments Tibsovo Cycle #15 Reason Comments YANICK- 11 weeks Reason Comments Tibsovo Cycle #16 Reason Comments 6 weeks Reason Comments Tibsovo Cycle #17 Reason Comments Tibsovo Cycle #18 Reason Comments Tibsovo Cycle #19 Reason Comments Tibsovo Cycle #20 Reason Comments Tibsovo Cycle 21# Reason Comments Patient Update Event Promotions Coordinator - Other Reason Comments Telemedicine Reason Comments Tibsovo Cycle #22 Reason Comments CYCLE #23 Tibsovo Reason Comments Tibsovo Cycle #24 INFORMATION SOURCE (unrecogn ized section and content) DATE CREATED AUTHOR 03/15/2025 [facility] DATE CREATED AUTHOR AUTHOR'S ORGANIZ ATION 06/14/2025 [facility] DATE CREATED AUTHOR AUTHOR'S ORGANIZ ATION 06/29/2025 [facility] FOR RECORDS PERTAINING TO PATIENTS WHO ARE [...] BE BASED ON THE PRIMARY CLINICAL RECORDS. [facility]. provides no warranty or guarantee of the accuracy or completeness of information in this document.
[2025-08-07 03:53] VITALS: BP 160/78; PULSE 80; RESP 18; TEMP 36.6; O2SAT 98
== END 2025-08-07 03:54 | disposition home or self-care (01) ==
PROVIDERS: Emergency Provider Emergency Medicine; PCP Family Medicine; Visit Provider Emergency Medicine
DX: S80.212A Abrasion, left knee, initial encounter (principal); I10 Essential (primary) hypertension; Z87.891 Personal history of nicotine dependence; K21.9 Gastro-esophageal reflux disease without esophagitis; Z79.899 Other long term (current) drug therapy; W10.8XXA Fall (on) (from) other stairs and steps, initial encounter; Z90.49 Acquired absence of other specified parts of digestive tract; Z90.710 Acquired absence of both cervix and uterus; S93.602A Unspecified sprain of left foot, initial encounter
CPT/HCPCS: 73630; 99283

== ENCOUNTER → 2025-08-13 | Outpatient (CLI) | payer MEDICARE, OTHER, SELFPAY ==
[2025-08-13 15:54] LABS: Anion Gap 11 (7-18); BUN 16 mg/dL (4-19); BUN/Creat Ratio 19.4 RATIO (10-20); Calcium,Total 9.5 mg/dL (7.6-11.0); Carbon Dioxide 22.9 mmol/L (20.0-29.0); Chloride 103 mmol/L (96-106); Glucose 100 mg/dL (70-99); Potassium 4.5 mmol/L (3.5-5.1); Vitamin D,25 Hydroxy 56.6 ng/mL (30-100)
== END | disposition home or self-care (01) ==
LOC: MFPLAB 11:45
PROVIDERS: PCP Family Medicine; Visit Provider Family Medicine
DX: Z00.00 Encounter for general adult medical examination without abnormal findings (principal); E55.9 Vitamin D deficiency, unspecified; I10 Essential (primary) hypertension
CPT/HCPCS: 36415; 80048; 82306; 84443